=== PATIENT | female | born 1970 | race Caucasian/White ===

== ENCOUNTER → 2018-06-19 15:22 | Outpatient (REF) | payer MEDICAID, SELFPAY ==
[2018-06-22 15:17] LABS: Chlamydia Result Negative; GC Result Negative
== END ==
LOC: LBN 15:22
PROVIDERS: PCP Nurse Practitioner Family; Visit Provider Nurse Practitioner Family
DX: Z11.3 Encounter for screening for infections with a predominantly sexual mode of transmission (principal)
CPT/HCPCS: 87491; 87591

== ENCOUNTER 2018-07-17 15:38 | Outpatient (REF) | payer MEDICAID, SELFPAY ==
--- NOTE | 2018-07-17 15:20 | ENDOMET_PTH ---
PATIENT: Angeline Barnes LOC: [facility] U#:[id number] AGE/SX: 48/F ROOM: RE07/17/[address]: Irwin Singletary MD : 1970 BED: DIS: 07/17/2018 SPEC #: [id number] RECD: 07/17/18 16:26 STATUS: PHANI REJuan Daniel #: [id number] JAYLA: 07/17/18 15:[address]: Irwin Singletary DEPT: Surgical Specimen RECD BY: Farida Navarrete ENTERED: 07/17/18 16:27 SP TYPE: Endomet OTHR DR: India Escobar Tissues: 1 - ENDOMETRIUM BX/CURRETTE Procedures: GROSS AND MICRO LEVEL 4 Comments: [id number]
== END 2018-07-17 15:58 ==
LOC: LBN 15:38
PROVIDERS: PCP Nurse Practitioner Family; Visit Provider Obstetrics & Gynecology
DX: N85.8 Other specified noninflammatory disorders of uterus (principal); N92.0 Excessive and frequent menstruation with regular cycle
CPT/HCPCS: 88305

== ENCOUNTER 2018-08-05 07:36 | Day surgery (SDC) | payer MEDICAID, SELFPAY ==
[2018-08-05 07:56] VITALS: BP 133/86; PULSE 61; RESP 16; TEMP 36.9; O2SAT 98
[2018-08-05] MEDS: Lactated Ringers 1,000 ML 125 ML IV ×2 (08:30→12:00)
[2018-08-05] MEDS: Lidocaine 1% Pres-Free 5 ML VIAL 10 ML (10:37)
--- NOTE | 2018-08-05 10:40 | ENDOMET_PTH ---
PATIENT: Angeline Barnes LOC: [facility] U#:[id number] AGE/SX: 48/F ROOM: RE08/05/[address]: Irwin Singletary MD : 1970 BED: DIS: 08/05/2018 SPEC #: [id number] RECD: 08/05/18 13:00 STATUS: PHANI REJuan Daniel #: [id number] JAYLA: 08/05/18 10:[address]: Irwin Singletary DEPT: Surgical Specimen RECD BY: Farida Navarrete ENTERED: 08/05/18 13:01 SP TYPE: Endomet OTHR DR: India Escobar Tissues: 1 - ENDOMETRIUM BX/CURRETTE Procedures: GROSS AND MICRO LEVEL 4 Comments: [id number]
--- NOTE | 2018-08-05 11:52 | PDOC.DSDIS_ITS ---
Discharge Plan Disposition Patient Disposition: HOME Condition: Good Discharge Details Attending Provider: Irwin Singletary Primary Care Provider: India Escobar Home Meds and New Rx's Prescriptions: New hydrocodone-acetaminophen 5-325 mg Tablet 1 tab PO Q6H PRNQty: 15 RF: 0 Continue medroxyprogesterone [Provera] 10 MG tablet 10 mg PO DAILY Qty: 7 RF: 0 lisdexamfetamine [Vyvanse] 40 MG capsule 40 mg PO DAILY Qty: 30 RF: 0 acetaminophen 500 mg Tablet 500 - 1,000 mg PO PRN PRNRF: 0 Discontinued tranexamic acid 650 mg tablet 650 mg PO BID Qty: 10 RF: 0 Discharge Instructions Additional Instructions: Return to care for heavy vaginal bleeding, fever, abdominal pain or abnormal vaginal discharge. Referrals: Irwin Singletary MD [ NON-[facility] STAFF PHYSICIAN] - (2-3 weeks. ) DS: Diagnosis Discharge Diagnosis (1) Menometrorrhagia: Status: Acute
[2018-08-05 11:53] VITALS: BP 127/86; PULSE 68; RESP 17; TEMP 36.2; O2SAT 100
[2018-08-05 11:58] VITALS: BP 137/85; PULSE 67; RESP 20; TEMP 36.2; O2SAT 100
[2018-08-05 12:03] VITALS: BP 137/85; PULSE 67; RESP 20; TEMP 36.2; O2SAT 98
--- NOTE | 2018-08-05 12:09 | ROE_ITS ---
Operative Note DATE OF PROCEDURE: 08/05/18 PRE-OP DIAGNOSIS: Menometrorrhagia POST-OP DIAGNOSIS: same PROCEDURE: Hysteroscopy, D&C. Attempted Novasure endometrial ablation. Attempted HTA ablation SURGEON: Irwin Singletary EPIDEMIOLOGY INTERN: Indira Lopez ANESTHESIA: MAC ESTIMATED BLOOD LOSS: 50 PATHOLOGY: other (Endometrial curettings ) Findings: 1. Enlarge uterus with open cervix sounded to 12 cm 2. Cystocele and large enterocele present. 3. Hysteroscopic exam showed a thickened appearing endometrium. No distinct polyps, or submucosal fibroids noted. 4. Failed cavity test on attempted Novasure prohibiting procedure 5. Failed cavity test on attempted HTA prohibiting procedure. Procedure Description: The patient was taken to the operating room and initially placed under MAC but converted to LMA. The patient was placed in lithotomy position and prepped in the usual sterile manner. A weighted speculum was placed in the vagina with good visualization of the cervix. A single toothed tenaculum was placed on the anterior lip of the cervix which was noted to be dilated at least 1cm with protruding blood and clots. The 5mm 0 degree hysterscope was advanced without difficulty. The enometrial cavity was well visualized and noted to have a thickened appearing endometrium. A sharp curettage was performed and specimens were submitted to pathology. The uterus was sounded and a cavity lengthy of 7 cm was noted. The Novasure was advanced through the cervix without difficulty and cavity width was assessed at 4.6 cm. Upon test of the cavity, a seal could not be achieved and a system fault occurred and recurred upon reset of the system. A second single tooth tenaculum was placed on the posterior lip of the cervix in order to help develop a seal but the system fault recurred and the Novasure was abandoned. Dr. Indira Lopez was called to assist with the procedure and to attempt HTA. Again on multiple attempts an adequate seal could not be achieved due to cervical dilatation and this procedure was abandoned as well. The procedure was concluded at this point. All instrumentation was removed and the patient was transferred to PACU in stable condition.
[2018-08-05 12:18] VITALS: BP 132/89; PULSE 67; RESP 19; TEMP 36.2; O2SAT 98
[2018-08-05 13:05] VITALS: BP 135/86; PULSE 58; RESP 16; TEMP 36.9; O2SAT 98
== END 2018-08-05 15:04 | disposition home or self-care (01) ==
PROVIDERS: PCP Nurse Practitioner Family; Visit Provider Obstetrics & Gynecology
PROC: 0UDB8ZZ Extraction of Endometrium, Via Natural or Artificial Opening Endoscopic (ICD-10-PCS; CPT 58558; principal; 2018-08-05 09:00)
DX: N92.1 Excessive and frequent menstruation with irregular cycle (principal); N81.10 Cystocele, unspecified; N81.5 Vaginal enterocele; N85.2 Hypertrophy of uterus
CPT/HCPCS: 58558; 88305; J1100; J1885; J2250; J2405

== ENCOUNTER 2018-08-06 20:36 | Emergency (ER) | payer MEDICAID, SELFPAY ==
[2018-08-06] VITALS (18 sets, daily range): BP systolic 118–156; BP diastolic 65–102; PULSE 55–78; RESP 13–26; TEMP 36.8; O2SAT 99–100
[2018-08-06] MEDS: Normal Saline Flush 10 ML SYR IVP (20:56)
[2018-08-06] MEDS: Normal Saline 1,000 ML 1000 ML IV (20:56)
[2018-08-06 21:06] LABS: Abs Immature Grans 0.03 k/cumm (0.0-0.09); Absolute Basophil Count 0.04 k/cumm (0.0-0.2); Absolute Eosinophil Count 0.13 k/cumm (0.0-0.7); Absolute Lymphocyte Count 3.91 k/cumm (1.2-3.4); Absolute Monocyte Count 0.56 k/cumm (0.11-0.7); Absolute Neutrophil Count 6.44 k/cumm (1.2-6.7); Basophils % 0.4; Eosinophils % 1.2; HCT 32.8 % (36.0-46.0); HGB 10.7 g/dL (12.0-15.5); Immature Grans % 0.3; Lymphocytes % 35.2; Mean Corp. HGB Concentration 32.6 g/dL (32.0-36.0); Mean Corpuscular Hemoglobin 28.7 pg (27.0-33.0); Mean Corpuscular Volume 87.9 fL (80-95); Mean Platelet Volume 9.7 fL (8.0-11.0); Neutrophils % 57.9; Platelet Count 316 x1000/uL (130-400); RBC 3.73 m/cumm (4.00-5.20); RBC Distribution Width 13.6 % (11.7-14.6); White Blood Cell Count 11.12 k/cumm (4.4-10.8)
[2018-08-06 21:18] LABS: ALT 25 U/L (12-78); AST 16 U/L (15-37); Albumin 3.3 g/dL (3.4-5.0); Alkaline Phosphatase 63 U/L (46-116); Anion Gap 8.2 mmol/L (3-11); BUN 18 mg/dL (7-18); Bilirubin, Total 0.2 mg/dL (0.2-1.0); CO2 26.8 mmol/L (21.0-32.0); CREATININE 0.97 mg/dL (0.55-1.02); Calcium 8.2 mg/dL (8.5-10.1); Chloride 107 mmol/L (98-107); Glucose 96 mg/dL (70-100); Sodium 142 mmol/L (136-145)
[2018-08-06] MEDS: Ketorolac 30 MG/ML VIAL IVP (21:38)
[2018-08-06] MEDS: Ondansetron 4 MG/2 ML VIAL IVP (21:39)
[2018-08-06] MEDS: Tranexamic Acid 650 MG TAB 1300 MG PO (22:23)
--- NOTE | 2018-08-06 23:18 | W.ED.GENAD ---
Discharge Plan Disposition Patient Disposition: HOME Condition: Good Discharge Details Chief Complaint: HOMOEOPATH Clinical Impression: Menometrorrhagia Primary Care Provider: India Escobar ED Provider: Hi Hanson Home Meds and New Rx's Prescriptions: New ibuprofen [Motrin IB] 200 MG tablet 600 mg PO Q6H 5 Days Qty: 60 RF: 0 tranexamic acid 650 mg tablet 1,300 mg PO TID 5 Days Qty: 30 RF: 0 Discharge Instructions Instructions: Dysfunctional Uterine Bleeding (ED) Additional Instructions: Please take the ibuprofen and TXA as directed. Please follow-up with your obstetrics suture gauger tomorrow morning. Please drink 8-10 cups of water per day. If you notice any worsening of your symptoms, or any new symptoms such as vomiting, diarrhea, fever, chills, shortness of breath, chest pain, numbness, weakness, or fainting , please return immediately to the emergency department for reevaluation. Please follow up with your primary care provider as soon as possible for reassessment and reevaluation. As always, it was a pleasure participating in your medical care today. Referrals: Indira Lopez [ [facility] STAFF PHYSICIAN] - Medical Decision Making This is a 48-year-old female who presents today for vaginal bleeding. She has a history of dysmenorrhagia, and had an incomplete ablation yesterday, followed by D&C yesterday. Since then she has had continued vaginal bleeding. She has gone through roughly 8 pads per day. She did feel slightly lightheaded today, and came in for further evaluation. Here in the emergency department the patient showed no signs of significant pallor. Pulse was normal, no signs of tachycardia or hypotension. No signs of pale conjunctiva. She did have some vaginal bleeding but it was very mild. Laboratory workup demonstrates a slight drop in her hemoglobin from her normal levels. Current hemoglobin is 10.7 and normally she is around 12-13. She was given a liter of fluid, after this she felt much better. I did contact the obstetrics suture gauger reduction furnace operator Dr. Sharp, who was familiar with the patient's case. She recommends close follow-up tomorrow morning in the office, tranexamic acid, and NSAIDs. She recommended potential hysterectomy as this was already part of the plan as discussed with the other obstetrics suture gauger. I do feel that this is appropriate. On reevaluation the patient is feeling much better, she is able to stand without getting syncopal. We have given her Toradol and TXA here, and a prescription for high-dose ibuprofen and TXA for home use. We discussed red flags which to return and the importance of close follow-up and the patient understands. I have extensively reviewed the treatment plan and discharge instructions with the patient. I have addressed all patient concerns at this time. The patient was made aware of what symptoms to monitor for that would warrant a return to the emergency department. Discussed the plan with the patient, they demonstrate verbal understanding and agreement with our assessment and plan at this time. HPI General Date/Time Provider Initiated Documentation: 08/06/18 21:49. HPI Narrative: This is a very pleasant 48-year-old female who presents today for evaluation of dysmenorrhagia/vaginal bleeding. The patient has a history of dysfunctional uterine bleeding, yesterday she went to have a ablation, however they were unable to get a proper seal for her cervix since it was too dilated. And this failed. They tried a hot water ablation after this and this also failed secondary to improper seal. A D&C was attempted, the patient was eventually discharged. The procedure was performed by Dr. Singletary and Dr. Lopez the patient states that this since then she has had mild intermittent cramping, but relatively continuous vaginal bleeding. She is only gone through 8 pads so far today. She denies any huge clots. Any large gushes of blood. She states that today she did get slightly lightheaded, felt like she might pass out but had no syncopal episode. She came today for further evaluation of her vaginal bleeding. She denies any severe abdominal pain, she denies any vomiting or diarrhea. She denies any other recent pertinent surgical history. She denies any pertinent family history. She denies any IV or illicit drug use. She has no other complaints at this time. Of note in the past she has used tranexamic acid prior to this procedure for potential hemostasis but not help then. she has not used exogenous estrogen for treatment yet per her recollection Related Data Home Medications Medication Instructions Recorded Confirmed ibuprofen [Motrin Ib] 600 mg PO Q6H 5 Days #60 tab 08/06/18 tranexamic acid 1,300 mg PO TID 5 Days #30 tab 09/27/18 Previous Rx's Medication Instructions Recorded ibuprofen [Motrin Ib] 600 mg PO Q6H 5 Days #60 tab 08/06/18 tranexamic acid 1,300 mg PO TID 5 Days #30 tab 08/06/18 Allergies Allergy/AdvReac Type Severity Reaction Status Date / Time No Known Drug Allergies Allergy Unverified 08/06/18 20:43 General Stated Complaint: HOMOEOPATH ANISH: 2 Review of Systems Review of Systems 10 point review of systems was performed, pertinent positives and negatives are noted in the history of present illness. PFSH Family History Mother Chronic obstructive lung disease Father Diabetes Heart disease Medical History Menometrorrhagia (Acute) Dysplasia of cervix, low grade (SOCORRO 1) (Acute) HSV (herpes simplex virus) infection (Acute) Depression (Chronic) Obesity (Chronic) Biliary colic GALLSTONES Social History number of children: 4 Smoking/Tobacco Use Status: Current every day alcohol intake: current Surgical History H/O LEEP (Acute) Cholecystectomy GASTRIC BAND REMOVAL (~2006) GASTRIC BANDING Tubal Ligation, Laparoscopic Exam Narrative Exam Narrative: 1.Const: Well-nourished, Well-developed, appearing stated age 2.Eyes: PERRL, no conjunctival injection, and symmetrical lids. 3.ENT: Atraumatic external nose and ears. Moist MM. Neck: Symmetric, trachea midline, No thyromegaly. 4.CVS: +S1/S2, No murmurs or gallops. Peripheral pulses 2+ and equal in all extremities. Brisk capillary refill in all extremities. 5.RESP: Unlabored respiratory effort. Clear to auscultation bilaterally. No wheezes rales or rhonchi 6.GI: Soft, Nontender/Nondistended, No hepatosplenomegaly. No guarding or rebound. No pain on palpation of the pelvis. No pelvic tenderness. No gross vaginal. 7.MSK: Normocephalic/Atraumatic, Extremities w/o deformity or ttp No cyanosis or clubbing, Normal movement of all extremities 8.Skin: Warm, Dry. No rashes or lesions. No significant pallor 9.Neuro: facilities operations technician II-XII grossly intact. Sensation grossly intact, no focal neurologic deficits. 10.Psych: (AAO) x3. Appropriate mood and affect Course Vital Signs Temperature 36.8 C 08/06/18 20:41 Pulse 71 08/06/18 20:41 Respiratory Rate 14 09/27/18 20:41 Blood Pressure 156/102 H 08/06/18 20:41 Pulse Oximetry 100 08/06/18 20:41 Temperature 36.8 C 08/06/18 22:24 Pulse 56 L 08/06/18 22:24 Pulse 70 08/06/18 22:10 Respiratory Rate 15 08/06/18 22:24 Respiratory Effort 08/06/18 20:45 Blood Pressure 118/80 08/06/18 22:24 Blood Pressure Mean 89 08/06/18 22:16 Blood Pressure Position Supine 08/06/18 20:41 Pulse Oximetry 100 08/06/18 22:24 Oxygen Delivery Method Room Air 08/06/18 20:41 Oxygen Flow Rate 0 08/06/18 20:41 Pain Level 0 08/06/18 22:24 Lab/Test Results Lab/Test Results: Laboratory Tests Range/Units 08/06/18 08/06/18 08/06/18 20:45 20:45 20:45 WBC (4.4-10.8) k/cumm 11.12 H RBC (4.00-5.20) m/cumm 3.73 L Hgb (12.0-15.5) g/dL 10.7 L Hct (36.0-46.0) % 32.8 L MCV (80-95) fL 87.9 MCH (27.0-33.0) pg 28.7 MCHC (32.0-36.0) g/dL 32.6 RDW (11.7-14.6) % 13.6 Plt Count (130-400) x1000/uL 316 MPV (8.0-11.0) fL 9.7 Immature Gran % 0.3 Neutrophils % 57.9 Lymphocytes % 35.2 Monocytes % 5.0 Eosinophils % 1.2 Basophils % 0.4 Absolute Neutrophils (1.2-6.7) k/cumm 6.44 Absolute Lymphocytes (1.2-3.4) k/cumm 3.91 H Absolute Monocytes (0.11-0.7) k/cumm 0.56 Absolute Eosinophils (0.0-0.7) k/cumm 0.13 Absolute Basophils (0.0-0.2) k/cumm 0.04 Sodium (136-145) mmol/L 142 Potassium (3.5-5.1) mmol/L 4.0 Chloride (98-107) mmol/L 107 Carbon Dioxide (21.0-32.0) mmol/L 26.8 Anion Gap (3-11) mmol/L 8.2 BUN (7-18) mg/dL 18 Creatinine (0.55-1.02) mg/dL 0.97 Estimated GFR/1.73 m2 (mL/min/1.73m2) >= 60.00 Glucose (70-100) mg/dL 96 Calcium (8.5-10.1) mg/dL 8.2 L Total Bilirubin (0.2-1.0) mg/dL 0.2 AST (15-37) U/L 16 ALT (12-78) U/L 25 Alkaline Phosphatase (46-116) U/L 63 Total Protein (6.4-8.2) g/dL 7.0 Albumin (3.4-5.0) g/dL 3.3 L Patient ABO/Rh B Positive Antibody Screen Negative
--- NOTE | 2018-08-06 23:24 | ED.GENADUL_ITS ---
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 Please follow-up with your obstetrics gate operator tomorrow morning. Please drink 8-10 cups of water per day. If you notice any worsening of your symptoms, or any new symptoms such as vomiting, diarrhea, fever, chills, shortness of breath, chest pain, numbness, weakness, or fainting , please return immediately to the emergency department for reevaluation. Please follow up with your primary care provider as soon as possible for reassessment and reevaluation. As always, it was a pleasure participating in your medical care today. Referrals: Indira Lopez [ [facility] STAFF PHYSICIAN] - Medical Decision Making This is a 48-year-old female who presents today for vaginal bleeding. She has a history of dysmenorrhagia, and had an incomplete ablation yesterday , followed by D&C yesterday. Since then she has had continued vaginal bleeding. She has gone through roughly 8 pads per day. She did feel slightly lightheaded today, and came in for further evaluation. Here in the emergency department the patient showed no signs of significant pallor. Pulse was normal , no signs of tachycardia or hypotension. No signs of pale conjunctiva. She did have some vaginal bleeding but it was very mild. Laboratory workup demonstrates a slight drop in her hemoglobin from her normal levels. Current hemoglobin is 10.7 and normally she is around 12-13. She was given a liter of fluid, after this she felt much better. I did contact the obstetrics gate operator social organization professor Dr. Sharp, who was familiar with the patient's case. She recommends close follow-up tomorrow morning in the office, tranexamic acid, and NSAIDs. She recommended potential hysterectomy as this was already part of the plan as discussed with the other obstetrics gate operator. I do feel that this is appropriate. On reevaluation the patient is feeling much better, she is able to stand without getting syncopal. We have given her Toradol and TXA here, and a prescription for high-dose ibuprofen and TXA for home use. We discussed red flags which to return and the importance of close follow-up and the patient understands. I have extensively reviewed the treatment plan and discharge instructions with the patient. I have addressed all patient concerns at this time. The patient was made aware of what symptoms to monitor for that would warrant a return to the emergency department. Discussed the plan with the patient, they demonstrate verbal understanding and agreement with our assessment and plan at this time. HPI General Date/Time Provider Initiated Documentation: 08/06/18 21:49 . HPI Narrative: This is a very pleasant 48-year-old female who presents today for evaluation of dysmenorrhagia/vaginal bleeding. The patient has a history of dysfunctional uterine bleeding, yesterday she went to have a ablation, however they were unable to get a proper seal for her cervix since it was too dilated. And this failed. They tried a hot water ablation after this and this also failed secondary to improper seal. A D&C was attempted, the patient was eventually discharged. The procedure was performed by Dr. Singletary and Dr. Lopez the patient states that this since then she has had mild intermittent cramping, but relatively continuous vaginal bleeding. She is only gone through 8 pads so far today. She denies any huge clots. Any large gushes of blood. She states that today she did get slightly lightheaded, felt like she might pass out but had no syncopal episode. She came today for further evaluation of her vaginal bleeding. She denies any severe abdominal pain, she denies any vomiting or diarrhea. She denies any other recent pertinent surgical history. She denies any pertinent family history. She denies any IV or illicit drug use. She has no other complaints at this time. Of note in the past she has used tranexamic acid prior to this procedure for potential hemostasis but not help then. 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 PFSH Family History Mother Chronic obstructive lung disease Father Diabetes Heart disease Medical History Menometrorrhagia (Acute) Dysplasia of cervix, low grade (SOCORRO 1) (Acute) HSV (herpes simplex virus) infection (Acute) Depression (Chronic) Obesity (Chronic) Biliary colic GALLSTONES Social History number of children: 4 Smoking/Tobacco Use Status: Current every day alcohol intake: current Surgical History H/O LEEP (Acute) Cholecystectomy GASTRIC BAND REMOVAL (~2006) GASTRIC BANDING Tubal Ligation, Laparoscopic Exam Narrative Exam Narrative: 1.Const: Well-nourished, Well-developed, appearing stated age 2.Eyes: PERRL, no conjunctival injection, and symmetrical lids. 3.ENT: Atraumatic external nose and ears. Moist MM. Neck: Symmetric, trachea midline, No thyromegaly. 4.CVS: +S1/S2, No murmurs or gallops. Peripheral pulses 2+ and equal in all extremities. Brisk capillary refill in all extremities. 5.RESP: Unlabored respiratory effort. Clear to auscultation bilaterally. No wheezes rales or rhonchi 6.GI: Soft, Nontender/Nondistended, No hepatosplenomegaly. No guarding or rebound. No pain on palpation of the pelvis. No pelvic tenderness. No gross vaginal. 7.MSK: Normocephalic/Atraumatic, Extremities w/o deformity or ttp No cyanosis or clubbing, Normal movement of all extremities 8.Skin: Warm, Dry. No rashes or lesions. No significant pallor 9.Neuro: steam service inspector II-XII grossly intact. Sensation grossly intact, no focal neurologic deficits. 10.Psych: (AAO) x3. Appropriate mood and affect Course Vital Signs Temperature 36.8 C 08/06/18 20:41 Pulse 71 08/06/18 20:41 Respiratory Rate 14 09/27/18 20:41 Blood Pressure 156/102 H 08/06/18 20:41 Pulse Oximetry 100 08/06/18 20:41 Temperature 36.8 C 08/06/18 22:24 Pulse 56 L 08/06/18 22:24 Pulse 70 08/06/18 22:10 Respiratory Rate 15 08/06/18 22:24 Respiratory Effort 08/06/18 20:45 Blood Pressure 118/80 08/06/18 22:24 Blood Pressure Mean 89 08/06/18 22:16 Blood Pressure Position Supine 08/06/18 20:41 Pulse Oximetry 100 08/06/18 22:24 Oxygen Delivery Method Room Air 08/06/18 20:41 Oxygen Flow Rate 0 08/06/18 20:41 Pain Level 0 08/06/18 22:24 Lab/Test Results Lab/Test Results: Laboratory Tests Range/Units 08/06/18 08/06/18 08/06/18 20:45 20:45 20:45 WBC (4.4-10.8) k/cumm 11.12 H RBC (4.00-5.20) m/cumm 3.73 L Hgb (12.0-15.5) g/dL 10.7 L Hct (36.0-46.0) % 32.8 L MCV (80-95) fL 87.9 MCH (27.0-33.0) pg 28.7 MCHC (32.0-36.0) g/dL 32.6 RDW (11.7-14.6) % 13.6 Plt Count (130-400) x1000/uL 316 MPV (8.0-11.0) fL 9.7 Immature Gran % 0.3 Neutrophils % 57.9 Lymphocytes % 35.2 Monocytes % 5.0 Eosinophils % 1.2 Basophils % 0.4 Absolute Neutrophils (1.2-6.7) k/cumm 6.44 Absolute Lymphocytes (1.2-3.4) k/cumm 3.91 H Absolute Monocytes (0.11-0.7) k/cumm 0.56 Absolute Eosinophils (0.0-0.7) k/cumm 0.13 Absolute Basophils (0.0-0.2) k/cumm 0.04 Sodium (136-145) mmol/L 142 Potassium (3.5-5.1) mmol/L 4.0 Chloride (98-107) mmol/L 107 Carbon Dioxide (21.0-32.0) mmol/L 26.8 Anion Gap (3-11) mmol/L 8.2 BUN (7-18) mg/dL 18 Creatinine (0.55-1.02) mg/dL 0.97 Estimated GFR/1.73 m2 (mL/min/1.73m2) >= 60.00 Glucose (70-100) mg/dL 96 Calcium (8.5-10.1) mg/dL 8.2 L Total Bilirubin (0.2-1.0) mg/dL 0.2 AST (15-37) U/L 16 ALT (12-78) U/L 25 Alkaline Phosphatase (46-116) U/L 63 Total Protein (6.4-8.2) g/dL 7.0 Albumin (3.4-5.0) g/dL 3.3 L Patient ABO/Rh B Positive Antibody Screen Negative
--- NOTE | 2018-08-07 09:12 | PDOC.ERCMPRO ---
Care Management Progress Note 08/07/18-Pt seen on 08/06/18 for post op vaginal bleeding by Dr. Jareth Hanson. F/U request for today sent to [facility].
--- NOTE | 2018-08-07 12:27 | W.ED.FU ---
Angeline tried to get the Tranexamic Acid filled at [facility] today but they had none in stock and would not get any in until Friday. Our, [facility], pharmacy had six tabs in stock. Thank you Chase. [facility], [facility], [facility], and [facility] pharmacies and they had none in stock. I discussed with Dr. Sharp. Plan is to have Angeline take half dose or 650mg of the Tranexmic acid twice a day until Friday and Dr. Sharp will be cheese production supervisor for Angeline over the weekend. I called and spoke with Sudhir at [facility] and asked him to fill the script for Friday minus six tabs we are providing to her today from our pharmacy. I advised Angeline to page call Dr. Sharp tomorrow to let her know how she is doing.
--- NOTE | 2018-08-07 12:36 | ED.FU.B_ITS ---
Angeline tried to get the Tranexamic Acid filled at [facility] today but they had none in stock and would not get any in until Friday. Our, [facility], pharmacy had six tabs in stock. Thank you Chase. [facility], [facility], [facility] [place], and [facility] pharmacies and they had none in stock. I discussed with Dr. Sharp. Plan is to have Angeline take half dose or 650mg of the Tranexmic acid twice a day until Friday and Dr. Sharp will be airline operations agent for Angeline over the weekend. I called and spoke with Sudhir at [facility] and asked him to fill the script for Friday minus six tabs we are providing to her today from our pharmacy. I advised Angeline to page call Dr. Sharp tomorrow to let her know how she is doing.
== END 2018-08-06 22:30 | disposition home or self-care (01) ==
PROVIDERS: Emergency Provider Student in an Organized Health Care Education/Training Program; PCP Nurse Practitioner Family
DX: N92.1 Excessive and frequent menstruation with irregular cycle (principal); R42 Dizziness and giddiness; Y83.8 Other surgical procedures as the cause of abnormal reaction of the patient, or of later complication, without mention of misadventure at the time of the procedure
CPT/HCPCS: 36415; 80053; 86850; 86900; 86901; 96361; 96374; 96375; 99284; 85025; J1885; J2405

== ENCOUNTER → 2022-06-26 09:01 | Outpatient (CLI) | payer MEDICAID, SELFPAY ==
--- NOTE | 2022-06-26 | DI.US_ITS ---
Exam(s) US PELVIS TRANSVAGINAL EXAM: US PELVIS TRANSVAGINAL CLINICAL HISTORY: HX PELVIC MASS, ABD GROWTH, WORSENING PAIN TECHNIQUE: Ultrasound performed using standard protocol. COMPARISON: US PELVIS TRANSVAG from 03/04/2018 FINDINGS: Pelvic ultrasound was performed transabdominally and transvaginally. The ovaries were nonvisualized. Uterus is enlarged measuring 13.5 x 11.4 x 12.5 cm. There is a uterine mass which obscures the endom etrium measuring up to about 11.3 cm in diameter. This may represent uterine fibroid, prior examinat ion of February 2018 showed an approximately 3 cm in diameter uterine fibroid. The marked interval grow th of the fibroid would be somewhat worrisome for malignant degeneration, alternatively the mass coul d represent an endometrial mass as the endometrium is not clearly visualized. No free fluid in the cul-de-sac. Limited scanning of the kidneys is unremarkable. IMPRESSION: Very large uterine mass with marked interval growth. Fibroid versus malignant degeneration of fibroi d or other mass. Further evaluation with biopsy or pelvic MRI is recommended. DATA REPOSITORY:
--- OUTSIDE RECORDS SUMMARY | 2022-06-26 09:14 | XMS_ITS | Encounter Summary ---
:1970 Author Organization [facility] [place] [address] Care Team Providers Name Role Phone India Escobar ANTOINETTE Primary Care Provider Encounter Details Date Type Department Care Team Description 03/17/2018 Telephone General Surgery at [facility] [place] [address] Social History Tobacco Use Types Packs/Day Years Used Date Never Smoker Smokeless Tobacco: Never Used Alcohol Use Standard Drinks/Week Comments Yes 0 (1 standard drink = 0.6 oz pure alcoho l) Sex Assigned at Date Recorded Not on file documented as of this encounter Miscellaneous Notes Telephone Encounter - Sara Servin - 03/17/2018 9:06 AM EDT Spoke on the phone with Angeline to explain the outcome of her [id number] last night. [place] Medicaid has denied her bariatric surgery on 03/27/18 and will want the following before reconsideration: 1. Three consecutive months of dietary counseling with documentation of exercise 2. A follow up visit with Dr. Thompson in 3 months to assess binge eating and previous vivace use The patient understands that we will be canceling her surgery on 03/27/18 and she is going to look into her options. Angeline thinks that her insurance may change in the next three months, so she is going to see if she can get health insurance through her employer sooner rather than later. I encouraged Angeline to give us a call when she knows more documented in this encounter Plan of Treatment Not on filedocumented as of this encounter Visit Diagnoses Not on filedocumented in this encounter Care Teams Sheet Metal Erector Relationship Specialty Start Date End Date India Escobar, BAKER BENCH PCP - General Family Medicine 10/06/17 [address] [place] [address] documented as of this encounter
--- OUTSIDE RECORDS SUMMARY | 2022-06-26 09:14 | XMS_ITS | Encounter Summary ---
:1970 Author Organization [facility] [place] [address] Care Team Providers Name Role Phone India Escobar APRN Primary Care Provider Encounter Details Date Type Department Care Team Description 02/10/2018 Telephone General Surgery at [facility] [place] [address] Social History Tobacco Use Types Packs/Day Years Used Date Never Smoker Smokeless Tobacco: Never Used Alcohol Use Standard Drinks/Week Comments Yes 0 (1 standard drink = 0.6 oz pure alcoho l) Sex Assigned at Date Recorded Not on file documented as of this encounter Miscellaneous Notes Telephone Encounter - Sara Servin - 02/10/2018 9:24 AM EDT LMOM for Ms. Barnes to return her call. I asked her to give me a call back to check in. documented in this encounter Plan of Treatment Not on filedocumented as of this encounter Visit Diagnoses Not on filedocumented in this encounter Care Teams Machine Icer Relationship Specialty Start Date End Date India Escobar, ANTOINETTE PCP - General Family Medicine 10/06/17 [address] [place] [address] documented as of this encounter
--- OUTSIDE RECORDS SUMMARY | 2022-06-26 09:14 | XMS_ITS | Encounter Summary ---
:1970 Author Organization [facility] [place] [address] Care Team Providers Name Role Phone India Escobar APRN Primary Care Provider Reason for Visit Reason Comments Advice Only chin lift consult Encounter Details Date Type Department Care Team Description 12/22/2017 Office Visit [place] Surgery at [facility] [place] [facility] [place], unspecified [facility] [address] [place], [place] PLASTIC SURGERY [address] [place] [address] [phone] Social History Tobacco Use Types Packs/Day Years Used Date Never Smoker Smokeless Tobacco: Never Used Alcohol Use Standard Drinks/Week Comments Yes 0 (1 standard drink = 0.6 oz pure alcoho l) Sex Assigned at Date Recorded Not on file documented as of this encounter Last Filed Vital Signs Vital Sign Reading Time Taken Comments Blood Pressure - - Pulse - - Temperature - - Respiratory Rate - - Oxygen Saturation - - Inhaled Oxygen Concentration - - Weight 122 kg (269 lb) 12/22/2017 2:49 PM EST per pt Height 172.7 cm (5' 8) 12/22/2017 2:49 PM EST per pt Body Mass Index 40.9 12/22/2017 2:49 PM EST documented in this encounter Progress Notes Aubrey Noble MD - 12/22/2017 2:30 PM EST Plastic Surgery Office Note Office Visit Follow Up HPI: Angeline Barnes returns to clinic today to re-discuss having a chin lift/face lift. She reports that he has lost a lot of weight and would like to have the excess skin removed from her chin. She currently weighs 260 pounds. She reports that she does not have blood pressure, she is not a smoker or a diabetic. She will continue to loose additional weight in hopes of proceeding with a face lift. Exam: Good facial symmetry Normal sensation in face Impression: Angeline See Molly returns today to discuss proceeding with a face lift and liposuction. Encouraged patient to continue to loose more weight to lower her BMI. She would be a good candidatefor a face lift and liposuction. Revisit surgical intervention at a later date. Plan: Follow up with Dr. Noble in 3 months to discuss face lift and liposuction once BMI is lower Continue to loose weight I, Angeline Leblanc, am acting as scribe for Dr. Noble. All work documented was performed by Dr. Noble. ???I performed the above scribed service and agree with the accuracy of the note?? AUBREY NOBLE MD documented in this encounter Plan of Treatment Not on filedocumented as of this encounter Visit Diagnoses Diagnosis Carpal tunnel syndrome, unspecified late rality documented in this encounter Care Teams Vp Data Relationship Specialty Start Date End Date India Escobar APRN PCP - General Family Medicine 10/06/17 [address] [place] [address] documented as of this encounter
--- OUTSIDE RECORDS SUMMARY | 2022-06-26 09:14 | XMS_ITS | Encounter Summary ---
:1970 Author Organization [facility] [place] [address] Care Team Providers Name Role Phone India Escobar ANTOINETTE Primary Care Provider Reason for Visit Reason Onset Date Comments Other 01/05/2018 Encounter Details Date Type Department Care Team Description 01/05/2018 Telephone General Surgery at [facility] Nadine Marte APRN Other [facility] [place] [address] GENERAL SURGERY [phone] [place], [place] [address] (Wo rk) Social History Tobacco Use Types Packs/Day Years Used Date Never Smoker Smokeless Tobacco: Never Used Alcohol Use Standard Drinks/Week Comments Yes 0 (1 standard drink = 0.6 oz pure alcoho l) Sex Assigned at Date Recorded Not on file documented as of this encounter Miscellaneous Notes Telephone Encounter - Nadine Marte - 01/05/2018 3:21 PM EST Bariatric Surgery Program Angeline returned my call from 2 weeks ago regarding her sleep apnea questionnaire. She clarified that her current BMI was 40, not 48 as previously documented. 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 Plan: she was advised that she did not need a sleep evaluation. She asked about her next steps in the program, and was advised that one of our staff would contact her to discuss further. documented in this encounter Plan of Treatment Not on filedocumented as of this encounter Visit Diagnoses Not on filedocumented in this encounter Care Teams Comfort Filler Relationship Specialty Start Date End Date India Escobar, SHELLFISH SORTER PCP - General Family Medicine 10/06/17 [address] [place] [address] documented as of this encounter
--- OUTSIDE RECORDS SUMMARY | 2022-06-26 09:14 | XMS_ITS | Clinical Summary ---
:1970 Author Organization [facility] [place] [address] Care Team Providers Name Role Phone India Escobar ANTOINETTE Primary Care Provider Allergies Active Allergy Reactions Severity Noted Date Comments Cat/Feline Products House Dust Medications Medication Sig Dispensed Refills Start Date End Date Status ferrous gluconate 324 mg Take 324 mg by 0 Active (37.5 mg iron) mouth daily. TabletIndications: Indications: reported reported lisdexamfetamine Take by mouth. 0 Active (VYVANSE) 40 mg Capsule Active Problems Problem Noted Date Morbid obesity 02/25/2018 Vitamin D deficiency 02/20/2018 Healthcare maintenance 02/19/2018 Overview: Pap 12/27/17 negative for intraepithelial lesion or malignancy, negative GC, chlamydia Menorrhagia 02/19/2018 H/O laparoscopic adjustable gastric banding 01/25/2018 Morbid obesity with BMI of 40.0-44.9, adult 01/14/2018 Overview: Bariatric Surgery Program - Attended Introduction to the [facility] Bar iatric Surgery Program seminar, a comprehensive two hour meeting that provides a program overview, education on bariatric surgeries offered at [facility], risks and ronnie efits, as well as patient expectations a nd follow up: 04/11/17 [facility] Educational seminars viewed: 12/30/27 Grades on post-testin% and 70% x 2 (needs to retake) The [facility] Educational Handbook is provided at preoperative visit #1. - Pre-operative programmatic evaluations required: PCP evaluation and letter of support to proceed with surgery, labwork and psychological evaluation - Bariatric Surgery Program evaluations: Not scheduled - Weight history: 260# on 06/20/03, 221# on 08/02/05, 246# on 10/21/14, 254# on 05/22/15, 219# on 03/26/16, 280# on 04/09/17, 262# on 01/07/18 - Gallbladder status: - Insurer specific requirements: - [facility] Team meeting discussion: Patient insight into causes of obesity: Onset age 9, attributes weight gain to inactivity and over consumption. 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 Depression 02/22/2015 Varicose vein 02/22/2015 Overview: LLE stab phlebectomy 05/22/15 Pannus, abdominal 10/21/2014 Acne rosacea, erythematous telangiectatic type 014 Family History Medical History Relation Comments Alcohol Use Disorder Father Relation Status Comments Father Social History Tobacco Use Types Packs/Day Years Used Date Never Smoker Smokeless Tobacco: Never Used Tobacco Cessation: Ready to Quit: No Alcohol Use Standard Drinks/Week Comments Yes 0 (1 standard drink = 0.6 oz pure alcoho l) Sex Assigned at Date Recorded Not on file Last Filed Vital Signs Vital Sign Reading Time Taken Comments Blood Pressure 137/94 02/19/2018 12:38 PM EDT Pulse 84 02/19/2018 12:38 PM EDT Temperature 36.6 ??C (97.9 ??F) 02/19/2018 12:38 PM EDT Respiratory Rate 20 02/19/2018 12:38 PM EDT Oxygen Saturation 100% 02/19/2018 12:38 PM EDT Inhaled Oxygen Concentration - - Weight 122.4 kg (269 lb 12.8 oz) 05/12/2018 12:57 PM EDT Height 171.5 cm (5' 7.5) 05/12/2018 12:57 PM EDT Body Mass Index 41.63 05/12/2018 12:57 PM EDT Plan of Treatment Health Maintenance Due Date Last Done Comments Covid-19 Vaccine (#1) 02/20/1977 HIV screen 02/20/1990 Hepatitis C Screening 02/20/1990 Tdap adult 02/20/1991 Tetanus vaccine 02/20/1991 HPV test 02/20/2002 PAP Smear 02/20/2002 Breast Cancer Share Decision Needed 2012 Colonoscopy 02/20/2017 Breast Cancer screening 02/20/2022 Zoster vaccine (1 of 2) 02/20/2022 Influenza (Flu) vaccine (1 of 1 - Influenza standard 07/11/2022 series) Insurance Payer Benefit Plan / Subscriber ID Effective Dates Phone Addre ss Type [place] [id number] 2018-Lizette [phone] [address] [facility] [address] [place], [place] [phone] Advance Directives Latest Code Status on File Code Status Date Activated Date Inactivated Comments Full Code 05/22/2015 2:36 PM 05/22/2015 7:01 PM Does patient have decision making capacity? Yes, order is based on Patient wishes. Care Teams Retail Support Specialist Relationship Specialty Start Date End Date India Escobar, INFORMATICS APPLICATION ANALYST PCP - General Family Medicine 10/06/17 [address] [place], [place] [address]
--- OUTSIDE RECORDS SUMMARY | 2022-06-26 09:14 | XMS_ITS | Encounter Summary ---
:1970 Author Organization [facility] Address [address] [place] [address] Care Team Providers Name Role Phone Pipe Unger ND Primary Care Provider Reason for Visit Reason Comments Follow-up finalize neck and abominal s urgery Encounter Details Date Type Department Care Team Description 03/26/2016 Office Visit Plastic Surgery at Melvin Lam, [place], unspecified [facility] obesity severity, [facility] uns pecified obesity [address] [place], [place] P[place] SURGERY [address] [place] [address] [phone] Social History Tobacco Use Types Packs/Day Years [...] - Inhaled Oxygen Concentration - - Weight 99.3 kg (219 lb) 03/26/2016 1:14 PM EDT Height 172.7 cm (5' 8) 03/26/2016 1:14 PM EDT Body Mass Index 33.3 03/26/2016 1:14 PM EDT documented in this encounter Patient Instructions Patient InstructionsVoight-Radha Chairez RMA - 03/26/2016 1:29 PM EDT Written and verbal preoperative instructions were given at this visit. Please review the written information prior to your procedure and contact us with any questions. Feel free to call our office at if you have any questions or concerns. We monitor the phones from 8-5 Friday - Friday.You were given written and verbal preoperative instructions today. To prepare for your upcoming surgery, please review the Pre-Operative Instruction brochure that was given to you. Remember to do the pre op wash, with Hibiclens soap, as instructed. You will need a driver helper. Expect a call from the nurses from the Same Day Dept. the business day before the surgery to instruct you in the time to arrive as well as when to stop eating and drinking. Feel free to call our office @ [phone] if you have any questions or concerns. We monitor the phonesfrom 8-5 Friday through Friday. Stop smoking package given. documented in this encounter Progress Notes Aubrey Bryant MD - 04/01/2016 1:53 PM EDT I supervised the care of this patient and agree with the plan. Radha Cho RMA - 03/26/2016 1:28 PM EDT Pre-Op Teaching for Surgery Surgery: Yara Written and verbal pre-operative instructions were given and reviewed with patient: Patient was advised to discontinue use of NSAIDS and aspirin products (unless otherwise advised by patient's PCP/Retail Brand Ambassador for cardiac symptoms), fish oil, Vitamin E and herbal supplements for 14 days prior to surgery, to perform the pre-op scrub, and to coordinate a ride home following surgery. Smoking status and medications were further reviewed to rule out/address current use of Nicotine, Coumadin, Plavix, Estrogen or Tamoxifen. Patient was told to stop smoking and a nicotine test would be done day of surgery. Photos were taken Patient was instructed to call the clinic at with any questions or concerns prior to surgery. Melvin Lam MD - 03/26/2016 1:06 PM EDT Plastic Surgery Resident Follow Up Note: Subjective: She returns to re discuss a neck lift. She has been working on exercising and may also interested in a possible panniculectomy. She feels she has reached her goal, stable weight. She experiences chronic rashes underneath her abdomen, worse during the summer. She experiences open sores underneath her skin which are very painful. She has had infections treated by her PCP. She feels she cannot exercise as much as she would like related to this. She has been prescribed antibiotic cream from her PCP in the past. Examination: Body mass index is 33.3 kg/(m^2). General: On my examination today, normal appears to be in good health. Her emotional outlook is positive and she asked appropriate questions throughout the visit. Resp: Regular rate, no tachypnea, no stridor, no wheezing Extrem: wwp, no c/e/e, no rashes Skin: without lesions. Specifically, there is no dimpling or peau d'orange changes. Facial: Obtuse cervicomental angle with redundant skin anteriorly and fullness with significant subcutaneous tissues Transverse forehead rhytids Abdomen: : Grade 2: Panniculus extends to cover the genitalia Impression: Angeline Barnes is a 44 year old female seen today in follow up. I focused the discussion on the surgical procedures, she has a preference to address the jowling of her lower face and symptomatic abdominal pannus. We discussed surgical technique utilized for neck lift and panniculectomy.She would prefer to proceed with panniculectomy first, then address her lower face at a different date. She is aware that any neck lift would be a cosmetic procedure. She is a suitable candidate for panniculectomy which would likely correct her physical symptomatology. We talked about the scars and risks from panniculectomy. She is aware that infection, delayed wound healing, seroma and numbness are possibilities. She has been provided with the [facility] patient informat ion brochure, as well as their standard informed consent documents on both abdominoplasty, and panniculectomy. She has expressed a desire to proceed with surgical correction. I feel strongly that she will gain significant symptom relief and avoid further intertrigo following surgery. We have obtained photographs today. Insurance Guidelines [X ] Pannus grade 2 or higher [X ] Rashes; prescribed and documented treatment for any rashes that don???t respond to 3 - 6 monthsof treatment. [ ] If the weight has been lost due to gastric bypass, it must be 18 months s/p bariatric surgery [x ] Patient must be at goal weight and stable 6 months Based on this, we will request insurance pre-determination . I will communicate my recommendations to PIPE UNGER ND Surgical Grid: Surgeon: Manny Duration: 2 hours Timeframe: Elective Coordinated with: None Procedure: Panniculectomy CPT: 36090 Surgical site: Abdomen Side: N/a Anesthesia: General Follow up: 7 days PAT: No Plan: Schedule for panniculectomy I, Fior Dang, am acting as scribe for Dr. Lam. All work documented was performed by Dr. Lam. ???I performed the above scribed service and agree with the accuracy of the note?? MELVIN LAM MD. documented in this encounter Plan of Treatment Not on filedocumented as of this encounter Visit Diagnoses Diagnosis Obesity, unspecified obesity severity, u nspecified obesity type documented in this encounter Care Teams Agency Trainer Relationship Specialty Start Date End Date Pipe Unger ND PCP - General 07/19/14 10/05/17 [facility] [address] [place] [address] documented as of this encounter
--- OUTSIDE RECORDS SUMMARY | 2022-06-26 09:14 | XMS_ITS | Encounter Summary ---
:1970 Author Organization [facility] [place] [address] Care Team Providers Name Role Phone India Escobar APRN Primary Care Provider Encounter Details Date Type Department Care Team Description 02/19/2018 Notes Only General Surgery at [facility] [place] [address] Social History Tobacco Use Types Packs/Day Years Used Date Never Smoker Smokeless Tobacco: Never Used Alcohol Use Standard Drinks/Week Comments Yes 0 (1 standard drink = 0.6 oz pure alcoho l) Sex Assigned at Date Recorded Not on file documented as of this encounter Progress Notes Sara Servin - 02/19/2018 8:37 AM EDT This patient is scheduled for an SMA in the bariatric surgery program on 02/19/18. Here are the listsof what items were asked for/needed following the patient's NPW: ? Dr. Jeronimo's List: - Labs (ordered, pt to do on 02/19/18) ? Klarissa's List: - None ? Program/Insurance List: - Quizzes (Done, scanned with chart) - Pap smear (called medical records 02/19 and they will fax it, I will scan it as soon as it comes in) - H. Pylori (called medical records 02/19 and they will fax it, I will scan it as soon as it comes in) ? This patient has signed the consents for surgery and this is scanned into his??electronic medical record. Her chart was scanned on 02/19/18. Of Note: Angeline's BMI fell below 40 at her NPW and she does not have any weight related comorbidities. Patient is aware that this may cause problems with her insurance authorization. Sara Servin - 02/19/2018 8:37 AM EDT Pap smear and h. Pylori labs received and scanned into patient's chart. documented in this encounter Plan of Treatment Not on filedocumented as of this encounter Visit Diagnoses Not on filedocumented in this encounter Care Teams Prepared Foods Service Team Member Relationship Specialty Start Date End Date India Esocbar, TIE MAKER PCP - General Family Medicine 10/06/17 [address] [place] [address] documented as of this encounter
--- OUTSIDE RECORDS SUMMARY | 2022-06-26 09:14 | XMS_ITS | Encounter Summary ---
:1970 Author Organization [facility] [place] [address] Care Team Providers Name Role Phone India Escobar APRN Primary Care Provider Encounter Details Date Type Department Care Team Description 02/19/2018 Laboratory Appointment Lab 3L [facility] [place] Morbid obesity with [facility] BMI of 40.0-44.9, [facility] [place] [id number] Social History Tobacco Use Types Packs/Day Years Used Date Never Smoker Smokeless Tobacco: Never Used Alcohol Use Standard Drinks/Week Comments Yes 0 (1 standard drink = 0.6 oz pure alcoho l) Sex Assigned at Date Recorded Not on file documented as of this encounter Plan of Treatment Not on filedocumented as of this encounter Procedures Procedure Name Priority Date/Time Associated Comments Diagnosis CMP W/FASTING Routine 02/19/2018 3:51 PM Morbid obesity with R esults for this GLUCOSE EDT BMI of 40.0-44.9, procedure are in adult the results section. HEMOGRAM Routine 02/19/2018 3:51 PM Morbid obesity with Re sults for this EDT BMI of 40.0-44.9, procedure are in adult the results section. IRON AND TIBC Routine 02/19/2018 3:51 PM Morbid obesity with R esults for this EDT BMI of 40.0-44.9, procedure are in adult the results section. VITAMIN D, Routine 02/19/2018 3:51 PM Morbid obesity with Re sults for this 25-HYDROXY EDT BMI of 40.0-44.9, procedure are in adult the results section. TSH Routine 02/19/2018 3:51 PM Morbid obesity with Re sults for this EDT BMI of 40.0-44.9, procedure are in adult the results section. HEMOGLOBIN A1C Routine 02/19/2018 3:51 PM Morbid obesity with Results for this EDT BMI of 40.0-44.9, procedure are in adult the results section. FERRITIN Routine 02/19/2018 3:51 PM Morbid obesity with Re sults for this EDT BMI of 40.0-44.9, procedure are in adult the results section. VITAMIN B12 Routine 02/19/2018 3:51 PM Morbid obesity with Re sults for this EDT BMI of 40.0-44.9, procedure are in adult the results section. LIPID PANEL (REFLEX Routine 02/19/2018 3:51 PM Morbid obesity with Results for this DIRECT LDL) EDT BMI of 40.0-44.9, procedure are in adult the results section. documented in this encounter Results TSH (02/19/2018 3:51 PM EDT) athologist Signature TSH 1.04 0.27 - 4.20 [facility] mlU/ML [facility] Specimen Anatomical Collection Method Collection Time Receive d Time (Source) Location / / Volume Laterality Blood specimen 02/19/2018 3:51 PM 018 4:04 (specimen) EDT PM EDT Resulting Agency Comment Spec In Lab Ban Jeronimo MD CHEMISTRY ORDERABLES Performing Organization Address City/State/[place] [address] (ABNORMAL) Vitamin D, 25-Hydroxy (02/19/2018 3:51 PM EDT) athologist Signature 25-OH Vit D 23 (L) 30 - 100 [facility] Total ng/mL [facility] Comment: Deficient <10 ng/mL Insufficient 10 to 29 ng/mL Sufficient 30 to 100 ng/mL Potential Intoxication >100 ng/mL According to the [place] National Osteoporosi s Foundation, Vitamin D concentrations >30 ng/mL are sufficient to protect bone health. ??The National Kidney Foundation has similarly stated that pat ients with Vitamin D concentrations <30ng/mL should be considered to be insu fficient or deficient. http://[employer].Shnergle/nkf-guidelines http://[employer].com/nejm-VitD The [employer] Vitamin D Immunoassay detec ts both 25-OH Vitamin D2 and 25-OH Vitamin D3, but only a total Vitamin D c oncentration is reported. Specimen Anatomical Collection Method Collection Time Receive d Time (Source) Location / / Volume Laterality Blood specimen 02/19/2018 3:51 PM 018 6:29 (specimen) EDT AM EDT Resulting Agency Comment Spec In Lab Ban Jeronimo MD CHEMISTRY ORDERABLES Performing Organization Address City/[facility]/[place] [address] Vitamin B12 (02/19/2018 3:51 PM EDT) athologist Signature Vitamin B-12 433 232 - 1,245 [facility] pg/mL [facility] Comment: Please note: Effective 10/08/2017, the r eference interval and the lower limit of detection for Vitamin B12 have been u pdated due to a new reagent formulation. Specimen Anatomical Collection Method Collection Time Receive d Time (Source) Location / / Volume Laterality Blood specimen 02/19/2018 3:51 PM 018 4:04 (specimen) EDT PM EDT Resulting Agency Comment Spec In Lab Ban Jeronimo MD CHEMISTRY ORDERABLES Performing Organization Address [facility] [place] [address] Ferritin (02/19/2018 3:51 PM EDT) athologist Signature Ferritin 38 15 - 150 [place] ng/mL [facility] Comment: Pediatric reference ranges not verified at [facility], interpret with caution. Reference ranges for females greater jose n 50 years of age approach values for men, i.e., 30-400 ng/mL. Specimen Anatomical Collection Method Collection Time Receive d Time (Source) Location / / Volume Laterality Blood specimen 02/19/2018 3:51 PM 018 4:04 (specimen) EDT PM EDT Resulting Agency Comment Spec In Lab Ban Jeronimo MD CHEMISTRY ORDERABLES Performing Organization Address City/[facility]/ZIP [facility] [place] [address] (ABNORMAL) Iron and TIBC (02/19/2018 3:51 PM EDT) Analysis Performed At Patho logist Time Signature Iron 154 (H) 30 - 150 [facility] TIBC 328 250 - 450 [facility] Iron Saturation 47 20 - 50 % [facility] Specimen Anatomical Collection Method Collection Time Receive d Time (Source) Location / / Volume Laterality Blood specimen 02/19/2018 3:51 PM 018 4:04 (specimen) EDT PM EDT Resulting Agency Comment Spec In Lab Ban Jeronimo MD CHEMISTRY ORDERABLES Performing Organization Address City/State/[place] [address] Hemoglobin A1c (02/19/2018 3:51 PM EDT) P athologist Signature Hemoglobin A1C 5.3 4.3 - 5.6 [facility] Comment: Reference Range: 4.3 - 5.6% 5.7 - 6.4% - Increased Risk of Developin g Diabetes Mellitus >=6.5% - Consistent with diagnosis of Di abetes Mellitus In the absence of hyperglycemia (i.e. pl asma glucose > 200 mg/dL) or classic symptoms of hyperglycemia a repeat measu rement of HbA1c should be performed on a separate sample to confirm the diagnos is. Diagnosis and Classification of Diabetes Mellitus, Diabetes Care 2013; 36: Suppl. 1, S67-74 Est Avg Gluc 105 mg/dL [facility] Comment: eAG equivalents for HbA1c percentages: HbA1c(%) ?eAG(mg/dL) 6.0 ?126 6.5 ?140 7.0 ?154 7.5 ?169 8.0 ?183 8.5 ?197 9.0 ?212 9.5 ?226 10.0 ? 240 Limitations: The eAG calculation has not been validated on women, individuals below 18 years old and above 70 years old, and individuals with hemoglobinopathies. Additional resources are available on [facility] website. Leonardo BARONE, Anne J, Marina R, et al. ??Tr anslating the A1C assay into estimated average glucose values. ??Diabetes Care 2008:31(8):4431-5207. Specimen Anatomical Collection Method Collection Time Receive d Time (Source) Location / / Volume Laterality Blood specimen 02/19/2018 3:51 PM 018 4:04 (specimen) EDT PM EDT Resulting Agency Comment Spec In Lab Ban Jeronimo MD CHEMISTRY ORDERABLES Performing Organization Address City/State/[place] [address] Lipid Panel (02/19/2018 3:51 PM EDT) P athologist Signature Chol, Total 174 mg/dL [facility] Comment: Lower Risk: <200 mg/dL Average Risk: 200-239 mg/dL Higher Risk: >ss=563 mg/dL Triglycerides 122 mg/dL [facility] Comment: Average Risk/Lower Risk: <150 mg/dL Borderline High Risk: 150-199 mg/dL High Risk: 200-499 mg/dL Very High Risk: >vj=504 mg/dL HDL 44 mg/dL [facility] Comment: Males: ?? Higher Risk: <40 mg/dL Females: ?? HIgher Risk: <50 mg/dL LDL Cholesterol 106 mg/dL [facility] Comment: Lowest Risk: <100 mg/dL Lower Risk: 100-129 mg/dL Borderline High Risk: 130-159 mg/dL High Risk: 160-189 mg/dL Very High Risk: >wc=179 mg/dL Chol/HDL Ratio 4.0 ratio [facility] Lipid Interpretation See Note [facility] Comment: Lipid management should be guided by a p atient? s ASCVD risk, goals and preferences. ACC/AHA Guidelines recommend high intens ity statin if clinical ASCVD or LDL greater than or equal to 190 mg/dL. http://[employer].com/ZAG-YTB-Qlnoxhhrj Adults aged 40-75 with LDL 70-189 mg/dL should have their 10 year ASCVD risk estimated with the ACC/AHA ASCVD risk es timator http://tools.acc.org/JBUSY-Ihhk-Hifqvcos r/ Statin should be discussed if risk great er than or equal to 7.5% in non-diabetics. With diabetes, moderate i ntensity statin is recommended if risk less than 7.5%, high intensity if risk g reater than or equal to 7.5%. Annual lipid monitoring on statins is no t necessary. Evaluate secondary causes of Triglycerid es greater than 500 mg/dL or LDL greater than 190 mg/dL: See table 6 of A CC/AHA Guideline. Lifestyle modification is a critical com ponent of ASCVD risk reduction. Specimen Anatomical Collection Method Collection Time Receive d Time (Source) Location / / Volume Laterality Blood specimen 02/19/2018 3:51 PM 018 4:04 (specimen) EDT PM EDT Resulting Agency Comment Spec In Lab Ban Jeronimo MD CHEMISTRY ORDERABLES Performing Organization Address City/State/[place] [address] (ABNORMAL) CMP w/fasting Glucose (02/19/2018 3:51 PM EDT) athologist Signature Glucose 86 65 - 99 [facility] Fasting mg/dL [facility] Comment: ?Fasting* Glucose Interpretive C riteria Normal ?65-99 mg/dL Impaired Fasting glucose ?100-125 mg/dL Consistent with Diabetes Mellitus ? >or= 126 mg/dL *Fasting is defined as no caloric intake for at least 8 hours In the absence of unequivocal hypergly cemia a plasma glucose value of >or= 126 mg/dL should be repeated on a subseq uent day. Diagnosis and Classification of Diabetes Mellitus, Position Statement from the [employer]. ??Diabete s Care, Volume 33, Supplement 1, Nov 2009 BUN 14 8 - 18 mg/dL [facility] Creatinine 0.84 0.70 - 1.20 mg/dL [facility] Sodium 140 135 - 145 mmol/L [facility] Potassium 4.2 3.5 - 5.0 mmol/L [facility] Comment: Please note: ??Patients with WBC >100,00 0 may have falsely elevated Potassium levels. ??For accurate Potassium quantif ication in these patients send serum separator tube (gold top) for subsequent determinations. ??Contact the Clinical Chemistry Laboratory if there are any qu estions. Chloride 97 (L) 98 - 107 mmol/L [facility] CO2 26 22 - 31 mmol/L [facility] Anion Gap 17 (H) 5 - 15 mmol/L [facility] Calcium 10.2 8.5 - 10.5 mg/dL [facility] Total Protein 7.6 6.1 - 8.0 gm/dL [facility] Albumin 4.3 3.2 - 5.2 gm/dL [facility] AST 15 0 - 30 unit/L [facility] ALT 18 0 - 30 unit/L [facility] Alk Phos 71 40 - 104 unit/L [facility] Total Bilirubin 0.3 0.2 - 1.3 mg/dL [facility] Estimated GFR >60 >=60 [facility] Comment: The reported eGFR should be multiplied b y 1.2 for patients. The MDRD is not an appropriate measure o f renal function for patients with body mass extremes or in patients with acute kidney failure. http://[employer].Shnergle/DHnkdep http://[employer].com/[facility]nkf Specimen Anatomical Collection Method Collection Time Receive d Time (Source) Location / / Volume Laterality Blood specimen 02/19/2018 3:51 PM 018 4:04 (specimen) EDT PM EDT Resulting Agency Comment Spec In Lab Ban Jeronimo MD CHEMISTRY ORDERABLES Performing Organization Address City/[facility] [place] [address] (ABNORMAL) Hemogram (02/19/2018 3:51 PM EDT) Analysis Performed At Patho logist Time Signature WBC 9.6 (H) 4.0 - 9.5 [facility] x10(3)/[facility] RBC 4.98 4.00 - [place] 5.21 [facility] x10(6)/[facility]ORY Hemoglobin 13.9 11.7 - [place] 15.5 gm/dL [facility] Hematocrit 42.6 35.7 - [place] 45.8 % [facility] MCV 85.5 82.6 - [facility] 94.4 [facility]ORY MCH 27.9 27.1 - [employer]AY[employer] 32.0 pg [facility] MCHC 32.6 31.7 - [place] 35.0 gm/dL [facility] Platelets 322 145 - 357 [facility] x10(3)/[facility] LABORATORY RDWSD 44.5 37.0 - [facility] 46.0 [facility]ORY RDWCV 14.4 (H) 11.5 - [place] 14.1 % [facility] MPV 9.4 7.6 - 12.9 [facility]ORY nRBC % Auto 0.0 % [facility] nRBC Abs Auto 0.000 0.000 - [place] 0.000 [facility] x10(3)/[facility] LABORATORY Specimen Anatomical Collection Method Collection Time Receive d Time (Source) Location / / Volume Laterality Blood specimen 02/19/2018 3:51 PM 018 4:04 (specimen) EDT PM EDT Resulting Agency Comment Spec In Lab Ban Jeronimo MD HEMATOLOGY ORDERABLES Performing Organization Address City/State/[place] [address] documented in this encounter Visit Diagnoses Diagnosis Morbid obesity with BMI of 40.0-44.9, ad ult Morbid obesity documented in this encounter Care Teams Hydrotreater Operator Relationship Specialty Start Date End Date India Escobar, ANTOINETTE PCP - General Family Medicine 10/06/17 [address] [place] [address] documented as of this encounter
--- OUTSIDE RECORDS SUMMARY | 2022-06-26 09:14 | XMS_ITS | Encounter Summary ---
:1970 [place] [address] Care Team Providers Name Role Phone India Escobar ANTOINETTE Primary Care Provider Encounter Details Date Type Department Care Team Description 02/20/2018 Telephone General Surgery at [facility] Arcelia Alvarado APRN [facility] [place] [address] [facility] [phone] [place], [place] [address] (Wo rk) Social History Tobacco Use Types Packs/Day Years Used Date Never Smoker Smokeless Tobacco: Never Used Alcohol Use Standard Drinks/Week Comments Yes 0 (1 standard drink = 0.6 oz pure alcoho l) Sex Assigned at Date Recorded Not on file documented as of this encounter Miscellaneous Notes Telephone Encounter - Arcelai Alvarado APRN - 02/20/2018 1:07 PM EDT Telephone call to patient to review labs. Her vitamin D is low and her ferritin is slightly elevated. Instructed to start vitamin D 50,000 units once a week and to stop the ferrous gluconate, she can just take a regular mvi with iron for now and we will check her post op. I don't want to completely stop iron as she has a history of severe iron deficiency anemia likely due to menorrhagia, she is still having periods but they have improved as she has improved her diet and started exercise, she is having RNY. We will recheck post op per usual and adjust as needed. documented in this encounter Plan of Treatment Not on filedocumented as of this encounter Visit Diagnoses Diagnosis Vitamin D deficiency Unspecified vitamin D deficiency documented in this encounter Care Teams Hadoop Application Developer Relationship Specialty Start Date End Date India Escobar APRN PCP - General Family Medicine 10/06/17 [address] [place] [address] documented as of this encounter
--- OUTSIDE RECORDS SUMMARY | 2022-06-26 09:14 | XMS_ITS | Encounter Summary ---
:1970 Author Organization [facility] [place] [address] Care Team Providers Name Role Phone India Escobar APRN Primary Care Provider Encounter Details Date Type Department Care Team Description 12/22/2017 Office Visit Psychiatry and Neena Acosta Other spec ified eating [facility] [address] Social History Tobacco Use Types Packs/Day Years Used Date Never Smoker Smokeless Tobacco: Never Used Alcohol Use Standard Drinks/Week Comments Yes 0 (1 standard drink = 0.6 oz pure alcoho l) Sex Assigned at Date Recorded Not on file documented as of this encounter Progress Notes Neena Acosta - 12/22/2017 1:00 PM EST BEHAVIORAL MEDICINE BARIATRIC SURGERY FOLLOW UP [facility] [address] Dept: [phone] Loc: [phone] 12/22/2017 1:00 PM Angeline Barnes is a 47 y.o. female who was referred for evaluation and preparation for potential bariatric surgery.Angeline was previously evaluated on 09/12/2017 and 10/06/2017, and concerns were raised about bariatric surgery readiness. Angeline was seen for 52 minutes. RECOMMENDATION BASED ON PSYCHOLOGICAL EVALUATION [facility] [place] - Based on the information gathered during this assessment there are no contraindications with Angeline Barnes proceeding with surgery. The follow up plan is as follows: Patient has contact information for Ms. Acosta and Behavioral Medicine team and was encouraged to reach out for additional support, if needed. SUMMARY The decision noted above is based on the followin. Angeline has made significant weight loss attempts in the past, but without lasting success. 2. Angeline experienced some mental health problems in the past year. 3. Angeline experienced some mental health problems earlier in life. 4. Angeline is not engaging in problematic eating behaviors. 5. Angeline is knowledgeable about the surgery and related risks. 6. Angeline's motivation for surgery is: good 7. Angeline's social support is: good 8. Angeline is aware of expected surgery weight loss with surgery. 9. Angeline is aware of the habit changes that will need to occur and is actively engaged in changingthose now. 10. Angeline does not have a history of adherence/attendance issues. The above assessment and plan was based on the following information obtained during the appointment. Please note section in blue indicates updated information from the previous evaluation: WEIGHT Initial Weight: 312 lbs (08/10/17) Weight at previous evaluation: 297 lbs, per patient report Current Weight as of 12/22/2017: 269.8 lbs, with one layer of winter clothes, no shoes Weight changes since evaluation: has decreased 27 pounds over last 2 months PROBLEM EATING BEHAVIORS From previous evaluation: 09/12/2017 : History of binging (i.e., large amounts of food over a 2-hour period, feeling loss of control and overly full): yes If h/o binging, last binge: 4 weeks ago; patient endorsed compulsive eating, nearly everyday, which stopped after she began treatment with Vyvanse. History of grazing (i.e., continuously eating small snacks): yes If h/o grazing, last episode: 4 weeks ago; Vyvanse has been helpful with cessation of grazing and loss of control eating. History of mindless/stress eating (i.e., eating for emotional reasons rather than hunger): yes If h/o stress eating, last episode: 4-6 weeks ago; been practicing mindfulness and mindful eating with help of therapist 10/06/2017: History of binging (i.e., large amounts of food over a 2-hour period, feeling loss of control and overly full): yes If h/o binging, last binge: 7 weeks ago; patient reported she has been coping with urges to binge using mindful breathing, mindful eating, and waiting for urge to pass. History of grazing (i.e., continuously eating small snacks): yes If h/o grazing, last episode: 7 weeks ago; patient reported she has used planning ahead and portion control to cease grazing. History of mindless/stress eating (i.e., eating for emotional reasons rather than hunger): yes If h/o stress eating, last episode: 7 weeks ago; patient has been practicing mindful, consistent, and scheduled eating to manage mindless eating behaviors. 12/22/2017: History of binging (i.e., large amounts of food over a 2-hour period, feeling loss of control and overly full): yes If h/o binging, last binge: Aug 2017; patient reported she has been coping with urges using a variety of strategies, such as drinking tea/water, listening to music, making hair holland, reaching out for social support, journaling to process emotions, and engaging in mindful breathing and mindful eating. History of grazing (i.e., continuously eating small snacks): yes If h/o grazing, last episode: Aug 2017; variety of strategies (see list above) History of mindless/stress eating (i.e., eating for emotional reasons rather than hunger): yes If h/o stress eating, last episode: Aug 2017; variety of strategies (see list above) POST SURGERY EATING HABIT CHANGES AND READINESS From previous evaluation: 09/12/2017: ?? Sipping 6-8 8oz-glasses of water slowly: Aware of the need and practicing about 50% of the time and has been practicing at this rate for about 4 month(s). Other beverages: hot tea/hot coffee (4 cups coffee, 1 cup caffeine tea) ?? Eating regular schedule with 3 meals and 1-3 snacks per day: Aware of the need and practicing about 90% of the time and has been practicing at this rate for about 2 month(s). Schedule of current meals and snacks: inconsistent. 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 Sipping 6-8 8oz-glasses of water slowly: Aware of the need and practicing about 100% of the time and has been practicing at this rate for about 3 week(s). Other beverages: coffee, 1-2 cups/day. Patient has been sipping water throughout her 3rd shift, and during break btw lunch and dinner. ??? Eating regular schedule with 3 meals and 1-3 snacks per day: Aware of the need and practicing about 100% of the time and has been practicing at this rate for about 3 week(s). Schedule of current meals and snacks: consistent. If consistent, schedule is: B: 7am; L: 1:30pm; D: 6pm; Snack: 2am (i.e., during middle of 2nd shift work schedule). 12/22/2017: ??? Sipping 6-8 8oz-glasses of water slowly: Aware of the need and practicing about 90% of the time and has been practicing at this rate for about 2 month(s). Other beverages: decaf coffee and decaf tea (approximately 2x/day); decaf diet coke (approx. 2x/week). Caffeine: 0 cups/day (switched to all non-caffeinated drinks) ??? Eating regular schedule with 3 meals and 1-3 snacks per day: Aware of the need and practicing about 90% of the time and has been practicing at this rate for about 2 month(s). Schedule of current meals and snacks: consistent. If consistent, schedule is: B: 7-8am; L: 1:30-2:00pm; D: 6pm; Snack: 4:00pm and 9pm (i.e., works 2nd and 3rd shift work schedule). ??? Regular exercise: Aware of the need of regular exercise and exercises 4 times a week. Patient is currently exercising with yoga 2x/week and elliptical (at the gym) for 30 minutes 2x/week. Current implementation of habit changes: good MENTAL HEALTH UPDATE: From previous evaluation: 10/06/2017: Patient reported increased symptoms of depression, which she attributed to dissatisfaction with her weight, increased physical pain, and difficulties with physical mobility. She reported continued concerns regarding traumatic stress and anxiety. She described two anticipated stressful events: 1) legaldivision of assets with former spouse (10/17/2017); and 2) pending finalization of divorce (12/18/2017). However, she predicted these events will be less stressful than the custody hearings and initial separation from her former spouse. She is currently in treatment for symptoms of depression and PTSD with Dr. Matt Hutchins MD, [facility] at [facility] in [place], [place]. 12/22/2017: Patient reported consistent engagement in therapy with Dr. Hutchins and improved symptoms of depression and PTSD. She also reported improved motivation and ability to follow her meal plan and cease prior binge, grazing, stress/mindless eating behaviors, which she attributed to practicing a variety of coping strategies and engaging in mindful eating, mindful breathing, and focusing on her values and long-term goals. She reported the court hearings for the dissolution of her marriage/custody of her children went well, and said she anticipates only mild stress as those judgements are finalized. MENTAL HEALTH PROVIDER COMMUNICATION (IF NEEDED) From previous evaluation: 10/06/2017: Clinician spoke with Dr. Hutchins by phone and reviewed treatment records for information regarding patient's current treatment plan re: PTSD and depression. Patient began treatment with Dr. Hutchins in August 2017 and has attended 4/5 scheduled appointments (i.e., she missed her last appointment on 10/03/2017). Dr. Hutchins reported patient is not stable with respect to her symptoms of PTSD, and said he will determine an estimated time-frame for treatment during her next appointment with him, which has not yet been rescheduled. He noted preparing for bariatric surgery will likely serve to motivate patient tana more assertive with her PTSD treatment. He said he also plans to discuss medication options for symptom management. Records from Dr. Hutchins indicate patient was previously treated for symptoms of post- depression and coping with stress in 2005. 12/22/2017: Dr. Hutchins completed brief questionnaire regarding patient's readiness for bariatric surgery and notedno concerns or reservations about the patient proceeding with surgery. He reported she has consistently engaged in treatment, been psychologically stable, and has not engaged in bingeing or purging beha viors. He also reported he will continue to follow Angeline post-surgery. ADHERENCE AND ATTENDANCE From previous evaluation: 10/06/2017: Current stressors or anticipated stressful events that might interfere with Angeline focusing on necessary habit changes before or after surgery include: family, financial, legal and marital. Severity of stressor(s): moderate 12/22/2017: Current stressors or anticipated stressful events that might interfere with Angeline focusing on necessary habit changes before or after surgery include: family, financial, legal and custody of kids. Severity of stressor(s): mild The assessment and plan for Angeline Barnes are detailed at the beginning of this report. Deedee Thompson, PhD - 12/22/2017 1:00 PM EST I have reviewed this note and agree with the plan and treatment Deedee Thompson, documented in this encounter Plan of Treatment Not on filedocumented as of this encounter Visit Diagnoses Diagnosis Other specified eating disorder documented in this encounter Care Teams Deputy Controller Relationship Specialty Start Date End Date India Escobar, PRODUCT DEVELOPER PCP - General Family Medicine 10/06/17 [address] [place] [address] documented as of this encounter
--- OUTSIDE RECORDS SUMMARY | 2022-06-26 09:14 | XMS_ITS | Encounter Summary ---
:1970 Author Organization [facility] [place] [address] Care Team Providers Name Role Phone India Escobar ANTOINETTE Primary Care Provider Encounter Details Date Type Department Care Team Description 02/19/2018 Office Visit General Surgery at Arcelia Alvarado APRN [facility] DR [place]EV[place] [address] Encounter for pre-bariatric surgery coun seling and education; [facility] Zhane [address] [facility] [place] [address] [place] [phone] Social History Tobacco Use Types Packs/Day Years [...] EDT Inhaled Oxygen Concentration - - Weight 118.1 kg (260 lb 6.4 oz) 02/19/2018 12:38 PM EDT Height 168.9 cm (5' 6.5) 02/19/2018 12:38 PM EDT Body Mass Index 41.4 02/19/2018 12:38 PM EDT documented in this encounter Patient Instructions Patient InstructionsAsterArcelia moya, MIRROR SILVERER - 02/19/2018 12:30 PM EDT BARIATRIC SURGERY PROGRAM SECOND VISIT Contact information: [facility] Admin coordinator Joby: [phone] or [phone] Dietitians: [phone] Surgeons/ nurse practitioners: [phone] or [phone] Nurse line: [phone] Medications recommended based on labwork done previously: Labs pending 1. Pending information: labs to be done today, will follow up with recommendations based on results I do recommend you go ahead and get your mammogram done 2. There is a no weight gain policy between visits. The surgeon may opt to delay your surgery if yougain weight between visits. 3. Bring the Educational Handbook to the surgeon's visit. 4. After your surgical consultation, all pertinent information will be faxed to your insurer for approval, which can take a few weeks. Your surgery date and pre-operative class will be scheduled today. Your surgery date may change if insurance approval is delayed If you need to change your surgery date, please call Veronica Whitfield at to reschedule.Your surgery date may change if insurance is approval is delayed. Prepare for the Pre-op Class by doing the followin. Review the program handbook and come to class with a list of questions. 2. Watch the educational videos including Psychological Implications of bariatric surgery on the [facility] website under Bariatric Surgery ([email or web address]_[email or web address]) 3. Come prepared to the class to discuss meal planning. 4. Bring your supplements 5. Come with tips and suggestions that my be helpful to others. Questions for your doctor, specialist or pharmacist: 5. Ask your doctor about medication suggestions if you currently take medications that are larger than the size of a tylenol. Large pills need to be crushed (if permitted by the drug filter tip inspector) ortaken in liquid form for TWO WEEKS after surgery. Diabetic oral medication often does not need to betaken after surgery) ?? If you take antinflammatory medications or steroid medicationsfor arthritis or asthma, please check with your doctor. These medications will likely need to be held 1 week prior to and at least a fewweeks after surgery. For women who take control or hormone medications and men who take hormone medications: these medications must be stopped 1 month before and after surgery. Use alternative forms of control. Nutrition and Activity apps- Baritastic, My Fitness Pal, Lose It, My Plate [facility] facebook page: [email or web address] documented in this encounter Progress Notes Arcelia Alvarado APRN - 02/19/2018 12:30 PM EDT Reason for visit: Angeline is a 47 y.o. year-old female who presents for the purpose of group shared medical appointment for bariatric surgery education. History of present illness: see evaluations by bariatric surgery dietitian and surgeon, . Angeline has been cleared by Dr. Jeronimo to proceed with bariatric surgery. She has a history of lap band. PENDING: labs to be done today, ordered by Dr Jeronimo She has scheduled a mammogram, last was 5 years ago PROBLEM LIST BASED ON REVIEW OF AVAILABLE INFORMATION: Patient Active Problem List Diagnosis Code ??? Acne rosacea, erythematous telangiectatic type L71.8 ??? Pannus, abdominal E65 ??? Depression-currently managed with vyvanse, also to manage eating issues F32.9 ??? Varicose vein-has had one removed in the past I83.90 ??? 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 Morbid obesity with BMI of 40.0-44.9, adult E66.01, Z68.41 ??? H/O laparoscopic adjustable gastric banding Z98.84 Menorrhagia Medications 01/25/18 1731 Medication Sig Taking? VYVANSE 60 mg Capsule take 1 capsule by mouth once daily Allergies Allergen Reactions ??? Cat/Feline Products ??? House Dust Recent testing: - Labwork ordered by Dr. Trus, done today - Pap 12/27/17 negative - h pylori negative Plans for post-operative support after discharge: Best friend and her dad Vital signs: BP (!) 137/94 Pulse 84 Temp 36.6 ??C (97.9 ??F) Resp 20 Ht 168.9 cm (5' 6.5) Wt 118.1 kg(260 lb 6.4 oz) SpO2 100% BMI 41.4 kg/m2 Discussion of bariatric surgeries performed at [facility], risks and benefits, and the [facility] Bariatric Surgery Program requirements: The risks of immediate and terminal manager complications as well as the benefits of gastric bypass and sleeve gastrectomy surgeries, as outlined extensively in the Bariatric Surgery Program Handbook, which is a >100 page document, were reviewed. She is aware that all bariatric surgeries are elective procedures. The decision for bariatric procedure is made by the surgeon with input from the patient.. The mechanism by which gastric bypass and sleeve gastrectomy lead to weight loss was reviewed. The concept that bariatric surgery is a tool for weight loss and not a cure for obesity was again emphasized. The need for commitment to penitentiary lifestyle changes, with healthy diet and regular physical activity was stressed to achieve and sustain terminal manager weight loss. Benefits of bariatric surgery discussed: ?? estimated loss of 50% - 70% of excess body weight with gastric bypass and sleeve gastrectomy, generally less weight loss after sleeve gastrectomy. Patients rarely achieve ideal body weight, especially patients with BMIs >50. ?? improvement or resolution of weight related comorbidities such as obesity- related hypertension, sleep apnea, NAFLD/ DAMON, esophageal reflux, restrictive lung disease and hyperlipidemia when anticipated weight loss is achieved. ?? Type 2 diabetes improvement occurs in the majority of patients shortly after gastric bypass, often prior to discharge from the hospital, prior to any weight loss. Patients with >10 year history of diagnosis of type 2 diabetes often will need to remain on insulin terminal manager. There is less improvement to type 2 diabetes after sleeve gastrectomy as compared with gastric bypass. ?? patients also generally feel better, with improvement in self-esteem and activity levels. Potential but rare risks of gastric bypass and sleeve gastrectomy discussed: ?? inability to perform the operation ?? <0.01%. ?? bleeding and splenic injury with the need for blood transfusion ?? heart and lung complications, including prolonged mechanical ventilation and possible tracheostomy, very rare ?? wound infection and seroma, rare in laparoscopic patients ?? DVT with fatal pulmonary emboli. Prophylactic measures used including Enoxaparin, sequential compression devices and early ambulation. Some patients are discharged on extended Enoxaparin therapy whomeet scoring criteria ?? rhabdomyolysis ?? nutritional deficiencies, including protein-calorie malnutrition, vitamins B12, B1, D, folate, iron deficiency and anemia. ?? gallstones, significantly decreased by prophylactic treatment with Ursodiol for 6 months post-operatively. ?? peripheral neuropathy related to chronic poor nutrition or B vitamin deficiencies ?? transient telogen effluvium ?? patients weighing >350 pounds with increased risks related to radiology equipment weight limits, which may necessitate return to OR for evaluation Risks specific to gastric bypass discussed: ?? anastomotic leakage with the development of peritonitis and abscess, potentially leading to sepsis, renal failure and . ?? anastomotic stricture ?? Lifetime risk of anastomotic ulcer, increased with NSAID use, tobacco and regular alcohol use ?? lifetime risk of small bowel obstruction ?? lifetime risk of internal and trocar site hernias, rare ?? potential risk for renal calculi, increased with chronic poor hydration and prior history of renal calculi Risks specific to laparoscopic sleeve gastrectomy discussed: ?? leak at the staple line with the development of peritonitis and abscess, potentially leading to sepsis, renal failure and . The rate of leak after sleeve at [facility] is 0%. ?? stricture of gastric remnant with need for dilatation ?? prolonged nausea and vomiting early post surgery ?? Worsening or development of GERD ?? Potential revision to gastric bypass due to severe GERD ?? generally less weight loss than gastric bypass, particularly associated with higher calorie intake and sedentary lifestyle Potential secondary effects of bariatric surgeries discussed: ?? weight regain/ poor weight loss influenced by eating behaviors and lack of a regular exercise program. Drinking high calorie liquids, frequent snacking or ingestion of large amounts of soft foods will cause weight gain . ?? dumping syndrome associated with gastric bypass ?? Lactose intolerance associated with gastric bypass ?? sagging skin in any area, such as the face, torso and extremities following weight loss. Body contouring surgery may not be a covered benefit by the individual's insurer, and is associated with scarring, risk of infection etc. Patients are advised that if unable to accept the possibility of skin redundancy following weight loss, then they should not proceed with bariatric surgery. Bariatric surgery is done for health reasons, not to improve physical appearance. ?? transfer of addictions or symptom substitution behavior. When food is no longer available to secure a sense of comfort and/or relieve stress, some may turn to alcohol or illicit substances, while others may turn to excessive shopping, gambling or other indiscretions. ?? Worsening of psychiatric illness Angeline was advised that bariatric surgery would likely be ineffective for those who: ?? receive a great deal of satisfaction from eating ?? have active eating disorders including binge eating disorder and bulimia ?? are in the midst of serious personal or unstable psychiatric problems Other information discussed: For females of child-bearing age: avoidance of for at least 12-24 months post-operatively.The risks of and complications with maternal obesity and risks to fetus with maternal rapid weight loss and malnutrition and vitamin and mineral deficiencies discussed, Use of effective contraception as per CDC guidelines advised. Bariatric Surgery Follow up for LIFE: ?? 3 weeks, 4, 8, 12,18 and 24 months, yearly thereafter. More frequent follow up done as clinicallyindicated. Labwork: done at all routine visits except 1 month post op Post-operative support group meetings: held on the first Friday of every month. All patients are encouraged to attend. Vitamin and mineral supplementation for LIFE: ?? B12 500 mcg sublingual daily, calcium citrate 500-600 mg with vitamin D 400- 500 mg BID, multivitamins with minerals and iron twice a day. Iron in the form of ferrous fumarate or carbonyl iron is taken with vitamin C once a day for menstruating females or those with iron deficiency or anemia. She appeared to have a good understanding of the information presented at today's meeting, and seemsto have reasonable and realistic expectations of bariatric surgery. She previously signed an agreement stating that She is willing to comply with instructions, lifetime vitamin and mineral supplements a nd programmatic follow up. She was encouraged to call with any questions or concerns. Data reviewed: - Visit #2 questionnaire - SMA quiz completed by Angeline Information reviewed at today's [facility]: 1. [facility] Bariatric Surgery Program Educational Handbook, bariatric surgery patient agreement and risks and benefits of gastric bypass and sleeve gastrectomy reviewed in detail. Prescriptions/ recommendations provided: as per AVS Pending/ other: labs, will make recommendations per results, Angeline reports that she had very low iron and is being treated, She reports she did all of her labs with her pcp and they should have been sent, however her labs are not available, she does have labs ordered by Dr Jeronimo from January 25, since she's not had any follow up labs since being treated for iron deficiency I do recommend she do those labs today. She also reports that since changing her diet and adding more exercise her menorrhagia has improved significantly. OR date: pending, consent signed, plan is to schedule today Preop class recommendations (based on review of allergy andmedication lists and problem/ PSH list, if available and note by surgeon): -VTE, -Corwin, +PPI, s/p tubal ligation 10 minutes of today's 10 minute individual visit spent face to face counseling regarding bariatric surgery, medications, answering patient questions. Group counselin minutes Questions regarding [facility] Bariatric Surgery Program patients: please call [phone] - 02/19/2018 12:30 PM EDT BARIATRIC SURGERY PROGRAM NUTRITION EDUCATION 2nd Pre-Operative Visit Shared Medical Appointment Angeline Barnes attended a 2 hour shared medical appointment today for her second pre-operative visit with the Bariatric Surgery Program dietitian and nurse practitioner. Ms. Barnes is a morbidly obese female who has been referred for nutrition evaluation and diet instruction in anticipation of bariatric surgery. Previous conservative attempts at weight loss through dieting have been unsuccessful over the terminal manager. Advised patient that bariatric surgery is a weight loss tool not a solution; and ultimately weight loss will be achieved through proper eating and exercise habits. She was given suggestions for how to incorporate dietary and lifestyle changes into her daily schedule. Patient was given a copy of the program handbook at the initial appointment which includes specific information on all nutritional recommendations and guidelines. Pt instructed on importance of following the Pre-operative Surgical Diet. Failure to do so may result in poor pre-surgical weight loss and may result in surgery not being performed. She was also given contact information for further nutritional questions. Ms. Barnes showed good understanding of the concepts discussed. Nutrition Topics Covered at Today's Appointment: ?? Pre-operative Surgical Diet ?? Purpose of diet ?? Appropriate foods ?? Protein goals ?? Carbohydrate goals ?? Calorie goals ?? Keeping a food log ?? Hydration and Appropriate Beverages ?? Post-Operative Diets (Stages I-IV) ?? Importance of following diet stages ?? Appropriate foods ?? Sample Menus ?? Vitamin/Mineral Supplementation ?? Common Food Intolerances ?? Dumping Syndrome ?? Sugar Alcohols ?? Physical Activity The appointment consisted of 60 minutes of group education and counseling. documented in this encounter Plan of Treatment Not on filedocumented as of this encounter Visit Diagnoses Diagnosis Encounter for pre-bariatric surgery coun seling and education Healthcare maintenance Routine general medical examination at a health care facility documented in this encounter Care Teams Aircraft Line Assembler Relationship Specialty Start Date End Date India Escobar, MIRROR SILVERER PCP - General Family Medicine 10/06/17 [address] [place] [address] documented as of this encounter
--- OUTSIDE RECORDS SUMMARY | 2022-06-26 09:14 | XMS_ITS | Encounter Summary ---
:1970 Author Organization [facility] [place] [address] Care Team Providers Name Role Phone India Escobar ANTOINETTE Primary Care Provider Reason for Referral Consultation (Routine) - Closed Specialty Diagnoses / Procedures Referred By Contact Refer red To Contact Weight and Wellness Diagnoses Morbid obesity Binge eating Nadine Marte, Deedee Thompson, PhD WIPING RAG WASHER [facility] [place] [address] [place] [address] Referral ID Status Reason Start Date Expiration Date Visits V isits Requested Authorized [id number] Closed Consult, 05/01/2018 05/01/2019 1 1 Test & Treat Encounter Details Date Type Department Care Team Description 05/01/2018 Orders Only General Surgery at [facility] Nadine Marte, Morbid obesity; [facility] Esa [place] [phone] [facility] [phone] GENERAL SURGERY [place] [id number] (Wo rk) Social History Tobacco Use Types Packs/Day Years Used Date Never Smoker Smokeless Tobacco: Never Used Alcohol Use Standard Drinks/Week Comments Yes 0 (1 standard drink = 0.6 oz pure alcoho l) Sex Assigned at Date Recorded Not on file documented as of this encounter Plan of Treatment Scheduled Referrals Name Type Priority Associated Diagnoses Order S chedule Referral to Weight Outpatient Referral Routine Morbid ob esity Ordered: [facility] Binge eating 05/01/2018 documented as of this encounter Visit Diagnoses Diagnosis Morbid obesity Binge eating Anorexia nervosa documented in this encounter Care Teams Planer Setup Operator Relationship Specialty Start Date End Date India Escobar, WIPING RAG WASHER PCP - General Family Medicine 10/06/17 [address] [place] [address] documented as of this encounter
--- OUTSIDE RECORDS SUMMARY | 2022-06-26 09:14 | XMS_ITS | Encounter Summary ---
:1970 Author Organization [place] [address] Care Team Providers Name Role Phone India Escobar APRN Primary Care Provider Encounter Details Date Type Department Care Team Description 01/19/2018 Clinical Support General Surgery at [facility] Klarissa Tyler, [facility] [place] [address] Social History Tobacco Use Types Packs/Day Years Used Date Never Smoker Smokeless Tobacco: Never Used Alcohol Use Standard Drinks/Week Comments Yes 0 (1 standard drink = 0.6 oz pure alcoho l) Sex Assigned at Date Recorded Not on file documented as of this encounter Last Filed Vital Signs Vital Sign Reading Time Taken Comments Blood Pressure 150/87 01/19/2018 12:16 PM EDT Pulse 69 01/19/2018 12:16 PM EDT Temperature - - Respiratory Rate 16 01/19/2018 12:16 PM EDT Oxygen Saturation 100% 01/19/2018 12:16 PM EDT Inhaled Oxygen Concentration - - Weight 116.1 kg (256 lb) 01/19/2018 12:16 PM EDT Height 172.7 cm (5' 7.99) 01/19/2018 12:16 PM EDT Body Mass Index 38.93 01/19/2018 12:16 PM EDT documented in this encounter Patient Instructions Patient InstructionsKlarissa Tyler - 01/19/2018 12:30 PM EDT BARIATRIC SURGERY PROGRAM FIRST VISIT Contact information: [facility] Admin coordinator Rashida: [phone] Dietitian: [phone] Surgeons/ nurse practitioner: [phone] Nurse line: [phone] Bariatric Surgery Program educational information: ?? Read the Bariatric Surgery Program Educational Handbook thoroughly, highlight important areas to remember. Write down any questions that you may have to discuss at next visit. ?? Bring the Handbook to ALL pre-operative visits. Keep the handbook in a safe place for easy retrieval. Your next visits: All visits take place in the General Surgery Clinic, Cvt Tech Area 4 1. 2nd visits with dietitian and nurse practitioner ([facility]- Shared Medical Appointment) 2. Pre-op class: to be determined at a later date 3. Bring the questionnaire to your next visit. Complete within 1 day of the visit. Predicted weight loss with surgery is an estimated 30-70% of excess body weight, which would be a goal weight between 191-228# Nutrition: 1) Your starting weight is: 280# Any weight gained will need to be lost prior to being scheduled forsurgery. 2) Practice post-op GB diet recommendations prior to surgery to support post-op success and long-term weight loss: ??? Eat 3 meals daily, spaced about 4-6 hours apart. ??? Take your time when eating meals, at least 20-30 minutes per meal. ??? Avoid soda and limit caffeine consumption. Stop caffeine 2 weeks prior to surgery. ??? Sip 48-64 oz hydrating fluid daily between meals and avoid drinking with meals. ??? Use smaller plates/bowls/utensils for meals and eat smaller portions. ??? Plan meals 1 wk in advance and shop with a list. 3) Start to keep a food journal. (See Education section below for frequently used Smartphone apps.) 4) Exercise with the eventual goal of 30 minutes minimum 5 days per week or exercise as recommended by MD. 5) Practice this Meal Format: Protein first at all meals! Only eat until full. Breakfast 1st Protein (15-20 grams) 2nd Fruit (1 piece or ?? cup) 3rd Starch (1 serving) Lunch and Dinner 1st Protein (20 grams) 2nd Non-Starchy Vegetables (no limit, no fat) 3rd Starch (1 serving) 4th Fruit (1 piece or ?? cup) 1 serving of starch = 1 slice toast, ?? Macedonian muffin, ?? cup cooked potato, rice, or pasta, 1 small mohan or wrap Non starchy vegetables include all those except corn, peas, winter squash, beans, and potatoes Snacks: 1-2 per day if physically hungry - choose a protein or a fruit Surgery date: For patients who have insurers who have a long approval process, your surgery date and pre-operative class will be scheduled after you are approved by your insurer. We cannot predict your OR date in advance of approval. Only the OR supercharger repair supervisor can provide you with a date. Questions for your doctor, specialist or pharmacist: 4. Ask your doctor about medication suggestions if you currently take medications that are larger than the size of a tylenol. Large pills need to be crushed (if permitted by the drug wire wheeler) ortaken in liquid form for TWO WEEKS after surgery. Diabetic oral medication often does not need to betaken after surgery) ?? If you take antinflammatory medications or steroid medications for arthritis or asthma, please check with your doctor. These medications will likely need to be held 1 week prior to and at least a few weeks after surgery. For women who take control or hormone medications: these medications must be stopped 1 month before and after surgery. Use alternative forms of control. Education: 1. Continue to read information about bariatric surgery- websites listed in your handbook Also check the ASMBS website: http://asmbs.org/patients 2. Nutrition and Activity apps- Baritastic, My Fitness Pal, Lose It, My Plate 3.[facility] facebook page: [email or web address] documented in this encounter Progress Notes Klarissa Tyler - 01/19/2018 12:30 PM EDT Bariatric Surgery Program Initial Nutrition Assessment Angeline Barnes is being seen today for a preoperative evaluation in anticipation of weight losssurgery. SUBJECTIVE Preferred procedure: She doesn't know, she's thought about the sleeve. Interest in bariatric surgery: She can lose weight on her own but then stops losing weight once she gets down to 210#. She wants to get under 200# for her health and her knees. She had the band and is interested in surgery a second time around because she feels she can actually use it as a tool. She has found alternate ways to deal with emotions and stress since having the band. She lost 90# a few years ago and then regained 70# in 3 months. Her knee started acting up and she couldn't move or do simple things and that scared her. She wants to stop going up and down in weight. Motivating Factors for Seeking Weight Loss Surgery: ?? [x] Improved Health ?? [x] group home weight loss ?? [ ] Improved quality of life ?? [ ] Increased activity Research: ?? [x] Reading (Internet, books, etc.)- Has been researching for years and reading blogs that women have done about their bariatric surgery journey. She has also been looking into the keto diet, vegetarian, and vegan. ?? [x] Talking to people who have had weight loss surgery- Knows a few people who had surgery including an old roommate from college. They seem to be doing really well. ?? [x] Attending introductory seminar- 04/11/17 ?? [x] Watching videos- Reviewed on 12/30/17, 90% and 70% x 2 (Did not finish questions on the 2 quizzes, she will finish the quizzes and review them with Sara) Social history: She is , it was finalized on January 08. She has 4 kids, her 16 year old son lives with her real time analyst and her 11 year old lives with her half of the time. 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 She has one small corgi. She has her father, who lives right down the street, and her best friend, Melia, as supports [facility]anner [facility]. Her 20 year old daughter lives in [facility] [facility] but can help out as well. Her boss is supportive too. 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 She currently lives in subsidized housing and is hoping to move in February. 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 She also started meditation on Sundays and at home and yoga. 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 Related medical history: Class II obesity Overweight/obese since age: 9, in 1st grade Highest weight: 310# at age 47 Lowest weight: 170# at age 23 Dieting History: Type of Diet Wt Lost (lbs.) Wt. Regain(lbs.) Dates Duration Comments Shape down program ? Doesn't remember 1988 ~1 year While living in [place] Dexatrim minimal 1989 In high school Parveen Man 40 65 1990 ~2 years In high school Exercise gym, diet pills, and food restriction 95 All+ 1992 1+ years In college OA 30 50 Early 90's 6 months Off/on since age 15. She plans to start going back. Slim Fast 10-15 10-15 [id number] 1 year Atkins 10 10 1999 1 month Weight Watchers 40 52 1999 1 year Worked w/ RD at [employer] 0 0 2000 6 months After she had her kids The Zone 20 65 2000 1.5 years Nutrisystem 30 60 2001 1 year Weight Watchers 14 7 2001 6 months Weight Watchers 18 none April 2003-2005 2 years Gastric Band 45 July- June [address] Kandace Gonzales diet 90 80 [id number] 2 years Best diet but hard to sustain Ketogenic diet July- November 2017 7 months And started Vyvanse at the end of October. Vyvanse helps with sugar addiction and staying away from carbs. Nutrition visits with Toma Burgess RD 32 08/05/17 10/09/17 10/24/17 11/13/17 4 months Aaw her in December as well, she finds her helpful. History of diet pills to lose weight: Currently on Vyvanse and has done Dexatrim in the past. She has also taken pills/ bitters to help with sugar cravings. History of disordered eating behaviors such as: binge eating/self-induced vomiting/laxative abuse/night eating syndrome: In college (1992) she was over exercising and didn't eat. All of the girls were doing it and she knew it wasn't healthy. She mostly restricted but did purge 6 times (she tried it because it was the cool thing to do). Her boyfriend at the time helped her get through it. She kept theweight off by eating fruits, vegetables, and foods. Once she left campus she stopped exercising and gained the weight back. Binging/ compulsive eating in the past, especially when stressed. Binging stopped when she started Vyvanse. Before she started Vyvanse, she would come home from work, tune out the world, and eat whatever she wanted. She did not binge to the point of needing to vomit or feeling uncomfortable. Her problem was she would graze and eat pure sugary things. History of excessive exercise to lose weight: In college she was taking 2 aerobic classes, weight training for 45 minutes, and using the stair climber daily. Contributing Factors to Obesity: ?? [x] Hx Binge Eating / Eating disorder ?? [ ] Large portion sizes ?? [ ] Fast eater ?? [x] Nighttime eating- working 3rd shift and having night hunger and bad eating habits. Nachos andbad food available the whole shift. ?? [x] Emotional eating- stress ?? [x] Mindless eating ?? [x] Choosing high calorie foods- eating high fat and carbs ?? [x] Preference for concentrated sweets- if she eats sugar, she can't stop. She feels it really isan addiction. ?? [ ] Snacking ?? [x] Grazing- loss of control eating/ if it is there, she will snack on it ?? [ ] Meal skipping ?? [x] Physical Inactivity ?? [ ] Genes ?? [x] Halloween causes her to get off track, she would indulge at [place] and then be off track through the whole holiday season until . Eating Triggers: ?? [ ] Emotions: ?? [x] Boredom ?? [x] Stress ?? [ ] Fatigue ?? [ ] Physical Hunger ?? [ ] Eating on a Schedule ?? [ ] Other: Food Allergies/Intolerances/Preference: ?? [x] Gluten- causes rash and upsets stomach ?? [ ] Lactose ?? [x] Sugar- causes rash ?? [x] Dislikes oranges and blueberries- consistency thing/ texture Diarrhea/Constipation: For the most part regular bowel movements. She gets diarrhea when she eats after skipping meals. Control: S/P tubal ligation and not sexually active. Recent Changes in Dietary/Lifestyle Habits: ?? [x] Smaller portions- goes by 2's, such as 2 pieces tadeo or 2 cups salad ?? [x] 3 meals per day- Breakfast: 7-8am; Lunch: 1:30-2:00pm; Dinner: 6pm; Snack: 4pm and 9pm ?? [ ] Eating slower ?? [ ] More fruits, vegetables, and whole grains ?? [ ] Leaner proteins ?? [x] Decreasing carbohydrates- Sticking to a low carb, keto diet ?? [ ] Lower calorie cooking methods (baking, broiling, grilling, etc.) ?? [x] Nutrition Counseling with RD ?? [ ] No longer buying tempting foods from grocery store ?? [ ] Cutting out soda ?? [ ] Cutting out concentrated sweets/ decreasing added sugar ?? [ ] Increased physical activity ?? [x] Decreasing stress eating and using strategies to cope, such as drinking tea/ water, listeningto music, making hair holland, reaching out to her social support, journaling, and mindful breathingand mindful eating. ?? [x] Cut out coffee- was drinking 4-5 cups per day but now drinks 1 cup decaf 1-2x/ week. ?? [x] Increasing water and sipping slowly on it, especially diring 3rd shift and on days off. ?? [x] Has not eaten any Halloween candy in the last 2 years. ?? Date changes implemented: 2-3 months ago Tracking Intake: None, she finds it is not good for her because she gets too obsessive about it and gets into trouble. Tracking makes her worry more. She finds keeping a healthy list in her head is thebest. Typical Daily Intake: Breakfast 2 pieces tadeo Or 1-2 scrambled eggs with salt and pepper Snack Lunch 2 cups salad with small chicken breast or 2 chicken strips, lettuce, tomato, and a little bit sour cream or olive oil and balsamic Snack Handful of almonds or pistachios Or yogurt Or avocado with balsamic vinegar Supper [place], small steak, or ground pork with asparagus, broccoli, or spinach Or chili, she makes it quite a bit Snacks Nuts or yogurt She was having a few pork rinds but felt they were too much fat Beverages: 8-9 8 oz glasses water and 1 cup decaf tea 1-2x/ week. She was drinking Coke zero for a little while but then realized it was gross and found out it can trick the body into not losing weight. ETOH: She had a drink for the first time in over a year two Friday's ago. She doesn't like the taste at all. Tobacco: Quit 1 year ago. She only smoked for 1 year and then quit and gained weight. When she wanted a cigarette she would eat or sleep. How Often Meals Eaten Away From Home: Twice a week might go to the [address] with her boys and gets a wedgesalad with steak tips or chicken. Supplements/Vitamins: She was told by her PCP to start iron but she hasn't yet. She also has zinc but hasn't been taking it. She is not taking any herbal supplements currently. Physical Activity: She does yoga 6 days per week and walks for 1 hour, 1 day per week. Walking has decreased due to the weather and she hasn't gotten to the gym. Psychological Indications: Saw Neena Acosta on 09/12/17, , and 10/21/18 and received the Green light to proceed with surgery. She is in weekly therapy with Dr. Hutchins at [facility] for stress, anxiety, and trauma. He reports no contraindications for surgery and she will continue to see him post- op. She started seeing Dr. Hutchins 2 years ago to get through her divorce. Vision at 2 years post-op: To be at a healthy weight, clothes fitting better, and have a healthy BMIfor her height. Be able to do everything she wants to do, such as hike and climb. 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 Goal weight: 170#, mostly under 200#. OBJECTIVE: Weight History: Date Weight (lbs) HT BMI Comments 310# Highest Weight (patient reported) 04/09/17 280.6# 67 43.9 Initial program weight 01/19/18 256# 68 38.9 1st pre-op visit [facility] % Surgery 1 month post-op 4 months post-op [place] Body Weight (based on BMI of 25): 164.4# Excess Weight: 91.6# 30-70% Excess Weight Loss: 191-228#; 50% Excess Weight Loss: 210# SUMMARY: Angeline Barnes has been referred for nutrition evaluation and diet instruction in anticipation of bariatric surgery. Previous conservative attempts at weight loss through dieting have been unsuccessful over the alf. Predicted weight loss with surgery is an estimated 30-70% of excess body weight. Advised pt that bariatric surgery is a tool, not a solution; and ultimately, weight loss will be achieved through propereating and exercise habits. She showed good understanding of the concepts discussed. NUTRITION DIAGNOSIS: - Obesity related to history of physical inactivity and over consumption as evidenced by BMI of 38.9. PLAN: 1) Patient to practice post-op GB diet recommendations prior to surgery to support post-op success and long-term weight loss: ??? Eat 3 meals daily, spaced about 4-6 hours apart. ??? Take your time when eating meals, at least 20-30 minutes per meal. ??? Avoid soda and limit caffeine consumption. ??? Sip 48-64 oz hydrating fluid daily between meals and avoid drinking with meals. ??? Use smaller plates/bowls/utensils for meals and eat smaller portions. ??? Plan meals 1 wk in advance and shop with a list. 2) Start to keep a food journal. 3) Exercise with the eventual goal of 30 minutes minimum 5 days per week or exercise as recommended by MD. 4) We reviewed the No Weight Gain Policy. 5) Patient to attend two pre-op educational classes prior to surgery. Information given to patient: 1. [facility] Bariatric Surgery Education Handbook, a 102 page document (revision February 2012) which contains extensive information regarding pre and post- operative nutrition guidelines including: preop diet,Diet stages I-IV, hydration recommendations, protein guidelines, dumping syndrome, food intolerances, vitamin and mineral supplementation as well as a list of books and online bariatric resources. documented in this encounter Plan of Treatment Not on filedocumented as of this encounter Visit Diagnoses Not on filedocumented in this encounter Care Teams Vp Of Digital Marketing Relationship Specialty Start Date End Date India Escobar, WATER CONSERVATIONIST PCP - General Family Medicine 10/06/17 [address] [place] [address] documented as of this encounter
--- OUTSIDE RECORDS SUMMARY | 2022-06-26 09:14 | XMS_ITS | Encounter Summary ---
:1970 [place] [address] Care Team Providers Name Role Phone India Escobar APRN Primary Care Provider Encounter Details Date Type Department Care Team Description 10/06/2017 Office Visit Psychiatry and Neena Acosta Other spec ified [place] [address] Social History Tobacco Use Types Packs/Day Years Used Date Never Smoker Smokeless Tobacco: Never Used Alcohol Use Standard Drinks/Week Comments Yes 0 (1 standard drink = 0.6 oz pure alcoho l) Sex Assigned at Date Recorded Not on file documented as of this encounter Progress Notes Neena Acosta - 10/06/2017 10:00 AM EST BEHAVIORAL MEDICINE BARIATRIC SURGERY FOLLOW UP [facility] [id number] Dept: [phone] Loc: [phone] 10/06/2017 10:10 AM Angeline Barnes is a 47 y.o. female who was referred for evaluation and preparation for potential bariatric surgery.Angeline was previously evaluated on 09/12/2017, and concern were raised about bariatric surgery readiness. Angeline was seen for 45 minutes. Patient was alone. Limits to confidentiality were reviewed at the start of the session. RECOMMENDATION BASED ON PSYCHOLOGICAL EVALUATION YELLOW - Based on the information gathered during this assessment, Angeline Barnes would benefitfrom additional health behavior change before she is ready to proceed with surgery. Specifically, Angeline would benefit from the following to assist with preparing for bariatric surgery: Based on the information gathered during this assessment, Angeline would benefit from the following to assist with preparation for bariatric surgery: ?? Continue progress on weight loss. ?? Stop caffeine. ?? Continue psychological counseling for symptoms of depression, anxiety, and traumatic stress. The follow up plan is as follows: follow-up by phone with Ms. Neena Acosta in 8 weeks. Continue to work with treating psychologist (Dr. Matt Hutchins) regarding symptoms of PTSD, depression, and anxiety. Schedule additional follow-up appointment(s) with Ms. Acosta (or another member of the behavioral medicine team), as needed for support with lifestyle behavior changes. Appointment line: [phone]. SUMMARY The decision noted above is based [...] lbs (08/10/17) Weight at previous evaluation: 297 lbs (09/12/2017) Current Weight as of 10/06/2017: 297 lbs Weight changes since evaluation: has been stable PROBLEM EATING BEHAVIORS From previous evaluation: History of binging (i.e., large amounts of [...] scheduled eating to manage mindless eating behaviors. POST SURGERY EATING HABIT CHANGES AND READINESS From previous evaluation: Awareness of the following eating habit changes and current extent of practice (50%=half meals/week;100%= every meal/week) is: ?? Sipping 6-8 8oz-glasses of water slowly: [...] and snacks: inconsistent. If consistent, schedule is: Mon-ur B: 8:30am; L: 12pm; D: 5:30pm Fri/Sat: [...] during middle of 2nd shift work schedule). Current implementation of habit changes: good MENTAL HEALTH UPDATE: Patient reported increased symptoms of depression, which [...] and PTSD with Dr. Matt Hutchins MD, [facility] at [facility] in [place], [place]. MENTAL HEALTH PROVIDER COMMUNICATION (IF NEEDED) Clinician spoke with Dr. Hutchins by phone [...] depression and coping with stress in 2005. ADHERENCE AND ATTENDANCE Current stressors or anticipated stressful events that might interfere with Angeline focusing on necessary habit changes before or after surgery include: family, financial, legal and marital. Severity of stressor(s): moderate DIAGNOSIS (based on information gathered in this evaluation): eating disorder, unspecified The assessment and plan for Angeline Barnes are detailed at the beginning of this report. Deedee Thompson, PhD - 10/06/2017 10:00 AM EST I have reviewed this note and agree with the plan and treatment Deedee Thompson, PhD Dno Fitch, PhD - 10/06/2017 10:00 AM EST I was present for the full administration of this service and available for immediate consultation. This service was provided under my direct supervision. Primary clinical supervision will be provided in consultation with Dr. Deedee Thompson. ?? Don Fitch, Ph.D. documented in this encounter Plan of Treatment Not on filedocumented as of this encounter Visit Diagnoses Diagnosis Other specified eating disorder documented in this encounter Care Teams Electronics Instructor Relationship Specialty Start Date End Date India Escobar APRN PCP - General Family Medicine 10/06/17 [address] [place] [address] documented as of this encounter
--- OUTSIDE RECORDS SUMMARY | 2022-06-26 09:14 | XMS_ITS | Encounter Summary ---
:1970 Author Organization [facility] [place] [address] Care Team Providers Name Role Phone India Escobar APRN Primary Care Provider Reason for Visit Reason Onset Date Comments Other 12/23/2017 Encounter Details Date Type Department Care Team Description 12/23/2017 Telephone General Surgery at [facility] Nadine Marte APRN Other [facility] [place] [address] GENERAL SURGERY [phone] [place] [id number] (Wo rk) Social History Tobacco Use Types Packs/Day Years Used Date Never Smoker Smokeless Tobacco: Never Used Alcohol Use Standard Drinks/Week Comments Yes 0 (1 standard drink = 0.6 oz pure alcoho l) Sex Assigned at Date Recorded Not on file documented as of this encounter Miscellaneous Notes Telephone Encounter - Nadine Marte - 12/23/2017 4:38 PM EST Bariatric Surgery Program Angeline's sleep questionnaire was reviewed, which was positive for possible JOANN given BMI 48, headaches upon awakening, falling asleep during the day and unexplained fatigue. She will be referred for a sleep evaluation, with the need for testing for JOANN to be determined by the sleep center provider. Message left documented in this encounter Plan of Treatment Not on filedocumented as of this encounter Visit Diagnoses Not on filedocumented in this encounter Care Teams Mortar Worker Relationship Specialty Start Date End Date Inida Escobar APRN PCP - General Family Medicine 10/06/17 [address] [place] [address] documented as of this encounter
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
--- OUTSIDE RECORDS SUMMARY | 2022-06-26 09:14 | XMS_ITS | Encounter Summary ---
:1970 [place] [address] Care Team Providers Name Role Phone India Escobar APRN Primary Care Provider Reason for Visit Reason Comments Advice Only discuss facelift Encounter Details Date Type Department Care Team Description 05/12/2018 Office Visit Plastic Surgery at Aubrey Joyce MD Carpal tunnel syndrome, unspecified late rality; [facility] Elastosis of skin [facility] [address] Fan PLASTIC SURGERY [place] [id number] [phone] Social History Tobacco Use Types Packs/Day Years [...] - Inhaled Oxygen Concentration - - Weight 122.4 kg (269 lb 12.8 oz) 05/12/2018 12:57 PM EDT Height 171.5 cm (5' 7.5) 05/12/2018 12:57 PM EDT Body Mass Index 41.63 05/12/2018 12:57 PM EDT documented in this encounter Progress Notes Aubrey Joyce MD - 05/12/2018 11:30 AM EDT Plastic Surgery Consultation Note Aubrey Joyce MD CC: Facial elastosis HPI: Angeline Barnes is a 48 y.o. female who presents with complaints of excess tissue of her lower jaw. She has seen Dr. Whittington in the past. She reports that she has been considering bariatric surgery, but is hesitant to proceed. She reports she has gained about 20 lbs in the last few months. She expressed concern in regard to her lower jaw and submental region. She wishes for the skin of this area to be tighter and reduced. PMHx: No past medical history on file. PSHx: Past Surgical History: Procedure Laterality Date ??? ADJUSTABLE GASTRIC BAND part of a study ??? CHOLECYSTECTOMY ??? PRO PHLEB VEINS - EXTREM - TO 20 Left 05/22/2015 STAB PHLEBECTOMY CELESTINO VEINS 1 EXTREMITY 10-20 INCISIONS performed by Bernardo Simon MD at [facility] ??? TUBAL LIGATION Social History Social History ??? Marital status: Spouse name: N/A ??? Number of children: 4 ??? 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 Smoking status: Never Smoker ??? Smokeless tobacco: Never Used ??? Alcohol use Yes 1 Glasses of wine per week ??? Drug use: No ??? Sexual activity: Not on file Other Topics Concern ??? Exercise: Patient Reported No ??? Abuse Or Threat: Physical, Sexual, Verbal No ??? Abuse Or Threat: Help Requested By Patient No Social History Narrative Examination: Ht 171.5 cm (5' 7.5) Wt 122.4 kg (269 lb 12.8 oz) BMI 41.63 kg/m2 Alert, oriented x 3, well-nourished, cooperative Nasolabial folds minimal Perioral rhytids: minimal Marionette lines;Minimal Jowls: minimal Cervicomental redundancy/platysmal banding +++ Impression: We discussed options for treatment for her concerns of facial laxity and excess tissue in her submental region. We discussed options including Kybella injection and liposuction. I explainedthat she has excess skin in the are to which liposuction and said injection may leave behind skin laxity and not provide the result she desires. We discussed that she would aesthetically benefit from afacial surgery, however, we discussed that her current BMI of greater than 40 does put her at risk for healing complication or blood clot including DVT/pulmonary embolus. To protect her overall health,surgery is not advised at this time. We dicussed this procedure is more ideal to proceed with once at her goal weight, to prevent need for further surgery. If she is able to achieve weight loss and a BMI beneath 35, we can consider going forward with a procedure to address her area of concern. The patient is understanding of this and is motivated to continue with weight loss. She will follow up in the future to discuss planning. Plan: 1. Work towards lowering BMI beneath 35 2. Follow up to discuss surgical options IDai, have performed the documentation for this encounter in the presence of and acting as a scribe for AUBREY JOYCE MD. I performed the services which were documented by the scribe, and I agree with the accuracy of the documentation in this encounter. AUBREY JOYCE MD documented in this encounter Plan of Treatment Not on filedocumented as of this encounter Visit Diagnoses Diagnosis Carpal tunnel syndrome, unspecified late rality Elastosis of skin Other specified hypertrophic and atrophi c condition of skin documented in this encounter Care Teams Bottom Brusher Relationship Specialty Start Date End Date India Escobar, ASSET ADMINISTRATOR PCP - General Family Medicine 10/06/17 [address] [place] [address] documented as of this encounter
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
--- OUTSIDE RECORDS SUMMARY | 2022-06-26 09:14 | XMS_ITS | Encounter Summary ---
:1970 Author Organization [place] [address] Care Team Providers Name Role Phone Maurice Quintana ND Primary Care Provider Encounter Details Date Type Department Care Team Description 07/18/2017 Telephone General Surgery at [facility] [place] [address] Social History Tobacco Use Types Packs/Day Years Used Date Never Smoker Smokeless Tobacco: Never Used Alcohol Use Standard Drinks/Week Comments Yes 0 (1 standard drink = 0.6 oz pure alcoho l) Sex Assigned at Date Recorded Not on file documented as of this encounter Miscellaneous Notes Telephone Encounter - Sara Servin - 07/18/2017 11:03 AM EDT LMOM for PT encouraging her to complete her online registration. I asked her to give me a call if she has any questions or concerns. documented in this encounter Plan of Treatment Not on filedocumented as of this encounter Visit Diagnoses Not on filedocumented in this encounter Care Teams Emd Special Education Teacher Relationship Specialty Start Date End Date Maurice Quintana ND PCP - General 07/19/14 10/05/17 [facility] [address] [place] [address] documented as of this encounter
--- OUTSIDE RECORDS SUMMARY | 2022-06-26 09:14 | XMS_ITS | Encounter Summary ---
:1970 Author Organization [facility] [place] [address] Care Team Providers Name Role Phone Pipe Unger ND Primary Care Provider Encounter Details Date Type Department Care Team Description 05/22/2015 Surgery Main Operating Room Bernardo Simon [facility] [facility] [address] (WRVU 7.71) [facility] [place] [address] [place] [address] [phone] Social History Tobacco Use Types Packs/Day Years Used Date Never Smoker Smokeless Tobacco: Never Used Alcohol Use Standard Drinks/Week Comments Yes 0 (1 standard drink = 0.6 oz pure alcoho l) Sex Assigned at Date Recorded Not on file documented as of this encounter Last Filed Vital Signs Vital Sign Reading Time Taken Comments Blood Pressure 158/90 05/22/2015 4:33 PM EDT Pulse 58 05/22/2015 4:33 PM EDT Temperature 36.5 ??C (97.7 ??F) 05/22/2015 4:33 PM EDT Respiratory Rate 16 05/22/2015 4:33 PM EDT Oxygen Saturation 99% 05/22/2015 4:33 PM EDT Inhaled Oxygen Concentration - - Weight 115.2 kg (254 lb) 05/22/2015 1:50 PM EDT Height 172.7 cm (5' 7.99) 05/22/2015 1:50 PM EDT Body Mass Index 38.63 05/22/2015 1:50 PM EDT documented in this encounter Discharge Instructions Discharge Johnathan Waddell RN - 05/22/2015 5:08 PM EDT POST ANESTHESIA INSTRUCTIONS Go home, rest, use caution on stairs. Change positions slowly. Do not smoke if you are alone. Diet light to regular as tolerated today. If nausea occurs start with clear liquids and progress slowly. No driving, operating machinery, alcoholic beverages and no important decisions for 24 hours. Monitor IV site for signs and symptoms of infection: increasing redness, swelling, foul drainage, ifoccurs contact M.D. Patients who have had endotrachial tubes (this tube, used by anesthesia department, is passed down your throat after you are asleep, to ensure safe air passage during your operation). A sore throat is normal due to the tube. Cold liquids or soothing lozenges will help ease the discomfort. The generalized muscle aches are due to the medication given to you just before the tube is inserted. As the medication wears off, you may develop muscle soreness, which usually goes away in 12-24 hours. Patient InstructionsKrzysztof Zavaleta MD - 05/22/2015 4:31 PM EDT Instructions Following Varicose Vein Surgery Wound Care: Bedrest for 4-6 hours following surgery once you get home with legs at level of heart orelevated. Keep on LUCY wraps for the next 3 days. No bathing for 3 days. Keep legs elevated or at level of heart as much as possible over the next 3-5 days. Limit amount of time sitting up with legs down or walking as much as possible for the next week (to avoid increasing pressure in the veins). After 3 days you may take off LUCY wraps and gauze, may shower, and pat dry immediately following. Put LUCY wraps back on after showering and use over next 1-2 weeks as needed for swelling or discomfort.Bruising of the skin is normal and will clear up over the next several weeks. You may use ice to thearea as needed for tenderness/swelling. Keep steri-strips (pieces of tape on the skin) on until they fall off on their own. You may trim them back with scissors as they begin to peel up. Activity: Try to limit walking, standing up, or sitting with legs dangling below you as much as possible for the first week. When sitting try to prop leg(s) up on pillows and/or lie down as much as possible. No vigorous activity (such as jogging) for at least 2-4 weeks or until cleared to do so at youfollow-up appointment. Call Doctor for: Please call if you notice worsening redness or drainage from incision(s) lasting longer than 5 days after your surgery, any foul-smelling drainage from the incision, pain not controlled by pain medications, or for any fevers greater than 101.3 F. Pain Medication: No driving for 8 hours after any dose of opioid pain medication if one was presecibed for you. You may use ibuprofen (motrin, advil) in addition to this medication if your pain is not totally controlled. Follow-up: You will have a follow-up appointment scheduled with Dr. Simon in 2-4 weeks. Appointment will be mailed to you and/or you may be called with a date and time from the clinic. If you do not hear from the clinic within 3 weeks of your proposed appointment please call to confirm date and time of your appointment, and ask for the vascular surgery clinic. documented in this encounter Medications at Time of Discharge Medication Sig Dispensed Refills Start Date End Date docusate sodium (COLACE) Take 1 capsule by 10 capsule 0 05/1006/01/2015 100 mg Capsule mouth 2 times daily for 10 days. acetaminophen (TYLENOL) Take 2 tablets by 30 tablet 1 05/2206/08/2015 500 mg Tablet mouth every 6 hours. documented as of this encounter H&P Notes Krzysztof Zavaleta MD - 05/22/2015 1:15 PM EDT Date of History and Physical: 05/22/2015 Admitting Service: Vascular Surgery Place of Service: SD19 Responsible Attending: Dr. Simon Patient Name: Angeline Barnes Patient Age: 45 y.o. Birthdate: 1970 Admit date: 05/22/2015 Attending Physician: Bernardo Simon MD PCP: PIPE UNGER, Doctor of Chief Complaint: LLE symptomatic varicose veins History of Present Illness: Angeline Barnes 45 y.o. female presenting with more than 3 months ofvaricose vein-associated LLE pain that have been refractory to conservative management with compression. She demonstrates CFV and politeal vein reflux greater than 2 seconds on Duplex. PMH: Obesity class 2 PSH: Past Surgical History Procedure Laterality Date ??? Adjustable gastric band part of a study ??? Cholecystectomy Updated Allergies/ADRs: Allergies Allergen Reactions ??? Cat/Feline Products ??? House Dust Pertinent Medications/Vaccines: Saw palmetto 500 mg PO q24 Biotin PO Family History: Family History Problem Relation Age of Onset ??? Alcohol Abuse Father Social Hx: History Social History ??? Marital Status: Spouse Name: N/A Number of Children: 4 ??? 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 Smoking status: Never Smoker ??? Smokeless tobacco: Never Used ??? Alcohol Use: Yes 1 Glasses of wine per week ??? Drug Use: No ??? Sexual Activity: Not on file Other Topics Concern ??? Exercise: Patient Reported No ??? Abuse Or Threat: Physical, Sexual, Verbal No ??? Abuse Or Threat: Help Requested By Patient No Social History Narrative Review of Systems: All 12 systems, including general exam, HEENT, psychological, neurological, CV, Resp, GI, , PV, MSK, Heme and integumentary are non-contributory unless noted in the HPI. Physical Exam: Last value Range last 12 hrs Temperature Heart Rate Blood Pressure Respiratory Rate Resp: -- SpO2 SpO2: -- Neuro: NAD, AOx3, sensation in tact to light touch b/l UE/LE/trunk HEENT: PERRL CV: RRR Pulm: adequate effort GI: soft, NT, ND MSK: 5/5 b/l UE/LE strength PV: b/l UE/LE warm and well-perfused LLE varicosities Integ: no lesions or rashes on b/l UE/LE/trunk Lab Data: None new Microbiology none Radiology Studies: 04/20/2015 Duplex Left Reflux? Common Femoral Vein Reflux Femoral Vein Competent Popliteal Reflux Posterior Tibial Vein Competent GSV, Near SFJ Competent GSV, Proximal Thigh Competent GSV, Mid Thigh Competent GSV, Distal Thigh Competent GSV, Knee Competent GSV Prox Calf Competent GSV, Mid Calf Competent GSV, Ankle Competent SSV Competent A/P: Angeline Barnes is a 45 y.o. female w symptomatic varicose veins in her left lower extremity that have been refractory to compression. OR for LLE stab phlebectomy. Signed: Krzysztof Zavaleta MD 05/22/2015 1:15 PM CC: [facility] [address] [facility] [id number] REF: Pipe Unger, Doctor of [facility] [address] [place] [address] documented in this encounter Miscellaneous Notes Op Note - Krzysztof Zavaleta MD - 05/22/2015 4:40 PM EDT Pre-op Dx: LLE symptomatic varicose veins Procedure: LLE stab phlebectomy Post-op Dx: same Surgeon: Bernardo Simon MD [place] Man: Krzysztof Zavaleta MD, [facility] Anesthesia: GETA IVF: 500 mL EBL: 17 mL UOP: NR Specimens: none Implants: * No implants in log * Drains: none Complications: none Closure: Primary Indications: Angeline Barnes is a 45 y.o. female presenting with symptomatic LLE varicose veins refractory to compression therapy Findings: varicosity Disp: SD PACU then home The patient was brought into the operating room and placed supine on the table. General endotrachealanesthesia was induced and the patient was prepped and draped in usual sterile fashion. A time-out was performed identifying personnel, procedure, patient and safety concerns. We began with the marked varices on the patient's lower extremities. Several incisions were marked perpendicular to the path of the varicosities with a marking pen, and a #15 blade was used to incise the skin. The vein was then dissected out along its marked course with a hemostat clamp. The veins were very friable and pressure was held where needed for hemostasis. Large branches were tied using 3-0 vicryl ties. Additional hemostasis was obtained with electrocautery as needed, and the stab incisionswere closed with 4-0 monocryl, Dermabond and steri-strips. The leg was wrapped with kerlix and an LUCY bandage from foot to hip. All counts were correct, the patient was hemostatic on conclusion and awoke from GETA without incident.Bernardo Simon MD was present and scrubbed for the entirety of the procedure. The patient was transported to PACU in stable condition. Krzysztof Zavaleta MD 05/22/2015 4:43 PM Associated attestation - Bernardo Simon MD - 05/23/2015 12:47 PM EDT Attestation: Case Date: 05/22/2015 I was present and I participated during the entire procedure (does not need to include opening and closing). Bernardo Simon MD 05/23/2015 Brief Op Note - Krzysztof Zavaleta MD - 05/22/2015 4:25 PM EDT Pre-op Dx: LLE symptomatic varicose veins Procedure: LLE stab phlebectomy Post-op Dx: same Surgeon: Bernardo Simon MD [place] Man: Krzysztof Zavaleta MD, [facility] Anesthesia: GETA IVF: 500 mL EBL: 17 mL UOP: NR Specimens: none Implants: * No implants in log * Drains: none Complications: none Closure: Primary Indications: Angeline Barnes is a 45 y.o. female presenting with symptomatic LLE varicose veins refractory to compression therapy Findings: varicosity Disp: SD PACU then home Krzysztof Zavaleta MD 05/22/2015 4:25 PM documented in this encounter Plan of Treatment Not on filedocumented as of this encounter Procedures Procedure Name Priority Date/Time Associated Comments Diagnosis STAB PHLEBECTOMY CELESTINO Routine 05/22/2015 4:09 PM Varicose veins of VEINS 1 EXTREMITY EDT leg with pain, left 10-20 INCISIONS STAB PHLEBECTOMY CELESTINO 05/22/2015 2:59 PM Varicose veins of VEINS 1 EXTREMITY EDT leg with pain, left 10-20 INCISIONS (WRVU 7.71) TYPE AND SCREEN, SDP Routine 05/22/2015 12:48 Varicose veins o f (F[place]GERY, [facility] [place] EDT leg with pain, left SAME DAY PROGRAM ONLY) ABO/RH TYPING Routine 05/22/2015 12:48 Varicose veins of Resul ts for this PM EDT leg with pain, left procedur e are in the results section. ANTIBODY SCREEN Routine 05/22/2015 12:48 Varicose veins of Res ults for this PM EDT leg with pain, left procedur e are in the results section. documented in this encounter Results Antibody screen (05/22/2015 12:48 PM EDT) [facility] gist Method Time Signature Ab Screen Negative [facility] at 05/25/2015 [facility] [id number] on: [facility] Specimen Anatomical Collection Method Collection Time Receive d Time (Source) Location / / Volume Laterality Blood specimen 05/22/2015 12:48 5 (specimen) PM EDT 12:51 PM EDT Resulting Agency Comment Spec In Lab Bernardo Simon MD BLOOD BANK ORDERABLES Performing Organization Address City/State/ZIP Code Phon e Number [facility] [address] [facility] ABO/Rh Typing (05/22/2015 12:48 PM EDT) P athologist Signature ABORh Type B Pos [facility] Specimen Anatomical Collection Method Collection Time Receive d Time (Source) Location / / Volume Laterality Blood specimen 05/22/2015 12:48 5 (specimen) PM EDT 12:51 PM EDT Resulting Agency Comment Spec In Lab Bernardo Simon MD BLOOD BANK ORDERABLES Performing Organization Address City/State/ZIP Code Phon e Number [facility] [place] [address] [facility] documented in this encounter Visit Diagnoses Diagnosis Varicose veins of leg with pain, left Varicose veins of leg with pain, left documented in this encounter Administered Medications Inactive Administered Medications - up to 3 most recent administrations Medication Order MAR Action Action Date Dose Rate Site acetaminophen (TYLENOL) tablet Given 05/22/2015 4:54 PM EDT 1,00 0 mg 1,000 mg 1,000 mg, Oral, EVERY 6 HOURS, First dose on Fri05/22/15 at 1700, Until Discontinued, Maximum dose of acetaminophen is 4000 mg from all sources in 24 hours., Routine aspirin chewable tablet 81 mg Given 05/22/2015 2:39 PM EDT 81 mg 81 mg, Oral, ONCE PRN, 1 dose, Starting on Fri05/22/15 at 1436, Until Fri05/22/15 at 1439, If not already taken on day of surgery., Day of Surgery (Day of Procedure), Routine HYDROmorphone (DILAUDID) tablet 2-6 mg Given 05/22/2015 4:54 PM EDT 2 mg 2-6 mg, Oral, EVERY 4 HOURS PRN, Starting on Fri05/22/15 at 1630, Until Fri05/22/15 at 2039, Pain, Routine documented in this encounter Active and Recently Administered Medications Times are shown in EDT. Scheduled Medication Order 05/20/2015 05/21/2015 05/22/2015 acetaminophen (TYLENOL) tablet 1,000 mg 1654 (Given - Provider: Johnathan Kruse RN)1700 (Due) 1,000 mg, Oral, EVERY 6 HOURS, First dos e on Fri05/22/15 at 1700, Until Discontinued, Maximum dose of acetaminophen is 4000 mg from all sources in 24 hours., Routine ceFAZolin (ANCEF) 2g in dextrose 5% 50 mL (COMPLETED) 1510 (Given - Provider: Arben Bean) 2 g, Intravenous, ONCE, 1 dose, 05/22 at 1500, for 30 Minutes, Redose after 4 hours., Day of Surgery (Day of Procedure), Indication for (Active or Suspected): Prophylaxis docusate sodium (COLACE) capsule 100 mg 100 mg, Oral, 2 TIMES DAILY, First dose on Fri05/22/15 at 2100, Until Discontinued, Routine PRN Medication Order 05/20/2015 05/21/2015 05/22/2015 aspirin chewable tablet 81 mg (COMPLETED) 1439 (Given - Provider: Sharda Mckinley, RN) 81 mg, Oral, ONCE PRN, 1 dose, Starting Fri05/22/15 at 1436, Until Fri05/22/15 at 1439, If not already taken on day of surgery., Day of Surgery (Day of Procedure), Routine HYDROmorphone (DILAUDID) tablet 2-6 mg 1654 (Given - Provider: Johnathan Kruse RN) 2-6 mg, Oral, EVERY 4 HOURS PRN, Startin g Fri05/22/15 at 1630, Until Fri05/22/15 at 2039, Pain, Routine documented in this encounter Care Teams Wrapper Stemmer Hand Relationship Specialty Start Date End Date Pipe Unger ND PCP - General 07/19/14 10/05/17 [facility] [address] [place] [address] documented as of this encounter
--- OUTSIDE RECORDS SUMMARY | 2022-06-26 09:14 | XMS_ITS | Encounter Summary ---
:1970 [place] [address] Care Team Providers Name Role Phone India Escobar APRN Primary Care Provider Encounter Details Date Type Department Care Team Description 07/30/2018 Telephone General Surgery at [facility] Arcelia Alvarado APRN [facility] [place] [address] [facility] [phone] [place], [place] [address] (Wo rk) Social History Tobacco Use Types Packs/Day Years Used Date Never Smoker Smokeless Tobacco: Never Used Alcohol Use Standard Drinks/Week Comments Yes 0 (1 standard drink = 0.6 oz pure alcoho l) Sex Assigned at Date Recorded Not on file documented as of this encounter Miscellaneous Notes Telephone Encounter - Arcelia Alvarado APRN - 07/30/2018 1:06 PM EDT Pt called to review insurance requirements to move forward, at this point she needs RD notes to reflect that she has added exercise, per the last 3 notes she has not yet added regular exercise. Also she was to have a psychological evaluation with Dr Thompson in June which has not yet been completed. I did not leave these details but left her a message to call back to review status of BSP progress. documented in this encounter Plan of Treatment Not on filedocumented as of this encounter Visit Diagnoses Not on filedocumented in this encounter Care Teams Merchandise Shopper Relationship Specialty Start Date End Date Heck, India K, WIRE FRAME MAKER PCP - General Family Medicine 10/06/17 [address] [place] [address] documented as of this encounter
--- OUTSIDE RECORDS SUMMARY | 2022-06-26 09:14 | XMS_ITS | Encounter Summary ---
:1970 Author Organization [facility] [place] [address] Care Team Providers Name Role Phone India Escobar APRN Primary Care Provider Encounter Details Date Type Department Care Team Description 08/31/2018 Telephone General Surgery at [facility] [place] [address] Social History Tobacco Use Types Packs/Day Years Used Date Never Smoker Smokeless Tobacco: Never Used Alcohol Use Standard Drinks/Week Comments Yes 0 (1 standard drink = 0.6 oz pure alcoho l) Sex Assigned at Date Recorded Not on file documented as of this encounter Miscellaneous Notes Telephone Encounter - Lena Edwards - 08/31/2018 3:22 PM EDT Tried to phone patient to update on status with bariatric surgery program, phone number is not excepting calls from this number. Patient needs to have documented exercise and meet with Deed[facility] at [facility] in order to proceed. documented in this encounter Plan of Treatment Not on filedocumented as of this encounter Visit Diagnoses Not on filedocumented in this encounter Care Teams Cut Off Operator Scorer Relationship Specialty Start Date End Date India Escobar, ANTOINETTE PCP - General Family Medicine 10/06/17 [address] [place] [address] documented as of this encounter
--- OUTSIDE RECORDS SUMMARY | 2022-06-26 09:14 | XMS_ITS | Encounter Summary ---
:1970 Author Organization [facility] [place] [address] Care Team Providers Name Role Phone India Escobar APRN Primary Care Provider Encounter Details Date Type Department Care Team Description 01/19/2018 Office Visit General Surgery at Ban Jeronimo Morbi d obesity with [facility] BMI of 40.0-44.9, [facility] [address], [place] GENERAL SURGERY [address] [place] [address] [phone] Social History Tobacco Use Types Packs/Day Years Used Date Never Smoker Smokeless Tobacco: Never Used Alcohol Use Standard Drinks/Week Comments Yes 0 (1 standard drink = 0.6 oz pure alcoho l) Sex Assigned at Date Recorded Not on file documented as of this encounter Progress Notes Ban Jeronimo MD - 01/19/2018 3:00 PM EDT Reason for consultation: Angeline is a 47 y.o. year-old female referred by India Escobar APRN for consultation for consideration of surgical treatment of obesity. Prior bariatric surgery evaluations: lap band and removal Her preferred procedure: gastric bypass Angeline was advised that weight loss from both procedures depends on ability to eat a healthy diet meterman after surgery and was encouraged to review the risksand benefits of both procedures in the BSP handbook, as well as online via the ASMBS website. BARIATRIC SURGERY PROGRAM PATHWAY Review of progress with the requirements of the Bariatric Surgery Program: 1. Education: She has attended a Introduction to the [facility] Bariatric Surgery Program seminar, a comprehensive two hour meeting that provides a program overview, education on bariatric surgeries offeredat [facility], risks and benefits, as well as patient expectations and follow up [facility] Bariatric Surgery Program Educational seminars viewed 2. Pre-operative programmatic evaluations: PCP evaluation and letter of support to proceed with surgery, BSP labwork, and psychological evaluation 3. Bariatric Surgery Program evaluations with RD today. 4. WT at visit #1:310 lbs 5. Gallbladder status: removed 6. Next steps in pathway: ?? Additional testing/ consultations as determined as needed to be determined at today's visit. History of present illness: Angeline reports a history of obesity since the age -- Factors that she identifies as contributing to her obesity include: genetics, overconsumption and inactivity. She denies binge eating, night eating disorder, self-induced vomiting, laxative or diuretic use or excessive exercise to lose weight. Conservative efforts at weight loss have been unsuccessful in the residential. Refer to nutrition noteby [facility] dietitian for weight and dieting history, 24 hour dietary intake and recent dietary changes. Motivating factors for seeking surgery for bariatric surgery: see RD note Patient research in addition to attendance at [facility] Bariatric Surgery Informational meeting and online Educational seminars: see RD note Her goals of surgery:-get healthier Her perceived readiness for surgery:excellent Functional status: (This is helpful to determine need for PT/ OT / cardiology evaluations) Exercise: As per RD note Is ambulation limited most or all of the time? no Tolerance: she can walk a mile and climb a flight of stairs Karnofsky performance status scale: 90- able to carry on normal activity, minor signs or symptoms of disease Patient Active Problem List Diagnosis Code ??? Acne rosacea, erythematous telangiectatic type L71.8 ??? Pannus, abdominal E65 ??? Depression F32.9 ??? Varicose vein I83.90 ??? Elastosis of skin L98.8 ??? Morbid obesity with BMI of 40.0-44.9, adult E66.01, Z68.41 ??? H/O laparoscopic adjustable gastric banding Z98.84 Past Surgical History: Procedure Laterality Date ??? ADJUSTABLE GASTRIC BAND part of a study ??? CHOLECYSTECTOMY ??? PRO PHLEB VEINS - EXTREM - TO 20 Left 05/22/2015 STAB PHLEBECTOMY CELESTINO VEINS 1 EXTREMITY 10-20 INCISIONS performed by Bernardo Simon MD at [facility] meds: ??? VYVANSE 60 mg Capsule Allergies Allergen Reactions ??? Cat/Feline Products ??? House Dust Diagnostic screenin. pending 2. Psychological evaluation done by Deedee Thompson no contraindication to bariatric surgery from a psychological perspective. Screening/other: up to date Family History Problem Relation Age of Onset ??? Alcohol Abuse Father Social History Substance Use Topics ??? Smoking status: Never Smoker ??? Smokeless tobacco: Never Used ??? Alcohol use Yes 1 Glasses of wine per week Bariatric Surgery VTE Risk Assessment Score Patients will be considered to be at high risk if they have one or more of the following: Previous VTE or BMI >/= 60 kg/m2 Or two or more of the following: Age > 50 BMI >/= 50 kg/m2 Male sex Recent tobacco use Obstructive sleep apnea Venous insufficiency/ varicose veins OCP or HRT within 30 days of surgery Total: extended VTE prophylaxis is not/ indicated post bariatric surgery discharge Patients are advised to stop HRT and OCP/ DMPA 1 month prior to surgery and hold for 1 month post op, and use control during this time if appropriate Discussion of treatment of obesity and of the [facility] Bariatric Surgery Program: Ms.. Barnes is aware that other treatments for obesity are available, ie, dietary, behavior modification, weight loss medications, exercise as well as surgical weight loss methods. The risks and benefits of bariatric surgery, including gastric bypass and sleeve gastrectomy are discussed at every Int roduction to the [facility] Bariatric Surgery Program meeting and all Educational Seminars, and will be reviewed in detail at the second pre-operative visit. The importance of incorporating lifestyle activity and regular exercise, such as walking, or swimming, after discussion and approval by her primary primary care provider, prior to surgery, as well as post-operatively, was stressed. She is aware of our program???s mandatory requirements: 1. attendance at a two hour Introduction to the [facility] Bariatric Surgery Program seminar 2. view 3 Bariatric Surgery Educational seminars and complete post testing 3. a no weight gain policy. Ongoing weight loss is encouraged. Insurers may have additional weightloss requirements. 4. a minimum of two pre-operative visits with the dietitian and nurse practitioner 5. Two hour pre-operative class and completion of post-testing 6. any additional requirements mandated by the patient's insurance carrier. Prospective patients are encouraged to thoroughly research bariatric surgery, via the internet, the [facility] Bariatric Surgery Program website at [email or web address], books, and journals. In addition, information on bariatric surgery is available at the Storwize at [facility]. Assessment/ Plan: 47 y.o. year old female with morbid obesity: She has had failure to sustain weight loss by medical management and meets the criteria proposed by the NIH Consensus Guidelines for surgical treatment of severe obesity and the AACE, TOS, ASMBS Clinical Practice Guidelines for the Perioperative Nutritional, Metabolic and Non-surgical Support of the Bariatric Surgery Patient 2013 Update. She is aware that there are non-surgical methods to achieve weight loss. She has had an opportunity to have all her questions answered and is in agreement with the plan of care. She was encouraged to call with any questions or concerns. Information provided to patient: 1. [facility] Bariatric Surgery Education Handbook, a 102 page document (revision August 2013) which contains extensive information regarding pre and post- operative care including: a copy of the Patient Agreement, illustrations of GI anatomy and gastric bypass, gastric banding and sleeve gastrectomy surgeries, [facility] Rehab Medicine recommendations and exercises prior to surgery, gastric bypass, gastric banding and sleeve gastrectomy risks and benefits, dietary information including the pre-operative and post-operative diets, DVT prevention guidelines,information on medications that can increase the risk of bleeding, pre-op preparation information, post-operative instructions and contact numbers. Studies and consults suggested to primary primary care provider: India Escobar, WORKING FOREMAN 1. Pending: - - CBC and CMP within 3 months of surgery, per MBSAQIP accredited bariatric center guidelines - Ongoing weight loss encouraged Questions regarding [facility] Bariatric Surgery Program patients: [phone] Total visit duration was 30 minutes with over 20 minutes spent in face to face discussion with the patient. documented in this encounter Plan of Treatment Not on filedocumented as of this encounter Results TSH (02/19/2018 3:51 PM EDT) P athologist Signature TSH 1.04 0.27 - 4.20 [facility] mlU/ML [facility] Specimen Anatomical Collection Method Collection Time Receive d Time (Source) Location / / Volume Laterality Blood specimen 02/19/2018 3:51 PM 018 4:04 (specimen) EDT PM EDT Resulting Agency Comment Spec In Lab Ban Jeronimo MD CHEMISTRY ORDERABLES Performing Organization Address City/[facility]/[place] [address] (ABNORMAL) Vitamin D, 25-Hydroxy (02/19/2018 3:51 PM EDT) athologist Signature 25-OH Vit D 23 (L) 30 - 100 [facility] Total ng/mL [facility] Comment: Deficient <10 ng/mL Insufficient 10 to 29 ng/mL Sufficient 30 to 100 ng/mL Potential Intoxication >100 ng/mL According to the [place] National Osteoporosi s Foundation, Vitamin D concentrations >30 ng/mL are sufficient to protect bone health. ??The National Kidney Foundation has similarly stated that pat ients with Vitamin D concentrations <30ng/mL should be considered to be insu fficient or deficient. http://Celletra/nkf-guidelines http://Celletra/nejm-VitD The IDS iSYS Vitamin D Immunoassay detec [...] Jeronimo MD CHEMISTRY ORDERABLES Performing Organization Address City/[facility]/[place] [address] Vitamin B12 (02/19/2018 3:51 PM EDT) athologist Signature Vitamin B-12 433 232 - 1,245 [facility] pg/mL [facility] Comment: Please note: Effective 10/08/2017, the [...] Jeronimo MD CHEMISTRY ORDERABLES Performing Organization Address City/[facility]/ZIP Code Phon e Number [address] Ferritin (02/19/2018 3:51 PM EDT) athologist Signature Ferritin 38 15 - 150 [facility] ng/mL [facility] Comment: Pediatric reference ranges not verified [...] Jeronimo MD CHEMISTRY ORDERABLES Performing Organization Address City/[facility]/ZIP Code Phon e Number [address] (ABNORMAL) Iron and TIBC (02/19/2018 3:51 PM EDT) Analysis Performed At [facility] logist Time Signature Iron 154 (H) 30 - [address] [facility] m[facility]/dL [facility] TIBC 328 250 - [facility]dL [facility] Iron Saturation 47 20 - 50 % [facility] Specimen Anatomical Collection Method Collection Time Receive d Time (Source) Location / / Volume Laterality Blood specimen 02/19/2018 3:51 PM 018 4:04 (specimen) EDT PM EDT Resulting Agency Comment Spec In Lab Ban Jeronimo MD CHEMISTRY ORDERABLES Performing Organization Address City/[facility]/ZIP Code Phon e Number [address] Hemoglobin A1c (02/19/2018 3:51 PM EDT) athologist Signature Hemoglobin A1C 5.3 4.3 - 5.6 [facility] Comment: Reference Range: 4.3 - 5.6% [...] 1, S67-74 Est Avg Gluc 105 mg/dL [facility] Comment: eAG equivalents for HbA1c percentages: HbA1c(%) ?eAG(mg/dL) 6.0 ?126 6.5 ?140 7.0 ?154 7.5 ?169 8.0 ?183 8.5 ?197 9.0 ?212 9.5 ?226 10.0 ? 240 Limitations: The eAG calculation has not been validated on women, individuals below 18 years old and above 70 years old, and individuals with hemoglobinopathies. Additional resources are available on [facility] ADA website. Leonardo BARONE, Anne J, Marina R, et al. ??Tr anslating the A1C assay into estimated average glucose values. ??Diabetes Care 2008:31(8):9725-5120. Specimen Anatomical Collection Method Collection Time Receive d Time (Source) Location / / Volume Laterality Blood specimen 02/19/2018 3:51 PM 018 4:04 (specimen) EDT PM EDT Resulting Agency Comment Spec In Lab Ban Jeronimo MD CHEMISTRY ORDERABLES Performing Organization Address City/State/ZIP Code Phon [place] [facility] [place] [address] Lipid Panel (02/19/2018 3:51 PM EDT) athologist Signature Chol, Total 174 mg/dL [facility] Comment: Lower Risk: <200 mg/dL Average Risk: 200-239 mg/dL Higher Risk: >th=422 mg/dL Triglycerides 122 mg/dL [facility] Comment: Average Risk/Lower Risk: <150 mg/dL Borderline High Risk: 150-199 mg/dL High Risk: 200-499 mg/dL Very High Risk: >mm=684 mg/dL HDL 44 mg/dL [facility] Comment: Males: ?? Higher Risk: <40 mg/dL Females: ?? HIgher Risk: <50 mg/dL LDL Cholesterol 106 mg/dL [facility] Comment: Lowest Risk: <100 mg/dL Lower Risk: 100-129 mg/dL Borderline High Risk: 130-159 mg/dL High Risk: 160-189 mg/dL Very High Risk: >jh=631 mg/dL Chol/HDL Ratio 4.0 ratio [facility] Lipid Interpretation See Note [facility] Comment: Lipid management should be guided by a p atient? s ASCVD risk, goals and preferences. ACC/AHA Guidelines recommend high intens ity statin if clinical ASCVD or LDL greater than or equal to 190 mg/dL. http://Ministry [employer] Supply.com/CTZ-GBV-Pobubtgdi Adults aged 40-75 with LDL 70-189 mg/dL should have their 10 year ASCVD risk estimated with the ACC/AHA ASCVD risk es timator http://tools.acc.org/YWBAB-Bzgy-Gjvktzbe r/ Statin should be discussed if risk [...] Organization Address City/State/ZIP [place] [address] (ABNORMAL) CMP w/fasting Glucose (02/19/2018 3:51 PM EDT) athologist Signature Glucose 86 65 - 99 [facility] Fasting mg/dL [facility] Comment: ?Fasting* Glucose Interpretive C riteria [...] of Diabetes Mellitus, Position Statement from the [place] Diabetes Association. ??Diabete s Care, Volume 33, Supplement 1, Nov 2009 BUN 14 8 - 18 mg/dL [facility] Creatinine 0.84 0.70 - 1.20 mg/dL [facility] Sodium 140 135 - 145 mmol/L [facility] Potassium 4.2 3.5 - 5.0 mmol/L [facility] Comment: Please note: ??Patients with WBC >100,00 0 may have falsely elevated Potassium levels. ??For accurate Potassium quantif ication in these patients send serum separator tube (gold top) for subsequent determinations. ??Contact the Clinical Chemistry Laboratory if there are any qu estions. Chloride 97 (L) 98 - 107 mmol/L [facility] CO2 26 22 - 31 mmol/L [facility] Anion Gap 17 (H) 5 - 15 mmol/L [facility] Calcium 10.2 8.5 - 10.5 mg/dL [facility] Total Protein 7.6 6.1 - 8.0 gm/dL [facility] Albumin 4.3 3.2 - 5.2 gm/dL [facility] AST 15 0 - 30 unit/L [facility] ALT 18 0 - 30 unit/L [facility] Alk Phos 71 40 - 104 unit/L [facility] Total Bilirubin 0.3 0.2 - 1.3 mg/dL [facility] Estimated GFR >60 >=60 [facility] Comment: The reported eGFR should be multiplied b y 1.2 for patients. The MDRD is not an appropriate measure o f renal function for patients with body mass extremes or in patients with acute kidney failure. http://Celletra/DHnkdep http://Celletra/DHMCnkf Specimen Anatomical Collection Method Collection Time Receive d Time (Source) Location / / Volume Laterality Blood specimen 02/19/2018 3:51 PM 018 4:04 (specimen) EDT PM EDT Resulting Agency Comment Spec In Lab Ban Jeronimo MD CHEMISTRY ORDERABLES Performing Organization Address City/State/ZIP [place] [address] (ABNORMAL) Hemogram (02/19/2018 3:51 PM EDT) Analysis Performed At Patho logist Time Signature WBC 9.6 (H) 4.0 - 9.5 [facility] x10(3)/[facility] LABORATORY RBC 4.98 4.00 - [facility] 5.21 [facility] x10(6)/[facility] LABORATORY Hemoglobin 13.9 11.7 - [facility] 15.5 gm/dL [facility] Hematocrit 42.6 35.7 - [facility] 45.8 % [facility] MCV 85.5 82.6 - [facility] 94.4 [facility] LABORATORY MCH 27.9 27.1 - [facility] 32.0 pg [facility] MCHC 32.6 31.7 - [facility] 35.0 gm/dL [facility] Platelets 322 145 - 357 [facility] x10(3)/[facility] LABORATORY RDWSD 44.5 37.0 - [facility] 46.0 [facility] LABORATORY RDWCV 14.4 (H) 11.5 - [facility] 14.1 % [facility] MPV 9.4 7.6 - 12.9 [facility] LABORATORY nRBC % Auto 0.0 % [facility] nRBC Abs Auto 0.000 0.000 - [facility] 0.000 [facility] x10(3)/[facility] LABORATORY Specimen Anatomical Collection Method Collection Time Receive d Time (Source) Location / / Volume Laterality Blood specimen 02/19/2018 3:51 PM 018 4:04 (specimen) EDT PM EDT Resulting Agency Comment Spec In Lab Ban Jeronimo MD HEMATOLOGY ORDERABLES Performing Organization Address City/State/ZIP [place] [address] documented in this encounter Visit Diagnoses Diagnosis Morbid obesity with BMI of 40.0-44.9, ad ult Morbid obesity documented in this encounter Care Teams Machinist/Machine Builder Relationship Specialty Start Date End Date India Escobar APRN PCP - General Family Medicine 10/06/17 [address] [place] [address] documented as of this encounter
--- OUTSIDE RECORDS SUMMARY | 2022-06-26 09:15 | XMS_ITS | Encounter Summary ---
:1970 Author Organization [facility] [place] [address] Care Team Providers Name Role Phone Maurice Quintana ND Primary Care Provider Reason for Visit Reason Comments Follow-up VV L leg Encounter Details Date Type Department Care Team Description 04/20/2015 Follow-Up Vascular Surgery at Bernardo Simon MD Varicose veins of leg [facility] with pain, left [facility] [place] [address] [place] [address] [phone] (Wo rk) Social History Tobacco Use Types Packs/Day Years Used Date Never Smoker Smokeless Tobacco: Never Used Alcohol Use Standard Drinks/Week Comments Yes 0 (1 standard drink = 0.6 oz pure alcoho l) Sex Assigned at Date Recorded Not on file documented as of this encounter Last Filed Vital Signs Vital Sign Reading Time Taken Comments Blood Pressure 142/94 04/20/2015 11:05 AM EDT Pulse 62 04/20/2015 11:05 AM EDT Temperature - - Respiratory Rate - - Oxygen Saturation - - Inhaled Oxygen Concentration - - Weight 113.4 kg (250 lb) 04/20/2015 11:05 AM EDT Height 172.7 cm (5' 8) 04/20/2015 11:05 AM EDT Body Mass Index 38.01 04/20/2015 11:05 AM EDT documented in this encounter Patient Instructions Patient InstructionsBernardo Simon MD - 04/20/2015 11:15 AM EDT We will contact you to pick a date for vein excision surgery as discussed. documented in this encounter Progress Notes Bernardo Simon MD - 04/20/2015 11:12 AM EDT OUTPATIENT VASCULAR SURGERY CONSULTATION Reason for Visit: Followup Left Leg Varicose Veins History of Present Illness: 45 yo female seen in followup consultation for her symptomatic left leg varicose veins. She has had them for several years but reports increased pain and throbbing more recently. She denies any DVT, phlebitis or ulceration. She has used compression but still has persistent pain. Atherosclerotic Risk Factors: (n) DM (n) HTN (n) Hyperlipidemia (n) Tobacco Other Past Medical History/Risk Factors: (n) Previous MT (n) Angina (n) CHF (n) Arrythmia () COPD Review of Systems: Constitutional (weight change, fever) - Denies Neuro (dizziness, seizures, numbness, tingling) - Denies Eyes (vision) - Denies Ears, nose, throat (hearing) - Denies Cardiovascular (CP) - Denies Respiratory (SOB) - Denies GI (abd pain, nausea, emesis, blood in stool) - Denies (hematuria, dysuria, frequency) - Denies Muscoloskeletal (extremity pain, weakness) - Denies Skin (ulcers, rashes) - Denies Functional Status/Social Hx: Lives at Home, Drives Car and Does Her Own Shopping, Active Tobacco Use, Occasional EtOH Occasional EtOH Family Hx: Negative for Thrombosis, Bleeding Disorders or aneursyms Physical Exam: Filed Vitals: 04/20/15 1105 BP: 142/94 Pulse: 62 General - NAD, appears stated age Neuro - Alert and Oriented, Motor Sensory grossly intact Skin - No prominent markings or lesions Ear, Nose, Throat - No masses, No lesions Cardiac - RRR, no murmurs Lungs - CTA bilaterally Abd - Soft, NT, ND, No palpable pulsatile masses Extremities - Warm, pink, no edema, brisk capillary refill, moderate varicose veins along anterior left thigh, no lipodermatosclerosis, no telangiectasias Vascular Exam: R L Carotid 2/2 bruit (-) 2/2 bruit (-) Radial 2/2 2/2 Femoral 2/2 2/2 Popliteal 2/2 2/2 DP 2/2 2/2 PT 2/2 2/2 Labs: None Studies: Indication: Varicose vein L anterior thigh. ICD9 Diagnosis Code: 454.9 Findings: Left Reflux? Common Femoral Vein Reflux Femoral Vein Competent Popliteal Reflux Posterior Tibial Vein Competent GSV, Near SFJ Competent GSV, Proximal Thigh Competent GSV, Mid Thigh Competent GSV, Distal Thigh Competent GSV, Knee Competent GSV Prox Calf Competent GSV, Mid Calf Competent GSV, Ankle Competent SSV Competent Interpretation: Left- There is reflux in the common femoral vein and popliteal vein. The anterior branch of the GVS has reflux from the groin though anterior thigh and to the lateral side of the knee(> 2.0 sec) No reflux noted in the femoral vein through the thigh or calf veins. Patent greater saphenous vein with no evidence of reflux. The superficial epigastric and the anterior GSV confluence the CFV together and the GSV confluences the CFV just below those two. Assessment and Plan: 45 yo female with symptomatic left leg varicose veins in the anterior thigh distribution. Her duplex reveals only some deep reflux. Given her persistent pain despite compression, Ihelias offerred left leg stab phlebectomy. Risks and benefits were discussed. She would like to proceed. We will make arrangements accordingly. documented in this encounter Miscellaneous Notes Addendum Note - Sharon Monae RN - 04/21/2015 1:50 PM EDT Addended by: SHARON MONAE on: 04/21/2015 01:50 PM Modules accepted: Orders documented in this encounter Plan of Treatment Not on filedocumented as of this encounter Visit Diagnoses Diagnosis Varicose veins of leg with pain, left documented in this encounter Care Teams Psychologist Private Practice Relationship Specialty Start Date End Date Maurice Quintana ND PCP - General 07/19/14 10/05/17 [facility] [address] [place] [address] documented as of this encounter
--- OUTSIDE RECORDS SUMMARY | 2022-06-26 09:15 | XMS_ITS | Encounter Summary ---
:1970 Author Organization [facility] [place] [address] Care Team Providers Name Role Phone Maurice Quintana ND Primary Care Provider Reason for Visit Reason Comments Procedure Encounter Details Date Type Department Care Team Description 12/15/2014 Office Visit Dermatology at [facility] [place] MD Daryn [address] [facility] [place] [address] [facility][1]-DERMATOLOGY [phone] [place], [place] [address] (Wo rk) Social History Tobacco Use Types Packs/Day Years Used Date Never Smoker Smokeless Tobacco: Never Used Alcohol Use Standard Drinks/Week Comments Yes 0 (1 standard drink = 0.6 oz pure alcoho l) Sex Assigned at Date Recorded Not on file documented as of this encounter Patient Instructions Patient InstructionsMajo Ware LPN - 12/15/2014 10:52 AM EST Vascular Beam (vbeam) ?? Medical consultation visit and discussion of telangiectasias treatment options, including the possibility of laser treatment. ?? Potential adverse events including pain or stinging, possible bruising (common), hyperpigmentation and hypopigmentation, swelling, erosion or blister formation (uncommon). ?? Multiple treatments will be required for optimum benefit. Total number of treatments depend on the patient's response, expectations and desires. Most patients require 3 to 5 laser treatments. ?? Laser cosmetic procedures will not be covered by insurance. We will not submit it to the insurance company. The payment is expected at the time of the procedure/visit. ?? Cost Quoted: $350 Pretreatment: 1. Avoid being faulkner or using self bhargavi 2. On day of procedure do not use hairspray near area of treatment and do not apply makeup on treatment area. 3. Do not apply Retin A products on skin to be treated ~7 days prior to treatment Post Treatment: 1. Important to stay out of direct sunlight and apply sunscreen following laser treatment 2. Ok to apply cool compress for comfort, DO NOT apply ice directly to the skin 3. Ok to continue daily skin hygiene and regime (ok to apply moisturizers and makeup to treated area, ect.) 4. Do not apply Retin A products for 2-3 days following treatment, as they will be irritating following laser procedure 5. Tylenol may be taken for discomfort For further questions and concerns contact: [phone] Nurse message line [phone] Jasmin (Dr. Jones's Appointment Insurance Collector) In any case of emergency for weekends and off hours please contact [facility] main number and ask for coal hauler executive personal assistant at [phone] documented in this encounter Progress Notes Isidro Jones MD - 12/15/2014 10:44 AM EST Provider: Dru Jones M.D. ([id number]) Chief Problem: 1. Rosacea & Telangiectasias 2. Here for Discussion of Treatment options HISTORY & DISCUSSION: 44 y.o. year old female, here for a medical consultation visit and discussion of rosacea and telangiectasias treatment options, including the possibility of laser treatment. Topical medical therapy, camoflage, surgical options, including laser, discussed. Over half of this visit devoted to these options and expectations. Patient most interested in laser therapy today. V-beam/pulsed dye laser is most appropriate for the patient. Discussed potential adverse events including pain or stinging, possible bruising (common), hyperpigmentation and hypopigmentation, edema, erosion or blister formation (uncommon). Patient clearly understood these potential risks. Consent Multiple treatments will be required for optimum benefit.Total number of treatments depend on the baseline degree of telangiectasia, patient's response, expectations and desires. Most patients require 3 to 5 laser treatments. Patient clearly understood this. The patient knows that the V-Beam Laser, for this purpose is strictly a cosmetic procedure, insurances will not cover these procedures, and we will not submit it to the company. The patient will have to pay for the procedure, at the time of the procedure/visit. EXAMINATION: Focal examination of the face. Rosacea changes and increased telangiectasias scattered over the central face. Nose, malar cheeks and chin involved. Appropriate for laser therapy. - Moderate amount of vascular changes DIAGNOSIS/ASSESSMENT: 1. Rosacea & Telangiectasias 2. V-Beam/Pulsed Dye Laser therapy PLAN: LASER PROCEDURE 1. Patient decided to have the laser procedure performed today, after the medical consultation and brief discussion above. Verbal consent, expectations, and potential adverse events discussed. Written consent signed and recorded in the medical record. 2. Use of eye protection/eye schwartz performed, and post-laser care, sun avoidance, mild [place] laser discussed. Patient knows to call if there are any questions. V-Beam Laser Settings: - V-Beam (595 nm): 9.0 J/m2 @ 10.0 msec Spot Size: 10 mm Pulses: 126 V-Beam Laser Procedure: Applied V-beam guided head at skin surface, cryospray pre-laser, overlapping areas slightly, pulseduntil area adequately covered. No immediate post-laser complications. Follow-up as discussed. Call clinic with questions post-laser Follow up: return to the clinic in no sooner than 6-8 weeks, scheduled on the way out of the clinic today Cosmetic cost today: $350, paid on the way out of the clinic today I am documenting this encounter acting as the scribe for and in the presence of Majo Jarvis LPN I performed the above scribed service and agree with the accuracy of the documentation in this encounter, MD Dru Macias M.D. Section of Dermatology documented in this encounter Plan of Treatment Not on filedocumented as of this encounter Visit Diagnoses Diagnosis Telangiectasia Other and unspecified capillary diseases documented in this encounter Care Teams Demographic Analyst Relationship Specialty Start Date End Date Maurice Quintana ND PCP - General 07/19/14 10/05/17 [facility] [address] [place] [address] documented as of this encounter
--- OUTSIDE RECORDS SUMMARY | 2022-06-26 09:15 | XMS_ITS | Encounter Summary ---
:1970 Author Organization [facility] [place] [address] Care Team Providers Name Role Phone Maurice Quintana ND Primary Care Provider Reason for Visit Reason Onset Date Comments Other 07/25/2014 Telephone Call Encounter Details Date Type Department Care Team Description 07/25/2014 Telephone Dermatology at [facility] (Telephone Call) Lindsay Stearns MD [address] [place] [address] [facility] [place], [place] [address] (Wo rk) Social History Tobacco Use Types Packs/Day Years Used Date Never Smoker Sex Assigned at Date Recorded Not on file documented as of this encounter Miscellaneous Notes Telephone Encounter - Jasmin Steve - 07/25/2014 9:35 AM EDT This account underwriter left a voicemail for Angeline Barnes requesting a call back to schedule an appointment. I received the following message from Dr. Wilber Lindsey: Assessment and Plan: 1. Facial telangiectasias/telangiectatic rosacea. a. Discussed with the patient the lack of good response to medical therapy for this problem. b. Discussed a consultation with Dr. Daryn Jones regarding possible vascular laser treatments to lighten her telangiectasias. She would be interested in pursuing this. She understands it would be an out of pocket expense. c. Would ask Dr. Jones to advise her as far as the appropriate referral to Plastic Surgery for treatment of her redundant skin of her neck. Return to clinic here p.r.n. documented in this encounter Plan of Treatment Not on filedocumented as of this encounter Visit Diagnoses Not on filedocumented in this encounter Care Teams Recording Artist Relationship Specialty Start Date End Date Maurice Quintana ND PCP - General 07/19/14 10/05/17 [address] [address] [place] [address] documented as of this encounter
--- OUTSIDE RECORDS SUMMARY | 2022-06-26 09:15 | XMS_ITS | Encounter Summary ---
:1970 Author Organization [facility] [place] [address] Care Team Providers Name Role Phone Maurice Quintana ND Primary Care Provider Encounter Details Date Type Department Care Team Description 12/21/2014 Telephone Dermatology at [facility], Isidro Stearns, [address] [place] [address] [facility] [phone] KEVIN CHOUDHARY-[facility] [place], [place] [address] (Wo rk) Social History Tobacco Use Types Packs/Day Years Used Date Never Smoker Smokeless Tobacco: Never Used Alcohol Use Standard Drinks/Week Comments Yes 0 (1 standard drink = 0.6 oz pure alcoho l) Sex Assigned at Date Recorded Not on file documented as of this encounter Miscellaneous Notes Telephone Encounter - Majo Ware LPN - 12/21/2014 5:51 PM EST Voicemail received from patient at 2:13 pm. Patient states that the vessels treated on her face withthe V-Beam laser on 12/15/14 are not gone. Re-discussed that she should wait several weeks before evaluating her response and that it is common for vessels to open back up before collapsing. Also discussed swelling, patient reports that she had some swelling below the eyelids, she states that at this point it is almost resolved and not bothersome. Majo Ware LPN documented in this encounter Plan of Treatment Not on filedocumented as of this encounter Visit Diagnoses Not on filedocumented in this encounter Care Teams Broadband Engineer Relationship Specialty Start Date End Date Maurice Quintana ND PCP - General 07/19/14 10/05/17 [facility] [address] [place] [address] documented as of this encounter
--- OUTSIDE RECORDS SUMMARY | 2022-06-26 09:15 | XMS_ITS | Encounter Summary ---
:1970 Author Organization [facility] [address] Care Team Providers Name Role Phone Pipe Quintana ND Primary Care Provider Reason for Visit Reason Comments Advice Only chin lift, panni, breast lif t, thigh, brachioplasty Encounter Details Date Type Department Care Team Description 10/21/2014 Office Visit Plastic Surgery at [facility] Macy Whittington MD Pannus, abdominal [facility] [place] [address] PLASTIC SURGERY [phone] [place] [id number] (Wo rk) Social History Tobacco Use Types [...] Sign Reading Time Taken Comments Blood Pressure 158/85 10/21/2014 10:11 AM EST Pulse 66 10/21/2014 10:11 AM EST Temperature - - Respiratory Rate - - Oxygen Saturation - - Inhaled Oxygen Concentration - - Weight 111.8 kg (246 lb 6.4 oz) 10/21/2014 10:11 AM EST Height 174 cm (5' 8.5) 10/21/2014 10:11 AM EST Body Mass Index 36.92 10/21/2014 10:11 AM EST documented in this encounter Patient Instructions Patient InstructionsCarly Quan - 10/21/2014 11:36 AM EST Plan: 1. Follow up once BMI is 35 or less 2. Pricing information to be mailed. documented in this encounter Progress Notes Sara Conroy MD - 11/15/2014 3:01 PM EST I have reviewed the above note and discussed the case with Dr. Whittington. Macy Whittington MD - 11/15/2014 11:50 AM EST Plastic Surgery Consultation Note Dr. Whittington PCP: PIPE QUINTANA, Doctor of CC: Neck laxity, arm skin excess, abdominal contour irregularity HPI: Angeline Barnes is a 44 y.o. female is seen for a discussion of options for improvement of her abdominal contour, breast ptosis, thigh and arm lipodystrophy and the appearance of her chin. Shestates she would like to discuss an entire body lift. She reports that she has lost about 70 lbs and would to lose an additional 60 lbs. She has had four children and breastfeed each of them until around 4 years of age. In regards to her abdomen, she reports chronic rash from within her abdominal folds. She would like to proceed with surgical options for her face and arms first and then proceed with the other treatments in the future. No past medical history on file. Past Surgical History Procedure Laterality Date ??? Adjustable gastric band part of a study ??? Cholecystectomy ROS: GI, /SHIFT FOREMAN, Psych, Card, Pulm, Endo, Heme, Immun, Neuro: negative Examination: BP 158/85 Pulse 66 Ht 174 cm (5' 8.5) Wt 111.766 kg (246 lb 6.4 oz) BMI 36.92 kg/m2 General: On my examination today, normal appears [...] anteriorly and fullness with significant subcutaneous tissues Abdomen: Her abdomen is soft and obese with significant striae A rectus diastasis is noted. No hernia is identified. Scattered laparoscopic scars Significant abdominal rolls and folds Impression: Angeline Barnes is a 44 year old female seen today in consultation. Based on the patient's report, I focused the discussion on the surgical procedures of neck lift and abdominoplasty. Shestated that these would be the first procedures of interest when she does finally lose the appropriate amount of weight. I discussed potential risks and complications which include but are not limited to: pain, bleeding, infection, scarring, asymmetry, hematoma, seroma, risk of skin loss, risk of blood clots or pulmonary complications, poor cosmetic outcome, permanent or temporary numbness, damage to adjacent structures, failure of procedure and the possible need for revision. I answered her questions and addressed her concerns throughout the entire visit. I strongly discussed the importance of achieving a BMI of 35 or less in order to proceed with any elective surgical procedure. I advised her that she is at a much higher risk for the potential risks and complications associated with surgical intervention. She will be provided with pricing information for the procedures discussed. I would be happy to see her back in follow up once she achieves a BMI of 35 or less. The patient expressed that she is not at her goal weight and still desires to lose 60 pounds which she is actively trying to achieve. I informed her that her weight should be stable prior to surgery for a few months. Plan: 1. Follow up once BMI is 35 or less and weight is ideal and stable for 3 months. We can rediscuss specific procedure and what she might be interested in 2. Pricing information to be mailed. I, Carly Quan, am acting as scribe for Dr. Whittington. All work documented was performed by Dr Whittington. ???I performed the above scribed service and agree with the accuracy of the note?? Macy Whittington MD Sara Conroy MD - 10/24/2014 4:16 PM EST I am the supervising physician but I have not provided any services to this patient. Sara Conroy Carly Quan S - 10/21/2014 10:13 AM EST Plastic Surgery Consultation Note Dr. Whittington PCP: PIPE QUINTANA, Doctor of CC: Neck laxity, arm skin excess, abdominal contour irregularity HPI: Angeline Barnes is a 44 y.o. female is seen for a discussion of options for improvement of her abdominal contour, breast ptosis, thigh and arm lipodystrophy and the appearance of her chin. Shestates she would like to discuss an entire body lift. She reports that she has lost about 70 lbs and would to lose an additional 60 lbs. She has had four children and breastfeed each of them until around 4 years of age. In regards to her abdomen, she reports chronic rash from within her abdominal folds. She would like to proceed with surgical options for her face and arms first and then proceed with the other treatments in the future. No past medical history on file. Past Surgical History Procedure Laterality Date ??? Adjustable gastric band part of a study ??? Cholecystectomy ROS: GI, /SHIFT FOREMAN, Psych, Card, Pulm, Endo, Heme, Immun, Neuro: negative Examination: BP 158/85 Pulse 66 Ht 174 cm (5' 8.5) Wt 111.766 kg (246 lb 6.4 oz) BMI 36.92 kg/m2 General: On my examination today, normal appears [...] anteriorly and fullness with significant subcutaneous tissues Abdomen: Her abdomen is soft and obese with significant striae A rectus diastasis is noted. No hernia is identified. Scattered laparoscopic scars Significant abdominal rolls and folds Impression: Angeline Barnes is a 44 year old female seen today in consultation. Based on the patient's report, I focused the discussion on the surgical procedures of neck lift and abdominoplasty. Shestated that these would be the first procedures of interest when she does finally lose the appropriate amount of weight. I discussed potential risks and complications which include but are not limited to: pain, bleeding, infection, scarring, asymmetry, hematoma, seroma, risk of skin loss, risk of blood clots or pulmonary complications, poor cosmetic outcome, permanent or temporary numbness, damage to adjacent structures, failure of procedure and the possible need for revision. I answered her questions and addressed her concerns throughout the entire visit. I strongly discussed the importance of achieving a BMI of 35 or less in order to proceed with any elective surgical procedure. I advised her that she is at a much higher risk for the potential risks and complications associated with surgical intervention. She will be provided with pricing information for the procedures discussed. I would be happy to see her back in follow up once she achieves a BMI of 35 or less. The patient expressed that she is not at her goal weight and still desires to lose 60 pounds which she is actively trying to achieve. I informed her that her weight should be stable prior to surgery for a few months. Plan: 1. Follow up once BMI is 35 or less and weight is ideal and stable for 3 months. We can rediscuss specific procedure and what she might be interested in 2. Pricing information to be mailed. I, Carly Quan, am acting as scribe for Dr. Whittington. All work documented was performed by Dr Whittington. ???I performed the above scribed service and agree with the accuracy of the note?? Macy Whittington MD documented in this encounter Plan of Treatment Not on filedocumented as of this encounter Visit Diagnoses Diagnosis Pannus, abdominal Localized adiposity documented in this encounter Care Teams Meter Record Clerk Relationship Specialty Start Date End Date Pipe Quintana ND PCP - General 07/19/14 10/05/[address] [facility] [address] [place] [address] documented as of this encounter
--- OUTSIDE RECORDS SUMMARY | 2022-06-26 09:15 | XMS_ITS | Encounter Summary ---
:1970 Author Organization [facility] [place] [address] Care Team Providers Name Role Phone Maurice Quintana ND Primary Care Provider Reason for Visit Reason Comments Advice Only Encounter Details Date Type Department Care Team Description 09/26/2014 [facility] MD Savage Hartley [address] [place] [address] [facility] [place], [place] [address] (Wo rk) Social History Tobacco Use Types Packs/Day Years Used Date Never Smoker Sex Assigned at Date Recorded Not on file documented as of this encounter Patient Instructions Patient InstructionsMajo Ware LPN - 09/26/2014 11:49 AM EST Vascular Beam (vbeam), IPL (Intense Pulse Light), Non Ablative Fraxel Laser Consultation ?? Medical consultation visit and discussion of telangiectasia treatment options, including the possibility of laser [...] time of the procedure/visit. ?? Cost Quoted: $350.00 Pretreatment: 1. Avoid being faulkner or using [...] discomfort For further questions and concerns contact: [phone] Nurse message line [phone] Jasmin (Dr. Jones's Appointment [place]) In any case of emergency for weekends and off hours please contact [facility] main number and ask for medical research tech sap ppm consultant at [phone] documented in this encounter Progress Notes Agata Goyal RN - 09/26/2014 1:42 PM EST Patient called after her appointment to request a prescription for tetracycline as discussed duringher appointment . Tetracycline 500mg 1 tablet twice daily 120 tablets 3 Refills Discussed side effects: upset stomach, sun sensitivity, take between meals, avoid dairy products. Sun sensitivity Sent to [facility]. Isidro Jones MD - 09/26/2014 11:34 AM EST Provider: Dru Jones M.D. ([id number]) Chief Problem: 1. Rosacea & Telangiectasias 2. Here for Discussion of Treatment options HISTORY & DISCUSSION: 44 y.o. year old female, here for a medical consultation visit and discussion of rosacea and telangiectasias treatment options, including the possibility of laser treatment. Seen in consultation at the request of Dr. Wilber Lindsey MD specifically for this discussion. Topical medical therapy, camoflage, surgical options, including [...] Laser therapy PLAN: LASER PROCEDURE 1. Patient quoted at $350.00 for the first treatment, patient declines treatment today, she will call the clinic when she is ready to schedule. 2. Patient declines topical or oral medications to treat rosacea. Follow up: Patient will call to schedule I am documenting this encounter acting as the scribe for and in the presence of MAJO Jarvis LPN I performed the above scribed service and agree with the accuracy of the documentation in this encounter, MD Dru Macias M.D. Section of Dermatology documented in this encounter Miscellaneous Notes Addendum Note - Agata Goyal RN - 09/26/2014 1:47 PM EST Addended by: AGATA GOYAL on: 09/26/2014 01:47 PM Modules accepted: Orders documented in this encounter Plan of Treatment Not on filedocumented as of this encounter Visit Diagnoses Diagnosis Telangiectasia Other and unspecified capillary diseases Rosacea documented in this encounter Care Teams Clinical Assessment Manager Relationship Specialty Start Date End Date Maurice Quintana ND PCP - General 07/19/14 10/05/[address] [facility] [address] [place] [address] documented as of this encounter
--- OUTSIDE RECORDS SUMMARY | 2022-06-26 09:15 | XMS_ITS | Encounter Summary ---
:1970 Author Organization [facility] [place] [address] Care Team Providers Name Role Phone Maurice Quintana ND Primary Care Provider Reason for Visit Reason Comments Skin Check Encounter Details Date Type Department Care Team Description 07/21/2014 Office Visit Dermatology at [facility], Onofre Young MD erythematous [address] [facility] [facility] [address] [facility] roxi ngiectatic type [address] (Primary Dx) [place], [place] DERMATOLOGY [address] [place], [place] [phone] [address] Social History Tobacco Use Types Packs/Day Years Used Date Never Smoker Sex Assigned at Date Recorded Not on file documented as of this encounter Progress Notes Wilber Lindsey MD - 07/21/2014 11:38 AM EDT Problem: Followup rosacea. Angeline follows up and is now 44. She continues to have issues with telangiectatic rosacea, numerous small telangiectasias over the malar cheeks, a few over the bridge of the nose. She also is concerned about redundant skin around her neck. She is losing weight and wonders what can be done about that. I had seen her last in 2007, and we had tried some topicals, sodium sulfacetamide, but it was not beneficial. Physical examination reveals a blue eyed, fair skinned, fair haired woman with diffuse facial telangiectasias over the cheeks, nose without papulopustules. Assessment and Plan: 1. Facial telangiectasias/telangiectatic rosacea. [...] of her neck. Return to clinic here pjaleel delaney. Stressed the importance of sun avoidance precautions and the use of sunscreen. Recommend Neutrogena sunscreen with Helioplex, spray lotion or gel, at least an SPF of 30. She does currently use a [employer] product but finds that it tends to break her skin out, even the spray. COPY: Michael Ceballos M.D. documented in this encounter Plan of Treatment Not on filedocumented as of this encounter Visit Diagnoses Diagnosis Acne rosacea, erythematous telangiectati c type - Primary Rosacea documented in this encounter Care Teams Bullet Assembly Press Setter Operator Relationship Specialty Start Date End Date Maurice Quintana ND PCP - General 07/19/14 10/05/17 [facility] [address] [place] [address] documented as of this encounter
--- OUTSIDE RECORDS SUMMARY | 2022-06-26 09:15 | XMS_ITS | Encounter Summary ---
:1970 Author Organization [facility] [place] [address] Care Team Providers Name Role Phone Maurice Quintana ND Primary Care Provider Encounter Details Date Type Department Care Team Description 02/22/2015 Abstract Vascular Surgery at [facility] [place], [place] [address] Social History Tobacco Use Types Packs/Day [...] on filedocumented in this encounter Care Teams Line Runner Relationship Specialty Start Date End Date Maurice Quintana ND PCP - General 07/19/14 10/05/17 [facility] [address] [place] [address] documented as of this encounter
--- OUTSIDE RECORDS SUMMARY | 2022-06-26 09:15 | XMS_ITS | Encounter Summary ---
:1970 [place] [address] Care Team Providers Name Role Phone Pipe Unger WES Primary Care Provider Encounter Details Date Type Department Care Team Description 05/22/2015 Hospital Encounter Same Day Program at Bernardo Simon, Varicose veins of Pat Connors MD leg with pain, left [facility] [address] Fan [place] [address] [phone] Social History Tobacco Use Types Packs/Day Years Used Date Never Smoker Smokeless Tobacco: Never Used Alcohol Use Standard Drinks/Week Comments Yes 0 (1 standard drink = 0.6 oz pure alcoho l) Sex Assigned at Date Recorded Not on file documented as of this encounter Last Filed Vital Signs Vital Sign Reading Time Taken Comments Blood Pressure 151/77 05/22/2015 5:00 PM EDT Pulse 53 05/22/2015 5:00 PM EDT Temperature 36.5 ??C (97.7 ??F) 05/22/2015 4:33 PM EDT Respiratory Rate 15 05/22/2015 5:00 PM EDT Oxygen Saturation 97% 05/22/2015 5:00 PM EDT Inhaled Oxygen Concentration - - Weight 115.2 kg (254 lb) 05/22/2015 1:50 PM EDT Height 172.7 cm (5' 7.99) 05/22/2015 1:50 PM EDT Body Mass Index 38.63 05/22/2015 1:50 PM EDT documented in this encounter Discharge Instructions Discharge InstructionsJohnathan Kruse RN - 05/22/2015 5:08 PM EDT POST [...] Attending Physician: Bernardo Simon MD PCP: PIPE UNGER Doctor of Chief Complaint: LLE symptomatic varicose [...] Competent GSV, Ankle Competent SSV Competent A/P: Agneline Barnes is a 45 y.o. female w symptomatic varicose veins in her left lower extremity that have been refractory to compression. OR for LLE stab phlebectomy. Signed: Krzysztof Zavaleta MD 05/22/2015 1:15 PM CC: [facility] [address] [facility] [address] REF: Pipe Unger, [facility] [address] [place] [address] documented in this encounter Miscellaneous Notes Op Note - Krzysztof Zavaleta MD - 05/22/2015 4:40 PM EDT Pre-op Dx: LLE symptomatic varicose veins Procedure: LLE stab phlebectomy Post-op Dx: same Surgeon: Bernardo Simon MD Quality Control Associate: Krzysztof Zavaleta MD, [facility] MS4 Anesthesia: GETA IVF: 500 mL EBL: [...] Post-op Dx: same Surgeon: Bernardo Simon MD Quality Control Associate: Krzysztof Zavaleta MD, [facility] MS4 Anesthesia: GETA IVF: 500 mL EBL: [...] 12:48 Varicose veins o f (FUTURE SURGERY, [facility] PM EDT leg with pain, left SAME [...] Results Antibody screen (05/22/2015 12:48 PM EDT) [facility] gist Method Time Signature Ab Screen Negative [facility] MILLENNIUM Expires at 05/25/2015 EMELY [id number] on: [facility] Specimen Anatomical Collection Method Collection Time Receive d Time (Source) Location / / Volume Laterality Blood specimen 05/22/2015 12:48 5 (specimen) PM EDT 12:51 PM EDT Resulting Agency Comment Spec In Lab Bernardo Simon MD BLOOD BANK ORDERABLES Performing Organization Address City/State/ZIP [place] [address] [facility] A[facility]/Rh Typing (05/22/2015 12:48 PM EDT) P athologist Signature ABORh Type B Pos [facility] Specimen Anatomical Collection Method Collection Time Receive d Time (Source) Location / / Volume Laterality Blood specimen 05/22/2015 12:48 5 (specimen) PM EDT 12:51 PM EDT Resulting Agency Comment Spec In Lab Bernardo Simon MD BLOOD BANK ORDERABLES Performing Organization Address City/State/ZIP [place] [address] [facility] documented in this encounter Visit Diagnoses Diagnosis [...] Routine documented in this encounter Care Teams Hogshead Filler Relationship Specialty Start Date End Date Pipe Unger ND PCP - General 07/19/14 10/05/17 [facility] [address] [place] [address] documented as of this encounter
--- OUTSIDE RECORDS SUMMARY | 2022-06-26 09:15 | XMS_ITS | Encounter Summary ---
:1970 [place] [address] Care Team Providers Name Role Phone Maurice Quintana ND Primary Care Provider Encounter Details Date Type Department Care Team Description 05/22/2015 Anesthesia Event Main Operating Room Ayden Lopez MD [facility] [place] [address] [facility] Arben Bean MD [facility] [place] [address] [place] [address] Anesthesia Record Procedure Summary Procedure Name Responsible Anesthesia Start Anesthesia Stop Anesthesiologist Time Time STAB PHLEBECTOMY Ayden Wetzel MD 05/22/15 1500 1636 VEINS 1 EXTREMITY 10-20 INCISIONS (WRVU 7.71) (Left Leg) Events Date Time Event Comment 05/22/2015 1343 1500 AN Verify 1500 Start 1500 An Start Data 1502 An Induction 1505 An Intubation 1510 Anesthesia Ready 1625 Extubation/LMA Out To Delete (sk ip) the Extubation event, click the X below. 1625 an stop data 1636 Stop Name Total IV Lidocaine 50 mg Propofol 250 mg Ondansetron 8 mg Dexamethasone 8 mg ceFAZolin (ANCEF) 2g in dextrose 5% 50 mL 2 g HYDROmorphone 0.8 mg Propofol INF 541.44 mg Lactated Ringers 500 mL Agents Name O2 Air Sevoflurane (et) Blood No blood administrations on file. Lines, Drains, and Airways Type Details Placement Removal Incision 05/22/15; leg; other (see 05/22/15 0000 by comments) (Stab incisions Lena Fritz, RN x ) PIV 05/22/15; 1433; basilic 05/22/15 1433 by Elías, 05/22/15 1901 by Del vein right (medial side of SOHEILA Sheriff ce, Ravinder Boyd, RN arm); [id number] catheter system; 20 gauge; Jaqui Honeycutt RN; distraction, intradermal injection, tolerated well, appears comfortable, age-appropriate response, other (see comments); 3; 05/22/15; 1901 Supraglottic Mask Ventilation: Not 05/22/15 1505 by 05/22/15 1625 by Attempted (0); LMA Type: Arben Bean MD Hartmann, Patrick R, iGel; LMA Size: 3 MD documented in this encounter Social History Tobacco Use Types Packs/Day Years Used Date Never Smoker Smokeless Tobacco: Never Used Alcohol Use Standard Drinks/Week Comments Yes 0 (1 standard drink = 0.6 oz pure alcoho l) Sex Assigned at Date Recorded Not on file documented as of this encounter OR Notes Anesthesia Postprocedure Evaluation - Arben Bean - 05/22/2015 4:36 PM EDT Patient: Angeline Barnes Procedure(s) Performed: Procedure(s): STAB PHLEBECTOMY CELESTINO VEINS 1 EXTREMITY 10-20 INCISIONS Actual Anesthetic: general Patient location: PACU Post-op pain: Adequate analgesia Post-op nausea: no nausea or vomiting Last Vitals: Filed Vitals: 05/22/15 1350 BP: 118/73 Pulse: 46 Temp: 36.5 ??C (97.7 ??F) Resp: 16 Post-op cardiovascular and respiratory status: is stable Level of consciousness: awake, alert and oriented Complications: no apparent complications and tolerated the procedure well Fluid Status: normal Anesthesia Preprocedure Evaluation - Ayden Daniels MD - 05/21/2015 8:53 PM EDT Pre-Anesthesia Evaluation for: Angeline Barnes a 45 y.o. female. Procedure(s): STAB PHLEBECTOMY CELESTINO VEINS 1 EXTREMITY MORE 20 INCISIONS Patient Active Problem List Diagnosis ??? Elastosis of skin ??? Depression ??? Varicose vein ??? Pannus, abdominal ??? Acne rosacea, erythematous telangiectatic type No past medical history on file. Past Surgical History Procedure Laterality Date ??? Adjustable gastric band part of a study ??? Cholecystectomy History Substance Use Topics ??? Smoking status: Never Smoker ??? Smokeless tobacco: Never Used ??? Alcohol Use: Yes 1 Glasses of wine per week History Drug Use No Allergies Allergen Reactions ??? Cat/Feline Products ??? House Dust Medications: MAR and/or home medications have been reviewed. Physical Exam: There were no vitals filed for this visit. There is no weight on file to calculate BMI. Anesthesia Physical Exam Anesthesia Plan: ASA 2 general, with a(n) intravenous induction Pleasant obese 45yo female with varicose veins presenting for stab phlebectomy. Generally healthy without activity limitation, non smoker. Cholecystectomy at OSH last year without reported problem Denies JOANN but does have occasional GERD, No FHAC Denies CV/RS symptoms Appropriately fasted, no recent URI or [place] Region - Other Informed Consent: Anesthetic plan and risks discussed with patient. Plan discussed with resident. Antonia. Assessment: documented in this encounter Plan of Treatment Not on filedocumented as of this encounter Visit Diagnoses Not on filedocumented in this encounter Administered Medications Inactive Administered Medications - up to 3 most recent administrations Medication Order MAR Action Action Date Dose Rate Site ceFAZolin (ANCEF) 2g in dextrose 5% Given 05/22/2015 3:10 PM EDT 2 g 50 mL 2 g, Intravenous, ONCE, 1 dose, On Fri05/22/15 at 1500, Administer over 30 Minutes, Redose after 4 hours., Day of Surgery (Day of Procedure), Indication for (Active or Suspected): Prophylaxis dexamethasone (DECADRON) injection Given 05/22/2015 3:10 PM EDT 8 mg PRN, Starting on Fri05/22/15 at 1510, Until Fri05/22/15 at 1636, Anesthesia Intra-op, Routine HYDROmorphone (DILAUDID) injection Given 05/22/2015 3:27 PM EDT 0.4 mg PRN, Starting on Fri05/22/15 at 1514, Until Fri05/22/15 at 1636, Pain, Anesthesia Intra-op, Routine Given 05/22/2015 3:14 PM EDT 0.4 mg lactated ringers infusion New Bag 05/22/2015 3:00 PM EDT CONTINUOUS PRN, Starting on Fri05/22/15 at 1500, Until Fri05/22/15 at 1636, Anesthesia Intra-op lidocaine (PF) (XYLOCAINE) 100 mg/5 mL (2 %) Given 5 3:10 PM EDT 50 mg injection PRN, Starting on Fri05/22/15 at 1510, Until Fri05/22/15 at 1636, Anesthesia Intra-op, Routine ondansetron (ZOFRAN) injection Given 05/22/2015 4:08 PM EDT 8 mg PRN, Starting on Fri05/22/15 at 1608, Until Fri05/22/15 at 1636, Nausea, Anesthesia Intra-op, Routine propofol (DIPRIVAN) 10 mg/mL bolus injection Given 3:02 PM EDT 250 mg (Anesthesia) PRN, Starting on Fri05/22/15 at 1502, Until Fri05/22/15 at 1636, Anesthesia Intra-op propofol (DIPRIVAN) infusion New Bag 05/22/2015 3:02 PM 50 mcg/kg/min 34.6 mL/hr CONTINUOUS PRN, Starting on EDT Fri05/22/15 at 1502, Until Fri05/22/15 at 1636, Anesthesia Intra-op, Routine documented in this encounter Care Teams Tapper Bit Relationship Specialty Start Date End Date Maurice Quintana ND PCP - General 07/19/14 10/05/17 [facility] [address] [place] [address] documented as of this encounter
--- OUTSIDE RECORDS SUMMARY | 2022-06-26 09:15 | XMS_ITS | Encounter Summary ---
:1970 Author Organization [facility] [place] [address] Care Team Providers Name Role Phone Maurice Quintana ND Primary Care Provider Encounter Details Date Type Department Care Team Description 04/20/2015 [facility] [place] [place] leg [place] pain, [place] [id number] Social History Tobacco Use Types Packs/Day Years Used Date Never Smoker Smokeless Tobacco: Never Used Alcohol Use Standard Drinks/Week Comments Yes 0 (1 standard drink = 0.6 oz pure alcoho l) Sex Assigned at Date Recorded Not on file documented as of this encounter Plan of Treatment Not on filedocumented as of this encounter Procedures Procedure Name Priority Date/Time Associated Diagnosis Comme nts UNLATERAL VALVULAR Routine 04/20/2015 9:58 AM Varicose veins o f Results for this INCOMP EDT leg with pain, left procedur e are in the results section. documented in this encounter Results LE Unilateral Valvular Incomp Study (04/20/2015 9:58 AM EDT) Component Value Ref Test Analysis Performed At [facility] gist Range Method Time Signature VB Text VASCUBASE Report Department: Vascular Surgery Lab Patient: [id number] (MARI MCGOVERN) CPT Code: 71649 ICD-9: 454.9 Referring Physician: LISA SIMON M.D. Indication: ??Varicose vein L anterior thigh. ICD9 Diagnosis Code: 454.9 Findings: Left ? Reflux? Common Femoral Vein ?Reflux ? Femoral Vein ? Competent ?? Popliteal ?Reflux ? Posterior Tibial Vein ??Competent ?? GSV, Near SFJ ?Competent ?? GSV, Proximal Thigh ?Competent ?? GSV, Mid Thigh ? Competent ?? GSV, Distal Thigh ?Competent ?? GSV, ??Knee ? Competent ?? GSV Prox Calf ?Competent ?? GSV, Mid Calf ?Competent ?? GSV, Ankle ? Competent ?? SSV ?Competent ?? Interpretation: Left- There is reflux in the common femoral vein and poplite al vein. The anterior branch of the GVS has reflux fr om the groin though anterior thigh and to the lateral side of the knee(> 2.0 se c) No reflux noted in the femoral vein through the thigh or calf ve ins. Patent greater saphenous vein with no evidence of reflux. The superficial epigastric and the an terior GSV confluence the CFV together and the GSV confluences the CFV just below those tw o. Electronically Signed by: LISA SIMON M.D. on 2015-04-20 11 :53:03 AM VB Text End of Report [facility]AS[facility] Report Specimen (Source) Anatomical Collection Method Collection Time Re ceived Time Location / / Volume Laterality 04/20/2015 9:58 AM EDT Lisa Simon MD VASCULAR ORDERABLES Performing Organization Address City/State/ZIP Code Phon e Number [facility] documented in this encounter Visit Diagnoses Diagnosis Varicose veins of leg with pain, left documented in this encounter Care Teams Director Of Financial Planning Relationship Specialty Start Date End Date Maurice Quintana ND PCP - General 07/19/14 10/05/17 [facility] [address] [place] [address] documented as of this encounter
--- OUTSIDE RECORDS SUMMARY | 2022-06-26 09:16 | XMS_ITS | Encounter Summary ---
:1970 Author Organization [facility] Address [address] [place] [address] Care Team Providers Name Role Phone Don Anders MD Primary Care Provider Encounter Details Date Type Department Care Team Description 08/05/2018 Results Only [facility] Michelle Samaniego MD [phone] [address] [place] [address] (Wo rk) Social History Tobacco Use Types Packs/Day Years Used Date Never Assessed Sex Assigned at Date Recorded Not on file documented as of this encounter Plan of Treatment Not on filedocumented as of this encounter Procedures Procedure Name Priority Date/Time Associated Diagnosis Comme [facility] SURGICAL PATHOLOGY Routine 08/05/2018 16:48 Resul ts for this EDT procedure are i n the results section. documented in this encounter Results SURGICAL PATHOLOGY (08/05/2018 16:48 EDT) Pathology SURGICAL PATHOLOGY REPORT [facility] Report: Reports generated via electronic interface conta in original data; CENTER LAB[facility]ORY however they are lacking the format of the original re port. SERVICES Caution should be taken when reading/interpreting unfo rmatted reports. Name: ? JAMEY MCGOVERN ? Accession #: ? [id number] ? : ? 1970 (Age: [age]) ??F ? Collect Date: ? 08/05/2018 ? Location: ? [facility] ? Receive Date: ? 08/05/20 18 ? Provider: MICHELLE SAMANIEGO MD Copy to: ZOË MACKENZIE ACCOUNTS PAYABLE ADMINISTRATOR ? Final Pathologic Diagnosis: ENDOMETRIUM, CURETTAGE: - Endometrial tissue with atrophic gland s and stromal pseudo-decidual changes, suggestive of exogenous progesterone effects. - Small portion of endo-myometrial junctional tissue w ith no specific histopathologic features. Comment: This case was presented and reviewed at the intradepar tmental consultation conference. Document reviewed and electronically signed by: Frank Arreaga MD Report ??Date: 08/08/2018 16:38 By the signature above, the attending physician certif ies that he/she has personally conducted a gross and/or microscopic examin ation of the described specimens and rendered or confirmed the above diagnosi s. Specimen(s) Received: Endometrial curettings Clinical History: Menorrhagia Gross Description: ? Received in formalin labelled with proper patient identification (initials D, J) and endometrial curettings is an aggrega te of faulkner tissue admixed with clotted blood (4.7 x 3.6 x 0.9 cm). Submitted in toto in 1 through 12. Mariano Ybarra 08/06/2018 8:51 AM End of Report Specimen Performing Organization Address City/State/ZIP Code Phon e Number [facility] [address] [place] [address] SERVICES documented in this encounter Visit Diagnoses Not on filedocumented in this encounter Care Teams Gsa Coordinator Relationship Specialty Start Date End Date Don Anders MD PCP - General 04/15/13 [address] [place] [address] documented as of this encounter
--- OUTSIDE RECORDS SUMMARY | 2022-06-26 09:16 | XMS_ITS | Encounter Summary ---
:1970 Author Organization [facility] Address [address] [place] [address] Care Team Providers Name Role Phone Don Anders MD Primary Care Provider Encounter Details Date Type Department Care Team Description 01/25/2014 Hospital Encounter [facility] Unknown, Provider, [facility] [address] [facility] [phone] [place] [address] (Work) [phone] Social History Tobacco Use Types Packs/Day Years Used Date Never Assessed Sex Assigned at Date Recorded Not on file documented as of this encounter Discharge Disposition Disposition Code Departure Means Destination Home or Self [facility]pc documented in this encounter Plan of Treatment Not on filedocumented as of this encounter Visit Diagnoses Not on filedocumented in this encounter Care Teams Sales Team Recruiter Relationship Specialty Start Date End Date Don Anders MD PCP - General 04/15/13 [address] [place] [address] documented as of this encounter
--- OUTSIDE RECORDS SUMMARY | 2022-06-26 09:16 | XMS_ITS | Encounter Summary ---
:1970 Author Organization [facility] Address [address] [place] [address] Care Team Providers Name Role Phone Don Anders MD Primary Care Provider Encounter Details Date Type Department Care Team Description 07/17/2018 Results Only [facility] Michelle Samaniego MD [phone] [address] [place] [address] (Wo rk) Social History Tobacco Use Types Packs/Day Years Used Date Never Assessed Sex Assigned at Date Recorded Not on file documented as of this encounter Plan of Treatment Not on filedocumented as of this encounter Procedures Procedure Name Priority Date/Time Associated Diagnosis Comme [facility] SURGICAL PATHOLOGY Routine 07/17/2018 22:58 Resul ts for this EDT procedure are i n the results section. documented in this encounter Results SURGICAL PATHOLOGY (07/17/2018 22:58 EDT) Pathology Report: SURGICAL PATHOLOGY REPORT [facility] Reports generated via electronic interface contain ricardo ginal data; LABORATORY however they are lacking the format of the original re port. SERVICES Caution should be taken when reading/interpreting unfo rmatted reports. Name: ? JAMEY MCGOVERN ? Accession #: ? [id number] ? : ? 1970 (Age: 6 6) ??F ? Collect Date: ? 07/17/2018 ? Location: ? [facility] ? Receive Date: ? 8 ? Provider: MICHELLE SAMANIEGO MD Copy to: ALVIN MACKENZIE LICENSED STAFF MFT ? Final Pathologic Diagnosis: ENDOMETRIUM, CURETTAGE: - Disordered proliferative endometrium. Document reviewed and electronically signed by: RENETTA BROWN MD Report ??Date: 07/22/2018 18:21 By the signature above, the attending physician certif ies that he/she has personally conducted a gross and/or microscopic examin ation of the described specimens and rendered or confirmed the above diagnosi s. Specimen(s) Received: Endometrial curettings, EMB Clinical History: Menorrhagia; LMP: May 28; control tubal Gross Description: ? Received in formalin labelled with proper patient identification (initials D, J) and endometrial bx is an aggregate of li ght faulkner and dark brown tissue (2.5 x 2.0 x 0.5 cm). Submitted in toto in 1 and 2. Mariano Ybarra 07/20/2018 8:56 AM End of Report Specimen Performing Organization Address City/State/ZIP Code Phon e Number [facility] [address] [place] [address] SERVICES documented in this encounter Visit Diagnoses Not on filedocumented in this encounter Care Teams Foreign Student Adviser Relationship Specialty Start Date End Date Don Anders MD PCP - General 04/15/13 [address] [place] [address] documented as of this encounter
--- OUTSIDE RECORDS SUMMARY | 2022-06-26 09:16 | XMS_ITS | Encounter Summary ---
:1970 Author Organization [facility] Address [address] [place] [address] Care Team Providers Name Role Phone Unavailable Primary Care Provider Unavailable Encounter Details Date Type Department Care Team Description 11/06/2012 Results Only [facility] Mason Trejo, [facility] Laboratory Services - [address] Kym Rosales [place], [place] [address] [facility] [address] [place] [address] [phone] Social History Tobacco Use Types Packs/Day Years Used Date Never Assessed Sex Assigned at Date Recorded Not on file documented as of this encounter Plan of Treatment Not on filedocumented as of this encounter Procedures Procedure Name Priority Date/Time Associated Diagnosis Comme nts PAP TEST- RESULT Routine 11/06/2012 0:00 EST Resu lts for this ONLY procedure are i n the results section. documented in this encounter Results PAP TEST- RESULT ONLY (11/06/2012 0:00 EST) Pathology Report: CYTOPATHOLOGY REPORT [facility] Reports generated via electronic interface contain ricardo ginal data; however they are lacking the format of the original re port. Caution should be taken when reading/interpreting unfo rmatted reports. Name: ? MARI MCGOVERN ? Accession #: ? [id number] : ? 1970 (Age: 42) ??F ?Collect Date: ? 10/11 Location: ? [facility] ? Receive Date : ? 11/09/2012 Provider: ?MARCELINO TREJO STAFFING SPECIALIST Copy to: ?JORGE ALBERTO HAHN MD ? Specimen/Source: ? Pap Test, Cervix/Endocervix, ThinPrep Imaging System with manual evaluation Last Menstrual Period: ? 10/24/12 Previous Gynecologic Pathology: ? SOCORRO II: 2002 Other: ? Additional clinical information: 03/02/12 unsatisfacto ry ? SPECIMEN ADEQUACY ? Unsatisfactory for Evaluation, - insufficient numbers of squamous epith elial cells (less than 10% of expected cellularity) - sample preparation compromised by excessive blood GENERAL CATEGORIZATION ? Specimen processed and examined, but unsatisfac tory for evaluation of epithelial abnormality. Recommend repeat Pap test or further follow up, as cli nically indicated. ? Document reviewed and electronically signed by: ? MICHAEL Mercado(ASCP) ? Report Date: ??11/12/2012 15:00 End of Report Specimen Performing Organization Address City/State/ZIP Code Phon e Number [facility] [address] [place] [address] SERVICES [facility] [address] [place] [address] documented in this encounter Visit Diagnoses Not on filedocumented in this encounter
--- OUTSIDE RECORDS SUMMARY | 2022-06-26 09:16 | XMS_ITS | Encounter Summary ---
:[address] [facility] Address [address] [place] [address] Care Team Providers Name Role Phone Don Anders MD Primary Care Provider Encounter Details Date Type Department Care Team Description 02/13/2018 Results Only [facility]- PRISM Vannessa Trejo, [facility] [phone] [facility] [place] [address] (Wo rk) Social History Tobacco Use Types Packs/Day Years Used Date Never Assessed Sex Assigned at Date Recorded Not on file documented as of this encounter Plan of Treatment Not on filedocumented as of this encounter Procedures Procedure Name Priority Date/Time Associated Diagnosis Comme nts PAP TEST- RESULT Routine 02/13/2018 0:00 EDT Resu lts for this ONLY procedure are i n the results section. documented in this encounter Results PAP TEST- RESULT ONLY (02/13/2018 0:00 EDT) Pathology Report: CYTOPATHOLOGY REPORT [facility] Reports generated via electronic interface contain ricardo ginal data; SERVICES however they are lacking the format of the original re port. Caution should be taken when reading/interpreting unfo rmatted reports. Name: ? JAMEY MCGOVERN ? Accession #: ? [id number] ? : ? 1970 (Age: [age]) ??F ?Collect Date: ? 2017 ? Location: ? [facility] ? Receive Date: ? 8 ? Provider: VANNESSA TREJO SUSTAINABILITY DIRECTOR Copy to: ZOË Valentine GURDEEP CARPET LAYER HELPER ? Final Report SPECIMEN ADEQUACY ? Satisfactory for Evaluation - transformation zone component present - scant squamous epithelial component secondary to exc essive blood GENERAL CATEGORIZATION ? Negative for Intraepithelial Lesion or Malignan cy EDUCATIONAL NOTES/RECOMMENDATIONS ? An additional slide was prepared and evaluated. Last Menstrual Period: + Previous Gynecologic Pathology: SOCORRO II: 2002 Other: Additional clinical information: UNSAT 8 Additional clinical information: friable cervix Specimen/Source: ??Pap Test, Cervix, ThinPrep Imaging System with manual evaluation Document reviewed and electronically signed by: ? Zhane Martinez [facility](ASCP) ? Report ??Date: 02/23/2018 08:51 HPV with Pap Test ? Date Ordered: ? 02/20/2018 ? Status: ?? Signed Out ?Date Complete: ? 02/25/2018 ? By: ??Sy stem Interface ? Date Reported: ? 02/25/2018 ? Interpretation RESULT: Negative for HPV. No E6 or E7 mRNA is detected from HPV types 16,18,31,3 3,35, 39,45,51,52,56,58,59,66, and 68 by touring production manager media rosario amplification. Comments Document reviewed and electronically signed by: ? System Interface ? Report date: 02/25/2018 By the signature above, the attending physician certif ies that he/she has personally conducted a gross and/or microscopic examin ation of the described specimens and rendered or confirmed the above diagnosi s. End of Report Specimen Performing Organization Address City/State/ZIP Code Phon e Number [facility] [address] [place] [address] SERVICES documented in this encounter Visit Diagnoses Not on filedocumented in this encounter Care Teams Biodiesel Production Associate Relationship Specialty Start Date End Date Don Anders MD PCP - General 04/15/13 [address] [place] [address] documented as of this encounter
--- OUTSIDE RECORDS SUMMARY | 2022-06-26 09:16 | XMS_ITS | Encounter Summary ---
:1970 Author Organization [facility] Address [address] [place] [address] Care Team Providers Name Role Phone Unavailable Primary Care Provider Unavailable Encounter Details Date Type Department Care Team Description 11/23/2012 Results Only [facility] Conor Lan MD Laboratory Services - [address] [facility] [address] [place] [phone] (Wo rk) Social History Tobacco Use Types Packs/Day Years Used Date Never Assessed Sex Assigned at Date Recorded Not on file documented as of this encounter Plan of Treatment Not on filedocumented as of this encounter Procedures Procedure Name Priority Date/Time Associated Diagnosis Comme nts PAP TEST- RESULT Routine 11/23/2012 0:00 EST Resu lts for this ONLY procedure are i n the results section. documented in this encounter Results PAP TEST- RESULT ONLY (11/23/2012 0:00 EST) Pathology Report: CYTOPATHOLOGY REPORT [facility] Reports generated via electronic interface contain ricardo ginal data; however they are lacking the format of the original re port. Caution should be taken when reading/interpreting unfo rmatted reports. Name: ? JAMEY MCGOVERN ? Accession #: ? [id number] ? : ? 1970 (Age: 42) ??F ?Collect Da te: ? 11/23/2012 ? Location: ? [facility] ? Receive Date: ? 013 ? Provider: LAURA LAN MD Copy to: JORGE ALBERTO HAHN MD ? Final Report SPECIMEN ADEQUACY ? Satisfactory for Evaluation - transformation zone component present - lack of pertinent clinical information (e.g. LMP not provided) GENERAL CATEGORIZATION ? Epithelial Cell Abnormality INTERPRETATION ? Squamous Cell Abnormality - Atypical squamous c ells, undetermined significance (ASC-US). Endometrial cells present in a woman equal to or great er than age 40. EDUCATIONAL NOTES/RECOMMENDATIONS ? [facility] recommends sejal wing the 2006 Consensus Guidelines for the Management of Women with Abnormal Cervical Cancer Screening Tests (JLGTD, 2007;11(4):201-222). ??Consensus guidelines are availa ble online at www.ASCCP.org. Benign appearing endometrial cells on Pap tests are usually a normal finding in women with regular menstrual cycles, especially if the Pap test was collected during the first half of the menstrual cycle. There is data showing that e ndometrial cells on Pap tests may be associated with endometrial/uterine abnormal ities in post menopausal women or in perimenopausal women with abnormal bleeding. There is limited data on the significance of ronnie ign endometrial cells in post menopausal women on HRT. ??Clinical correlation is rec ommended. Note: ??The Pap test is not an accurate test for the screening of endometrial lesions and should not be used as a follow up in patie nts with clinical suspicion of endometrial pathology. Previous Gynecologic Pathology: SOCORRO II: 11/2001 Treatment History: Colposcopy: 11/2001 Miscellaneous treatment: biospy 11/2001 LEEP: 12/2001 no residual dysplasia Specimen/Source: ??Pap Test, Source Not Provided, ThinPrep Imaging System with manual evaluation Document reviewed and electronically signed by: ? HANS LORD MD ? Report ??Date: 11/30/2012 15:32 HPV with Pap Test ? Date Ordered: ? 11/27/2012 ? Status: ?? Signed Out ?Date Complete: ? 12/02/2012 ? By: ??S ystem Interface ? Date Reported: ? 12/02/2012 ? Interpretation RESULT: Negative for HPV. No E6 or E7 mRNA is detected from HPV types 16,18,31,3 3,35, 39,45,51,52,56,58,59,66, and 68 by operations intelligence superintendent media rosario amplification. Comments Document reviewed and electronically signed by: ? System Interface ? Report date: 12/02/2012 By the signature above, the attending physician certif ies that he/she has personally conducted a gross and/or microscopic examin ation of the described specimens and rendered or confirmed the above diagnosi s. End of Report Specimen Performing Organization Address City/State/ZIP Code Phon e Number [facility] [address] [place] [address] SERVICES [facility] [address] [place] [address] documented in this encounter Visit Diagnoses Not on filedocumented in this encounter
--- OUTSIDE RECORDS SUMMARY | 2022-06-26 09:16 | XMS_ITS ---
:1970 Author Allergies None recorded. Medications None recorded. Problems None recorded. Procedures None recorded. Results Lab Results Date Name Specimen Result Interpretation Description Value Range Status Address ? 05/27/2021 Rapid SARS CoV Nose (nasal Normal Sars negative ? Final [place] + SARS CoV 2 passage) Te sting Ag, [place]L [place], Center : [address] [place] [address] Past Encounters 05/27/2021 Viral Screening Venecia Garduno MD: [address] [place] [phone], Ph. Social History None recorded. Vaccine List None recorded. Plan of Care Reminders Provider Appointments None recorded. ? ? Lab None recorded. ? ? Referral None recorded. ? ? Procedures None recorded. ? ? Surgeries None recorded. ? ? Imaging None recorded. ? ? Vitals None recorded.
--- OUTSIDE RECORDS SUMMARY | 2022-06-26 09:16 | XMS_ITS | Encounter Summary ---
:[address] [facility] Address [address] [place] [address] Care Team Providers Name Role Phone Unavailable Primary Care Provider Unavailable Encounter Details Date Type Department Care Team Description 11/11/2001 Results Only [facility] - Ewelina Connelly CNM [facility] [address] [place] [id number] Social History Tobacco Use Types Packs/Day Years Used Date Never Assessed Sex Assigned at Date Recorded Not on file documented as of this encounter Plan of Treatment Not on filedocumented as of this encounter Procedures Procedure Name Priority Date/Time Associated Diagnosis Comme nts CYTOPATHOLOGY Routine 11/11/2001 0:00 EST Results for this procedure are i n the results section . documented in this encounter Results CYTOPATHOLOGY (11/11/2001 0:00 EST) Pathology Report: CYTOPATHOLOGY REPORT [facility] Reports generated via electronic interface contain ricardo ginal data; however they are lacking the format of the original re port. Caution should be taken when reading/interpreting unfo rmatted reports. Name: ? MARI MCGOVERN ? Accession #: ? [id number] : ? 1970 (Age: 31) ??F ?Collect Date: ? 12/2001 Location: ? [facility] ? Receive Date : ? 11/13/2001 Provider: ?EWELINA SERRA CN Copy to: ?BOBBY ESPARZA MD ? Specimen/Source: ?ThinPrep Pap Test, Cervix/ Endocervix Last Menstrual Period: ? 11/24/00 Menstrual/ Status: ? Post Previous Gynecologic Pathology: ? HPV: ASC-US: JANNETH 01/08 JANNETH: cannot exclude HSIL 07/11 Treatment History: ? Colposcopy: acute & chronic cervicitis ? SPECIMEN ADEQUACY ? Unsatisfactory for Evaluation, - insufficient numbers of squamous epith elial cells (less than 10% of expected cellularity) - sample preparation compromised by excessive blood GENERAL CATEGORIZATION ? Specimen processed and examined, but unsatisfac tory for evaluation of epithelial abnormality. Recommend repeat Pap test or further follow up, as cli ncially indicated. ? Document reviewed and electronically signed by: ? DASHAWN ALDANA MD ? Report Date: ??11/20/2001 13:34 End of Report Specimen Performing Organization Address City/State/ZIP Code Phon e Number [facility] [address] [place] [address] SERVICES [facility] [address] [place] [address] documented in this encounter Visit Diagnoses Not on filedocumented in this encounter
--- OUTSIDE RECORDS SUMMARY | 2022-06-26 09:16 | XMS_ITS | Encounter Summary ---
:1970 Author Organization [facility] Address [address] [place] [address] Care Team Providers Name Role Phone Don Anders MD Primary Care Provider Encounter Details Date Type Department Care Team Description 01/09/2017 Results Only [facility]- Vannessa Renner, [facility] [phone] [facility] [place] [address] (Wo rk) Social History Tobacco Use Types Packs/Day Years Used Date Never Assessed Sex Assigned at Date Recorded Not on file documented as of this encounter Plan of Treatment Not on filedocumented as of this encounter Procedures Procedure Name Priority Date/Time Associated Diagnosis Comme [facility] SURGICAL PATHOLOGY Routine 01/09/2017 11:15 Resul ts for this EST procedure are i n the results section. documented in this encounter Results SURGICAL PATHOLOGY (01/09/2017 11:15 EST) Pathology SURGICAL PATHOLOGY REPORT [facility] Report: Reports generated via electronic interface conta in original data; CENTER however they are lacking the format of the original re port. LABORATORY Caution should be taken when reading/interpretin g unformatted reports. SERVICES Name: ? JAMEY MCGOVERN ? Accession #: ? [id number] ? : ? 1970 (Age: 6 4) ??F ? Collect Date: ? 01/09/2017 ? Location: ? [facility] ? Receive Date: ? 7 ? Provider: MASHA ESTEBAN MD Copy to: ZOË MACKENZIE HAZMAT TRUCK DRIVER ? Final Pathologic Diagnosis: SKIN OF BUTTOCK, RIGHT, SHAVE BIOPSY: - Seborrheic keratosis, inflamed. Microscopic Description: Orthohyperkeratosis and foca l parakeratosis thicken the stratum corneum. ??There is formation of horn pseudoc ysts. ??The epidermis is hyperplastic with acanthosis and papillomatosis. ??The ke ratinocytes have a basaloid appearance with squamous eddies in many areas. ??Within the dermis, there is a moderately dense lymphohistiocytic infiltrate. ??The infi ltrate extends into the epidermis with concomitant vacuolar change and keratinocyte necrosis. ??(Dr. Iqbal)/[facility] Document reviewed and electronically signed by: TAMMIE IQBAL MD Report ??Date: 01/13/2017 15:41 By the signature above, the attending physician certif ies that he/she has personally conducted a gross and/or microscopic examin ation of the described specimens and rendered or confirmed the above diagnosi s. Specimen(s) Received: Lesion R buttock Clinical History: Lesion R buttock Gross Description: ? Received in formalin labelled with proper patient identification (initials D, J) and R buttock lesion are two irr egular skin shaves (0.2 x 0.2 x 0.1 cm and 0.3 x 0.2 x 0.2 cm). The surfaces are dull and gra y-brown. Entirely submitted in 1. FRANSISCO Finn (ASCP) 01/10/2017 2:35 PM End of Report Specimen Performing Organization Address City/State/ZIP Code Phon e Number [facility] [address] [place] [address] SERVICES documented in this encounter Visit Diagnoses Not on filedocumented in this encounter Care Teams Loss Prevention Operations Manager Relationship Specialty Start Date End Date Don Anders MD PCP - General 04/15/13 [address] [place] [address] documented as of this encounter
--- OUTSIDE RECORDS SUMMARY | 2022-06-26 09:16 | XMS_ITS | Encounter Summary ---
:1970 Author Organization [facility] Address [address] [place] [address] Care Team Providers Name Role Phone Jorge Alberto Anders MD Primary Care Provider Encounter Details Date Type Department Care Team Description 08/10/2015 Results Only [facility]- PRISM Vannessa Trejo, [facility] [phone] [facility]5 [facility] [place] [address] (Wo rk) Social History Tobacco Use Types Packs/Day Years Used Date Never Assessed Sex Assigned at Date Recorded Not on file documented as of this encounter Plan of Treatment Not on filedocumented as of this encounter Procedures Procedure Name Priority Date/Time Associated Diagnosis Comme nts PAP TEST- RESULT Routine 08/10/2015 0:00 EDT Resu lts for this ONLY procedure are i n the results section. documented in this encounter Results PAP TEST- RESULT ONLY (08/10/2015 0:00 EDT) Pathology Report: CYTOPATHOLOGY REPORT [facility] Reports generated via electronic interface contain ricardo ginal data; SERVICES however they are lacking the format of the original re port. Caution should be taken when reading/interpreting unfo rmatted reports. Name: ? MARI MCGOVERN ? Accession #: ? [id number] : ? 1970 (Age: [age]) ??F ?Collect Date: ? 08/10 Location: ? [facility] ? Receive Date : ? 08/11/2015 Provider: ?VANNESSA TREJO FARM LABORER Copy to: ?JORGE ALBERTO ANDERS MD ? Specimen/Source: ? Pap Test, Cervix/Endocervix, ThinPrep Imaging System with manual evaluation Last Menstrual Period: ? 08/03/2015 Previous Gynecologic Pathology: ? SOCORRO II: 2001 Treatment History: ? LEEP: 2002 ? SPECIMEN ADEQUACY ? Satisfactory for Evaluation - transformation zone component present GENERAL CATEGORIZATION ? Negative for Intraepithelial Lesion or Malignan cy ? Document reviewed and electronically signed by: ? MICHAEL Rivas(ASCP)(IAC) ? Report Date: ??08/15/2015 16:11 End of Report Specimen Performing Organization Address City/State/ZIP Code Phon e Number [facility] [address] [place] [phone] SERVICES documented in this encounter Visit Diagnoses Not on filedocumented in this encounter Care Teams Labor Expediter Relationship Specialty Start Date End Date Jorge Alberto Anders MD PCP - General 04/15/13 [address] [place], [place] [address] documented as of this encounter
--- OUTSIDE RECORDS SUMMARY | 2022-06-26 09:16 | XMS_ITS | Encounter Summary ---
:1970 Author Organization [facility] Address [address] [place] [address] Care Team Providers Name Role Phone Unavailable Primary Care Provider Unavailable Encounter Details Date Type Department Care Team Description 02/26/2011 Results Only [facility] Mason Trejo, PRINTED [employer] BOARDS ROUTER Laboratory Services - [address] [place], [place] [address] [facility] [address] [place] [address] [phone] Social History Tobacco Use Types Packs/Day Years Used Date Never Assessed Sex Assigned at Date Recorded Not on file documented as of this encounter Plan of Treatment Not on filedocumented as of this encounter Procedures Procedure Name Priority Date/Time Associated Diagnosis Comme [facility] CYTOPATHOLOGY Routine 02/26/2011 0:00 EDT Results for this procedure are i n the results section . documented in this encounter Results CYTOPATHOLOGY (02/26/2011 0:00 EDT) Pathology Report: CYTOPATHOLOGY REPORT ? [facility] ? LAB Reports generated via electr onic interface contain original data; ? however they are lacking the format of the original report. ? Caution should be taken when reading/interpreting unformatted reports. ? Name: ? JAMEY MCGOVERN [place] ? Accession #: ? [id number] ? : ? 1970 (Age: 41) ??F ?Collect Date: ? 02/26/2011 ? Location: ? [facility] ? Receive Date: ? 02/27/2011 ? Provider: ?MARCELINO GALICIA OOD PRINTED CIRCUIT BOARDS ROUTER ? Copy to: ? Specimen/Source: ? Pap Test, Cervix/Endocervix, ThinPrep Imaging System ? with manual evaluation ? Last Menstrual Period: ? 4/4/11 ? Previous Gynecologic Patholo gy: ? SOCORRO II: 2002 ? SPECIMEN ADEQUACY ? Satisfactory for Eval uation ? - transformation zone compon ent present ? GENERAL CATEGORIZATION ? Negative for Intraepi thelial Lesion or Malignancy ? Document reviewed and electr onically signed by: ? Padmaja Mejias, CT(ASCP) ? Report Date: ??04/26/ 2011 11:04 ? End of Report ? Specimen Performing Organization Address City/State/ZIP Code Phon e Number [facility] [address] [place] [address] SERVICES [facility] [address] [place] [address] documented in this encounter Visit Diagnoses Not on filedocumented in this encounter
--- OUTSIDE RECORDS SUMMARY | 2022-06-26 09:16 | XMS_ITS | Encounter Summary ---
:1970 Author Organization [facility] Address [address] [place] [address] Care Team Providers Name Role Phone Unavailable Primary Care Provider Unavailable Encounter Details Date Type Department Care Team Description 12/22/2001 Results Only [facility] - Lili Whitt MD [employer] [address] [place] [address] [place] [address] Social History Tobacco Use Types Packs/Day Years Used Date Never Assessed Sex Assigned at Date Recorded Not on file documented as of this encounter Plan of Treatment Not on filedocumented as of this encounter Procedures Procedure Name Priority Date/Time Associated Diagnosis Comme [facility] SURGICAL PATHOLOGY Routine 12/22/2001 0:00 EST Re sults for this procedure are i n the results section. documented in this encounter Results SURGICAL PATHOLOGY (12/22/2001 0:00 EST) Pathology Report: SURGICAL PATHOLOGY REPORT [facility] Reports generated via electronic interface contain ricardo ginal data; LAB however they are lacking the format of the original re port. Caution should be taken when reading/interpreting unfo rmatted reports. Name: ? JAMEY MCGOVERN ? Accession #: ? [id number] ? : ? 1970 (Age: 31) ??F ? Collect Date: ? 12/22/2001 ? Location: ? [facility] ? Receive Date: ? 002 ? Provider: MASHA WHITT MD Copy to: BOBBY HOWE MD ? Final Pathologic Diagnosis: A. ?Cervix, #1, LEEP excision: 1. ?Transformation zone cervix with: ? - Squamous metaplasia. - Acute and chronic inflammation. 2. ?No evidence of dysplasia. B. ?Cervix, #2, LEEP excision: 1. ?Transformation zone cervix with: ? - Squamous metaplasia. - Moderate chronic inflammation. 2. ?Endocervical tissue with mild to mode rate acute and chronic inflammation. 3. ?No evidence of dysplasia. Document reviewed and electronically signed by: Frank Arreaag MD Report ??Date: 12/24/2001 15:54 By the signature above, the attending physician certif ies that he/she has personally conducted a gross and/or microscopic examin ation of the described specimens and rendered or confirmed the above diagnosi s. Specimen(s) Received: ? Cervix LEEP bx A. ?(#1) B. ?(#2) Clinical History: ? Colpo bx, SOCORRO II, [id number] Gross Description: ? Received in formalin labelled Molly and #1 LEEP is a faulkner-villanueva, rubbery, unoriented, 2.0 x 0.5 cm produc t of a LEEP excision of cervix excised to a depth of 0.2 cm. ??One aspect is surfaced by a faulkner-white, wrinkled mucosa. The specimen is inked black, serially sectioned and is entirely submitted as (A1) to (A4). Received in formalin labelled Molly and LEEP i s a faulkner-villanueva, annular, unoriented, 1.6 x 0.7 cm pro duct of a LEEP excision of cervix excised to a depth of 0.2 cm. ??One aspect is s urfaced by a faulkner-villanueva, wrinkled mucosa. ??There is a moderate amount of attached hemorrhagic material. ??The endocervical margin is inked black and ectocervical inked blue. ??Also received is a faulkner-villanueva, rubbery, 1.1 x 0.6 x 0.2 cm soft tiss ue with a moderate amount of cautery artifact. ??The convex aspect is inked blue. ??The larger tissue is se rially sectioned and entirely submitted as (B1) t o (B4). ??The smaller tissue is serially sectioned ad entirely submitted as (B5) and (B6). ??The attached he morrhagic material is submitted as (B7). ??(Dru Cohen)/dtl End of Report Specimen Performing Organization Address City/State/ZIP Code Phon e Number [facility] [address] [place] [address] SERVICES [facility] [address] [place] [address] documented in this encounter Visit Diagnoses Not on filedocumented in this encounter
--- OUTSIDE RECORDS SUMMARY | 2022-06-26 09:16 | XMS_ITS | Encounter Summary ---
:1970 Author Organization [facility] Address [address] [place] [address] Care Team Providers Name Role Phone Unavailable Primary Care Provider Unavailable Encounter Details Date Type Department Care Team Description 05/30/2003 Results Only [facility] - Matt Rothman MD conversion [address] [place] [address] Social History Tobacco Use Types Packs/Day Years Used Date Never Assessed Sex Assigned at Date Recorded Not on file documented as of this encounter Plan of Treatment Not on filedocumented as of this encounter Procedures Procedure Name Priority Date/Time Associated Diagnosis Comme nts SURGICAL PATHOLOGY Routine 05/30/2003 0:00 EDT Re sults for this procedure are i n the results section. documented in this encounter Results SURGICAL PATHOLOGY (05/30/2003 0:00 EDT) Pathology Report: SURGICAL PATHOLOGY REPORT [facility] Reports generated via electronic interface contain ricardo ginal data; LAB however they are lacking the format of the original re port. Caution should be taken when reading/interpreting unfo rmatted reports. Name: ? JAMEY MCGOVERN CA ? Accession #: ? [id number] ? : ? 1970 (Age: 33) ??F ? Collect Date: ? 05/30/2003 ? Location: ? [facility] ? Receive Date: ? 003 ? Provider: MATT TALAVERA MD Copy to: ANDRZEJ ESPARZA MD ? Final Pathologic Diagnosis: ? Endometrium, curettings: 1. ?Occasional fragments of decidualized stroma. ??See comment. 2. ?Predominant ly proliferative type endometrium, no specific pathologic features. Comment: ? Decidualized stromal fragments is associated with gestation. Because only a few fragments are present, and the overwhelming majori ty of tissue is proliferative-type endometri um, these fragments may represent an abortus remnant or focal exogenous hormone [such as from oral contraceptives] effect. Clinical correlation is recommended. (Dr. Branch) Document reviewed and electronically signed by: OLLIE BRANCH MD Report ??Date: 06/02/2003 15:23 By the signature above, the attending physician certif ies that he/she has personally conducted a gross and/or microscopic examin ation of the described specimens and rendered or confirmed the above diagnosi s. Specimen(s) Received: ? Endometrial curettings (suction curettage) Clinical History: ? Possible cervical stenosis and he matometrium secondary to previous LEEP procedure and subsequent scarring Gross Description: ? Received in formalin labelled Molly and endometrial curettings are 4.0 x 3.0 x 1.0 cm of multip le red-brown hemorrhagic slightly mucoid soft tissue fragments. ??The specimen is entirely submitted as (A1 ) to (A3). ??(Dru Cohen)/ace End of Report Specimen Performing Organization Address City/State/ZIP Code Phon e Number [facility] [address] [place] [address] SERVICES [facility] [address] [place] [address] documented in this encounter Visit Diagnoses Not on filedocumented in this encounter
--- OUTSIDE RECORDS SUMMARY | 2022-06-26 09:16 | XMS_ITS | Encounter Summary ---
:1970 Author Organization [facility] Address [address] [place] [address] Care Team Providers Name Role Phone Unavailable Primary Care Provider Unavailable Encounter Details Date Type Department Care Team Description 02/19/2005 Results Only [facility] - Rene Jackson MD conversion [address] [place] [address] Social History Tobacco Use Types Packs/Day Years Used Date Never Assessed Sex Assigned at Date Recorded Not on file documented as of this encounter Plan of Treatment Not on filedocumented as of this encounter Procedures Procedure Name Priority Date/Time Associated Diagnosis Comme nts CYTOPATHOLOGY Routine 02/19/2005 0:00 EDT Results for this procedure are i n the results section . documented in this encounter Results CYTOPATHOLOGY (02/19/2005 0:00 EDT) Pathology Report: CYTOPATHOLOGY REPORT [facility] Reports generated via electronic interface contain ricardo ginal data; however they are lacking the format of the original re port. Caution should be taken when reading/interpreting unfo rmatted reports. Name: ? MARI MCGOVERN ? Accession #: ? [id number] : ? 1970 (Age: 35) ??F ?Collect Date: ? 02/08 Location: ? [facility] ? Receive Date : ? 2005 Provider: ?RENE DE LUNA MD Copy to: ? Specimen/Source: ?ThinPrep Pap Test, Cervix/ Endocervix Last Menstrual Period: ? 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 SPECIMEN ADEQUACY ? Satisfactory for Evaluation - transformation zone component present GENERAL CATEGORIZATION ? Negative for Intraepithelial Lesion or Malignan cy ? Document reviewed and electronically signed by: ? Ewelina Eddy, SCT(ASCP) ? Report Date: ??02/27/2005 15:59 End of Report Specimen Performing Organization Address City/State/ZIP Code Phon e Number [facility] [address] [place] [address] SERVICES [facility] [address] [place] [address] documented in this encounter Visit Diagnoses Not on filedocumented in this encounter
--- OUTSIDE RECORDS SUMMARY | 2022-06-26 09:16 | XMS_ITS | Encounter Summary ---
:1970 Author Organization [facility] Address [address] [place] [address] Care Team Providers Name Role Phone Unavailable Primary Care Provider Unavailable Encounter Details Date Type Department Care Team Description 08/23/2003 Results Only [facility] - Matt Rothman MD conversion [address] [place] [address] Social History Tobacco Use Types Packs/Day Years Used Date Never Assessed Sex Assigned at Date Recorded Not on file documented as of this encounter Plan of Treatment Not on filedocumented as of this encounter Procedures Procedure Name Priority Date/Time Associated Diagnosis Comme nts CYTOPATHOLOGY Routine 08/23/2003 0:00 EDT Results for this procedure are i n the results section . documented in this encounter Results CYTOPATHOLOGY (08/23/2003 0:00 EDT) Pathology Report: CYTOPATHOLOGY REPORT [facility] Reports generated via electronic interface contain ricardo ginal data; however they are lacking the format of the original re port. Caution should be taken when reading/interpreting unfo rmatted reports. Name: ? MARI MCGOVERN ? Accession #: ? [id number] : ? 1970 (Age: 33) ??F ?Collect Date: ? 08/10 Location: ? [facility] ? Receive Date : ? 08/25/2003 Provider: ?MATT TALAVERA MD Copy to: ? Specimen/Source: ?ThinPrep Pap Test, Cervix/ Endocervix Last Menstrual Period: ? 07/30/03 Previous Gynecologic Pathology: ? ASC-US: 01/08, 11/11 JANNETH: 07/11 SOCORRO II: 11/11 Treatment History: ? Cervical biopsy: 11/11 LEEP: 12/12 Other: ? Additional clinical information: 07/12 wnl ? SPECIMEN ADEQUACY ? Satisfactory for Evaluation - transformation zone component present GENERAL CATEGORIZATION ? Negative for Intraepithelial Lesion or Malignan cy ? Document reviewed and electronically signed by: ? MICHAEL Mercado(ASCP) ? Report Date: ??08/30/2003 14:49 End of Report Specimen Performing Organization Address City/State/ZIP Code Phon e Number [facility] [address] [place] [address] SERVICES [facility] [address] [place] [address] documented in this encounter Visit Diagnoses Not on filedocumented in this encounter
--- OUTSIDE RECORDS SUMMARY | 2022-06-26 09:16 | XMS_ITS | Encounter Summary ---
:1970 Author Organization [facility] Address [address] [place] [address] Care Team Providers Name Role Phone Unavailable Primary Care Provider Unavailable Encounter Details Date Type Department Care Team Description 01/18/2000 Results Only [facility] - Ewelina Connelly CNM [facility] [address] [place] [address] Social History Tobacco Use Types Packs/Day Years Used Date Never Assessed Sex Assigned at Date Recorded Not on file documented as of this encounter Plan of Treatment Not on filedocumented as of this encounter Procedures Procedure Name Priority Date/Time Associated Diagnosis Comme [facility] CYTOPATHOLOGY Routine 01/18/2000 9:19 EST Results for this procedure are i n the results section . documented in this encounter Results CYTOPATHOLOGY (01/18/2000 9:19 EST) Pathology Report: CYTOPATHOLOGY REPORT [facility] Reports generated via electronic interface contain ricardo ginal data; however they are lacking the format of the original re port. Caution should be taken when reading/interpreting unfo rmatted reports. Name: ? MARI MCGOVERN ? Accession #: ? [id number] : ? 1970 (Age: 29) ??F ?Collect Date: ? 01/08 Location: ?Receive Date: ? 01/18/2000 Provider: ?EWELINA SERRA CNMontez Copy to: ?EWELINA SERRA CNM ? Specimen/Source: ?Export Freight Clerk ThinPrep Last Menstrual Period: ? GYNECOLOGIC ??CYTOPATHOLOG Y ??REPORT Name: FROILAN,MARI ?F [facility] : 1970 ?? 29Y F ?Client ID: [id number] SS#: [id number] ? Ac cession #: [id number] Clinician: MARYSE GASPAR, EWELINA ?? Location: [facility] ??Copy to: ?? Specimen: ?Export Freight Clerk ThinPrep ? Source: Cervix/Endocervix ?Collected: 01/16/00 ? Received: 01/18/2000 ?LMP: ?02/06/99 ?Hormone Therapy: No ? : No ? Radiation Therapy: No ?? Post : Yes ? Chemotherapy: No ?IUD: No ? Prev Abnormal Pap: Yes ?? Clinical Hx: LG JANNETH & HPV. acute and chron ic ? cervicitis, reactive epithelial jeff nges. 2 prior ? Colpos. WNL. ?(Blank pool indicate information not provided on requisition) SPECIMEN ADEQUACY: ? Satisfactory For Evaluation ?? GENERAL CATEGORIZATION: ? WITHIN NORMAL LIMITS ? Reviewed And Electronically Signed By: ? Diane quinones, CT(ASCP) ? Deepika Khan, CT(ASCP) ? Report Date : ?? 01/22/2000 [employer] Archived Tests - Final Diagnosis Text Field: Clinical History : ; LG JANNETH & HPV. acute an d chronic cervicitis, reactive epithelial changes. 2 prior Colpos. WNL . ? Document reviewed and electronically signed by: ? Conversion ? Report Date: ??01/22/2000 00:00 End of Report Specimen Performing Organization Address City/State/ZIP Code Phon e Number [facility] [address] [place] [address] SERVICES [facility] [address] [place] [address] documented in this encounter Visit Diagnoses Not on filedocumented in this encounter
--- OUTSIDE RECORDS SUMMARY | 2022-06-26 09:16 | XMS_ITS | Encounter Summary ---
:1970 Author Organization [facility] Address [address] [place] [address] Care Team Providers Name Role Phone Unavailable Primary Care Provider Unavailable Encounter Details Date Type Department Care Team Description 03/02/2012 Results Only [facility] Mason Trejo, [facility] Laboratory Services - [address] [facility] [address] Kym Rosales [place], [place] [address] [facility] [address] [place] [address] [phone] Social History Tobacco Use Types Packs/Day Years Used Date Never Assessed Sex Assigned at Date Recorded Not on file documented as of this encounter Plan of Treatment Not on filedocumented as of this encounter Procedures Procedure Name Priority Date/Time Associated Diagnosis Comme nts PAP TEST- RESULT Routine 03/02/2012 0:00 EDT Resu lts for this ONLY procedure are i n the results section. documented in this encounter Results PAP TEST- RESULT ONLY (03/02/2012 0:00 EDT) Pathology Report: CYTOPATHOLOGY REPORT [facility] Reports generated via electronic interface contain ricardo ginal data; however they are lacking the format of the original re port. Caution should be taken when reading/interpreting unfo rmatted reports. Name: ? MARI MCGOVERN ? Accession #: ? [id number] : ? 1970 (Age: 42) ??F ?Collect Date: ? 02/09 Location: ? [facility] ? Receive Date : ? 03/03/2012 Provider: ?MARCELINO TREJO [facility] Copy to: ?JORGE ALBERTO HAHN MD ? Specimen/Source: ? Pap Test, Cervix/Endocervix, ThinPrep Imaging System with manual evaluation Last Menstrual Period: ? 02/27/12 Previous Gynecologic Pathology: ? SOCORRO II: 2001 ? SPECIMEN ADEQUACY ? Unsatisfactory for Evaluation, - insufficient numbers of squamous epith elial cells (less than 10% of expected cellularity) - sample preparation compromised by excessive blood GENERAL CATEGORIZATION ? Specimen processed and examined, but unsatisfac tory for evaluation of epithelial abnormality. Recommend repeat Pap test or further follow up, as cli nically indicated. INTERPRETATION ? Despite being an [employer] specimen, endometrial cells are present in a woman equal to or greater than age 40. EDUCATIONAL NOTES/RECOMMENDATIONS ? Benign appearing endometrial cells on Pap tests are usually a normal finding in women with regular menstrual cycles, especially if the Pap test was collected during the first half of the menstrual cycle . There is data showing that e ndometrial [...] nts with clinical suspicion of endometrial pathology. ? Document reviewed and electronically signed by: ? MICHAEL Mercado(ASCP) ? Report Date: ??03/10/2012 09:17 End of Report Specimen Performing Organization Address City/State/ZIP Code Phon e Number [facility] [address] [place] [address] SERVICES [facility] [address] [place] [address] documented in this encounter Visit Diagnoses Not on filedocumented in this encounter
--- OUTSIDE RECORDS SUMMARY | 2022-06-26 09:16 | XMS_ITS | Encounter Summary ---
:1970 Author Organization [facility] Address [address] [place] [address] Care Team Providers Name Role Phone Don Anders MD Primary Care Provider Encounter Details Date Type Department Care Team Description 07/17/2018 Hospital Encounter [facility]- Kym Unknown, Provider, [facility] [address] [facility] [phone] [place] [address] (Work) [phone] Social History Tobacco Use Types Packs/Day Years Used Date Never Assessed Sex Assigned at Date Recorded Not on file documented as of this encounter Discharge Disposition Disposition Code Departure Means Destination Home or Self Prison documented in this encounter Plan of Treatment Not on filedocumented as of this encounter Visit Diagnoses Not on filedocumented in this encounter Care Teams Conical Mixer Relationship Specialty Start Date End Date Don Anders MD PCP - General 04/15/13 [address] [place] [address] documented as of this encounter
--- OUTSIDE RECORDS SUMMARY | 2022-06-26 09:16 | XMS_ITS | Encounter Summary ---
:1970 Author Organization [facility] Address [address] [place] [address] Care Team Providers Name Role Phone Unavailable Primary Care Provider Unavailable Encounter Details Date Type Department Care Team Description 01/18/[address] Results [address] [facility] - Vannessa Mahan od, ELECTRIFIER OPERATOR conversion [address] [place] [phone] (Wo rk) Social History Tobacco Use Types Packs/Day Years Used Date Never Assessed Sex Assigned at Date Recorded Not on file documented as of this encounter Plan of Treatment Not on filedocumented as of this encounter Procedures Procedure Name Priority Date/Time Associated Diagnosis Comme nts CYTOPATHOLOGY Routine 01/18/2008 0:00 EDT Results for this procedure are i n the results section . documented in this encounter Results CYTOPATHOLOGY (01/18/2008 0:00 EDT) Pathology Report: CYTOPATHOLOGY REPORT [facility] Reports generated via electronic interface contain ricardo ginal data; however they are lacking the format of the original re port. Caution should be taken when reading/interpreting unfo rmatted reports. Name: ? MARI MCGOVERN ? Accession #: ? [id number] : ? 1970 (Age: 37) ??F ?Collect Date: ? 01/08 Location: ? [facility] ? Receive Date : ? 01/19/2008 Provider: ?VANNESSA CARLIN ELECTRIFIER OPERATOR Copy to: ? Specimen/Source: ? ThinPrep Pap Test, Cervix/Endocervix, processed on [employer] ThinPrep Imaging System, with manual evaluation Last Menstrual Period: ? 12-27-07 Previous Gynecologic Pathology: ? HSIL: 96 LSIL: 98 ASC-US: 09-, 11-26-01 HPV: 11-26-01 SOCORRO II: 11-11 Treatment History: ? Colposcopy: 97 no evidence of dysplasia Cervical biopsy: ?? acute and chronic cervicitis Cervical biopsy: 11-11 ??SOCORRO II LEEP: 12-12 ??no evidence of displasia Other: ? HPVA - HPV testing requested if ASC-US on the current ThinPrep Pap test. Additional clinical information: 0102 ??unsat., -, 03, 04, 06 paps neg ? SPECIMEN ADEQUACY ? Satisfactory for Evaluation - transformation zone component present GENERAL CATEGORIZATION ? Negative for Intraepithelial Lesion or Malignan cy ? Document reviewed and electronically signed by: ? MICHAEL Martínez(ASCP) ? Report Date: ??01/22/2008 13:48 End of Report Specimen Performing Organization Address City/State/ZIP Code Phon e Number [facility] [address] [place] [address] SERVICES [facility] [address] [place] [address] documented in this encounter Visit Diagnoses Not on filedocumented in this encounter
--- OUTSIDE RECORDS SUMMARY | 2022-06-26 09:16 | XMS_ITS | Encounter Summary ---
:1970 Author Organization [facility] Address [address] [place] [address] Care Team Providers Name Role Phone Unavailable Primary Care Provider Unavailable Encounter Details Date Type Department Care Team Description 08/04/2001 Results Only [facility] - Ewelina Connelly CNM [facility] [address] [place] [address] Social History Tobacco Use Types Packs/Day Years Used Date Never Assessed Sex Assigned at Date Recorded Not on file documented as of this encounter Plan of Treatment Not on filedocumented as of this encounter Procedures Procedure Name Priority Date/Time Associated Diagnosis Comme nts CYTOPATHOLOGY Routine 08/04/2001 0:00 EDT Results for this procedure are i n the results section . documented in this encounter Results CYTOPATHOLOGY (08/04/2001 0:00 EDT) Pathology Report: CYTOPATHOLOGY REPORT [facility] Reports generated via electronic interface contain ricardo ginal data; however they are lacking the format of the original re port. Caution should be taken when reading/interpreting unfo rmatted reports. Name: ? MARI MCGOVERN ? Accession #: ? [id number] : ? 1970 (Age: 31) ??F ?Collect Date: ? 07/12 Location: ? [facility] ? Receive Date : ? 08/05/2001 Provider: ?EWELINA SERRA CNM Copy to: ? Specimen/Source: ?ThinPrep Pap Test, Cervix/ Endocervix Last Menstrual Period: ? 11/24/00 Menstrual/ Status: ? Previous Gynecologic Pathology: ? ASC-US: 01/08 LSIL HPV: Treatment History: ? Colposcopy: Acute and chronic cervicitis ? SPECIMEN ADEQUACY ? Satisfactory for evaluation. GENERAL CATEGORIZATION ? Epithelial Cell Abnormality DESCRIPTIVE DIAGNOSIS ? Squamous intraepithelial lesion (JANNETH), see comm ent. ? COMMENT ? At least a low grade squamous int raepithelial lesion (LSIL) is present. 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 The refore, a high grade squamous intraepithelial lesion (HSIL) cannot be excluded. ? Document reviewed and electronically signed by: ? Nadine Bernard MD ? Report Date: ??08/12/2001 09:41 End of Report Specimen Performing Organization Address City/State/ZIP Code Phon e Number [facility] [address] [place] [address] SERVICES [facility] [address] [place] [address] documented in this encounter Visit Diagnoses Not on filedocumented in this encounter
--- OUTSIDE RECORDS SUMMARY | 2022-06-26 09:16 | XMS_ITS | Encounter Summary ---
:1970 Author Organization [facility] Address [address] [place] [address] Care Team Providers Name Role Phone Jorge Alberto Anders MD Primary Care Provider Encounter Details Date Type Department Care Team Description 01/25/2014 Results Only [facility] Mason Trejo, MARKETING SERVICES SPECIALIST Laboratory Services - [address] [facility] [address] [address] Mej[address] [place], [place] [address] [facility] [address] [place] [address] [phone] Social History Tobacco Use Types Packs/Day Years Used Date Never Assessed Sex Assigned at Date Recorded Not on file documented as of this encounter Plan of Treatment Not on filedocumented as of this encounter Procedures Procedure Name Priority Date/Time Associated Diagnosis Comme nts PAP TEST- RESULT Routine 01/25/2014 0:00 EDT Resu lts for this ONLY procedure are i n the results section. documented in this encounter Results PAP TEST- RESULT ONLY (01/25/2014 0:00 EDT) Pathology Report: CYTOPATHOLOGY REPORT [facility] Reports generated via electronic interface contain ricardo ginal data; however they are lacking the format of the original re port. Caution should be taken when reading/interpreting unfo rmatted reports. Name: ? JAMEY MCGOVERN ? Accession #: ? [id number] ? : ? 1970 (Age: 43) ??F ?Collect Da te: ? 01/25/2014 ? Location: ? [facility] ? Receive Date: ? 014 ? Provider: MARCELINO TREJO MARKETING SERVICES SPECIALIST Copy to: JORGE ALBERTO ANDERS MD ? Final Report SPECIMEN ADEQUACY ? Satisfactory for Evaluation - transformation zone component present GENERAL CATEGORIZATION ? Epithelial Cell Abnormality INTERPRETATION ? Squamous Cell Abnormality - Atypical squamous c ells, undetermined significance (ASC-US). EDUCATIONAL NOTES/RECOMMENDATIONS ? [facility] recommends sejal swift ASCCP's 2012 Updated Consensus Guidelines for the Management of Abnormal Cervical Cancer Screening T ests and Cancer Precursors (JLGTD, 2013; 17(5):S1-S27). ??Conse nsus guidelines are available online at www.asccp.org. Last Menstrual Period: 01/17/2014 Previous Gynecologic Pathology: SOCORRO II: 2002 ASC-US: 2013 Treatment History: LEEP: Rx 2001 Other: Additional clinical information: HPV neg 2012 Specimen/Source: ??Pap Test, Cervix/Endocervix, ThinPr ep Imaging System with manual evaluation Document reviewed and electronically signed by: ? JAYY CASTELAN MD ? Report ??Date: 02/02/2014 17:34 HPV with Pap Test ? Date Ordered: ? 02/02/2014 ? Status: ?? Signed Out ?Date Complete: ? 02/04/2014 ? By: ??S ystem Interface ? Date Reported: ? 02/04/2014 ? Interpretation RESULT: Negative for HPV. No E6 or E7 mRNA is detected from HPV types 16,18,31,3 3,35, 39,45,51,52,56,58,59,66, and 68 by marine engineering teacher media rosario renae. Comments Document reviewed and electronically signed by: ? System Interface ? Report date: 02/04/2014 By the signature above, the attending physician certif ies that he/she has personally conducted a gross and/or microscopic examin ation of the described specimens and rendered or confirmed the above diagnosi s. End of Report Specimen Performing Organization Address City/State/ZIP Code Phon e Number [facility] [address] [place] [address] SERVICES [facility] [address] [place] [address] documented in this encounter Visit Diagnoses Not on filedocumented in this encounter Care Teams Cuff Setter Relationship Specialty Start Date End Date Jorge Alberto Anders MD PCP - General 04/15/13 [address] [place] [address] documented as of this encounter
--- OUTSIDE RECORDS SUMMARY | 2022-06-26 09:16 | XMS_ITS | Clinical Summary ---
:1970 Author Organization [facility] Address [address] [place] [address] Care Team Providers Name Role Phone Don Anders MD Primary Care Provider Social History Tobacco Use Types Packs/Day Years Used Date Never Assessed Sex Assigned at Date Recorded Not on file Plan of Treatment Not on file Care Teams Software Licensing Specialist Relationship Specialty Start Date End Date Don Anders MD PCP - General 04/15/13 [address] [place] [address]
--- OUTSIDE RECORDS SUMMARY | 2022-06-26 09:16 | XMS_ITS | Encounter Summary ---
:1970 Author Organization [facility] Address [address] [place] [address] Care Team Providers Name Role Phone Don Anders MD Primary Care Provider Encounter Details Date Type Department Care Team Description 01/09/2017 Hospital Encounter [facility]- Kym Unknown, Provider, [facility] [address] [facility] [phone] [place] [address] (Work) [phone] Social History Tobacco Use Types Packs/Day Years Used Date Never Assessed Sex Assigned at Date Recorded Not on file documented as of this encounter Discharge Disposition Disposition Code Departure Means Destination Home or Self Custodial documented in this encounter Plan of Treatment Not on filedocumented as of this encounter Visit Diagnoses Not on filedocumented in this encounter Care Teams Marine Engine Mechanic Relationship Specialty Start Date End Date Don Anders MD PCP - General 04/15/13 [address] [place] [address] documented as of this encounter
--- OUTSIDE RECORDS SUMMARY | 2022-06-26 09:16 | XMS_ITS | Encounter Summary ---
:1970 Author Organization [facility] Address [address] [place] [address] Care Team Providers Name Role Phone Unavailable Primary Care Provider Unavailable Encounter Details Date Type Department Care Team Description 01/27/2001 Results Only [facility] - Quinn Valderrama CNM conversion [address] [place] [address] [place] [address] [phone] Social History Tobacco Use Types Packs/Day Years Used Date Never Assessed Sex Assigned at Date Recorded Not on file documented as of this encounter Plan of Treatment Not on filedocumented as of this encounter Procedures Procedure Name Priority Date/Time Associated Diagnosis Comme nts CYTOPATHOLOGY Routine 01/27/2001 0:00 EST Results for this procedure are i n the results section . documented in this encounter Results CYTOPATHOLOGY (01/27/2001 0:00 EST) Pathology Report: CYTOPATHOLOGY REPORT [facility] Reports generated via electronic interface contain ricardo ginal data; however they are lacking the format of the original re port. Caution should be taken when reading/interpreting unfo rmatted reports. Name: ? MARI MCGOVERN ? Accession #: ? [id number] : ? 1970 (Age: 30) ??F ?Collect Date: ? 01/09 Location: ? [facility] ? Receive Date : ? 01/29/2001 Provider: ?QUINN COOPER CNM Copy to: ? Specimen/Source: ?ThinPrep Pap Test, Cervix/ Endocervix Last Menstrual Period: ? 11/24/00 Menstrual/ Status: ? Previous Gynecologic Pathology: ? LSIL: HPV: Yes: Acute and chronic cervicitis, reactive epit helial changes. Treatment History: ? Colposcopy: x2. ? SPECIMEN ADEQUACY ? Satisfactory for evaluation but limited by scan t squamous epithelial component. GENERAL CATEGORIZATION ? Epithelial Cell Abnormality DESCRIPTIVE DIAGNOSIS ? Atypical squamous cells of undetermined signifi cance (ASCUS), favor reactive process. RECOMMENDATION ? Recommend repeat Pap test in 3-6 months or further follow up, as clinically indicated. ? Document reviewed and electronically signed by: ? ANDRZEJ HOWE MD ? Report Date: ??02/03/2001 12:47 End of Report Specimen Performing Organization Address City/State/ZIP Code Phon e Number [facility] [address] [place] [address] SERVICES [facility] [address] [place] [address] documented in this encounter Visit Diagnoses Not on filedocumented in this encounter
== END ==
PROVIDERS: Visit Provider Advanced Practice Midwife
DX: R93.5 Abnormal findings on diagnostic imaging of other abdominal regions, including retroperitoneum (principal)
CPT/HCPCS: 76830; 76856

== ENCOUNTER 2022-07-03 14:18 | Outpatient (REF) | payer MEDICAID, SELFPAY ==
--- NOTE | 2022-07-03 13:50 | ENDOMET_PTH ---
PATIENT: Angeline Barnes LOC: [facility]#:[id number] AGE/SX: 52/F ROOM: RE07/03/[address]: Edith Sharp : 1970 BED: DIS: 07/03/2022 SPEC #: [id number] RECD: 07/03/22 18:15 STATUS: PHANI REQ #: [id number] JAYLA: 07/03/22 13:[address]: Edith Sharp DEPT: Surgical Specimen RECD BY: Farida Navarrete ENTERED: 07/03/22 18:15 SP TYPE: Endomet OTHR DR: Unknown,Unknown Tissues: 1 - ENDOMETRIUM BX/CURRETTE Procedures: GROSS AND MICRO LEVEL 4 Comments: [id number]
== END 2022-07-03 14:19 | disposition home or self-care (01) ==
LOC: LBN 14:18
PROVIDERS: Visit Provider Obstetrics & Gynecology Gynecology
DX: N93.8 Other specified abnormal uterine and vaginal bleeding (principal); N85.8 Other specified noninflammatory disorders of uterus
CPT/HCPCS: 88305

== ENCOUNTER → 2022-07-09 00:59 | Outpatient (CLI) | payer MEDICAID, SELFPAY ==
--- NOTE | 2022-07-09 08:00 | DI.MRI_ITS ---
Exam(s) MR PELVIS WO/W EXAM: MR PELVIS WO/W CLINICAL HISTORY: uterine mass, N85.8. TECHNIQUE: Multiplanar multisequence MRI was performed. COMPARISON: US US PELVIS TRANSVAGINAL from 06/26/2022 FINDINGS: MR examination of the pelvis was performed utilizing multi planer scanning with pre and post contrast imaging performed. Recent ultrasound examination showed a 11 cm in diameter uterine mass. This is again seen on today's MR examination. The mass is of fairly low signal intensity on T1 weighted imag ing and of heterogeneous mixed signal including high and low signal on T2 weighted imaging. The mass shows intermediate signal on T1 fat sat imaging. Post contrast examination shows heterogeneous mode rately intense enhancement of the mass. No additional uterine mass identified. Mass appears to arise in the myometrium displacing the endome trium. Incidental multiple small nabothian cysts are seen. No pelvic adenopathy. No ascites. No bowel pathology. Unremarkable appearance of the ovaries by MR criteria. IMPRESSION: Large solitary uterine mass appears to arise in the myometrium and is most likely to represent a dege nerating uterine fibroid. Leiomyosarcoma or other malignant etiologies could have this appearance an d are not entirely excluded on the basis of these imaging findings. DATA REPOSITORY:
[2022-07-09] MEDS: Gadoterate meglumine 20 ML SYRINGE IVP (14:01)
[2022-07-09] MEDS: Normal Saline Flush 10 ML SYR IVP (14:01)
== END ==
PROVIDERS: Visit Provider Obstetrics & Gynecology Gynecology
DX: N85.8 Other specified noninflammatory disorders of uterus (principal); D25.9 Leiomyoma of uterus, unspecified
CPT/HCPCS: 72197

== ENCOUNTER 2022-07-25 15:50 | Outpatient (REF) | payer MEDICAID, SELFPAY ==
[2022-07-25 19:43] LABS: Abs Immature Grans 0.03 10^3/uL (0.0-0.06); Absolute Basophil Count 0.05 10^3/uL (0.0-0.2); Absolute Eosinophil Count 0.29 10^3/uL (0.0-0.7); Absolute Lymphocyte Count 1.86 10^3/uL (1.2-3.4); Absolute Monocyte Count 0.29 10^3/uL (0.1-0.8); Basophils % 0.7; Eosinophils % 3.9; HCT 40.4 % (36.0-46.0); HGB 13.4 g/dL (11.2-15.7); Immature Grans % 0.4; Lymphocytes % 24.7; MCH 27.6 pg (27.0-33.0); MCHC 33.2 % (32.0-36.0); MCV 83 fL (80-95); MPV 10.4 fL (8.0-11.0); Monocytes % 3.9; Neutrophils % 66.4; Platelet Count 242 10^3/uL (130-400); RBC 4.85 10^6/uL (3.93-5.22); RDW 15.8 % (11.7-14.6); RDW-SD 47.9 fL; WBC 7.52 10^3/uL (4.4-10.8)
[2022-07-25 20:25] LABS: Hemoglobin A1C 6.5 % (<5.7)
[2022-07-25 21:04] LABS: ALT 77 U/L (14-59); AST 59 U/L (15-37); Albumin 3.5 g/dL (3.4-5.0); Alkaline Phosphatase 68 U/L (46-116); Anion Gap 12.7 mmol/L (3-11); BUN 12 mg/dL (7-18); Bilirubin, Total 0.4 mg/dL (0.2-1.0); CO2 25.3 mmol/L (21.0-32.0); CREATININE 0.8 mg/dL (0.55-1.02); Calcium 9.2 mg/dL (8.5-10.1); Calculated LDL 125 mg/dL (<100); Chloride 104 mmol/L (98-107); Cholesterol 193 mg/dL (<200); Estimated GFR 89.71 (mL/min/1.73m2); Glucose 103 mg/dL (74-106); HDL Cholesterol 37 mg/dL (40-60); Potassium 3.5 mmol/L (3.5-5.1); Sodium 142 mmol/L (136-145); TSH 1.21 uIU/mL (0.36-3.74); Total Protein 7.5 g/dL (6.4-8.2); Triglyceride 157 mg/dL (<150)
[2022-07-25 21:57] LABS: FREE T4 1.12 ng/dL (0.76-1.46)
[2022-07-26 20:03] LABS: T3, Total 163 ng/dL (97-169)
== END 2022-07-25 15:51 | disposition home or self-care (01) ==
LOC: NCHCN 15:50
PROVIDERS: Visit Provider Nurse Practitioner Family
DX: R63.5 Abnormal weight gain (principal); R03.0 Elevated blood-pressure reading, without diagnosis of hypertension; R59.1 Generalized enlarged lymph nodes; Z68.42 Body mass index [BMI] 45.0-49.9, adult
CPT/HCPCS: 80053; 80061; 83036; 84439; 84443; 84480; 85025

== ENCOUNTER → 2022-09-03 01:22 | Outpatient (CLI) | payer MEDICAID, SELFPAY ==
--- NOTE | 2022-09-03 10:15 | DI.US_ITS ---
Exam(s) US THYROID EXAM: US THYROID CLINICAL HISTORY: THYROMEGALY, E01.0; ? ENLARGED THYROID VS ABNL SOFT TISSUE OF NECK. TECHNIQUE: Ultrasound thyroid performed using standard protocol. COMPARISON: US US PELVIS TRANSVAGINAL from 06/26/2022 FINDINGS: Both thyroid lobes as well as the isthmus are significantly enlarged and abnormal with multiple nodul es evident. RIGHT THYROID LOBE: Measures 3.5 cm AP x 4.8 cm wide x 7.8 cm craniocaudal There is a dominant solid nodule in right lobe as described below. Nodule Size: Measures 6 cm craniocaudal by 3.4 x 4.0 cm Composition: Solid-2 points Echogenicity: Isoechoic-1 point Shape: Wider than taller-0 points Margin: Smooth- 0 points Echogenic Foci: None-0 points Total Points for this nodule: 3 ACR Ti-Rads Category: TR3-mildly suspicious. However, this nodule re quire biopsy as it is larger than 2.5 cm. Nodule Size: Measures cm Composition: Mixed cystic-solid- 1 point Echogenicity: Hypoechoic- 2 points Shape: Wider than taller- 0 points Margin: Lobulated or irregular- 2 points Echogenic Foci: Macrocalcifications- 1 point Total points for this nodule: ACR Ti-Rads Category: TR Nodule Size: Measures cm Composition: Solid or almost completely solid- 2 points Echogenicity: Very hypoechoic- 3 points Shape: Wider than taller- 0 points Margin: Extra-thyroidal extension- 3 points Echogenic Foci: Peripheral (rim) calcifications- 2 points Total points for this nodule: ACR Ti-Rads Category: ISTHMUS: Abnormally thickened, measuring 2.2 cm (normal less than 4 millimeters) the isthmus contains 2 nodules... More concerning of these 2 nodules exhibits demographics as below Nodule Size: Measures 2.5 x 1.7 x 2.3 cm Composition: Solid-2 points Echogenicity: Isoechoic compared to surrounding parenchyma-1 point Shape: Wider than taller in the transverse plane-0 points Margin: Smooth-0 points Echogenic Foci: Contains a macro calc-1 point. Total points for this nodule: 4 ACR Ti-Rads Category: 4 This nodule requires biopsy as it measures greater than 1.5 cm LEFT THYROID LOBE: Measures 3.8 cm AP x 3.4 wide x 7.9 cm craniocaudal The left lobe contains 3 nodules. The most superior measures 1.4 cm and does not require biopsy. To wards the midpole is a solid nodule with demographics as follows dot dot dot Nodule Size: Measures 3.4 x 2.6 x 3.2 cm Composition: Solid-2 points Echogenicity: Isoechoic-1 points Shape: Wider than taller in the transverse plane-0 points Margin: Smooth-0 points Echogenic Foci: Peripheral calcification present-2 points Total points for this nodule: 5 ACR Ti-Rads Category: 4 This nodule requires biopsy as it measures greater than 1.5 cm. Nodule in the left lobe is located just below the above nodule. Size: Measures 3.9 x 3 x 3.2 cm Composition: Solid-2 points Echogenicity: Isoechoic to surrounding parenchyma-1 point Shape: Wider than taller in the transverse plane-0 points Margin: Smooth-0 points Echogenic Foci: None-0 points Total Points for this nodule: 3 ACR Ti-Rads Category: 3 This nodule requires biopsy as it measures greater than 2.5 cm. LYMPH NODES: There is no significant adenopathy. IMPRESSION: 1. Significantly enlarged thyroid gland with enlargement of both lobes as well as the isthmus and danni id nodules in both lobes as well as the isthmus, each as described individually above. All of the no dules described qualify as requiring ultrasound-guided FNA by TiRads criteria. Appropriate referral recommended. 2. There is no significant lymphadenopathy. DATA REPOSITORY:
== END ==
PROVIDERS: Visit Provider Nurse Practitioner Family
DX: E04.2 Nontoxic multinodular goiter (principal)
CPT/HCPCS: 76536

== ENCOUNTER 2022-09-20 01:59 | Outpatient (CLI) | payer MEDICAID, SELFPAY ==
[2022-09-23 09:38] LABS: Thyroglobulin Antibody <15 U/mL (<=60); Thyroperoxidase Antibody <28 U/mL (<=60)
[2022-09-26 16:10] LABS: Thyroid Stimulating Immunoglob <1.0 TSI index (<=1.3)
== END 2022-09-20 02:00 | disposition home or self-care (01) ==
LOC: LBO 01:59
PROVIDERS: PCP Nurse Practitioner Family; Visit Provider Registered Nurse Maternal Newborn
DX: E04.9 Nontoxic goiter, unspecified (principal)
CPT/HCPCS: 36415; 86376; 84445

== ENCOUNTER 2024-05-18 15:03 | Outpatient (REF) | payer SELFPAY ==
[2024-05-18 16:19] LABS: Abs Immature Grans 0.02 10^3/uL (0.0-0.06); Absolute Basophil Count 0.07 10^3/uL (0.0-0.2); Absolute Eosinophil Count 0.21 10^3/uL (0.0-0.7); Absolute Lymphocyte Count 1.88 10^3/uL (1.2-3.4); Absolute Monocyte Count 0.31 10^3/uL (0.1-0.8); Absolute Neutrophil Count 4.61 10^3/uL (1.2-6.7); HGB 14.3 g/dL (11.2-15.7); Immature Grans % 0.3 %; Lymphocytes % 26.5 %; MCH 28.3 pg (27.0-33.0); MCHC 32.5 % (32.0-36.0); MCV 87 fL (80-95); MPV 9.9 fL (8.0-11.0); Monocytes % 4.4 %; Neutrophils % 64.8 %; Platelet Count 265 10^3/uL (130-400); RBC 5.05 10^6/uL (3.93-5.22); RDW 13.9 % (11.7-14.6); RDW-SD 44.6 fL
[2024-05-18 16:59] LABS: ALT 59 U/L (14-59); AST 38 U/L (15-37); Albumin 3.9 g/dL (3.4-5.0); Alkaline Phosphatase 65 U/L (46-116); Anion Gap 9.5 mmol/L (3-11); BUN 13 mg/dL (7-18); Bilirubin, Total 0.84 mg/dL (0.2-1.0); CO2 26.5 mmol/L (21.0-32.0); CREATININE 0.9 mg/dL (0.55-1.02); Calcium 9.2 mg/dL (8.5-10.1); Chloride 105 mmol/L (98-107); Estimated GFR 76.92 (mL/min/1.73m2); FREE T4 1.21 ng/dL (0.76-1.46); Glucose 87 mg/dL (74-106); Sodium 141 mmol/L (136-145); TSH 0.72 uIU/Ml (0.36-3.74); Total Protein 7.6 g/dL (6.4-8.2)
[2024-05-18 17:01] LABS: Hemoglobin A1C 6.2 % (<5.7)
[2024-05-18 17:17] LABS: Calculated LDL 124 mg/dL (<100); Cholesterol 190 mg/dL (<200); HDL Cholesterol 45 mg/dL (40-60); Triglyceride 105 mg/dL (<150)
[2024-05-18 23:14] LABS: T3, Total 158 ng/dL (97-169)
== END 2024-05-18 15:04 | disposition home or self-care (01) ==
LOC: NCHCN 15:03
PROVIDERS: PCP Nurse Practitioner Family; Visit Provider Nurse Practitioner Family
DX: E01.0 Iodine-deficiency related diffuse (endemic) goiter (principal); R63.5 Abnormal weight gain
CPT/HCPCS: 80053; 80061; 83036; 84439; 84443; 84480; 85025

== ENCOUNTER 2024-10-06 15:32 | Outpatient (CLI) | payer OTHER, SELFPAY ==
--- OUTSIDE RECORDS SUMMARY | 2024-10-06 15:35 | XMS_ITS | Encounter Summary ---
[place] [address] Care Team Providers Care Instrument Setter Name Role Phone Romy Singh APRN Primary Care Provider [phone] Reason for Referral * Consultation (Routine) - Authorized Specialty Diagnoses / Procedures Referred By Jessica almanzar Referred To Contact Endocrinology Diagnoses Iodine-deficiency related multinodular (endemic) goiter PROVIDER NOTE: SCHEDULE WITHIN 8 WEEKS Romy Singh APRN [address] [place] [address] [facility] Endocrinology [address] [place] [phone] Referral ID Status Reason Start Date Expiration Date Visits Requested Visits Authorized [id number] Authorized Consult, Test & Treat PCP Updated and/or Approved 05/18/2024 05/18/2025 6 6 Encounter Details Date Type Department Care Team (Latest Contact Info) Description 06/04/2024 Transcribe Orders eDH Incoming Referrals [phone] Romy Singh APRN [address] [place] [address] Iodine-deficiency related multinodular (endemic) goiter Social History Tobacco Use Types Packs/Day Years Used Date Smoking Tobacco: Never Smokeless Tobacco: Former Quit: 2020 Alcohol Use Standard Drinks/Week Comments Not Currently 1 (1 standard drink = 0.6 oz pur e alcohol) Sex and Gender Information Value Date Recorded Sex Assigned at Not on file Gender Identity Not on file Sexual Orientation Not on file documented as of this encounter Plan of Treatment Upcoming Encounters Date Type Department Care Team (Late st Contact Info) Description 11/15/2024 1:00 PM EST Office [place] [phone] Zak Gtz MD [facility] [place] [address] 11/16/2024 2:00 PM EST TH Visit (TeleHealth) [place] [phone] Keyanna Wayne APRN [facility] [place] [address] Scheduled Referrals Name Type Priority Associated Diagnoses Orde r Schedule Referral to Endocrinology Outpatient Referral Routine Iodine-deficiency related multinodular (endemic) goiter Ordered: 06/04/2024 documented as of this encounter Visit Diagnoses Diagnosis Iodine-deficiency related multinodular (endemic) goiter documented in this encounter Care Teams Instrument Setter Relationship Specialty Start Date End Date Romy Singh APRN [facility] [address] [place] [address] PCP - General Family Medicine 08/07/22 documented as of this encounter
--- OUTSIDE RECORDS SUMMARY | 2024-10-06 15:35 | XMS_ITS | Encounter Summary ---
Author Organization [facility] Address [facility] [place] [address] Care Team Providers Care Metal Miner Blasting Name Role Phone Romy Singh APRN Primary Care Provider [phone] Reason for Visit * Consultation (Routine) - Closed Specialty Diagnoses / Procedures Referred By Jessica almanzar Referred To Contact Bariatrics Diagnoses Body mass index 45.0-49.9, adult Romy Singh, DIELECTRIC MACHINE OPERATOR [address] [place] [address] [facility] Gen Surgery [address] [place] [phone] Referral ID Status Reason Start Date Expiration Date V isits Requested Visits Authorized [id number] Closed Consult, Test & Treat PCP Updated and/or Approved 09/07/2024 03/08/2025 6 6 Encounter Details Date Type Department Care Team (Late st Contact Info) Description 09/27/2024 4:00 PM EST Notes [place] [address] Social History Tobacco Use Types Packs/Day Years [...] documented as of this encounter Progress Notes * Lena Werner - 09/27/2024 4:00 PM EST Angeline Barnes attended Introduction to Bariatric Surgery at [place], [place] via Webex on September 27, 2024. documented in this encounter Plan of Treatment Upcoming Encounters Date Type Department Care Team (Late st Contact Info) Description 11/15/2024 1:00 PM EST Office [place] [address] Zak Gtz MD [facility] [place] [address] 11/16/2024 2:00 PM EST TH Visit (TeleHealth) [place] [address] Keyanna Wayne APRN [facility] [place] [address] Scheduled Referrals Name Type Priority Associated Diagnoses Orde r Schedule Referral to Bariatric Surgery Program Outpatient Referral Routine Body mass index 45.0-49.9, adult Ordered: 09/27/2024 documented as of this encounter Visit Diagnoses Not on filedocumented in this encounter Care Teams Metal Miner Blasting Relationship Specialty Start Date End Date Romy Singh [place] [place] [address] PCP - General Family Medicine 08/07/22 documented as of this encounter
--- OUTSIDE RECORDS SUMMARY | 2024-10-06 15:35 | XMS_ITS | Encounter Summary ---
Author Organization [facility] Address [address] [place] [address] Care Team Providers Care Donor Services Technician Name Role Phone Unknown, Provider Primary Care Provider Unava ilable Encounter Details Date Type Department Care Team (Late st Contact Info) Description 04/12/2013 Results Only [facility] ([facility]) [address] [place] [address] Sagar Rome MD [address] [place], [place] [id number] Social History Tobacco Use Types Packs/Day Years Used Date Smoking Tobacco: Never Assessed Comments Unknown Sex and Gender Information Value Date Recorded Sex Assigned at Not on file Legal Sex Female 18:04 EST Gender Identity Not on file Sexual Orientation Not on file documented as of this encounter Plan of Treatment Not on file documented as of this encounter Procedures Procedure Name Priority Date/Time Associated Diagnosis Comments SURGICAL PATHOLOGY Routine 04/12/2013 14 :41 EDT documented in this encounter Results * SURGICAL PATHOLOGY (04/12/2013 14:41 EDT) Pathology Report: SURGICAL PATHOLOGY REPORT Reports generated via electronic interface contain original data; however they are lacking the format of the original report. Caution should be taken when reading/interpreting unformatted reports. Name: ? MARI MCGOVERN ? Accession #: ? [id number] ? : ? 1970 (Age: 43) ??F ? Collect Date: ? 04/12/2013 ? Location: ? [facility] ? Receive Date: ? 04/13/2013 ? Provider: SAGAR ROME MD Copy to: JORGE ALBERTO HAHN MD ? Final Pathologic Diagnosis: ? Gallbladder, cholecystectomy: 1. ?Chronic cholecystitis. 2. ? Cholelithiasis. 3. ? 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 4. ? Cystic duct with focal pancreatic metaplasia. ??See comment. ?? Comment: ? This case has been reviewed at the intradepartmental consultation conference. (Dr. Flowers)/[facility] Document reviewed and electronically signed by: RENETTA FLOWERS MD Report ??Date: 04/16/2013 14:15 By the signature above, the attending physician certifies that he/she has personally conducted a gross and/or microscopic examination of the described specimens and rendered or confirmed the above diagnosis. Specimen(s) Received: ? Gallbladder Clinical History: ? Chronic calculus, cholecystitis Gross Description: ? Received in formalin labelled Mari Mcgovern and gallbladder is a 10.0 cm in length by 3.5 cm in diameter gallbladder received closed which includes a segment of cystic duct which measures roughly 1.5 cm in length by 0.5 cm in diameter (proximal cystic duct margin is blue inked). ??There is a 1.3 x 0.7 x 0.7 cm faulkner to faulkner-light brown, firm, cystic duct lymph node. ??The gallbladder contains a 1.5 cm in greatest dimension mixed-type cholelith. ??The gallbladder mucosa is velvety, faulkner-dark green, bile-stained with focal light yellow flecks which form a reticular pattern. ??The gallbladder wall measures 0.2 cm in thickness. ??The serosa is generally smooth, faulkner-villanueva, focally light yellow, and focally hyperemic. ??[employer] sections of the specimen are submitted as follows: BLOCK BALDWNI 1 ?Cystic duct margin (blue inked and en face) along with sections of upper and lower ? gallbladder 2 ?Trisected cystic duct lymph node ? (Mary Richards)/kmm ? End of Report [facility] 04/12/2013 14:4 1 EDT 04/13/2013 14:41 EDT us Sagar Rome MD PATHOLOGY ORDERABLES Final Resul t [facility] [address] [place] [address] documented in this encounter Visit Diagnoses Not on filedocumented in this encounter Care Teams Donor Services Technician Relationship Specialty Start Date End Date Unknown, Provider, PCP - General 12/07/12 04/14/13 documented as of this encounter
--- OUTSIDE RECORDS SUMMARY | 2024-10-06 15:35 | XMS_ITS | Encounter Summary ---
Author Organization [facility] Address [facility] [address] [place] [address] Care Team Providers Care Extract Puller Name Role Phone Romy Singh APRN Primary Care Provider [phone] Encounter Details Date Type Department Care Team (Latest Contact Info) Description 09/26/2024 Travel Social History Tobacco Use Types Packs/Day Years [...] 1:00 PM EST Office [place] [address] Zak Gtz MD [facility] [place] [address] 11/16/2024 2:00 PM EST TH Visit (TeleHealth) [place] [phone] Keyanna Wayne APRN [facility] [place] [address] documented as of this encounter Visit Diagnoses Not on filedocumented in this encounter Care Teams Extract Puller Relationship Specialty Start Date End Date Romy Singh, ANTOINETTE [place] [address] PCP - General Family Medicine 08/07/22 documented as of this encounter
--- OUTSIDE RECORDS SUMMARY | 2024-10-06 15:35 | XMS_ITS | Encounter Summary ---
Author Organization [facility] Address [place] [address] Care Team Providers Care Telephoto Engineer Name Role Phone Romy Singh APRN Primary Care Provider [phone] Reason for Visit * Reason Comments Post Hospital Discharge Encounter Details Date Type Department Care Team ([facility] st Contact Info) Description 09/05/2022 11:20 AM EDT Office Visit [place] [address] Tai Calderon MD [facility] DR [place] [address] Uterine mass; Morbid obesity; Essential hypertension; Postoperative state Social History Tobacco Use Types Packs/Day Years [...] Sign Reading Time Taken Comments Blood Pressure 160/108 09/05/2022 11:41 AM EDT Pulse 68 09/05/2022 11:22 AM EDT Temperature 36.3 ??C (97.3 ??F) 09/05/2022 1 1:22 AM EDT Respiratory Rate 16 09/05/2022 11:2 2 AM EDT Oxygen Saturation 97% 09/05/2022 11: 22 AM EDT Inhaled Oxygen Concentration - - Weight 138.4 kg (305 lb 1.9 oz) 022 11:22 AM EDT Height 172.7 cm (5' 7.99) 09/05/2022 1 1:22 AM EDT Body Mass Index 46.4 09/05/2022 11:22 AM EDT documented in this encounter Progress Notes * Tai Calderon MD - 09/05/2022 11:20 AM EDT Division of Gynecologic Oncology [place] [id number] Postoperative Visit: Patient Active Problem List Diagnosis Code ??? Acne rosacea, erythematous telangiectatic type L71.8 ??? Pannus, abdominal E65 ??? Depression F32.A ??? Varicose vein I83.90 ??? Elastosis of skin L98.8 ??? Morbid obesity with BMI of 40.0-44.9, adult E66.01, Z68.41 ??? H/O laparoscopic adjustable gastric banding Z98.84 ??? Healthcare maintenance Z00.00 ??? Menorrhagia N92.0 ??? Vitamin D deficiency E55.9 ??? Morbid obesity E66.01 ??? Intramural and subserous leiomyoma of uterus D25.1, D25.2 Subjective: Angeline Barnes returns to the office today for her postoperative visit. On 08/13/22 she underwent a robotic hysterectomy/BSO. Her postoperative course was uncomplicated. She has been doing well since surgery. She has stopped taking narcotic pain medications. Her energy level is improving and she is eating well. She denies fevers, chills, dysuria, incisional concerns, abdominal pain, nausea, vomiting or diarrhea. Objective: Vitals: 09/05/22 1122 09/05/22 1141 BP: (!) 169/112 (!) 160/108 Patient Position: Sitting Pulse: 68 Resp: 16 Temp: 36.3 ??C (97.3 ??F) TempSrc: Temporal SpO2: 97% Weight: (!) 138.4 kg (305 lb 1.9 oz) Height: 172.7 cm (5' 7.99) Body mass index is 46.4 kg/m??. Body surface area is 2.58 meters squared. Physical Exam Constitutional: Appearance: She is obese. She is not ill-appearing. Cardiovascular: Rate and Rhythm: Normal rate and regular rhythm. Heart sounds: Normal heart sounds. Pulmonary: Effort: Pulmonary effort is normal. Breath sounds: Normal breath sounds. Abdominal: Palpations: Abdomen is soft. Tenderness: There is no abdominal tenderness. Hernia: No hernia is present. Comments: Incisions are healing well without evidence of infection or hernia. She does have a pre-existing rectus muscle diastases and this is unchanged. Musculoskeletal: General: No swelling or tenderness. Skin: General: Skin is warm and dry. Coloration: Skin is not jaundiced or pale. Neurological: General: No focal deficit present. Mental Status: She is alert. Psychiatric: Mood and Affect: Mood normal. Behavior: Behavior normal. Surgical Pathology: ?Addendum ADDENDUM DISCUSSION Immunohistochemistry Studies: Formalin-fixed, paraffin-embedded tissue sections are studied using the polymer ??technique with appropriate positive and negative controls. ?These IHC studies ??provide the pathologist with adjunctive diagnostic information. Antibody specificity ??has been verified by testing antibodies on a series of in-house tissues with known ??immunohistochemical performance characteristics. The clinical interpretation of ??any antibody positive staining or its absence is evaluated within the context of ??clinical presentation, morphology, histopathological criteria and other diagnostic ??tests. Block ? Antibody ?Result (Positive/Negative) A12 ? FH ?Retained staining Electronically signed by: ?Nelly Rivera MD Verified: ??08/22/2022 11:35 ??Pathologist Performed at: ??-[facility] Dept. of Pathology, [place], [place] ? Surgical Pathology DIAGNOSIS Uterus, cervix, bilateral fallopian tubes and ovaries, total hysterectomy and ??bilateral salpingo-oophorectomy: - Benign cervix with Nabothian cyst - Benign proliferative endometrium - Fragments of leiomyomas including pedunculated leiomyoma, with edema - Benign fallopian tubes - Ovaries with follicle cysts Electronically signed by: ?Miguel MOSER, Nelly Hernandez Verified: ??08/17/2022 14:48 ??Pathologist Performed at: ??-[facility] Dept. of Pathology, [place], [place] SPECIMEN(S) SUBMITTED A - uterus ovaries tubes cervix, excision (1) ?for frozen section CLINICAL INFORMATION AUB, fibroid SPECIMEN PROCESSING A - Labeled/Fixative: Uterus ovaries tubes cervix, fresh. Quantity: Fragments in aggregate 22.0 x 17.0 x 9.5 cm Size: Cornu to cornu: 10.1 cm Anterior to posterior: 7.9 cm Dome to Cervix: 20.0 cm Weight (overall): 753 g Tissue Description: Fragmented, total hysterectomy. UTERUS Endometrium: 0.2 cm. Myometrium: Fragmented white em nodular, homogenous, whorled tissue aggregation, no ??necrosis. Up to 3.5 cm in more intact regions. Serosa: Disrupted serosa due to fragmentation. At the fundus of the uterus there is a ??single red circumscribed pedunculated structure by 4.2 x 3.0 x 2.1 cm, with a pick ??red smooth serosal surface. SPECIMEN PROCESSING CERVIX Diameter: 2.6 cm Os: 1.1 cm, OVARY #1 ?Size: 4.0 x 2.5 x 1.3 cm. ?Outer Surface: Em-yellow, intact, smooth. ?Cut Surface: unremarkable. OVARY #2 ?Size: 3.5 x 2.0 x 1.6 cm. ?Outer Surface: Em-yellow, intact, smooth. ?Cut Surface: unremarkable. Fallopian Tube 1: 4.5 x 0.7 cm, fimbriated. Fallopian Tube 2: 5.6 x 0.8 cm, fimbriated, fimbria and fallopian tube was disrupted ??and disconnected. Sections/Processing: The following tissue is submitted for frozen section: A1. Rn Occupational sections in 35 cassettes as follows: ? A1: ??Frozen section remnant (fibroid tissue) ? A2-A3: ??Cervix at 12 and 6 o ??'clock includes the squamocolumnar junction ? A4-A5: ??Endomyometrium ? A6-A12: ??Serially cross-sections of the fragmented myometrial tissue ? A13: ??Serially cross-sections of endomyometrium ? A14-A16: ??Serially cross-sections of fragmented myometrial tissue ? A17: ??Serially cross-sections of endomyometrium ? A18-A19: ??Serially cross-sections of fragmented myometrial tissue ? A20-A23: ??Fundal pedunculated lesion ? A24-A27: ??Serially cross-sections of the ovary #1 ? A28: ??Perpendicular cross-sections of the fimbria #1 ? A29: ??Serially cross-sections of the fallopian tube #1, entirely submitted ? A30-A32: ??Cervix cross-sections of ovary #2 ? A33: ??Perpendicular cross-sections of the fimbria #2 ? A34-A35:?Serially cross-sections of the fallopian tube #2, entirely submitted Assessment and Plan: Angeline Barnes is a 52 y.o. with an increasing uterine mass in the setting of abnormal uterinebleeding for which she has undergone hysterectomy and which thankfully has returned as a benign fibroid. She is doing well postoperatively and is advised that she may resume full activities at 6 weeks postoperatively. I reviewed her pathology with her and have given her copies of her pathology repor t for her records. Given the benign nature of her disease, she thankfully does not require any further gynecologic oncology care and is kindly referred back to her usual providers for ongoing care. Hypertension: The patient's blood pressure is elevated in the 160/100 range today and had been in the same range at her preoperative appointment with me. She [facility] who stated that no intervention was necessary as long as she was losing weight. I will defer further management of this to her primary medical team but have recommended that she may wish to consider an antihypertensive until she has achieved enough weight loss to allow for normotension. She verbalized understanding. TAI CALDERON MD documented in this encounter Plan of Treatment Upcoming Encounters Date Type Department Care Team (Late st Contact Info) Description 11/15/2024 1:00 PM EST Office [place] [phone] Zak Gtz MD [facility] [place] [address] 11/16/2024 2:00 PM EST TH Visit (TeleHealth) [place] [phone] Keyanna Wayne APRN [facility] [place] [address] documented as of this encounter Visit Diagnoses Diagnosis Uterine mass Other specified symptom associated with female genital organs Morbid obesity Essential hypertension Unspecified essential hypertension Postoperative state Other postprocedural status documented in this encounter Care Teams Telephoto Engineer Relationship Specialty Start Date End Date Romy Singh APRN [address] [place] [address] PCP - General Family Medicine 08/07/22 documented as of this encounter
--- OUTSIDE RECORDS SUMMARY | 2024-10-06 15:35 | XMS_ITS | Encounter Summary ---
Author Organization [facility] Address [address] [place] [id number] Care Team Providers Care Experimental Mechanic Electrical Name Role Phone Don Anders MD Primary Care Provider [phone] Encounter Details Date Type Department Care Team (Late st Contact Info) Description 12/27/2016 Results Only [facility] [phone] Marcelino Trejo, [facility] [address] [place] [phone] Social History Tobacco Use Types Packs/Day Years [...] Procedure Name Priority Date/Time Associated Diagnosis Comments PAP TEST- RESULT ONLY Routine 12/27/2016 0:00 EST documented in this encounter Results * PAP TEST- RESULT ONLY (12/27/2016 0:00 EST) Pathology Report: CYTOPATHOLOGY REPORT Reports generated via electronic interface contain original data; however they are lacking the format of the original report. Caution should be taken when reading/interpreti ng unformatted reports. Name: ? MARI MCGOVERN ? Accession #: ? [id number] : ? 1970 (Age: 46) ??F ?Collect Date: ? 12/27/2016 Location: ? [facility] ? Receive Date: ? 12/30/2016 Provider: ?MARCELINO TREJO INFANTRY UNIT LEADER Copy to: ? Specimen/Source: ?Pap Test, Cervix, ThinPrep Imaging System with manual evaluation Last Menstrual Period: ? 12/14/16 Previous Gynecologic Pathology: ? SOCORRO II: 2012 ? SPECIMEN ADEQUACY ? Satisfactory for Evaluation - transformation zone component present GENERAL CATEGORIZATION ? Negative for Intraepithelial Lesion or Malignancy ? Document reviewed and electronically signed by: ? MICHAEL Schmidt(ASCP) ? Report Date: ??01/07/2017 08:48 End of Report [facility] 12/27/2016 12/30/2016 us Marcelino Trejo INFANTRY UNIT LEADER PATHOLOGY ORDERABLES Final R esult [facility] [address] [place] [address] documented in this encounter Visit Diagnoses Not on filedocumented in this encounter Care Teams Experimental Mechanic Electrical Relationship Specialty Start Date End Date Don Anders MD [address] [place] [address] PCP - General 04/15/13 06/09/22 documented as of this encounter
--- OUTSIDE RECORDS SUMMARY | 2024-10-06 15:35 | XMS_ITS | Encounter Summary ---
Author Organization [facility] Address [address] [place] [address] Care Team Providers Care Configuration Management Architect Name Role Phone Unavailable Primary Care Provider Unavailabl e Encounter Details Date Type Department Care Team ([facility] st Contact Info) Description 12/22/2001 Results Only [facility] - Maple conversion [address] [place] [address] Magali Whitt MD [address] [place] [address] [place] [address] Social History Tobacco Use Types Packs/Day Years [...] Date/Time Associated Diagnosis Comments SURGICAL PATHOLOGY Routine 12/22/2001 0:00 EST documented in this encounter Results * SURGICAL PATHOLOGY (12/22/2001 0:00 EST) Pathology Report: SURGICAL PATHOLOGY REPORT Reports generated via electronic interface contain original data; however they are lacking the format of the original report. Caution should be taken when reading/interpreti ng unformatted reports. Name: ? MARI MCGOVERN ? Accession #: ? [id number] ? : ? 1970 (Age: 31) ??F ? Collect Date: ? 12/22/2001 ? Location: ? [facility] ? Receive Date: ? 12/23/2001 ? Provider: MAGALI WHITT MD Copy to: BOBBY HOWE MD ? Final Pathologic Diagnosis: A. ?Cervix, #1, LEEP excision: 1. ?Transformation zone cervix with: ? - Squamous metaplasia. - Acute and chronic inflammation. 2. ?No evidence of dysplasia. B. ?Cervix, #2, LEEP excision: 1. ?Transformation zone cervix with: ? - Squamous metaplasia. - Moderate chronic inflammation. 2. ?Endocervical tissue with mild to moderate acute and chronic inflammation. 3. ?No evidence of dysplasia. Document reviewed and electronically signed by: Frank Arreaga MD Report ??Date: 12/24/2001 15:54 By the signature above, the attending physician certifies that he/she has personally conducted a gross and/or microscopic examination of the described specimens and rendered or confirmed the above diagnosis. Specimen(s) Received: ? Cervix LEEP bx A. ?(#1) B. ?(#2) Clinical History: ? Colpo bx, SOCORRO II, [id number] Gross Description: ? Received in formalin labelled Molly and #1 LEEP is a faulkner-villanueva, rubbery, unoriented, 2.0 x 0.5 cm product of a LEEP excision of cervix excised to a depth of 0.2 cm. ??One aspect is surfaced by a faulkner-white, wrinkled mucosa. The specimen is inked black, serially sectioned and is entirely submitted as (A1) to (A4). Received in formalin labelled Molly and LEEP is a faulkner-villanueva, annular, unoriented, 1.6 x 0.7 cm product of a LEEP excision of cervix excised to a depth of 0.2 cm. ??One aspect is surfaced by a faulkner-villanueva, wrinkled mucosa. ??There is a moderate amount of attached hemorrhagic material. ??The endocervical margin is inked black and ectocervical inked blue. ??Also received is a faulkner-villanueva, rubbery, 1.1 x 0.6 x 0.2 cm soft tissue with a moderate amount of cautery artifact. ??The convex aspect is inked blue. ??The larger tissue is serially sectioned and entirely submitted as (B1) to (B4). ??The smaller tissue is serially sectioned ad entirely submitted as (B5) and (B6). ??The attached hemorrhagic material is submitted as (B7). ??(Dru Cohen)/dtl End of Report [facility] 12/22/2001 12/23/2001 15: 19 EST us Magali Whitt MD PATHOLOGY ORDERABLES Final Resu lt [facility] [address] [place] [address] documented in this encounter Visit Diagnoses Not on filedocumented in this encounter
--- OUTSIDE RECORDS SUMMARY | 2024-10-06 15:35 | XMS_ITS | Encounter Summary ---
Author Organization [facility] Address [address] [place] [address] Care Team Providers Care Wildlife Science Professor Name Role Phone Unknown, Provider Primary Care Provider Unava ilable Encounter Details Date Type Department Care Team (Late st Contact Info) Description 05/18/2024 Lab Requisition [facility] Pathology & Laboratory Medicine - [address] [address] Outr Resulting Lab, Provider Social History Tobacco Use Types Packs/Day Years Used Date Smoking Tobacco: Never Assessed Interpersonal Safety Answer Date Record ed Physically Hurt Never 06/11/2020 Verbally Threaten Not on file 06/11/2020 Comments Unknown Sex and Gender Information Value Date Recorded Sex Assigned at Not on file Legal Sex Female 18:04 EST Gender Identity Not on file Sexual Orientation Not on file documented as of this encounter Plan of Treatment Not on file documented as of this encounter Procedures Procedure Name Priority Date/Time Associated Diagnosis Comments T3, TOTAL Routine 05/18/2024 13:30 EDT documented in this encounter Results * T3, TOTAL (05/18/2024 13:30 EDT) T3, Total 158 97 - 169 ng/dL 05/18/2024 23:09 EDT [facility] Blood VENOUS BLOOD / Unknown 05/18/2024 13:30 EDT 05/18/2024 22:16 EDT us Provider Outr Resulting Lab CHEMISTRY & BLOOD GA S ORDERABLES Final Result [facility] [address] [place] [address] documented in this encounter Visit Diagnoses Not on filedocumented in this encounter Care Teams Wildlife Science Professor Relationship Specialty Start Date End Date Unknown, Provider, PCP - General 06/10/22 documented as of this encounter
--- OUTSIDE RECORDS SUMMARY | 2024-10-06 15:35 | XMS_ITS | Clinical Summary ---
Author Organization [facility] Address [facility] [place] [address] Care Team Providers Care Tennis Director Name Role Phone Romy Singh APRN Primary Care Provider [phone] Allergies Active Allergy Reactions Criticality Noted Date Comments Cat/Feline Products House Dust Medications Medication Sig Dispensed Refills Start Date End Date Status acetaminophen (Tylenol) 325 mg Tablet Take 2 tablets by mouth every 6 hours as needed for Pain. 08/13/2022 Active ibuprofen (Advil) 600 mg Tablet Take 1 tablet by mouth every 6 hours as needed for Pain. 60 tablet 1 08/13/2022 Active Active Problems Problem Noted Date Diagnosed Date Intramural and subserous leiomyoma of uterus 02/2022 Morbid obesity 02/25/2018 Vitamin D deficiency 02/20/2018 Healthcare maintenance 02/19/2018 Overview (02/19/2018): Pap 12/27/17 negative for intraepithelial lesion or malignancy, negative GC, chlamydia Menorrhagia 02/19/2018 H/O laparoscopic adjustable gastric banding 01/08 Morbid obesity with BMI of 40.0-44.9, adult 05/2018 Overview (01/14/2018): Bariatric Surgery Program - Attended Introduction to the [facility] Bariatric Surgery Program seminar, a comprehensive two hour meeting that provides a program overview, education on bariatric surgeries offered at [facility], risks and benefits, as well as patient expectations and follow up: 04/11/17 [facility] BSP Educational seminars viewed: 12/30/27 Grades on [...] skin 05/17/2015 Depression 02/22/2015 Varicose vein 02/22/2015 Overview (06/08/2015): LLE stab phlebectomy 05/22/15 Pannus, abdominal 10/21/2014 Acne rosacea, erythematous telangiectatic type 0 07/21/2014 Encounters Date Type Department Care Team Description 09/27/2024 4:00 PM EST Notes [place] [address] 09/27/2024 Transcribe Orders eD Incoming Referrals [phone] Romy Singh, GETTER FILLER Body mass index 45.0-49.9, adult 09/26/2024 Travel from Last 3 Months Family History Medical History Relation Comments Alcohol Use Disorder Father Relation Status Comments Father Social History Tobacco Use Types Packs/Day Years Used Date Smoking Tobacco: Never Smokeless Tobacco: Former Quit: 2020 Tobacco Cessation:Ready to Q uit: No Alcohol Use Standard Drinks/Week Comments Not Currently 1 (1 standard drink = 0.6 oz pur e alcohol) Sex and Gender Information Value Date Recorded Sex Assigned at Not on file Gender Identity Not on file Sexual Orientation Not on file Last Filed Vital Signs [...] Mass Index 46.4 09/05/2022 11:22 AM EDT Plan of Treatment Upcoming Encounters Date Type Department Care Team (Late st Contact Info) Description 11/15/2024 1:00 PM EST Office [place] [phone] Zak Gtz MD [facility] [place] [address] 11/16/2024 2:00 PM EST TH Visit (TeleHealth) [place] [phone] Keyanna Wayne APRN [facility] [place] [address] Health Maintenance Due Date Last Done Comments CT Colonography 1972 Colonoscopy 1972 Colorectal Cancer Screening 1970 FIT DNA 1972 FIT 1972 Sigmoidoscopy (10 year) with FIT yearly 1972 Sigmoidoscopy 1972 HIV screen 02/20/1990 Hepatitis C Screening 02/20/1990 Hepatitis B vaccine (0-59 yrs) (1) 02/20/1991 Tetanus/Diphtheria/Pertussis Vaccines (1 - Tdap) 02/20/1991 Breast Cancer Share Decision Needed 2012 Breast Cancer screening 2012 Zoster vaccine (1 of 2) 02/20/2022 Lipid Screening 02/19/2023 02/19/2018 Covid-19 Vaccine (1 - season) 2024 Influenza (Flu) vaccine (1 o f 1 - Influenza standard series) 07/11/2024 Diabetes Screening (HgbA1C o r Glucose) 07/22/2025 07/22/2022, 02/19/2018, 02/19/2018 HPV test 07/22/2027 07/22/2022 PAP Smear 07/22/2027 07/22/2022 Procedures Procedure Name Priority Date/Time Associated Diagnosis Comments COMPREHENSIVE METABOLIC PANEL Routine 07/22/2022 4:28 PM EDT Abnormal uterine bleeding (AUB) HPV Routine 07/22/2022 2:00 PM EDT GROUP CIO CYTOLOGY FINAL REPORT Routine 07/22/2022 2:00 PM EDT LIPID PANEL (REFLEX DIRECT LDL) Routine 02/19/2018 3:51 PM EDT Morbid obesity with BMI of 40.0-44.9, adult from Last 3 Months or Most Recently Relevant to Health Maintenance Results * (ABNORMAL) Comprehensive metabolic panel (non-fasting) (07/22/2022 4:28 PM EDT) Glucose 84 65 - 199 mg/dL [facility] Comment:Diabetes: >=200 mg/d L plus symptoms Blood Urea Nitrogen 11 8 - 18 mg/dL [facility] Creatinine 0.66(L) 0.70 - 1.20 mg/dL [facility] Sodium 141 135 - 145 mmol/L [facility] Potassium 3.8 3.5 - 5.0 mmol/L [facility] Comment: Please note: ??Patients with WBC >100,000 may have falsely elevated Potassium levels. ??For accurate Potassium quantification in these patients send serum separator tube (gold top) for subsequent determinations. ??Contact the Clinical Chemistry Laboratory if there are any questions. Chloride 106 98 - 107 mmol/L [facility] Carbon Dioxide 23 22 - 31 mmol/L [facility] Anion Gap 12 5 - 15 mmol/L [facility] Calcium 9.3 8.5 - 10.5 mg/dL [facility] Protein, Total 7.5 6.1 - 8.0 g/dL [facility] Albumin 4.3 3.2 - 5.2 g/dL [facility] Aspartate Aminotransferase 48(H) 0 - 30 unit/L [facility] Alanine Aminotransferase 52(H) 0 - 30 unit/L [facility] Alkaline Phosphatase 68 35 - 105 unit/L [facility] Bilirubin, Total 0.4 0.2 - 1.3 mg/dL [facility] Est Glomerular Filtration Rate 107 >=60 mL/min/1. 73 m?? [facility] Comment: This patient's estimated GFR was calculated using the 2020 CKD-EPI equation. The estimated GFR can vary from the measured GFR by up to 30% in the absence of rapidly changing kidney function. Assessment of the estimated GFR is not appropriate when creatinine concentrations are rapidly changing. For clinical situations in which a more precise estimate of GFR is necessary, consider alternative methods of GFR estimation such as a 24-hour urine creatinine clearance. Assignment of CKD stage 1-5 for patients with an eGFR near the transition point between stages may be based on clinical assessment of muscle mass and symptoms in addition to eGFR. Blood 07/22/2022 4:28 PM EDT 07/22/2022 4:38 PM EDT Narrative Resulting Agency Comment Spec In Lab Kim Goetz MD CHEMISTRY ORDERABLES Performing Organization Address City/State/[facility] Co de Phone Number [facility] [place] [address] * HPV (07/22/2022 2:00 PM EDT) HPV16 NEGATIVE NEGATIVE [facility] HPV 18 NEGATIVE NEGATIVE [facility] HPV Other HR NEGATIVE NEGATIVE [facility] HPV Interpretation See Comment [facility] Comment: NEGATIVE for high-risk HPV *. ?? *Testing negative for high risk HPV means that high risk HPV DNA is not detected in the specimen for the following 14 types tested: types 16, 18, 31, 33, 35, 39, 45, 51, 52, 56, 58, 59, 66, and 68. The test is not intended to detect low risk HPV types. ?? Method: Perez mayo HPV test (FDA-approved for clinical use) Specimen: HPV Testing ? Cytology Liquid Based Prep This test is validated for cervical specimens only for use in cervical cancer screening. ??Other uses or specimen types are not validated/recommended. Cervical 07/22/2022 2:00 PM EDT 07/22/2022 7:28 PM EDT Narrative Resulting Agency Comment Spec In Lab Kim Goetz MD PATHOLOGY/CYTOLOGY O GUSERAANGELO [facility] [place] [address] * Caramel Cutter Machine Cytology Final Report (07/22/2022 2:00 PM EDT) Caramel Cutter Machine Cytology Final Report [id number] ? Location: 3K The signing pathologist has (i) examined the relevant preparation(s) for the specimen(s) and (ii) rendered or confirmed the diagnosis(es). . ? Caramel Cutter Machine Final DIAGNOSIS Normal Negative for intraepithelial lesion or malignancy (NILM). For consensus guidelines for the management of cervical cancer screening test results, please see: ?? http://www.asccp.o rg . Electronically signed by: ?Estrella RODRIGUEZ(ASCP)Valentine Verified: ??07/25/2022 12:19 ??Taffy Candy Maker Performed at: ??-[facility] Dept. of Pathology, [place], [place] HPV RESULTS HPV16 (Result) ?Negative HPV18 (Result) ?Negative HPVOHR (Result) ? Negative HPV (Interpretation) ?See Below HPV (Interpretation) Text: NEGATIVE for high-risk HPV *. *Testing negative for high risk HPV means that high risk HPV DNA is not detected in the specimen for the following 14 types tested: types 16, 18, 31, 33, 35, 39, 45, 51, 52, 56, 58, 59, 66, and 68. The test is not intended to detect low risk HPV types. Method: Perez mayo HPV test (FDA-approved for clinical use) Specimen: HPV Testing ?? - Cytology Liquid Based Prep This test is validated for cervical specimens only for use in cervical cancer screening. ??Other uses or specimen types are not validated/rec ommended. The Perez mayo ? HPV test was validated, performed and results reported through the [facility] ([facility]) at [facility]. ? - Adrián Tamez, PhD, [facility], Director-[facility] STATEMENT OF ADEQUACY Specimen submitted is satisfactory for evaluation. No endocervical component present. Note: ??Initial cross-sectional studies suggested that JANNETH cells were more commonly identified when an endocervical component was present, however subsequent longitudinal studies fail to show that women lacking an endocervical component in a Pap smear are at increased risk for JANNETH. CLINICAL INFORMATION HPV Option: ?Concurrent HPV and Pap CT/NG Option: ?No Preparation: ? Liquid based Pap Specimen Source: ? Cervical/Endocervi cipriano LMP: ? February 2022 Hysterectomy: ?No : ?No : ?No I.U.D.: ?No Pelvic Radiation: ?No Hist Abnl Pap/Biopsy: ?Yes, history of previous abnormal Pap Prior GROUP CIO Therapy: ? Cautery . CLINICAL INFORMATION Hist of HPV Vaccine: ? No ICD Diagnosis: ? Z12.4 Encounter for screening for malignant neoplasm of cervix Clinical Data, Significant Therapy and Clinical Impression ?? : ?_ This Pap Test has been evaluated with the assistance of the [employer] Pap Test Imaging System. Note: The Pap test is a screening test for cervical cancer with an inherent false-negative rate dependent upon several variables. For further information please contact the [facility] Laboratory. Reference: Elizabeth GAMBOA. Alumni Relations Officer of Pap Smear Results. In: Rashid BS, Glen FRASER, ed. The Pap Smear. [place]: Jaspal, 2002: 71-77. [facility] 07/22/2022 2:00 PM EDT Kim Goetz MD PATHOLOGY/CYTOLOGY O RDERABLES [facility] [place] [address] * Lipid Panel (02/19/2018 3:51 PM EDT) Cholesterol, Total 174 mg/dL [facility] Comment: Lower Risk: <200 mg/dL Average Risk: 200-239 mg/dL Higher Risk: >yl=083 mg/dL Triglyceride 122 mg/dL [facility] Comment: Average Risk/Lower Risk: <150 mg/dL Borderline High Risk: 150-199 mg/dL High Risk: 200-499 mg/dL Very High Risk: >fm=757 mg/dL HDL Cholesterol 44 mg/dL [facility] Comment: Males: ?? Higher Risk: <40 mg/dL Females: ?? HIgher Risk: <50 mg/dL LDL Cholesterol 106 mg/dL [facility] Comment: Lowest Risk: <100 mg/dL Lower Risk: 100-129 mg/dL Borderline High Risk: 130-159 mg/dL High Risk: 160-189 mg/dL Very High Risk: >kr=738 mg/dL Cholesterol/HDL Ratio 4.0 ratio [facility] Lipid Interpretation See Note [facility] Comment: Lipid management should be guided by a patient? s ASCVD risk, goals and preferences. ACC/AHA Guidelines recommend high intensity statin if clinical ASCVD or LDL greater than or equal to 190 mg/dL. http://PayStand.com/EGW-MLT-Mpuvkqotd Adults aged 40-75 with LDL 70-189 mg/dL should have their 10 year ASCVD risk estimated with the ACC/AHA ASCVD risk auto body repair estimator http://tools.acc.org/ODOAV-Ggss-Irwadukfk/ Statin should be discussed if risk greater than or equal to 7.5% in non-diabetics. With diabetes, moderate intensity statin is recommended if risk less than 7.5%, high intensity if risk greater than or equal to 7.5%. Annual lipid monitoring on statins is not necessary. Evaluate secondary causes of Triglycerides greater than 500 mg/dL or LDL greater than 190 mg/dL: See table 6 of ACC/AHA Guideline. Lifestyle modification is a critical component of ASCVD risk reduction. Blood specimen (specimen) 02/19/2018 3:51 PM EDT 02/19/2018 4:04 PM EDT Narrative Resulting Agency Comment Spec In Lab Ban Jeronimo MD CHEMISTRY ORDERABLES [facility] [place] [address] from Last 3 Months or Most Recently Relevant to Health Maintenance Advance Directives * Full Code (Latest Code Status on File) Date Activated Date Inactivated Comments 05/22/2015 2:36 PM 05/22/2015 7:01 PM Question Answer Comments Does patient have decision m aking capacity? Yes, order is based on Patient wishes. Care Teams Tennis Director Relationship Specialty Start Date End Date Romy Singh APRN [address] [place] [address] PCP - General Family Medicine 08/07/22
--- OUTSIDE RECORDS SUMMARY | 2024-10-06 15:35 | XMS_ITS | Encounter Summary ---
Author Organization [facility] Address [address] [place] [address] Care Team Providers Care Roll Plugger Machine Operator Name Role Phone Unavailable Primary Care Provider Unavailabl e Encounter Details Date Type Department Care Team (Late st Contact Info) Description 08/23/2003 Results Only [facility] - Maple conversion [address] [place] [address] Matt Talavera MD [address] [place], [place] [id number] Social History Tobacco Use Types Packs/Day Years [...] Procedure Name Priority Date/Time Associated Diagnosis Comments CYTOPATHOLOGY Routine 08/23/2003 0:00 EDT documented in this encounter Results * CYTOPATHOLOGY (08/23/2003 0:00 EDT) Pathology Report: CYTOPATHOLOGY REPORT Reports generated via electronic interface contain original data; however they are lacking the format of the original report. Caution should be taken when reading/interpreti ng unformatted reports. Name: ? MARI MCGOVERN ? Accession #: ? [id number] : ? 1970 (Age: 33) ??F ?Collect Date: ? 08/23/2003 Location: ? [facility] ? Receive Date: ? 08/25/2003 Provider: ?MATT TALAVERA MD Copy to: ? Specimen/Source: ?ThinPrep Pap Test, Cervix/Endocervix Last Menstrual Period: ? 07/30/03 Previous Gynecologic [...] Report Date: ??08/30/2003 14:49 End of Report MARYJANE MILNER 08/23/2003 08/25/2003 us Matt Talavera MD PATHOLOGY ORDERABLES Final Resul t [facility] [address] [place] [address] documented in this encounter Visit Diagnoses Not on filedocumented in this encounter
--- OUTSIDE RECORDS SUMMARY | 2024-10-06 15:35 | XMS_ITS | Encounter Summary ---
Author Organization [facility] Address [address] [place] [address] Care Team Providers Care Operator Specialist Communications Name Role Phone Unavailable Primary Care Provider Unavailabl e Encounter Details Date Type Department Care Team (Late st Contact Info) Description 05/30/2003 Results Only [facility] - Maple conversion [address] [place] [address] Matt Talavera MD [address] [place], [place] [id number] Social History Tobacco Use Types Packs/Day Years [...] Date/Time Associated Diagnosis Comments SURGICAL PATHOLOGY Routine 05/30/2003 0:00 EDT documented in this encounter Results * SURGICAL PATHOLOGY (05/30/2003 0:00 EDT) Pathology Report: SURGICAL PATHOLOGY REPORT Reports generated via electronic interface contain original data; however they are lacking the format of the original report. Caution should be taken when reading/interpreti ng unformatted reports. Name: ? MARI MCGOVERN ? Accession #: ? [id number] ? : ? 1970 (Age: 33) ??F ? Collect Date: ? 05/30/2003 ? Location: ? [facility] ? Receive Date: ? 05/31/2003 ? Provider: MATT TALAVERA MD Copy to: ANDRZEJ ESPARZA MD ? Final Pathologic Diagnosis: ? Endometrium, curettings: 1. ?Occasional fragments of decidualized stroma. ??See comment. 2. ?Predominantly proliferative type endometrium, no specific pathologic features. Comment: ? Decidualized stromal fragments is associated with gestation. Because only a few fragments are present, and the overwhelming majority of tissue is proliferative-type endometrium, these fragments may represent an abortus remnant [...] confirmed the above diagnosis. Specimen(s) Received: ? Endometrial curettings (suction curettage) Clinical History: ? Possible cervical stenosis and hematometrium secondary to previous LEEP procedure and subsequent scarring Gross Description: ? Received in formalin labelled Molly and endometrial curettings are 4.0 x 3.0 x 1.0 cm of multiple red-brown hemorrhagic slightly mucoid soft tissue fragments. ??The specimen is entirely submitted as (A1) to (A3). ??(Dru Cohen)/[facility] End of Report MARYJANE MILNER 05/30/2003 05/31/2003 15: 36 EDT us Matt Talavera MD PATHOLOGY ORDERABLES Final Resul t [facility] [address] [place] [address] documented in this encounter Visit Diagnoses Not on filedocumented in this encounter
--- OUTSIDE RECORDS SUMMARY | 2024-10-06 15:35 | XMS_ITS | Encounter Summary ---
Author Organization [facility] Address [address] [place] [address] Care Team Providers Care Domestic Violence Advocate Name Role Phone Don Anders MD Primary Care Provider [phone] Encounter Details Date Type Department Care Team (Latest Contact Info) Description 01/25/2014 12:17 EDT - 01/25/2014 23:59 EDT Hospital Encounter [address] [address] Unknown, Provider, MD Discharge Disposition: Home or Self Care Social History Tobacco Use Types Packs/Day Years Used Date Smoking Tobacco: Never Assessed Comments Unknown Sex and Gender Information Value Date Recorded Sex Assigned at Not on file Legal Sex Female 18:04 EST Gender Identity Not on file Sexual Orientation Not on file documented as of this encounter Discharge Disposition Disposition Code Departure Means Destination Home or Self Nursing Home documented in this encounter Plan of Treatment Not on file documented as of this encounter Visit Diagnoses Not on filedocumented in this encounter Care Teams Domestic Violence Advocate Relationship Specialty Start Date End Date Don Anders MD [address] [place] [address] PCP - General 04/15/13 06/09/22 documented as of this encounter
--- OUTSIDE RECORDS SUMMARY | 2024-10-06 15:35 | XMS_ITS | Encounter Summary ---
Author Organization Health system Address [address] [place] [address] Care Team Providers Care Software Engineer Intern Name Role Phone Don Anders MD Primary Care Provider [phone] Encounter Details Date Type Department Care Team (Latest Contact Info) Description 01/09/2017 14:43 EST - 01/09/2017 23:59 EST Hospital Encounter [address] [address] Unknown, Provider, Discharge Disposition: Home or Self Care Social [...] Code Departure Means Destination Home or Self [facility] documented in this encounter Plan of Treatment Not on file documented as of this encounter Visit Diagnoses Not on filedocumented in this encounter Care Teams Software Engineer Intern Relationship Specialty Start Date End Date Don Anders MD [address] [place] [address] PCP - General 04/15/13 06/09/22 documented as of this encounter
--- OUTSIDE RECORDS SUMMARY | 2024-10-06 15:35 | XMS_ITS | Encounter Summary ---
Author Organization [facility] Address [address] [place] [address] Care Team Providers Care Nursing Technician Name Role Phone Unavailable Primary Care Provider Unavailabl e Encounter Details Date Type Department Care Team (Late st Contact Info) Description 01/18/2008 Results Only [facility] - Maple conversion [address] [place] [address] Vannessa Trejo, [facility] [address] [place] [phone] Social History Tobacco Use Types Packs/Day Years [...] Priority Date/Time Associated Diagnosis Comments CYTOPATHOLOGY Routine 01/18/2008 0:00 EDT documented in this encounter Results * CYTOPATHOLOGY (01/18/2008 0:00 EDT) Pathology Report: CYTOPATHOLOGY REPORT Reports generated via electronic interface contain original data; however they are lacking the format of the original report. Caution should be taken when reading/interpreti ng unformatted reports. Name: ? MARI MCGOVERN ? Accession #: ? [id number] : ? 1970 (Age: 37) ??F ?Collect Date: ? 01/18/2008 Location: ? [facility] ? Receive Date: ? 01/19/2008 Provider: ?VANNESSA TREJO AIR EXPORT OPERATIONS AGENT Copy to: ? Specimen/Source: ?ThinPrep Pap Test, Cervix/Endocervix, processed on [employer] ThinPrep Imaging System, with manual evaluation Last Menstrual Period: ? 12-27-07 Previous Gynecologic Pathology: ? HSIL: 96 LSIL: 98 ASC-US: , 11-26-01 HPV: 11-26-01 SOCORRO II: 11-11 Treatment [...] Report Date: ??01/22/2008 13:48 End of Report MARYJANE MILNER 01/18/2008 01/19/2008 us Vannessa Trejo AIR EXPORT OPERATIONS AGENT PATHOLOGY ORDERABLES Final R esult [facility] [address] [place] [address] documented in this encounter Visit Diagnoses Not on filedocumented in this encounter
--- OUTSIDE RECORDS SUMMARY | 2024-10-06 15:35 | XMS_ITS | Referral Summary ---
Author Organization [facility] Address [address] [place] [address] Care Team Providers Care Collator Name Role Phone Unknown, Provider MD Primary Care Provider Unava ilable Social History Tobacco Use Types Packs/Day Years Used Date Smoking Tobacco: Never Assessed Interpersonal Safety Answer Date Record ed Physically Hurt Never 06/11/2020 Verbally Threaten Not on file 06/11/2020 Comments Unknown Sex and Gender Information Value Date Recorded Sex Assigned at Not on file Legal Sex Female 18:04 EST Gender Identity Not on file Sexual Orientation Not on file Plan of Treatment Not on file Insurance MEDICAID [place] Care Teams Collator Relationship Specialty Start Date End Date Unknown, Provider, PCP - General 06/10/22
--- OUTSIDE RECORDS SUMMARY | 2024-10-06 15:35 | XMS_ITS | Encounter Summary ---
Author Organization [facility] Address [address] [place] [address] Care Team Providers Care Expansion Envelope Maker Hand Name Role Phone Jorge Alberto Anders MD Primary Care Provider [phone] Encounter Details Date Type Department Care Team (Late st Contact Info) Description 01/25/2014 Results Only [facility] Laboratory Services - [facility] ([facility]) [address] [place], [place] [id number] Marcelino Trejo, [facility] [address] [place] [phone] Social History Tobacco Use Types Packs/Day Years [...] Diagnosis Comments PAP TEST- RESULT ONLY Routine 01/25/2014 0:00 EDT documented in this encounter Results * PAP TEST- RESULT ONLY (01/25/2014 0:00 EDT) Pathology Report: CYTOPATHOLOGY REPORT Reports generated via electronic interface contain original data; however they are lacking the format of the original report. Caution should be taken when reading/interpreti ng unformatted reports. Name: ? MARI MCGOVERN ? Accession #: ? [id number] ? : ? 1970 (Age: 43) ??F ?Collect Date: ? 01/25/2014 ? Location: ? [facility] ? Receive Date: ? 01/26/2014 ? Provider: MARCELINO TREJO ENDLESS BED DRUM SANDER Copy to: JORGE ALBERTO ANDERS MD ? Final Report SPECIMEN ADEQUACY ? Satisfactory for Evaluation - transformation zone component present GENERAL CATEGORIZATION ? Epithelial Cell Abnormality INTERPRETATION ? Squamous Cell Abnormality - Atypical squamous cells, undetermined significance (ASC-US). EDUCATIONAL NOTES/RECOMMENDATI ONS ? [facility] recommends following ASCCP's 2012 Updated Consensus Guidelines for the Management of Abnormal Cervical Cancer Screening Tests and Cancer Precursors (JLGTD, 2013; 17(5):S1-S27). ??Consensus guidelines are available online at www.asccp.org. Last Menstrual Period: 01/17/2014 Previous Gynecologic Pathology: SOCORRO II: 2002 ASC-US: 2013 Treatment History: LEEP: Rx 2001 Other: Additional clinical information: HPV neg 2012 Specimen/Source: ??Pap Test, Cervix/Endocervix, ThinPrep Imaging System with manual evaluation Document reviewed and electronically signed by: ? JAYY CASTELAN MD ? Report ??Date: 02/02/2014 17:34 HPV with Pap Test ? Date Ordered: ? 02/02/2014 ? Status: ?? Signed Out ?Date Complete: ? 02/04/2014 ? By: ??System Interface ? Date Reported: ? 02/04/2014 ? Interpretation RESULT: Negative for HPV. No E6 or E7 mRNA is detected from HPV types 16,18,31,33,35, 39,45,51,52,56,58, 59,66, and 68 by front desk auxiliary mediated amplification. Comments Document reviewed and electronically signed by: ? System Interface ? Report date: 02/04/2014 By the signature above, the attending physician certifies that he/she has personally conducted a gross and/or microscopic examination of the described specimens and rendered or confirmed the above diagnosis. End of Report [facility] 01/25/2014 01/26/2014 Marcelino Trejo ENDLESS BED DRUM SANDER PATHOLOGY ORDERABLES Final R esult [facility] [address] [place] [address] documented in this encounter Visit Diagnoses Not on filedocumented in this encounter Care Teams Expansion Envelope Maker Hand Relationship Specialty Start Date End Date Jorge Alberto Anders MD [address] [place] [address] PCP - General 04/15/13 06/09/22 documented as of this encounter
--- OUTSIDE RECORDS SUMMARY | 2024-10-06 15:35 | XMS_ITS | Encounter Summary ---
Author Organization [facility] Address [address] [place] [address] Care Team Providers Care As400 Administrator Name Role Phone Unavailable Primary Care Provider Unavailabl e Encounter Details Date Type Department Care Team (Late st Contact Info) Description 11/23/2012 Results Only [facility] Laboratory Services - [facility] [place] [address] [place], [place] [address] Laura Lan MD [address] [facility] [place] [address] Social History Tobacco Use Types Packs/Day Years [...] Diagnosis Comments PAP TEST- RESULT ONLY Routine 11/23/2012 0:00 EST documented in this encounter Results * PAP TEST- RESULT ONLY (11/23/2012 0:00 EST) Pathology Report: CYTOPATHOLOGY REPORT Reports generated via electronic interface contain original data; however they are lacking the format of the original report. Caution should be taken when reading/interpreti ng unformatted reports. Name: ? MARI MCGOVERN ? Accession #: ? [id number] ? : ? 1970 (Age: 42) ??F ?Collect Date: ? 11/23/2012 ? Location: ? [facility] ? Receive Date: ? 11/24/2012 ? Provider: LAURA LAN MD Copy to: JORGE ALBERTO HAHN MD ? Final Report SPECIMEN ADEQUACY ? Satisfactory for Evaluation - transformation zone component present - lack of pertinent clinical information (e.g. LMP not provided) GENERAL CATEGORIZATION ? Epithelial Cell Abnormality INTERPRETATION ? Squamous Cell Abnormality - Atypical squamous cells, undetermined significance (ASC-US). Endometrial cells present in a woman equal to or greater than age 40. EDUCATIONAL NOTES/RECOMMENDATI ONS ? [facility] recommends following the 2006 Consensus Guidelines for the Management of Women with Abnormal Cervical Cancer Screening Tests (JLGTD, 2007;11(4):201-222 ). ??Consensus guidelines are available online at www.ASCCP.org. Benign appearing endometrial cells on Pap tests are usually a normal finding in women with regular menstrual cycles, especially if the Pap test was collected during the first half of the menstrual cycle. There is data showing that endometrial cells on Pap tests may be associated with endometrial/uterin e abnormalities in post menopausal women or in perimenopausal women with abnormal bleeding. There is limited data on the significance of benign endometrial cells in post menopausal women on HRT. ??Clinical correlation is recommended. Note: ??The Pap test is not an accurate test for the screening of endometrial lesions and should not be used as a follow up in patients with clinical suspicion of endometrial pathology. Previous Gynecologic Pathology: SOCORRO II: 11/2001 Treatment History: Colposcopy: 11/2001 Miscellaneous treatment: biospy 11/2001 LEEP: 12/2001 no residual dysplasia Specimen/Source: ??Pap Test, Source Not Provided, AppFogPrep Imaging System with manual evaluation Document reviewed and electronically signed by: ? HANS LORD MD ? Report ??Date: 11/30/2012 15:32 HPV with Pap Test ? Date Ordered: ? 11/27/2012 ? Status: ?? Signed Out ?Date Complete: ? 12/02/2012 ? By: ??System Interface ? Date Reported: ? 12/02/2012 ? Interpretation RESULT: Negative for HPV. No E6 or E7 mRNA is detected from HPV types 16,18,31,33,35, 39,45,51,52,56,58, 59,66, and 68 by infantry indirect fire crewmember mediated amplification. Comments Document reviewed and electronically signed by: ? System Interface ? Report date: 12/02/2012 By the signature above, the attending physician certifies that he/she has personally conducted a gross and/or microscopic examination of the described specimens and rendered or confirmed the above diagnosis. End of Report [facility] 11/23/2012 11/24/2012 us Laura Lan MD PATHOLOGY ORDERABLES Final Re sult [facility] [address] [place] [address] documented in this encounter Visit Diagnoses Not on filedocumented in this encounter
--- OUTSIDE RECORDS SUMMARY | 2024-10-06 15:35 | XMS_ITS | Encounter Summary ---
Author Organization [facility] Address [address] [place] [address] Care Team Providers Care Director Financial Services Name Role Phone Unavailable Primary Care Provider Unavailabl e Encounter Details Date Type Department Care Team ([facility] st Contact Info) Description 11/11/2001 Results Only [facility] - [facility] conversion [address] [place] [address] Ewelina Serra [place], [place] [phone] Social History Tobacco Use Types Packs/Day Years [...] Priority Date/Time Associated Diagnosis Comments CYTOPATHOLOGY Routine 11/11/2001 0:00 EST documented in this encounter Results * CYTOPATHOLOGY (11/11/2001 0:00 EST) Pathology Report: CYTOPATHOLOGY REPORT Reports generated via electronic interface contain original data; however they are lacking the format of the original report. Caution should be taken when reading/interpreti ng unformatted reports. Name: ? MARI MCGOVERN ? Accession #: ? [id number] : ? 1970 (Age: 31) ??F ?Collect Date: ? 11/11/2001 Location: ? [facility] ? Receive Date: ? 11/13/2001 Provider: ?EWELINA SERRA CNM Copy to: ?BOBBY ESPARZA MD ? Specimen/Source: ?ThinPrep Pap Test, Cervix/Endocervix Last Menstrual Period: ? 11/24/00 Menstrual/Pregnanc y Status: ? Post Previous Gynecologic Pathology: ? HPV: ASC-US: JANNETH 01/08 JANNETH: cannot exclude HSIL 07/11 Treatment History: ? Colposcopy: acute & chronic cervicitis ? SPECIMEN ADEQUACY ? Unsatisfactory for Evaluation, - insufficient numbers of squamous epithelial cells (less than 10% of expected cellularity) - sample preparation compromised by excessive blood GENERAL CATEGORIZATION ? Specimen processed and examined, but unsatisfactory for evaluation of epithelial abnormality. Recommend repeat Pap test or further follow up, as clincially indicated. ? Document reviewed and electronically signed by: ? DASHAWN ALDANA MD ? Report Date: ??11/20/2001 13:34 End of Report [facility] 11/11/2001 11/13/2001 us Ewelina Serra CNM PATHOLOGY ORDERABLES Final Res ult [facility] [address] [place] [address] documented in this encounter Visit Diagnoses Not on filedocumented in this encounter
--- OUTSIDE RECORDS SUMMARY | 2024-10-06 15:35 | XMS_ITS | Encounter Summary ---
[place] [address] Care Team Providers Care Web Methods Developer Name Role Phone Romy Singh APRN Primary Care Provider [phone] Reason for Referral * Consultation (Routine) - Closed Specialty Diagnoses / Procedures Referred By Jessica almanzar Referred To Contact Bariatrics Diagnoses Body mass index 45.0-49.9, adult Romy Singh APRN [address] [place] [address] [facility] Gen Surgery [address] [place] [phone] Referral ID Status Reason Start Date Expiration Date V isits Requested Visits Authorized [id number] Closed Consult, Test & Treat PCP Updated and/or Approved 09/07/2024 03/08/2025 6 6 Encounter Details Date Type Department Care Team (Latest Contact Info) Description 09/27/2024 Transcribe Orders eDH Incoming Referrals [phone] Romy Singh APRN [address] [place] [address] Body mass index 45.0-49.9, adult Social History Tobacco Use Types Packs/Day Years [...] 1:00 PM EST Office [place] [phone] Zak Gtz MD [facility] [place] [address] 11/16/2024 2:00 PM EST TH Visit (TeleHealth) [place] [phone] Keyanna Wayne APRN [facility] [place] [address] Scheduled Referrals Name Type Priority Associated Diagnoses Orde r Schedule Referral to Bariatric Surgery Program Outpatient Referral Routine Body mass index 45.0-49.9, adult Ordered: 09/27/2024 documented as of this encounter Visit Diagnoses Diagnosis Body mass index 45.0-49.9, adult Body Mass Index 45.0-49.9, adult documented in this encounter Care Teams Web Methods Developer Relationship Specialty Start Date End Date Romy Singh [place] [place] [address] PCP - General Family Medicine 08/07/22 documented as of this encounter
--- OUTSIDE RECORDS SUMMARY | 2024-10-06 15:35 | XMS_ITS | Encounter Summary ---
Author Organization [facility] Address [address] [place] [address] Care Team Providers Care Mammalogist Name Role Phone Unavailable Primary Care Provider Unavailabl e Encounter Details Date Type Department Care Team ([facility] st Contact Info) Description 08/04/2001 Results Only [facility] - Maple conversion [address] [place] [address] Ewelina Serra [place], [place] [phone] Social History Tobacco Use Types Packs/Day Years [...] Priority Date/Time Associated Diagnosis Comments CYTOPATHOLOGY Routine 08/04/2001 0:00 EDT documented in this encounter Results * CYTOPATHOLOGY (08/04/2001 0:00 EDT) Pathology Report: CYTOPATHOLOGY REPORT Reports generated via electronic interface contain original data; however they are lacking the format of the original report. Caution should be taken when reading/interpreti ng unformatted reports. Name: ? MARI MCGOVERN ? Accession #: ? [id number] : ? 1970 (Age: 31) ??F ?Collect Date: ? 08/04/2001 Location: ? [facility] ? Receive Date: ? 08/05/2001 Provider: ?EWELINA SERRA CNM Copy to: ? Specimen/Source: ?ThinPrep Pap Test, Cervix/Endocervix Last Menstrual Period: ? 11/24/00 Menstrual/Pregnanc y Status: ? Previous Gynecologic Pathology: ? ASC-US: 01/08 LSIL HPV: Treatment History: ? Colposcopy: Acute and chronic cervicitis ? SPECIMEN ADEQUACY ? Satisfactory for evaluation. GENERAL CATEGORIZATION ? Epithelial Cell Abnormality DESCRIPTIVE DIAGNOSIS ? Squamous intraepithelial lesion (JANNETH), see comment. ? COMMENT ? At least a low grade squamous intraepithelial lesion (LSIL) is present. Also seen are atypical squamous metaplastic cells with nuclear irregularities and increased nuclear to cytoplasmic ratios. Therefore, a high grade squamous intraepithelial lesion (HSIL) cannot be excluded. ? Document reviewed and electronically signed by: ? Nadine Bernard MD ? Report Date: ??08/12/2001 09:41 End of Report [facility] 08/04/2001 08/05/2001 Ewelina Serra CNM PATHOLOGY ORDERABLES Final Res ult [facility] [address] [place] [address] documented in this encounter Visit Diagnoses Not on filedocumented in this encounter
--- OUTSIDE RECORDS SUMMARY | 2024-10-06 15:35 | XMS_ITS | Encounter Summary ---
Author Organization [facility] Address [address] [place] [address] Care Team Providers Care Mortgage Accounting Clerk Name Role Phone Unknown, Provider MD Primary Care Provider Unava ilable Encounter Details Date Type Department Care Team (Late st Contact Info) Description 09/20/2022 Lab Requisition [facility] Pathology & Laboratory Medicine - [address] [address] Outr Resulting Lab, Provider Social History Tobacco [...] Procedure Name Priority Date/Time Associated Diagnosis Comments THYROID ANTIBODIES Routine 09/20/2022 14 :50 EST documented in this encounter Results * THYROID ANTIBODIES (09/20/2022 14:50 EST) Anti-Thyroglobulin <15 <=60 U/mL 2021 9:33 EST [facility] Thyroperoxidase Ab <28 <=60 U/mL 2021 9:33 EST [facility] Blood VENOUS BLOOD / Unknown 09/20/2022 14:50 EST 09/20/2022 21:32 EST us Provider Outr Resulting Lab CHEMISTRY & BLOOD GA S ORDERABLES Final Result [facility] [address] [place] [address] documented in this encounter Visit Diagnoses Not on filedocumented in this encounter Care Teams Mortgage Accounting Clerk Relationship Specialty Start Date End Date Unknown, Provider, PCP - General 06/10/22 documented as of this encounter
--- OUTSIDE RECORDS SUMMARY | 2024-10-06 15:35 | XMS_ITS | Encounter Summary ---
Author Organization [facility] Address [address] [place] [address] Care Team Providers Care Journal Clerk Name Role Phone Don Anders MD Primary Care Provider [phone] Encounter Details Date Type Department Care Team (Late st Contact Info) Description 12/30/2017 Results Only [facility] [phone] Marcelino Trejo, [facility] [address] [place] [phone] Social History Tobacco Use Types Packs/Day [...] Diagnosis Comments PAP TEST- RESULT ONLY Routine 12/30/2017 0:00 EST documented in this encounter Results * PAP TEST- RESULT ONLY (12/30/2017 0:00 EST) Pathology Report: CYTOPATHOLOGY REPORT Reports generated via electronic interface contain original data; however they are lacking the format of the original report. Caution should be taken when reading/interpret ing unformatted reports. Name: ? MARI MCGOVERN ? Accession #: ? [id number] : ? 1970 (Age: 47) ??F ?Collect Date: ? 12/30/2017 Location: ? [facility] ? Receive Date: ? 12/31/2017 Provider: ?MARCELINO TREJO CIVIL ESTIMATOR Copy to: ?ZOË MACKENZIE EMPLOYEE BENEFITS DIRECTOR ? Specimen/Source: ?Pap Test, Cervix/Endocervix , ThinPrep Imaging System with manual evaluation Last Menstrual Period: ? 12/23/2017 Hormonal/Contrace ptive Status: ? Bilateral Tubal Ligation Previous Gynecologic Pathology: ? SOCORRO II: Hx 2002 ? SPECIMEN ADEQUACY ? Unsatisfactory for Evaluation, - insufficient numbers of squamous epithelial cells (less than 10% of expected cellularity) - sample preparation compromised by excessive blood GENERAL CATEGORIZATION ? Specimen processed and examined, but unsatisfactory for evaluation of epithelial abnormality. Recommend Pap test in 2-4 months as stated in ASCCP's 2012 Updated Guidelines. HPV testing will not be performed due to the potential for false negative results. EDUCATIONAL NOTES/RECOMMENDAT IONS ? An additional slide was prepared and evaluated. ? Document reviewed and electronically signed by: ? JAYY CASTELAN MD ? Report Date: ??01/14/2018 14:30 End of Report [facility] 12/30/2017 12/31/2017 us Marcelino Trejo CIVIL ESTIMATOR PATHOLOGY ORDERABLES Final R esult [facility] [address] [place] [address] documented in this encounter Visit Diagnoses Not on filedocumented in this encounter Care Teams Journal Clerk Relationship Specialty Start Date End Date Don Anders MD [address] [place] [address] PCP - General 04/15/13 06/09/22 documented as of this encounter
--- OUTSIDE RECORDS SUMMARY | 2024-10-06 15:35 | XMS_ITS | Encounter Summary ---
Author Organization [facility] Address [address] [place] [address] Care Team Providers Care Interventional Technologist Name Role Phone Unavailable Primary Care Provider Unavailabl e Encounter Details Date Type Department Care Team ([facility] st Contact Info) Description 01/18/2000 Results Only [facility] - Maple conversion [address] [place] [address] [place], [place] [phone] Social History Tobacco Use Types Packs/Day Years [...] Priority Date/Time Associated Diagnosis Comments CYTOPATHOLOGY Routine 01/18/2000 9:19 EST documented in this encounter Results * CYTOPATHOLOGY (01/18/2000 9:19 EST) Pathology Report: CYTOPATHOLOGY REPORT Reports generated via electronic interface contain original data; however they are lacking the format of the original report. Caution should be taken when reading/interpreti ng unformatted reports. Name: ? MARI MCGOVERN ? Accession #: ? [id number] : ? 1970 (Age: 29) ??F ?Collect Date: ? 01/18/2000 Location: ?Receive Date: ? 01/18/2000 Provider: ?EWELINA SERRA CNM Copy to: ?EWELINA SERRA CNM ? Specimen/Source: ?Link Trainer Operator ThinPrep Last Menstrual Period: ? GYNECOLOGIC ??CYTOPATHOLOGY ??REPORT Name: MARI MCGOVERN ?[facility] : 1970 ?? 29Y F ?Client ID: [id number] SS#: [id number] ? Clinician: MARYSE GASPAR, EWELINA ?? Location: [facility] ??Copy to: ?? Specimen: ?Link Trainer Operator ThinPrep ? Source: Cervix/Endocervix ?Collected: 01/16/00 ? Received: 01/18/2000 ?LMP: ?02/06/99 ?Hormone Therapy: No ? : No ? Radiation Therapy: No ?? Post : Yes ? Chemotherapy: No ?IUD: No ? Prev Abnormal Pap: Yes ?? Clinical Hx: LG JANNETH & HPV. acute and chronic ? cervicitis, reactive epithelial changes. 2 prior ? Colpos. WNL. ?(Blank pool indicate information not provided on requisition) SPECIMEN ADEQUACY: ? Satisfactory For Evaluation ?? GENERAL CATEGORIZATION: ? WITHIN NORMAL LIMITS ? Reviewed And Electronically Signed By: ? Diane Jimenez, CT(ASCP) ? Deepika Khan, CT(ASCP) ? Report Date: ?? 01/22/2000 [employer] Archived Tests - Final Diagnosis Text Field: Clinical History : ; LG JANNETH & HPV. acute and chronic cervicitis, reactive epithelial changes. 2 prior Colpos. WNL. ? Document reviewed and electronically signed by: ? Conversion ? Report Date: ??01/22/2000 00:00 End of Report [facility] 01/18/2000 9:19 EST 01/18/2000 9:20 EST us Ewelina Serra CNM PATHOLOGY ORDERABLES Final Res ult [facility] [address] [place] [address] documented in this encounter Visit Diagnoses Not on filedocumented in this encounter
--- OUTSIDE RECORDS SUMMARY | 2024-10-06 15:35 | XMS_ITS | Encounter Summary ---
[place] [address] Care Team Providers Care Toolmaker Name Role Phone Romy Singh APRN Primary Care Provider [phone] Encounter Details Date Type Department Care Team ([facility] st Contact Info) Description 08/21/2022 Telephone Gyne[place] [phone] Eva Guadarrama RN Social History Tobacco Use Types Packs/Day Years [...] documented as of this encounter Miscellaneous Notes * Telephone Encounter - Eva Guadarrama RN - 08/22/2022 9:34 AM EDT Called and spoke with patient. Informed her that Dr. Goetz will examine her at the post-op visit.Patient is in agreement with this. Advised patient to reach out with any concerning symptoms in themeantime. Patient states the area seems to have decreased in size overnight. She denies any furtherquestions at this time. * Telephone Encounter - Eva Guadarrama RN - 08/21/2022 3:08 PM EDT Received voicemail from patient requesting a call back. Called and spoke with the patient. She states she has a hard/flat area to the left of her belly button below her laparoscopic incision. The patient states this is unchanged from before surgery, butshe originally thought this was due to her fibroid. Now that her fibroid has been removed, she asksif this could be a hernia/if Dr. Goetz noted a hernia during surgery. Patient has had normal BMs but states it's been a couple days since her last one. She is going to take her stool softener again. Otherwise she's healing well. No problems eating or drinking. Pain is improving and she's only taking ibuprofen as needed. Patient denies any further concerns at this time. documented in this encounter Plan of Treatment Upcoming Encounters Date Type Department Care Team (Late st Contact Info) Description 11/15/2024 1:00 PM EST Office [place] [address] Zak Gtz MD [facility] [place] [address] 11/16/2024 2:00 PM EST TH Visit (TeleHealth) [place] [address] Keyanna Wayne APRN [facility] [place] [address] documented as of this encounter Visit Diagnoses Not on filedocumented in this encounter Care Teams Toolmaker Relationship Specialty Start Date End Date [place] [address] PCP - General Family Medicine 08/07/22 documented as of this encounter
--- OUTSIDE RECORDS SUMMARY | 2024-10-06 15:35 | XMS_ITS | Encounter Summary ---
[place] [address] Care Team Providers Care Commission Clerk Name Role Phone Romy Snigh APRN Primary Care Provider [phone] Encounter Details Date Type Department Care Team ([facility] st Contact Info) Description 08/15/2022 Telephone Gynecology [place] [phone] Jennifer Barron, RN Social History Tobacco Use Types Packs/Day [...] encounter Miscellaneous Notes * Telephone Encounter - Jennifer Savage - 08/15/2022 11:12 AM EDT Called patient back regarding RLQ pain post laparoscopic hysterectomy on Monday 08/13. A bit lower than her incision. RLQ Pain started this morning, a bit lower than her incision site/ 06/19 pain every 10-15minutes, sharp pain. Worse with standing and deep breathing. Reports some nausea, denies vomiting. Took 600mg ibuprofen 4-5 hours ago to minimal effect. Took an oxycodone last night around 8pm, helped her sleep. BM yesterday, normal consistency. Denies pain or burning with urination. Denies fever, chills. Denies vaginal bleeding, odor or discharge. Note sent to Dr. Goetz for advice. *Update: Patient took a warm shower and feels like her pain has improved. 3/10 pain now. Advised patient to take Tylenol 500mg every 6 hours as needed. Patient also able to take oxycodone for break through pain uncontrolled by ibuprofen or Tylenol. Advised patient to monitor for worsening/severe pain, fever, nausea or vomiting and to call back orgo to the ED if symptoms present. Patient agrees to plan and verbalized understanding. documented in this encounter Plan of Treatment Upcoming Encounters Date Type Department Care Team (Late st Contact Info) Description 11/15/2024 1:00 PM EST Office Visit [place] [address] Zak Gtz MD [facility] [place] [address] 11/16/2024 2:00 PM EST TH Visit (TeleHealth) [place] [address] Keyanna Wayne APRN [facility] [place] [address] documented as of this encounter Visit Diagnoses Not on filedocumented in this encounter Care Teams Commission Clerk Relationship Specialty Start Date End Date R[place] [address] PCP - General Family Medicine 08/07/22 documented as of this encounter
--- OUTSIDE RECORDS SUMMARY | 2024-10-06 15:35 | XMS_ITS | Encounter Summary ---
Author Organization [facility] Address [address] [place] [address] Care Team Providers Care Pressroom Foreman Name Role Phone Unavailable Primary Care Provider Unavailabl e Encounter Details Date Type Department Care Team ([facility] st Contact Info) Description 02/19/2005 Results Only [facility] - Maple conversion [address] [place] [address] Rene De Luna MD [address] [facility] [address] [address] Social History Tobacco Use Types Packs/Day Years [...] Priority Date/Time Associated Diagnosis Comments CYTOPATHOLOGY Routine 02/19/2005 0:00 EDT documented in this encounter Results * CYTOPATHOLOGY (02/19/2005 0:00 EDT) Pathology Report: CYTOPATHOLOGY REPORT Reports generated via electronic interface contain original data; however they are lacking the format of the original report. Caution should be taken when reading/interpreti ng unformatted reports. Name: ? MARI MCGOVERN ? Accession #: ? [id number] : ? 1970 (Age: 35) ??F ?Collect Date: ? 02/19/2005 Location: ? [facility] ? Receive Date: ? 2005 Provider: ?RENE DE LUNA MD Copy to: ? Specimen/Source: ?ThinPrep Pap Test, Cervix/Endocervix Last Menstrual Period: ? 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 SPECIMEN ADEQUACY ? Satisfactory for Evaluation - transformation zone component present GENERAL CATEGORIZATION ? Negative for Intraepithelial Lesion or Malignancy ? Document reviewed and electronically signed by: ? Ewelina Eddy, SCT(ASCP) ? Report Date: ??02/27/2005 15:59 End of Report [facility] 02/19/2005 2005 us Rene De Luna MD PATHOLOGY ORDERABLES Final Resu lt [facility] [address] [place] [address] documented in this encounter Visit Diagnoses Not on filedocumented in this encounter
--- OUTSIDE RECORDS SUMMARY | 2024-10-06 15:35 | XMS_ITS | Encounter Summary ---
Author Organization [facility] Address [address] [place] [address] Care Team Providers Care Lard Mixer Name Role Phone Don Anders MD Primary Care Provider [phone] Encounter Details Date Type Department Care Team (Latest Contact Info) Description 08/05/2018 14:32 EDT - 08/05/2018 23:59 EDT Hospital Encounter [address] [address] Unknown, Provider, MD Discharge Disposition: Home or [...] Code Departure Means Destination Home or Self [facility] documented in this encounter Plan of Treatment Not on file documented as of this encounter Visit Diagnoses Not on filedocumented in this encounter Care Teams Lard Mixer Relationship Specialty Start Date End Date Don Anders MD [address] [place] [address] PCP - General 04/15/13 06/09/22 documented as of this encounter
--- OUTSIDE RECORDS SUMMARY | 2024-10-06 15:35 | XMS_ITS | Encounter Summary ---
Author Organization [facility] Address [address] [place] [address] Care Team Providers Care Change Lead Name Role Phone Unavailable Primary Care Provider Unavailabl e Encounter Details Date Type Department Care Team ([facility] st Contact Info) Description 07/16/2002 Results Only [facility] - Maple conversion [address] [place] [address] Magali Whitt MD [address] [place] [address] [place] [address] Social History Tobacco Use Types Packs/Day Years [...] Priority Date/Time Associated Diagnosis Comments CYTOPATHOLOGY Routine 07/16/2002 0:00 EDT documented in this encounter Results * CYTOPATHOLOGY (07/16/2002 0:00 EDT) Pathology Report: CYTOPATHOLOGY REPORT Reports generated via electronic interface contain original data; however they are lacking the format of the original report. Caution should be taken when reading/interpreti ng unformatted reports. Name: ? MARI MCGOVERN ? Accession #: ? [id number] : ? 1970 (Age: 32) ??F ?Collect Date: ? 07/16/2002 Location: ? [facility] ? Receive Date: ? 07/20/2002 Provider: ?MAGALI WHITT MD Copy to: ? Specimen/Source: ?ThinPrep Pap Test, Cervix/Endocervix Last Menstrual Period: ? 11/10/00 Previous Gynecologic Pathology: ? ASC-US: 01/08, 11/11 JANNETH: 07/11 SOCORRO II: 11/11 Treatment History: ? Cervical biopsy: 11/11 LEEP: 12/12 Other: ? HPVA - HPV testing requested if ASC-US on the current ThinPrep Pap test. ? SPECIMEN ADEQUACY ? Satisfactory for Evaluation - transformation zone component absent GENERAL CATEGORIZATION ? Negative for Intraepithelial Lesion or Malignancy ? Document reviewed and electronically signed by: ? Neena Mcmahan, ??SCT(ASCP) ? Report Date: ??07/21/2002 12:33 End of Report M[facility]NER 07/16/2002 07/20/2002 us Magali Whitt MD PATHOLOGY ORDERABLES Final Resu lt [facility] MILNER [address] [place] [address] documented in this encounter Visit Diagnoses Not on filedocumented in this encounter
--- OUTSIDE RECORDS SUMMARY | 2024-10-06 15:35 | XMS_ITS | Encounter Summary ---
Author Organization [facility] Address [address] [place] [address] Care Team Providers Care Decision Support Analyst Name Role Phone Unknown, Provider MD Primary Care Provider Unava ilable Encounter Details Date Type Department Care Team (Late st Contact Info) Description 07/03/2022 Lab Requisition [facility] Pathology & Laboratory Medicine - [facility] [address] [place] [address] Edith Teran MD [facility] [place], [place] [address] Encounter for other general examination Social History Tobacco Use Types Packs/Day Years [...] Priority Date/Time Associated Diagnosis Comments SURGICAL PATHOLOGY Today 07/03/2022 13 :50 EDT Encounter for other general examination documented in this encounter Results * SURGICAL PATHOLOGY (07/03/2022 13:50 EDT) Note to Patient The following pathology results have been interpreted by your pathologist and may be available to you before your health provider has had the opportunity to review them. Please allow time for your provider to receive these results and explore management options, if applicable. 07/08/2022 9:07 [facility] Final Diagnosis A. ENDOMETRIUM, BIOPSY: - Disordered proliferative endometrium with foci of gland crowding; negative for atypia. 07/08/2022 9:07 [facility] Attestation There was significant resident/fellow involvement in the diagnostic evaluation of this case. By the signature below, the attending physician certifies that they have personally conducted a gross and/or microscopic examination of the described specimens and rendered or confirmed the above diagnosis. 07/08/2022 9:07 [facility] at 0907 Clinical History Abnormal uterine bleeding, rapidly growing uterine fibroid 07/08/2022 9:07 [facility] Gross Description A. Received in formalin labelled with proper patient identification (initials D, J) and endometrial bx is an aggregate hemorrhagic material with faulkner fragments of tissue that measures 1.6 x 0.8 x 0.5 cm. Specimen is submitted entirely in A1-A2. CORBY MAIER 07/04/2022 6:41 07/08/2022 9:07 [facility] Resident/Irving w: Marshall Santizo MD 07/08/2022 9:07 [facility] Performing Lab [facility] 07/08/2022 9:07 [facility] Scanned Images 07/08/2022 9:07 [facility] Tissue ENTIRE ENDOMETRIUM / Unknown 07/03/2022 13:50 EDT 07/03/2022 23:12 EDT us Edith Teran MD PATHOLOGY ORDERABLES Final Res ult [facility] [address] [place] [address] documented in this encounter Visit Diagnoses Diagnosis Encounter for other general examination documented in this encounter Care Teams Decision Support Analyst Relationship Specialty Start Date End Date Unknown, Provider, PCP - General 06/10/22 documented as of this encounter
--- OUTSIDE RECORDS SUMMARY | 2024-10-06 15:35 | XMS_ITS | Encounter Summary ---
Author Organization [facility] Address [address] [place] [address] Care Team Providers Care Chopping Machine Operator Name Role Phone Unavailable Primary Care Provider Unavailabl e Encounter Details Date Type Department Care Team ([facility] st Contact Info) Description 04/24/2006 Results Only [facility] - Maple conversion [address] [place] [address] Ewelina Serra [place], [place] [id number] Social History Tobacco Use Types Packs/Day Years [...] Priority Date/Time Associated Diagnosis Comments CYTOPATHOLOGY Routine 04/24/2006 0:00 EDT documented in this encounter Results * CYTOPATHOLOGY (04/24/2006 0:00 EDT) Pathology Report: CYTOPATHOLOGY REPORT Reports generated via electronic interface contain original data; however they are lacking the format of the original report. Caution should be taken when reading/interpreti ng unformatted reports. Name: ? MARI MCGOVERN ? Accession #: ? [id number] : ? 1970 (Age: 36) ??F ?Collect Date: ? 04/24/2006 Location: ? [facility] ? Receive Date: ? 04/25/2006 Provider: ?EWELINA SERRA CNM Copy to: ? Specimen/Source: ?ThinPrep Pap Test, Cervix/Endocervix, processed on TE2 ThinPrep Imaging System, with manual evaluation Last Menstrual Period: ? 06/10/05 Menstrual/Pregnanc y Status: ? Post Previous Gynecologic Pathology: ? ASC-US: 01/08 JANNETH: 07/11 SOCORRO I: 11/11 HPV Treatment History: ? Cervical biopsy LEEP: 12/12 Other: ? HPVA - HPV testing requested if ASC-US on the current ThinPrep Pap test. ? SPECIMEN ADEQUACY ? Satisfactory for Evaluation - transformation zone component present GENERAL CATEGORIZATION ? Negative for Intraepithelial Lesion or Malignancy ? Document reviewed and electronically signed by: ? MICHAEL Mercado(ASCP) ? Report Date: ??04/30/2006 09:58 End of Report [facility] 04/24/2006 04/25/2006 us Ewelina Serra CNM PATHOLOGY ORDERABLES Final Res ult [facility] [address] [place] [address] documented in this encounter Visit Diagnoses Not on filedocumented in this encounter
--- OUTSIDE RECORDS SUMMARY | 2024-10-06 15:35 | XMS_ITS | Encounter Summary ---
Author Organization [facility] Address [address] [place] [address] Care Team Providers Care Lubrication Supervisor Name Role Phone Don Anders MD Primary Care Provider [phone] Encounter Details Date Type Department Care Team (Latest Contact Info) Description 07/17/2018 12:35 EDT - 07/17/2018 23:59 EDT Hospital Encounter [address] [address] Unknown, Provider, MD Discharge Disposition: Home or [...] Code Departure Means Destination Home or Self Shelter documented in this encounter Plan of Treatment Not on file documented as of this encounter Visit Diagnoses Not on filedocumented in this encounter Care Teams Lubrication Supervisor Relationship Specialty Start Date End Date Don Anders MD [address] [place] [address] PCP - General 04/15/13 06/09/22 documented as of this encounter
--- OUTSIDE RECORDS SUMMARY | 2024-10-06 15:35 | XMS_ITS | Encounter Summary ---
Author Organization [facility] Address [facility] [place] [address] Care Team Providers Care Oil Driller Name Role Phone Romy Singh APRN Primary Care Provider [phone] Encounter Details Date Type Department Care Team (Latest Contact Info) Description 09/05/2022 Travel Social History Tobacco Use Types Packs/Day [...] 1:00 PM EST Office Visit [place] [address] Zak Gtz MD [facility] [place] [address] 11/16/2024 2:00 PM EST TH Visit (TeleHealth) [place] [phone] Keyanna Wayne APRN [facility] [place] [address] documented as of this encounter Visit Diagnoses Not on filedocumented in this encounter Care Teams Oil Driller Relationship Specialty Start Date End Date Romy Singh, ANTOINETTE [place] [address] PCP - General Family Medicine 08/07/22 documented as of this encounter
--- OUTSIDE RECORDS SUMMARY | 2024-10-06 15:35 | XMS_ITS | Encounter Summary ---
Author Organization [facility] Address [address] [place] [address] Care Team Providers Care Women'S Apparel Salesperson Name Role Phone Don Anders MD Primary Care Provider [phone] Encounter Details Date Type Department Care Team (Late st Contact Info) Description 02/13/2018 Results Only [facility] [phone] Marcelino Trejo, [facility] [address] [place] [phone] Social History Tobacco Use Types Packs/Day [...] Diagnosis Comments PAP TEST- RESULT ONLY Routine 02/13/2018 0:00 EDT documented in this encounter Results * PAP TEST- RESULT ONLY (02/13/2018 0:00 EDT) Pathology Report: CYTOPATHOLOGY REPORT Reports generated via electronic interface contain original data; however they are lacking the format of the original report. Caution should be taken when reading/interpreti ng unformatted reports. Name: ? MARI MCGOVERN ? Accession #: ? [id number] ? : ? 1970 (Age: 47) ??F ?Collect Date: ? 02/13/2018 ? Location: ? [facility] ? Receive Date: ? 02/16/2018 ? Provider: MARCELINO TREJO SUBPOENA SERVER Copy to: ZOË MACEKNZIE OB/GYN PHYSICIAN ? Final Report SPECIMEN ADEQUACY ? Satisfactory for Evaluation - transformation zone component present - scant squamous epithelial component secondary to excessive blood GENERAL CATEGORIZATION ? Negative for Intraepithelial Lesion or Malignancy EDUCATIONAL NOTES/RECOMMENDATI ONS ? An additional slide was prepared and evaluated. Last Menstrual Period: + Previous Gynecologic Pathology: SOCORRO II: 2002 Other: Additional clinical information: UNSAT 12/30/2017 Additional clinical information: friable cervix Specimen/Source: ??Pap Test, Cervix, ThinPrep Imaging System with manual evaluation Document reviewed and electronically signed by: ? Zhane Martinez [facility](ASCP) ? Report ??Date: 02/23/2018 08:51 HPV with Pap Test ? Date Ordered: ? 02/20/2018 ? Status: ?? Signed Out ?Date Complete: ? 02/25/2018 ? By: ??System Interface ? Date Reported: ? 02/25/2018 ? Interpretation RESULT: Negative for HPV. No E6 or E7 mRNA is detected from HPV types 16,18,31,33,35, 39,45,51,52,56,58, 59,66, and 68 by school bus driver/mechanic mediated amplification. Comments Document reviewed and electronically signed by: ? System Interface ? Report date: 02/25/2018 By the signature above, the attending physician certifies that he/she has personally conducted a gross and/or microscopic examination of the described specimens and rendered or confirmed the above diagnosis. End of Report [facility] 02/13/2018 02/16/2018 us Marcelino Trejo SUBPOENA SERVER PATHOLOGY ORDERABLES Final R esult [facility] [address] [place] [address] documented in this encounter Visit Diagnoses Not on filedocumented in this encounter Care Teams Women'S Apparel Salesperson Relationship Specialty Start Date End Date Don Anders MD [address] [place] [address] PCP - General 04/15/13 06/09/22 documented as of this encounter
--- OUTSIDE RECORDS SUMMARY | 2024-10-06 15:35 | XMS_ITS | Encounter Summary ---
Author Organization [facility] Address [address] [place] [address] Care Team Providers Care Voice Studies Director Name Role Phone Don Anders MD Primary Care Provider [phone] Encounter Details Date Type Department Care Team (Late st Contact Info) Description 01/09/2017 Results Only [facility] [phone] Vannessa Trejo, [facility] [address] [place] [phone] Social History Tobacco Use Types Packs/Day [...] Date/Time Associated Diagnosis Comments SURGICAL PATHOLOGY Routine 01/09/2017 11 :15 EST documented in this encounter Results * SURGICAL PATHOLOGY (01/09/2017 11:15 EST) Pathology Report: SURGICAL PATHOLOGY REPORT Reports generated via electronic interface contain original data; however they are lacking the format of the original report. Caution should be taken when reading/interpret ing unformatted reports. Name: ? MARI MCGOVERN ? Accession #: ? [id number] ? : ? 1970 (Age: 46) ??F ? Collect Date: ? 01/09/2017 ? Location: ? [facility] ? Receive Date: ? 01/09/2017 ? Provider: MAGALI WHITT MD Copy to: ZOË MACKENZIE RECREATION FACILITY MANAGER ? Final Pathologic Diagnosis: SKIN OF BUTTOCK, RIGHT, SHAVE BIOPSY: - Seborrheic keratosis, inflamed. Microscopic Description: Orthohyperkeratos is and focal parakeratosis thicken the stratum corneum. ??There is formation of horn pseudocysts. ??The epidermis is hyperplastic with acanthosis and papillomatosis. ??The keratinocytes have a basaloid appearance with squamous eddies in many areas. ??Within the dermis, there is a moderately dense lymphohistiocytic infiltrate. ??The infiltrate extends into the epidermis with concomitant vacuolar change and keratinocyte necrosis. ??(Dr. Iqbal)/[facility] Document reviewed and electronically signed by: TAMMIE IQBAL MD Report ??Date: 01/13/2017 15:41 By the signature above, the attending physician certifies that he/she has personally conducted a gross and/or microscopic examination of the described specimens and rendered or confirmed the above diagnosis. Specimen(s) Received: Lesion R buttock Clinical History: Lesion R buttock Gross Description: ? Received in formalin labelled with proper patient identification (initials D, J) and R buttock lesion are two irregular skin shaves (0.2 x 0.2 x 0.1 cm and 0.3 x 0.2 x 0.2 cm). The surfaces are dull and villanueva-brown. Entirely submitted in 1. FRANSISCO Finn (ASCP) 01/10/2017 2:35 PM End of Report [facility] 01/09/2017 11:1 5 EST 01/09/2017 11:15 EST us Magali Whitt MD PATHOLOGY ORDERABLES Final Resu lt [facility] [address] [place] [address] documented in this encounter Visit Diagnoses Not on filedocumented in this encounter Care Teams Voice Studies Director Relationship Specialty Start Date End Date Don Anders MD [address] [place] [address] PCP - General 04/15/13 06/09/22 documented as of this encounter
--- OUTSIDE RECORDS SUMMARY | 2024-10-06 15:35 | XMS_ITS | Clinical Summary ---
Author Organization [facility] Address [address] [place] [address] Care Team Providers Care Fountain Manager Name Role Phone Unknown, Provider MD Primary [...] Orientation Not on file Plan of Treatment Health Maintenance Due Date Last Done Comments Hepatitis C Screen 1970 Hepatitis B Vaccine (1 of 3 - 19+ 3-dose series) 02/20 COVID-19 Vaccine (2023- season) 2024 Insurance MEDICAID [place] Care Teams Fountain Manager Relationship Specialty Start Date End Date Unknown, Provider, PCP - General 06/10/22
--- OUTSIDE RECORDS SUMMARY | 2024-10-06 15:35 | XMS_ITS | Encounter Summary ---
Author Organization [facility] Address [address] [place] [address] Care Team Providers Care Amusement Or Recreation Card Checker Name Role Phone Unknown, Provider Primary Care Provider Unava ilable Encounter Details Date Type Department Care Team (Late st Contact Info) Description 07/26/2022 Lab Requisition [facility] Pathology & Laboratory Medicine - [address] [address] Outr Resulting Lab, Provider Social History Tobacco [...] Date/Time Associated Diagnosis Comments T3, TOTAL Routine 07/25/2022 14:50 EDT documented in this encounter Results * T3, TOTAL (07/25/2022 14:50 EDT) T3, Total 163 97 - 169 ng/dL 07/26/2022 19:58 EDT [facility] Blood VENOUS BLOOD / Unknown 07/25/2022 14:50 EDT 07/26/2022 19:01 EDT us Provider Outr Resulting Lab CHEMISTRY & BLOOD GA S ORDERABLES Final Result [facility] [address] [place] [address] documented in this encounter Visit Diagnoses Not on filedocumented in this encounter Care Teams Amusement Or Recreation Card Checker Relationship Specialty Start Date End Date Unknown, Provider, PCP - General 06/10/22 documented as of this encounter
--- OUTSIDE RECORDS SUMMARY | 2024-10-06 15:35 | XMS_ITS | Encounter Summary ---
[facility] Address [facility] [place] [address] Care Team Providers Care Graphite Pan Drier Tender Name Role Phone Romy Singh APRN Primary Care Provider [phone] Reason for Referral * Consultation (Routine) - Closed Specialty Diagnoses / Procedures Referred By Jessica almanzar Referred To Contact General Surgery Diagnoses Enlarged thyroid Yennifer Almeida CRYSTAL CUTTER [address] [place] [address] [place] [address] Nat Ng MD [facility] [place] [address] Referral ID Status Reason Start Date Expiration Date V isits Requested Visits Authorized [id number] Closed Consult, Test & Treat 09/30/2022 09/30/2023 1 1 Encounter Details Date Type Department Care Team (Late st Contact Info) Description 09/30/2022 Transcribe Orders eD Incoming Referrals [phone] Yennifer Almeida [address] [place], [place] [phone] Enlarged thyroid Social History Tobacco Use Types Packs/Day Years [...] 1:00 PM EST Office [place] [phone] Zak Gtz MD [facility] [place] [address] 11/16/2024 2:00 PM EST TH Visit (TeleHealth) [place] [phone] Keyanna Wayne APRN [facility] [place] [address] Scheduled Referrals Name Type Priority Associated Diagnoses Orde r Schedule Referral to General Surgery Outpatient Referral Routine Enlarged thyroid Ordered: 09/30/2022 documented as of this encounter Visit Diagnoses Diagnosis Enlarged thyroid Goiter, unspecified documented in this encounter Care Teams Graphite Pan Drier Tender Relationship Specialty Start Date End Date [place] [address] PCP - General Family Medicine 08/07/22 documented as of this encounter
--- OUTSIDE RECORDS SUMMARY | 2024-10-06 15:35 | XMS_ITS | Encounter Summary ---
Author Organization [facility] Address [address] [place] [address] Care Team Providers Care Upholstery Tech Name Role Phone Don Anders MD Primary Care Provider [phone] Encounter Details Date Type Department Care Team (Late st Contact Info) Description 08/05/2018 Results Only [facility] [phone] Michelle Samaniego MD [address] [place] [address] Social History Tobacco Use Types Packs/Day Years [...] Date/Time Associated Diagnosis Comments SURGICAL PATHOLOGY Routine 08/05/2018 16 :48 EDT documented in this encounter Results * SURGICAL PATHOLOGY (08/05/2018 16:48 EDT) Pathology Report: SURGICAL PATHOLOGY REPORT Reports generated via electronic interface contain original data; however they are lacking the format of the original report. Caution should be taken when reading/interpreting unformatted reports. Name: ? FROILAN MARI ? Accession #: ? [id number] ? : ? 1970 (Age: 48) ??F ? Collect Date: ? 08/05/2018 ? Location: ? [facility] ? Receive Date: ? 08/05/2018 ? Provider: MICHELLE SAMANIEGO MD Copy to: ZOË MACKENZIE METAL FURNITURE PANEL COVERER ? Final Pathologic Diagnosis: ENDOMETRIUM, CURETTAGE: - Endometrial tissue with atrophic glands and stromal pseudo-decidual changes, suggestive of exogenous progesterone effects. - Small portion of endo-myometrial junctional tissue with no specific histopathologic features. Comment: This case was presented and reviewed at the intradepartmental consultation conference. Document reviewed and electronically signed by: Frank Arreaga MD Report ??Date: 08/08/2018 16:38 By the signature above, the attending physician certifies that he/she has personally conducted a gross and/or microscopic examination of the described specimens and rendered or confirmed the above diagnosis. Specimen(s) Received: Endometrial curettings Clinical History: Menorrhagia Gross Description: ? Received in formalin labelled with proper patient identification (initials D, J) and endometrial curettings is an aggregate of faulkner tissue admixed with clotted blood (4.7 x 3.6 x 0.9 cm). Submitted in toto in . Mariano Ybarra 08/06/2018 8:[address] [facility] 08/05/2018 16:4 8 EDT 08/05/2018 16:48 EDT us Michelle Samaniego MD PATHOLOGY ORDERABLES Final Resu lt [facility] [address] [place] [address] documented in this encounter Visit Diagnoses Not on filedocumented in this encounter Care Teams Upholstery Tech Relationship Specialty Start Date End Date Don Anders MD [address] [place] [address] PCP - General 04/15/13 06/09/22 documented as of this encounter
--- OUTSIDE RECORDS SUMMARY | 2024-10-06 15:35 | XMS_ITS | Encounter Summary ---
Author Organization [facility] Address [address] [place] [address] Care Team Providers Care Home Health Aide Caregiver Name Role Phone Jorge Alberto Anders MD Primary Care Provider [phone] Encounter Details Date Type Department Care Team (Late st Contact Info) Description 08/10/2015 Results Only [facility] [phone] Marcelino Trejo, [facility] [address] [place] [address] Social History Tobacco Use Types Packs/Day [...] Diagnosis Comments PAP TEST- RESULT ONLY Routine 08/10/2015 0:00 EDT documented in this encounter Results * PAP TEST- RESULT ONLY (08/10/2015 0:00 EDT) Pathology Report: CYTOPATHOLOGY REPORT Reports generated via electronic interface contain original data; however they are lacking the format of the original report. Caution should be taken when reading/interpreti ng unformatted reports. Name: ? MARI MCGOVERN ? Accession #: ? [id number] : ? 1970 (Age: 45) ??F ?Collect Date: ? 08/10/2015 Location: ? [facility] ? Receive Date: ? 08/11/2015 Provider: ?MARCELINO TREJO COCOA BEAN ROASTER Copy to: ?JORGE ALBERTO ANDERS MD ? Specimen/Source: ?Pap Test, Cervix/Endocervix, ThinPrep Imaging System with manual evaluation Last Menstrual Period: ? 08/03/2015 Previous Gynecologic Pathology: ? SOCORRO II: 2001 Treatment History: ? LEEP: 2002 ? SPECIMEN ADEQUACY ? Satisfactory for Evaluation - transformation zone component present GENERAL CATEGORIZATION ? Negative for Intraepithelial Lesion or Malignancy ? Document reviewed and electronically signed by: ? Diane Jimenez, MICHAEL(ASCP)(IAC) ? Report Date: ??08/15/2015 16:11 End of Report [facility] 08/10/2015 08/11/2015 us Marcelino Trejo COCOA BEAN ROASTER PATHOLOGY ORDERABLES Final R esult [facility] [address] [place] [address] documented in this encounter Visit Diagnoses Not on filedocumented in this encounter Care Teams Home Health Aide Caregiver Relationship Specialty Start Date End Date Jorge Alberto Anders MD [address] [place] [address] PCP - General 04/15/13 06/09/22 documented as of this encounter
--- OUTSIDE RECORDS SUMMARY | 2024-10-06 15:35 | XMS_ITS | Encounter Summary ---
Author Organization [facility] Address [address] [place] [address] Care Team Providers Care Community Health Planning Director Name Role Phone Unavailable Primary Care Provider Unavailabl e Encounter Details Date Type Department Care Team ([facility] st Contact Info) Description 02/26/2011 Results Only [facility] Laboratory Services - [facility] ([facility] [address] [place], [place] [phone] Vannessa Trejo, [facility] [address] [place] [phone] Social History Tobacco Use Types Packs/Day Years [...] Priority Date/Time Associated Diagnosis Comments CYTOPATHOLOGY Routine 02/26/2011 0:00 EDT documented in this encounter Results * CYTOPATHOLOGY (02/26/2011 0:00 EDT) Pathology Report: CYTOPATHOLOGY REPORT ? Reports generated via electronic interface contain original data; ? however they are lacking the format of the original report. ? Caution should be taken when reading/interpreti ng unformatted reports. ? Name: ? MARI MCGOVERN ? Accession #: ? [id number] ? : ? 1970 (Age: 41) ??F ?Collect Date: ? 02/26/2011 ? Location: ? [facility] ? Receive Date: ? 02/27/2011 ? Provider: ?VANNESSA CARLIN CUSTOMER DEVELOPMENT MANAGER ? Copy to: ? Specimen/Source: ?Pap Test, Cervix/Endocervix, ThinPrep Imaging System ? with manual evaluation ? Last Menstrual Period: ? 4/4/11 ? Previous Gynecologic Pathology: ? SOCORRO II: 2002 ? SPECIMEN ADEQUACY ? Satisfactory for Evaluation ? - transformation zone component present ? GENERAL CATEGORIZATION ? Negative for Intraepithelial Lesion or Malignancy ? Document reviewed and electronically signed by: ? Padmaja Munozlogg, CT(ASCP) ? Report Date: ??03/05/2011 11:04 ? End of Report ? [facility] 02/26/2011 02/27/2011 us Vannessa Trejo CUSTOMER DEVELOPMENT MANAGER PATHOLOGY ORDERABLES Final R esult [facility] [address] [place] [address] documented in this encounter Visit Diagnoses Not on filedocumented in this encounter
--- OUTSIDE RECORDS SUMMARY | 2024-10-06 15:35 | XMS_ITS | Encounter Summary ---
Author Organization [facility] Address [address] [place] [address] Care Team Providers Care Mannequin Coloring Artist Name Role Phone Don Anders MD Primary Care Provider [phone] Encounter Details Date Type Department Care Team (Late st Contact Info) Description 07/17/[address] [facility] [phone] Michelle Samaniego MD [address] [place] [address] Social History Tobacco Use Types [...] Date/Time Associated Diagnosis Comments SURGICAL PATHOLOGY Routine 07/17/2018 22 :58 EDT documented in this encounter Results * SURGICAL PATHOLOGY (07/17/2018 22:58 EDT) Pathology Report: SURGICAL PATHOLOGY REPORT Reports generated via electronic interface contain original data; however they are lacking the format of the original report. Caution should be taken when reading/interpret ing unformatted reports. Name: ? REGAN MCGOVERNSSICA ? Accession #: ? [id number] ? : ? 1970 (Age: 48) ??F ? Collect Date: ? 07/17/2018 ? Location: ? [facility] ? Receive Date: ? 07/17/2018 ? Provider: MICHELLE SAMANIEGO MD Copy to: ALVIN MACKENZIE ATTIC BLOWER ? Final Pathologic Diagnosis: ENDOMETRIUM, CURETTAGE: - Disordered proliferative endometrium. Document reviewed and electronically signed by: RENETTA BROWN MD Report ??Date: 07/22/2018 18:21 By the signature above, the attending physician certifies that he/she has personally conducted a gross and/or microscopic examination of the described specimens and rendered or confirmed the above diagnosis. Specimen(s) Received: Endometrial curettings, EMB Clinical History: Menorrhagia; LMP: May 28; control tubal Gross Description: ? Received in formalin labelled with proper patient identification (initials D, J) and endometrial bx is an aggregate of light faulkner and dark brown tissue (2.5 x 2.0 x 0.5 cm). Submitted in toto in 1 and 2. Mariano Ybarra 07/20/2018 8:56 AM End of Report [facility] 07/17/2018 22:5 8 EDT 07/17/2018 22:58 EDT us Michelle Samaniego MD PATHOLOGY ORDERABLES Final Resu lt [facility] [address] [place] [address] documented in this encounter Visit Diagnoses Not on filedocumented in this encounter Care Teams Mannequin Coloring Artist Relationship Specialty Start Date End Date Don Anders MD [address] [place] [address] PCP - General 04/15/13 06/09/22 documented as of this encounter
--- OUTSIDE RECORDS SUMMARY | 2024-10-06 15:35 | XMS_ITS | Encounter Summary ---
Author Organization [facility] Address [address] [place] [address] Care Team Providers Care Office Secretary Name Role Phone Unavailable Primary Care Provider Unavailabl e Encounter Details Date Type Department Care Team (Late st Contact Info) Description 11/06/2012 Results Only [facility] Laboratory Services - [facility] ([facility]) [address] [place], [place] [phone] Vannessa Trejo, [facility] [address] [place] [phone] Social History Tobacco Use Types Packs/Day [...] Diagnosis Comments PAP TEST- RESULT ONLY Routine 11/06/2012 0:00 EST documented in this encounter Results * PAP TEST- RESULT ONLY (11/06/2012 0:00 EST) Pathology Report: CYTOPATHOLOGY REPORT Reports generated via electronic interface contain original data; however they are lacking the format of the original report. Caution should be taken when reading/interpreti ng unformatted reports. Name: ? MARI MCGOVERN ? Accession #: ? [id number] : ? 1970 (Age: 42) ??F ?Collect Date: ? 11/06/2012 Location: ? [facility] ? Receive Date: ? 11/09/2012 Provider: ?VANNESSA TREJO ORACLE SOA CONSULTANT Copy to: ?JORGE ALBERTO HAHN MD ? Specimen/Source: ?Pap Test, Cervix/Endocervix, ThinPrep Imaging System with manual evaluation Last Menstrual Period: ? 10/24/12 Previous Gynecologic Pathology: ? SOCORRO II: 2002 Other: ? Additional clinical information: 03/02/12 unsatisfactory ? SPECIMEN ADEQUACY ? Unsatisfactory for Evaluation, - insufficient numbers of squamous epithelial cells (less than 10% of expected cellularity) - sample preparation compromised by excessive blood GENERAL CATEGORIZATION ? Specimen processed and examined, but unsatisfactory for evaluation of epithelial abnormality. Recommend repeat Pap test or further follow up, as clinically indicated. ? Document reviewed and electronically signed by: ? MICHAEL Mercado(ASCP) ? Report Date: ??11/12/2012 15:00 End of Report [facility] 11/06/2012 11/09/2012 us Vannessa Trejo ORACLE SOA CONSULTANT PATHOLOGY ORDERABLES Final R esult [facility] [address] [place] [address] documented in this encounter Visit Diagnoses Not on filedocumented in this encounter
--- OUTSIDE RECORDS SUMMARY | 2024-10-06 15:35 | XMS_ITS | Encounter Summary ---
Author Organization [facility] Address [address] [place] [address] Care Team Providers Care Slurry Control Tender Name Role Phone Unavailable Primary Care Provider Unavailabl e Encounter Details Date Type Department Care Team (Late st Contact Info) Description 11/26/2001 7:49 EST - 11/26/2001 11:59 EST Hospital Encounter [facility] - Other [address] [place] [address] Magali Whitt MD [address] [place] [address] [place] [address] Unknown, Provider, MD Discharge Disposition: Auto Discharge Social History Tobacco Use Types Packs/Day Years Used Date Smoking Tobacco: Never Assessed Comments Unknown Sex and Gender Information Value Date Recorded Sex Assigned at Not on file Legal Sex Female 18:04 EST Gender Identity Not on file Sexual Orientation Not on file documented as of this encounter Discharge Disposition Disposition Code Departure Means Destination Auto Discharge documented in this encounter Plan of Treatment Not on file documented as of this encounter Procedures Procedure Name Priority Date/Time Associated Diagnosis Comments HPV DETECTION, HIGH RISK TYPES Routine 11/26/2001 9:30 EST CYTOPATHOLOGY Routine 11/26/2001 0:00 EST SURGICAL PATHOLOGY Routine 11/26/2001 0: 00 EST documented in this encounter Results * HUMAN PAPILLOMA VIRUS DNA TEST (11/26/2001 9:30 EST) Specimen Description Cervix, ThinPrep vial [facility] Result Positive for one or more of HPV types 16,18,31,33,35 ,39,45,51,52,5 6,58,59, or 68. These high/intermedi ate risk HPV types are associated with dysplasia and some cervical cancers. [facility] Report Status Final [id number] [facility] 11/26/2001 9:30 EST 12/04/2001 13:40 EST us Magali Whitt MD MICROBIOLOGY - GENERAL ORDERABL ES Final Result [facility] [address] [place] [address] * CYTOPATHOLOGY (11/26/2001 0:00 EST) Pathology Report: CYTOPATHOLOGY REPORT Reports generated via electronic interface contain original data; however they are lacking the format of the original report. Caution should be taken when reading/interpreti ng unformatted reports. Name: ? MARI MCGOVERN ? Accession #: ? [id number] : ? 1970 (Age: 31) ??F ?Collect Date: ? 11/26/2001 Location: ? [facility] ? Receive Date: ? 11/27/2001 Provider: ?MAGALI WHITT MD Copy to: ? Specimen/Source: ?ThinPrep Pap Test, Cervix/Endocervix Last Menstrual Period: ? Menstrual/Pregnanc y Status: ? Post Other: ? HPVDX - HPV testing requested regardless of diagnosis on current ThinPrep Pap test. ? SPECIMEN ADEQUACY ? Satisfactory for Evaluation - transformation zone component present GENERAL CATEGORIZATION ? Epithelial Cell Abnormality INTERPRETATION ? Squamous Cell Abnormality - Atypical squamous cells, undetermined significance. EDUCATIONAL NOTES/RECOMMENDATI ONS ? Recommend clinical correlation and further evaluation, as clinically indicated. ? Document reviewed and electronically signed by: ? JOVANNY SALINAS MD ? Report Date: ??12/03/2001 17:09 End of Report [facility] 11/26/2001 11/27/2001 us Magali Whitt MD PATHOLOGY ORDERABLES Final Resu lt [facility] [address] [place] [address] * SURGICAL PATHOLOGY (11/26/2001 0:00 EST) Pathology Report: SURGICAL PATHOLOGY REPORT Reports generated via electronic interface contain original data; however they are lacking the format of the original report. Caution should be taken when reading/interpreti ng unformatted reports. Name: ? MARI MCGOVERN ? Accession #: ? [id number] ? : ? 1970 (Age: 31) ??F ? Collect Date: ? 11/26/2001 ? Location: ? [facility] ? Receive Date: ? 11/26/2001 ? Provider: MAGALI WHITT MD Copy to: ANDRZEJ ESPARZA MD ? Final Pathologic Diagnosis: ? Cervix, 12 o' clock, biopsy: - High grade squamous intraepithelial lesion (SOCORRO II). ??See comment. Comment: ? The lesion is best seen in the deeper levels. ??We reviewed the previous PAP smear ([id number]) and agree with the diagnosis of squamous intraepithelial lesion. ??(Dr. Kerr)/[facility] Document reviewed and electronically signed by: Rosanna Becerra MD Report ??Date: 12/03/2001 16:50 By the signature above, the attending physician certifies that he/she has personally conducted a gross and/or microscopic examination of the described specimens and rendered or confirmed the above diagnosis. Specimen(s) Received: ? Cx 12:00 Clinical History: ? PAP [id number] , PAP [id number] 07/11, PAP [id number] 01/08 Gross Description: ? Received in formalin labelled Dom and cx is a faulkner-white to faulkner-villanueva, irregularly shaped fragment of soft tissue that measures 0.6 x 0.4 x 0.3 cm. ??It is submitted intact in one cassette. ??(Dr. Mcfarland-[place])/[facility] End of Report [facility] 11/26/2001 11/26/2001 16: 03 EST us Magali Whitt MD PATHOLOGY ORDERABLES Final Resu lt [facility] [address] [place] [address] documented in this encounter Visit Diagnoses Not on filedocumented in this encounter
--- OUTSIDE RECORDS SUMMARY | 2024-10-06 15:35 | XMS_ITS | Encounter Summary ---
Author Organization [facility] Address [address] [place] [address] Care Team Providers Care Controls Design Engineer Name Role Phone Unavailable Primary Care Provider Unavailabl e Encounter Details Date Type Department Care Team (Late st Contact Info) Description 03/02/2012 Results Only [facility] Laboratory Services - [facility] ([facility]) [address] [place], [place] [address] Vannessa Trejo, [facility] [address] [place] [phone] Social History Tobacco Use Types Packs/Day [...] Diagnosis Comments PAP TEST- RESULT ONLY Routine 03/02/2012 0:00 EDT documented in this encounter Results * PAP TEST- RESULT ONLY (03/02/2012 0:00 EDT) Pathology Report: CYTOPATHOLOGY REPORT Reports generated via electronic interface contain original data; however they are lacking the format of the original report. Caution should be taken when reading/interpreti ng unformatted reports. Name: ? MARI MCGOVERN ? Accession #: ? [id number] : ? 1970 (Age: 42) ??F ?Collect Date: ? 03/02/2012 Location: ? [facility] ? Receive Date: ? 03/03/2012 Provider: ?VANNESSA CARLIN COMPUTER GRAPHIC ARTIST Copy to: ?JORGE ALBERTO HAHN MD ? [...] or further follow up, as clinically indicated. INTERPRETATION ? Despite being an UNSATISFACTORY specimen, endometrial cells are present in a woman equal to or greater than age 40. EDUCATIONAL NOTES/RECOMMENDATI ONS ? Benign appearing endometrial cells on Pap [...] patients with clinical suspicion of endometrial pathology. ? Document reviewed and electronically signed by: ? MICHAEL Mercado(ASC) ? Report Date: ??03/10/2012 09:17 End of Report [facility] 03/02/2012 03/03/2012 us Vannessa Trejo COMPUTER GRAPHIC ARTIST PATHOLOGY ORDERABLES Final R esult [facility] [address] [place] [address] documented in this encounter Visit Diagnoses Not on filedocumented in this encounter
--- OUTSIDE RECORDS SUMMARY | 2024-10-06 15:35 | XMS_ITS | Encounter Summary ---
Author Organization [facility] Address [address] [place] [address] Care Team Providers Care Gum Rolling Machine Operator Name Role Phone Unavailable Primary Care Provider Unavailabl e Encounter Details Date Type Department Care Team (Late st Contact Info) Description 01/27/2001 Results Only [facility] [address] [place] [address] Quinn Cooper CNM [address] [phone] Social History Tobacco Use Types Packs/Day Years [...] Priority Date/Time Associated Diagnosis Comments CYTOPATHOLOGY Routine 01/27/2001 0:00 EST documented in this encounter Results * CYTOPATHOLOGY (01/27/2001 0:00 EST) Pathology Report: CYTOPATHOLOGY REPORT Reports generated via electronic interface contain original data; however they are lacking the format of the original report. Caution should be taken when reading/interpreti ng unformatted reports. Name: ? MARI MCGOVERN ? Accession #: ? [id number] : ? 1970 (Age: 30) ??F ?Collect Date: ? 01/27/2001 Location: ? [facility] ? Receive Date: ? 01/29/2001 Provider: ?QUINN COOPER CNM Copy to: ? Specimen/Source: ?ThinPrep Pap Test, Cervix/Endocervix Last Menstrual Period: ? 11/24/00 Menstrual/Pregnanc y Status: ? Previous Gynecologic Pathology: ? LSIL: HPV: Yes: Acute and chronic cervicitis, reactive epithelial changes. Treatment History: ? Colposcopy: x2. ? SPECIMEN ADEQUACY ? Satisfactory for evaluation but limited by scant squamous epithelial component. GENERAL CATEGORIZATION ? Epithelial Cell Abnormality DESCRIPTIVE DIAGNOSIS ? Atypical squamous cells of undetermined significance (ASCUS), favor reactive process. RECOMMENDATION ? Recommend repeat Pap test in 3-6 months or further follow up, as clinically indicated. ? Document reviewed and electronically signed by: ? ANDRZEJ HOWE MD ? Report Date: ??02/03/2001 12:47 End of Report [facility] 01/27/2001 01/29/2001 us Quinn Cooper CNM PATHOLOGY ORDERABLES Final Resul t [facility] [address] [place] [address] documented in this encounter Visit Diagnoses Not on filedocumented in this encounter
--- OUTSIDE RECORDS SUMMARY | 2024-10-06 15:36 | XMS_ITS | Encounter Summary ---
Author Organization [facility] [place] [address] Care Team Providers Care Ballpoint Pens Assembler Name Role Phone India Escobar APRN Primary Care Provider Encounter Details Date Type Department Care Team (Late st Contact Info) Description 07/22/2022 3:30 PM EDT Clinical [place] [address] Social History Tobacco Use Types Packs/Day Years Used Date Smoking Tobacco: Never Smokeless Tobacco: Former Quit: 2020 Alcohol Use Standard Drinks/Week Comments Yes 0 (1 standard drink = 0.6 oz pur e alcohol) Sex and Gender Information Value Date Recorded Sex Assigned at Not on file Gender Identity Not on file Sexual Orientation Not on file documented as of this encounter Last Filed Vital Signs Vital Sign Reading Time Taken Comments Blood Pressure 155/100 07/22/2022 3:47 PM EDT Pulse - - Temperature - - Respiratory Rate - - Oxygen Saturation - - Inhaled Oxygen Concentration - - Weight - - Height - - Body Mass Index - - documented in this encounter Progress Notes * Carmelina Juan RN - 07/22/2022 3:30 PM EDT Abbreviated Anesthesia questionnaire reviewed with patient while in [facility]. Pt has tolerated anesthesia in the past. Pre-operative instruction booklet reviewed. Patient verbalizes a good understanding of all information reviewed. PLAN: Testing: Pt sent to for type and screen and other labs Special medication instructions: Procedure date: 08-13-22 Dr Goetz Pre Surgery Covid screening: Were you diagnosed with COVID 19 or had symptoms consistent with COVID19 within the last 3 months. No Pt's blood pressure was elevated in Dr Goetz's office today (161/105). Blood pressure rechecked and still elevated (155/100). Pt has blood pressure cuff at home. Have recommended pt check blood pressure daily and record readings. If blood pressure remains elevated pt will reach out to her PCP. Discussed plan with Madelaine Huang APRN. documented in this encounter Plan of Treatment Upcoming Encounters Date Type Department Care Team (Late st Contact Info) Description 11/15/2024 1:00 PM EST Office [place] [address] Zak Gtz MD [facility] [place] [address] 11/16/2024 2:00 PM EST TH Visit (TeleHealth) [place] [phone] Keyanna Wayne APRN [facility] [place] [address] documented as of this encounter Visit Diagnoses Not on filedocumented in this encounter Care Teams Ballpoint Pens Assembler Relationship Specialty Start Date End Date India Escobar APRN PCP - General Family Medicine 10/06/17 08/06/22 documented as of this encounter
--- OUTSIDE RECORDS SUMMARY | 2024-10-06 15:36 | XMS_ITS | Encounter Summary ---
Author Organization [facility] Address [facility] [place] [address] Care Team Providers Care Hot Plate Plywood Press Feeder Name Role Phone India Escobar APRN Primary Care Provider [phone] Encounter Details Date Type Department Care Team (Latest Contact Info) Description 02/19/2018 3:45 PM EDT Laboratory Appointment Lab [address] [place] [address] Morbid obesity with BMI of 40.0-44.9, adult Social History Tobacco Use Types Packs/Day Years Used Date Smoking Tobacco: Never Smokeless Tobacco: Never Alcohol Use Standard Drinks/Week Comments Yes 0 [...] 1:00 PM EST Office [place] [address] Zak Gtz MD [facility] [address] 11/16/2024 2:00 PM EST TH Visit (TeleHealth) [place] [address] Keyanna Wayne APRN [facility] [place] [address] documented as of this encounter Procedures Procedure Name Priority Date/Time Associated Diagnosis Comments CMP W/FASTING GLUCOSE Routine 02/19/2018 3:51 PM EDT Morbid obesity with BMI of 40.0-44.9, adult HEMOGRAM Routine 02/19/2018 3:51 PM EDT Morbid obesity with BMI of 40.0-44.9, adult IRON AND TIBC Routine 02/19/2018 3:51 PM EDT Morbid obesity with BMI of 40.0-44.9, adult VITAMIN D, 25-HYDROXY Routine 02/19/2018 3:51 PM EDT Morbid obesity with BMI of 40.0-44.9, adult TSH Routine 02/19/2018 3:51 PM EDT Morbid obesity with BMI of 40.0-44.9, adult HEMOGLOBIN A1C Routine 02/19/2018 3:51 PM EDT Morbid obesity with BMI of 40.0-44.9, adult FERRITIN Routine 02/19/2018 3:51 PM EDT Morbid obesity with BMI of 40.0-44.9, adult VITAMIN B12 Routine 02/19/2018 3:51 PM EDT Morbid obesity with BMI of 40.0-44.9, adult LIPID PANEL (REFLEX DIRECT LDL) Routine 02/19/2018 3:51 PM EDT Morbid obesity with BMI of 40.0-44.9, adult documented in this encounter Results * TSH (02/19/2018 3:51 PM EDT) Thyroid Stimulating Hormone 1.04 0.27 - 4.20 mlU/ML [facility] Blood specimen (specimen) 02/19/2018 3:51 PM EDT 02/19/2018 4:04 PM EDT Narrative Resulting Agency Comment Spec In Lab Ban Jeronimo MD CHEMISTRY ORDERABLES Performing Organization Address [facility] Co de Phone Number [facility] [place] [address] * (ABNORMAL) Vitamin D, 25-Hydroxy (02/19/2018 3:51 PM EDT) Vitamin D Total 25 OH 23(L) 30 - 100 ng/mL [facility] Comment: Deficient <10 ng/mL Insufficient 10 to 29 ng/mL Sufficient 30 to 100 ng/mL Potential Intoxication >100 ng/mL According to the [place] National Osteoporosis Foundation, Vitamin D concentrations >30 ng/mL are sufficient to protect bone health. ??The National Kidney Foundation has similarly stated that patients with Vitamin D concentrations <30ng/mL should be considered to be insufficient or deficient. http://ContentRealtime/nkf-guidelines http://ContentRealtime/nejm-VitD The [employer] iSYS Vitamin D Immunoassay detects both 25-OH Vitamin D2 and 25-OH Vitamin D3, but only a total Vitamin D concentration is reported. Blood specimen (specimen) 02/19/2018 3:51 PM EDT 02/20/2018 6:29 AM EDT Narrative Resulting Agency Comment Spec In Lab Ban Jeronimo MD CHEMISTRY ORDERABLES Performing Organization Address [facility] Co de Phone Number [facility] [place] [address] * Vitamin B12 (02/19/2018 3:51 PM EDT) Vitamin B12 433 232 - 1,245 pg/mL [facility] Comment: Please note: Effective 10/08/2017, the reference interval and the lower limit of detection for Vitamin B12 have been updated due to a new reagent formulation. Blood specimen (specimen) 02/19/2018 3:51 PM EDT 02/19/2018 4:04 PM EDT Narrative Resulting Agency Comment Spec In Lab Ban Jeronimo MD CHEMISTRY ORDERABLES Performing Organization Address City/[facility]/ZIP Co de Phone Number [facility] [place] [address] * Ferritin (02/19/2018 3:51 PM EDT) Ferritin 38 15 - 150 ng/mL [facility] Comment: Pediatric reference ranges not verified at [facility], interpret with caution. Reference ranges for females greater than 50 years of age approach values for men, i.e., 30-400 ng/mL. Blood specimen (specimen) 02/19/2018 3:51 PM EDT 02/19/2018 4:04 PM EDT Narrative Resulting Agency Comment Spec In Lab Ban Jeronimo MD CHEMISTRY ORDERABLES Performing Organization Address [facility] Co de Phone Number [facility] [place] [address] * (ABNORMAL) Iron and TIBC (02/19/2018 3:51 PM EDT) [facility] Iron 154(H) 30 - 150 mcg/dL [facility] TIBC 328 250 - 450 mcg/dL [facility] Iron Saturation 47 20 - 50 % [facility] Blood specimen (specimen) 02/19/2018 3:51 PM EDT 02/19/2018 4:04 PM EDT Narrative Resulting Agency Comment Spec In Lab Ban Jeronimo MD CHEMISTRY ORDERABLES Performing Organization Address City/[facility]/ZIP Co de Phone Number [facility] [place] [address] * Hemoglobin A1c (02/19/2018 3:51 PM EDT) [facility] Hemoglobin A1c 5.3 4.3 - 5.6 % [facility] Comment: Reference Range: 4.3 - 5.6% 5.7 - 6.4% - Increased Risk of Developing Diabetes Mellitus >=6.5% - Consistent with diagnosis of Diabetes Mellitus In the absence of hyperglycemia (i.e. plasma glucose > 200 mg/dL) or classic symptoms of hyperglycemia a repeat measurement of HbA1c should be performed on a separate sample to confirm the diagnosis. Diagnosis and Classification of Diabetes Mellitus, Diabetes Care 2013; 36: Suppl. 1, J67-85 Estimated Average Glucose 105 mg/dL [facility] Comment: eAG equivalents for HbA1c percentages: HbA1c(%) ?eAG(mg/dL) 6.0 ?126 6.5 ?140 7.0 ?154 7.5 ?169 8.0 ?183 8.5 ?197 9.0 ?212 9.5 ?226 10.0 ? 240 Limitations: The eAG calculation has not been validated on women, individuals below 18 years old and above 70 years old, and individuals with hemoglobinopathies. Additional resources are available on the ADA website. Leonardo BARONE, Anne J, Marina R, et al. ??Translating the A1C assay into estimated average glucose values. ??Diabetes Care 2008:31(8):7893-7263. Blood specimen (specimen) 02/19/2018 3:51 PM EDT 02/19/2018 4:04 PM EDT Narrative Resulting Agency Comment Spec In Lab Ban Jeronimo MD CHEMISTRY ORDERABLES [facility] [place] [address] * Lipid Panel (02/19/2018 3:51 PM EDT) [facility] Cholesterol, Total 174 mg/dL [facility] Comment: Lower Risk: <200 mg/dL Average Risk: 200-239 mg/dL Higher Risk: >em=868 mg/dL Triglyceride 122 mg/dL [facility] Comment: Average Risk/Lower Risk: <150 mg/dL Borderline High Risk: 150-199 mg/dL High Risk: 200-499 mg/dL Very High Risk: >cg=466 mg/dL HDL Cholesterol 44 mg/dL [facility] Comment: Males: ?? Higher Risk: <40 mg/dL Females: ?? HIgher Risk: <50 mg/dL LDL Cholesterol 106 mg/dL [facility] Comment: Lowest Risk: <100 mg/dL Lower Risk: 100-129 mg/dL Borderline High Risk: 130-159 mg/dL High Risk: 160-189 mg/dL Very High Risk: >nr=991 mg/dL Cholesterol/HDL Ratio 4.0 ratio [facility] Lipid Interpretation See Note [facility] Comment: Lipid management should be guided by a patient? s ASCVD risk, goals and preferences. ACC/AHA Guidelines recommend high intensity statin if clinical ASCVD or LDL greater than or equal to 190 mg/dL. http://Mesh Systems.com/FEY-KJZ-Jzxvvynku Adults aged 40-75 with LDL 70-189 mg/dL should have their 10 year ASCVD risk estimated with the ACC/AHA ASCVD risk commercial construction estimator http://tools.acc.org/QDEPO-Yrmt-Gtdwsyvus/ Statin should be discussed if risk greater [...] In Lab Ban Jeronimo MD CHEMISTRY ORDERABLES [facility] [place] [address] * (ABNORMAL) CMP w/fasting Glucose (02/19/2018 3:51 PM EDT) Glucose Fasting 86 65 - 99 mg/dL [facility] Comment: ?Fasting* Glucose Interpretive Criteria Normal ?65-99 mg/dL Impaired Fasting glucose ?100-125 mg/dL Consistent with Diabetes Mellitus ? >or= 126 mg/dL *Fasting is defined as no caloric intake for at least 8 hours In the absence of unequivocal hyperglycemia a plasma glucose value of >or= 126 mg/dL should be repeated on a subsequent day. Diagnosis and Classification of Diabetes Mellitus, Position Statement from the [place] Diabetes Association. ??Diabetes Care, Volume 33, Supplement 1, Nov 2009 Blood Urea Nitrogen 14 8 - 18 mg/dL [facility] Creatinine 0.84 0.70 - 1.20 mg/dL [facility] Sodium 140 135 - 145 mmol/L [facility] Potassium 4.2 3.5 - 5.0 mmol/L [facility] Comment: Please note: ??Patients with WBC >100,000 may have falsely elevated Potassium levels. ??For accurate Potassium quantification in these patients send serum separator tube (gold top) for subsequent determinations. ??Contact the Clinical Chemistry Laboratory if there are any questions. Chloride 97(L) 98 - 107 mmol/L [facility] Carbon Dioxide 26 22 - 31 mmol/L [facility] Anion Gap 17(H) 5 - 15 mmol/L [facility] Calcium 10.2 8.5 - 10.5 mg/dL [facility] Protein, Total 7.6 6.1 - 8.0 gm/dL [facility] Albumin 4.3 3.2 - 5.2 gm/dL [facility] Aspartate Aminotransferase 15 0 - 30 unit/L [facility] Alanine Aminotransferase 18 0 - 30 unit/L [facility] Alkaline Phosphatase 71 40 - 104 unit/L [facility] Bilirubin, Total 0.3 0.2 - 1.3 mg/dL [facility] Est Glomerular Filtration Rate >60 >=60 [facility] Comment: The reported eGFR should be multiplied by 1.2 for patients. The MDRD is not an appropriate measure of renal function for patients with body mass extremes or in patients with acute kidney failure. http://ContentRealtime/DHnkdep http://ContentRealtime/DHMCnkf Blood specimen (specimen) 02/19/2018 3:51 PM EDT 02/19/2018 4:04 PM EDT Narrative Resulting Agency Comment Spec In Lab Ban Jeronimo MD CHEMISTRY ORDERABLES Performing Organization Address City/State/[facility] Co de Phone Number [facility] [place] [address] * (ABNORMAL) Hemogram (02/19/2018 3:51 PM EDT) White Blood Cell 9.6(H) 4.0 - 9.5 x10(3)/mc L [facility] Red Blood Cell 4.98 4.00 - 5.21 x10(6)/mc L [facility] Hemoglobin 13.9 11.7 - 15.5 gm/dL [facility] Hematocrit 42.6 35.7 - 45.8 % [facility] Mean Cell Volume 85.5 82.6 - 94.4 fL [facility] Mean Cell Hemoglobin 27.9 27.1 - 32.0 pg [facility] Mean Cell Hemoglobin Concentration 32.6 31.7 - 35.0 gm/dL [facility] Platelet 322 145 - 357 x10(3)/mc L [facility] RDW Standard Deviation 44.5 37.0 - 46.0 fL [facility] RDW coefficient of variation 14.4(H) 11.5 - 14.1 % [facility] Mean Platelet Volume 9.4 7.6 - 12.9 fL [facility] NRBC% auto 0.0 % [facility] NRBC Absolute 0.000 0.000 - 0.000 x10(3)/mc L [facility] Blood specimen (specimen) 02/19/2018 3:51 PM EDT 02/19/2018 4:04 PM EDT Narrative Resulting Agency Comment Spec In Lab Ban Jeronimo MD HEMATOLOGY ORDERABLE S Performing Organization Address City/State/[facility] Co de Phone Number [facility] [place] [address] documented in this encounter Visit Diagnoses Diagnosis Morbid obesity with BMI of 40.0-44.9, adult Morbid obesity documented in this encounter Care Teams Hot Plate Plywood Press Feeder Relationship Specialty Start Date End Date India Escobar APRN PCP - General Family Medicine 10/06/17 08/06/22 documented as of this encounter
--- OUTSIDE RECORDS SUMMARY | 2024-10-06 15:36 | XMS_ITS | Encounter Summary ---
Author Organization [facility] [place] [address] Care Team Providers Care [place] Name Role Phone India Escobar APRN Primary Care Provider [phone] Encounter Details Date Type Department Care Team (Late st Contact Info) Description 02/10/2018 Telephone [place] [phone] Sara Servin Social History Tobacco Use Types Packs/Day Years [...] encounter Miscellaneous Notes * Telephone Encounter - Sara Servin - 02/10/2018 9:24 AM EDT LMOM for Ms. Barnes to return her call. I asked her to give me a call back to check in. documented in this encounter Plan of Treatment Upcoming Encounters Date Type Department Care Team (Late st Contact Info) Description 11/15/2024 1:00 PM EST Office [place] [phone] Zak Gtz MD [facility] [place] [address] 11/16/2024 2:00 PM EST TH Visit (TeleHealth) [place] [address] Keyanna Wayne APRN [facility] [place] [address] documented as of this encounter Visit Diagnoses Not on filedocumented in this encounter Care Teams [place] Relationship Specialty Start Date End Date India Escobar APRN PCP - General Family Medicine 10/06/17 08/06/22 documented as of this encounter
--- OUTSIDE RECORDS SUMMARY | 2024-10-06 15:36 | XMS_ITS | Encounter Summary ---
Author Organization [facility] [place] [address] Care Team Providers Care Interventional Neuroradiologist Name Role Phone India Escobar ANTOINETTE Primary Care Provider [phone] Reason for Visit * Reason Onset Date Comments Other 01/05/2018 Encounter Details Date Type Department Care Team ([facility] st Contact Info) Description 01/05/2018 Telephone [place] [address] Nadine Marte APRN [facility] [place] [address] Other Social History Tobacco Use Types Packs/Day Years [...] encounter Miscellaneous Notes * Telephone Encounter - Nadine Marte - 01/05/2018 3:21 PM EST Bariatric Surgery Program Angeline returned my call from 2 weeks ago regarding her sleep apnea questionnaire. She clarified that her current BMI was 40, not 48 as previously documented. 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 [...] 1:00 PM EST Office [place] [phone] Zak Gtz MD [facility] [place] [address] 11/16/2024 2:00 PM EST TH Visit (TeleHealth) [place] [phone] Keyanna Wayne APRN [facility] [place] [address] documented as of this encounter Visit Diagnoses Not on filedocumented in this encounter Care Teams Interventional Neuroradiologist Relationship Specialty Start Date End Date India Escobar APRN PCP - General Family Medicine 10/06/17 08/06/22 documented as of this encounter
--- OUTSIDE RECORDS SUMMARY | 2024-10-06 15:36 | XMS_ITS | Encounter Summary ---
Author Organization [facility] Address [facility] [place] [address] Care Team Providers Care Straightedge Machine Operator Helper Name Role Phone MarianoPipe Ting HARVEY Primary Care Provider [phone] Encounter Details Date Type Department Care Team (Late st Contact Info) Description 05/22/2015 2:36 PM EDT - 05/22/2015 4:49 PM EDT [place] [phone] Bernardo Simon MD [facility] [place] [address] STAB PHLEBECTOMY CELESTINO VEINS 1 EXTREMITY 10-20 INCISIONS (WRVU 4.8) Social History Tobacco Use Types Packs/Day Years [...] 36.5 ??C (97.7 ??F) 05/22/2015 4:33 PM ED T Respiratory Rate 16 05/22/2015 4:33 PM EDT Oxygen Saturation 99% 05/22/2015 4:33 PM EDT Inhaled Oxygen Concentration - - Weight 115.2 kg (254 lb) 05/22/2015 1:50 PM EDT Height 172.7 cm (5' 7.99) 05/22/2015 1:50 PM ED T Body Mass Index 38.63 05/22/2015 1:50 PM EDT documented in this encounter Discharge Instructions * Discharge Instructions* Johnathan Kruse RN - 05/22/2015 5:08 PM EDT [...] of infection: increasing redness, swelling, foul drainage, if occurs contact M.D. Patients who have had endotrachial [...] which usually goes away in 12-24 hours. * Patient Instructions* Krzysztof Zavaleta MD - 05/22/2015 4:31 PM EDT Instructions Following Varicose Vein Surgery Wound Care: Bedrest for 4-6 hours following surgery once you get home with legs at level of heart or elevated. Keep on LUCY wraps for the next [...] 1-2 weeks as needed for swelling or discomfort. Bruising of the skin is normal and will clear up over the next several weeks. You may use ice to the area as needed for tenderness/swelling. Keep steri-strips (pieces [...] or until cleared to do so at you follow-up appointment. Call Doctor for: Please call if [...] scheduled with Dr. Simon in 2-4 weeks. Appointmentwill be mailed to you and/or you may [...] Start Date End Date docusate sodium (COLACE) 100 mg Capsule Take 1 capsule by mouth 2 times daily for 10 days. 10 capsule 0 05/22/2015 06/01/2015 acetaminophen (TYLENOL) 500 mg Tablet Take 2 tablets by mouth every 6 hours. 30 tablet 1 05/22/2015 06/08/2015 documented as of this encounter H&P Notes * Krzysztof Zavaleta MD - 05/22/2015 1:15 PM EDT Date of History and Physical: 05/22/2015 Admitting Service: Vascular Surgery Place of Service: [facility] Responsible Attending: Dr. Simon Patient Name: Angeline Barnes Patient Age: 45 y.o. Birthdate: 1970 Admit date: 05/22/2015 Attending Physician: Bernardo Simon MD PCP: PIPE QUINTANA, Doctor of Chief Complaint: LLE symptomatic varicose veins History of Present Illness: Angeline Barnes 45 y.o. female presenting with more than 3 months of varicose vein-associated LLE pain that have been refractory [...] Krzysztof Zavaleta MD 05/22/2015 1:15 PM CC: [facility] [address] [place] [id number] REF: Pipe Quintana, [facility] [address] [place] [address] documented in this encounter Miscellaneous Notes * Op Note - Krzysztof Zavaleta MD - 05/22/2015 4:40 PM EDT Pre-op Dx: LLE symptomatic varicose veins Procedure: LLE stab phlebectomy Post-op Dx: same Surgeon: Bernardo Simon MD Protective Services Social Worker: Krzysztof Zavaleta MD, [facility] MS4 Anesthesia: GETA IVF: 500 mL EBL: 17 mL UOP: NR Specimens: none Implants: * No implants in log * Drains: none Complications: none Closure: Primary Indications: Angeline Barnes is a 45 y.o. female presenting with symptomatic LLE varicose veinsrefractory to compression therapy Findings: varicosity Disp: SD PACU then home The patient was brought into the operating room and placed supine on the table. General endotracheal anesthesia was induced and the patient was prepped and draped in usual sterile fashion. A time-outwas performed identifying personnel, procedure, patient and safety concerns. We began with the marked varices on the patient's lower extremities. Several incisions were marked perpendicular to the path of the varicosities with a marking pen, and a #15 blade was used to incisethe skin. The vein was then dissected out along its marked course with a hemostat clamp. The veins were very friable and pressure was held where needed for hemostasis. Large branches were tied using 3-0 vicryl ties. Additional hemostasis was obtained with electrocautery as needed, and the stab incisions were closed with 4-0 monocryl, Dermabond and steri-strips. The leg was wrapped with kerlix andan LUCY bandage from foot to hip. All [...] opening and closing). Bernardo Simon MD 05/23/2015 * Brief Op Note - Krzysztof Zavaleta MD - 05/22/2015 4:25 PM EDT Pre-op Dx: LLE symptomatic varicose veins Procedure: LLE stab phlebectomy Post-op Dx: same Surgeon: Bernardo Simon MD Protective Services Social Worker: Krzysztof Zavaleta MD, [facility] MS4 Anesthesia: GETA IVF: 500 mL EBL: 17 mL UOP: NR Specimens: none Implants: * No implants in log * Drains: none Complications: none Closure: Primary Indications: Angeline Barnes is a 45 y.o. female presenting with symptomatic LLE varicose veinsrefractory to compression therapy Findings: varicosity Disp: SD PACU then home Krzysztof Zavaleta MD 05/22/2015 4:25 PM documented in this encounter Plan of Treatment Upcoming Encounters Date Type Department Care Team (Late st Contact Info) Description 11/15/2024 1:00 PM EST Office Visit [place] [phone] Zak Gtz MD [facility] [place] [address] 11/16/2024 2:00 PM EST TH Visit (TeleHealth) [place] [phone] Keyanna Wayne APRN [facility] [place] [address] documented as of this encounter Procedures Procedure Name Priority Date/Time Associated Diagnosis Comments STAB PHLEBECTOMY CELESTINO VEINS 1 EXTREMITY 10-20 INCISIONS Routine 05/22/2015 4:09 PM EDT Varicose veins of leg with pain, left STAB PHLEBECTOMY CELESTINO VEINS 1 EXTREMITY 10-20 INCISIONS (WRVU 4.8) 05/22/2015 2:59 PM EDT Varicose veins of leg with pain, left TYPE AND SCREEN, SDP (FUTURE SURGERY, [facility] SAME [facility] ONLY) Routine 05/22/2015 12:48 PM EDT Varicose veins of leg with pain, left ABO/RH TYPING Routine 05/22/2015 12:48 PM EDT Varicose veins of leg with pain, left ANTIBODY SCREEN Routine 05/22/2015 12:48 PM EDT Varicose veins of leg with pain, left documented in this encounter Results * Antibody screen (05/22/2015 12:48 PM EDT) Ab Screen Interp Negative EMELY LUNDBERG Expires at 2359 on: 05/25/2015 EMELY LUNDBERG Blood specimen (specimen) 05/22/2015 12:48 PM EDT 05/22/2015 12:51 PM EDT Narrative Resulting Agency Comment Spec In Lab Bernardo Simon MD BLOOD BANK LAB ORDER GERRI EMELY LUNDBERG * ABO/Rh Typing (05/22/2015 12:48 PM EDT) ABORH Type B Pos EMELY LUNDBERG Blood specimen (specimen) 05/22/2015 12:48 PM EDT 05/22/2015 12:51 PM EDT Narrative Resulting Agency Comment Spec In Lab Bernardo Simon MD BLOOD BANK LAB ORDER GERRI Performing Organization Address [facility] Co de Phone Number EMELY LUNDBERG documented in this encounter Visit Diagnoses Diagnosis Varicose veins of leg with pain, left Varicose veins of leg with pain, left documented in this encounter Administered Medications Inactive Administered Medications - up to 3 most recent administrations Medication Order MAR Action Action Date Dose Rate Site acetaminophen (TYLENOL) tablet 1,000 mg 1,000 mg, Oral, EVERY 6 HOURS, First dose on Fri05/22/15 at 1700, Until Discontinued, Maximum dose of acetaminophen is 4000 mg from all sources in 24 hours., Routine Given 05/22/2015 4:54 PM EDT 1,000 mg aspirin chewable tablet 81 mg 81 mg, Oral, ONCE PRN, 1 dose, Starting on Fri05/22/15 at 1436, Until Fri05/22/15 at 1439, If not already taken on day of surgery., Day of Surgery (Day of Procedure), Routine Given 05/22/2015 2:39 PM EDT 81 mg HYDROmorphone (DILAUDID) tablet 2-6 mg 2-6 mg, Oral, EVERY 4 HOURS PRN, Starting on Fri05/22/15 at 1630, Until Fri05/22/15 at 2039, Pain, Routine Given 05/22/2015 4:54 PM EDT 2 mg documented in this encounter Active and Recently Administered Medications Times are shown in EDT. Scheduled Medication Order 05/20/2015 05/21/2015 05/22/2015 acetaminophen (TYLENOL) tablet 1,000 mg 1,000 mg, Oral, EVERY 6 HOURS, First dose on Fri05/22/15 at 1700, Until Discontinued, Maximum dose of acetaminophen is 4000 mg from all sources in 24 hours., Routine 1654 (Given - Provid er: Johnathan Kruse RN)1700 (Due) ceFAZolin (ANCEF) 2g in dextrose 5% 50 mL (COMPLETED) 2 g, Intravenous, ONCE, 1 dose, On Fri05/22/15 at 1500, Administer over 30 Minutes, Redose after 4 hours., Day of Surgery (Day of Procedure), Indication for (Active or Suspected): Prophylaxis 1510 (Given - Provid er: Arben Bean) docusate sodium (COLACE) capsule 100 mg 100 mg, Oral, 2 TIMES DAILY, First dose on Fri05/22/15 at 2100, Until Discontinued, Routine PRN Medication Order 05/20/2015 05/21/2015 05/22/2015 aspirin chewable tablet 81 mg (COMPLETED) 81 mg, Oral, ONCE PRN, 1 dose, Starting on Fri05/22/15 at 1436, Until Fri05/22/15 at 1439, If not already taken on day of surgery., Day of Surgery (Day of Procedure), Routine 1439 (Given - Provid er: Sharda Mckinley RN) HYDROmorphone (DILAUDID) tablet 2-6 mg 2-6 mg, Oral, EVERY 4 HOURS PRN, Starting on Fri05/22/15 at 1630, Until Fri05/22/15 at 2039, Pain, Routine 1653 (Given - Provid er: Johnathan Kruse RN) documented in this encounter Care Teams Straightedge Machine Operator Helper Relationship Specialty Start Date End Date Pipe Quintana, W[facility] [address] [place] [address] PCP - General 07/19/14 10/05/17 documented as of this encounter
--- OUTSIDE RECORDS SUMMARY | 2024-10-06 15:36 | XMS_ITS | Encounter Summary ---
Author Organization [facility] Address [facility] [place] [address] Care Team Providers Care Autocad Detailer Name Role Phone Maurice Quintana WES Primary Care Provider [phone] Encounter Details Date Type Department Care Team (Late st Contact Info) Description 05/22/2015 3:00 PM EDT Anesthesia [place] [address] Ayden Daniels MD [facility] [place] [address] Arben Bean MD [facility] [place] [address] Anesthesia Record Procedure Summary Procedure Name Responsible Anesthesiologist Anesthesia Start Time Anesthesia Stop Time STAB PHLEBECTOMY CELESTINO VEINS 1 EXTREMITY 10-20 INCISIONS (WRVU 4.8) (Left: Leg) Ayden Daniels MD 05/22/15 1500 05/22/15 1636 Events Date Time Event Comment 05/22/2015 1343 1500 AN Verify 1500 Start 1500 An Start Data 1502 An Induction 1505 An Intubation 1510 Anesthesia Ready 1625 Extubation/LMA Out To Delete (skip) the Extubation event, click the X below. 1625 an stop data 1636 Stop Meds Name Total IV Lidocaine 50 mg Propofol 250 mg Ondansetron 8 mg Dexamethasone 8 mg ceFAZolin (ANCEF) 2g in dextrose 5% 50 m L 2 g HYDROmorphone 0.8 mg Propofol INF 541.44 mg Lactated Ringers 500 mL * Agents Name O2 Air Sevoflurane (et) * Blood No blood administrations on file. Lines, Drains, and Airways Type Details Placement Removal Incision 05/22/15; leg; other (see comments) (Stab incisions x ); 07/08/22 (LDA cleanup utility RA#[id number]); 1715 (LDA cleanup utility RA#[id number]) 05/22/15 0000 by Lena Fritz RN 07/08/22 1715 by Solomon Desai (RETIRED) Peripheral IV Line - Single Lumen 05/22/15; 1433; basilic vein right (medial side of arm); [id number] catheter system; 20 gauge; Jaqui Honeycutt RN; distraction, intradermal injection, tolerated well, appears comfortable, age-appropriate response, other (see comments); 3; 05/22/15; 1901 05/22/15 1433 by Sharda Mckinley RN 05/22/15 1901 by Ravinder Roberts, RN Supraglottic Mask Ventilation: No t Attempted (0); LMA Type: iGel; LMA Size: 3; Removal Date: 05/22/15; Removal Time: 1625 05/22/15 1505 by Arben Bean MD 05/22/15 1625 by Arben Bean MD documented in this encounter Social History [...] documented as of this encounter OR Notes * Anesthesia Postprocedure Evaluation - Arben Bean - [...] tolerated the procedure well Fluid Status: normal * Anesthesia Preprocedure Evaluation - Ayden Daniels MD [...] discussed with patient. Plan discussed with resident. Misc. Assessment: documented in this encounter Plan of Treatment Upcoming Encounters Date Type Department Care Team (Late st Contact Info) Description 11/15/2024 1:00 PM EST Office [place] [address] Zak Gtz MD [facility] [place] [address] 11/16/2024 2:00 PM EST TH Visit (TeleHealth) [place] [phone] Keyanna Wayne APRN [facility] [place] [address] documented as of this encounter Visit Diagnoses Not on filedocumented in this encounter Administered Medications Inactive Administered Medications - up to 3 most recent administrations Medication Order MAR Action Action Date Dose Rate Site ceFAZolin (ANCEF) 2g in dextrose 5% 50 mL 2 g, Intravenous, ONCE, 1 dose, On Fri05/22/15 at 1500, Administer over 30 Minutes, Redose after 4 hours., Day of Surgery (Day of Procedure), Indication for (Active or Suspected): Prophylaxis Given 05/22/2015 3:10 PM EDT 2 g dexamethasone (DECADRON) injection PRN, Starting on Fri05/22/15 at 1510, Until Fri05/22/15 at 1636, Anesthesia Intra-op, Routine Given 05/22/2015 3:10 PM EDT 8 mg HYDROmorphone (DILAUDID) injection PRN, Starting on Fri05/22/15 at 1514, Until Fri05/22/15 at 1636, Pain, Anesthesia Intra-op, Routine Given 05/22/2015 3:27 PM EDT 0.4 mg Given 05/22/2015 3:14 PM EDT 0.4 mg lactated ringers infusion CONTINUOUS PRN, Starting on Fri05/22/15 at 1500, Until Fri05/22/15 at 1636, Anesthesia Intra-op New Bag 05/22/2015 3:00 PM EDT lidocaine (PF) (XYLOCAINE) 100 mg/5 mL (2 %) injection PRN, Starting on Fri05/22/15 at 1510, Until Fri05/22/15 at 1636, Anesthesia Intra-op, Routine Given 05/22/2015 3:10 PM EDT 50 mg ondansetron (ZOFRAN) injection PRN, Starting on Fri05/22/15 at 1608, Until Fri05/22/15 at 1636, Nausea, Anesthesia Intra-op, Routine Given 05/22/2015 4:08 PM EDT 8 mg propofol (DIPRIVAN) 10 mg/mL bolus injection (Anesthesia) PRN, Starting on Fri05/22/15 at 1502, Until Fri05/22/15 at 1636, Anesthesia Intra-op Given 05/22/2015 3:02 PM EDT 250 mg propofol (DIPRIVAN) infusion CONTINUOUS PRN, Starting on Fri05/22/15 at 1502, Until Fri05/22/15 at 1636, Anesthesia Intra-op, Routine New Bag 05/22/2015 3:02 PM EDT 50 mcg/kg/min 34.6 mL/hr documented in this encounter Care Teams Autocad Detailer Relationship Specialty Start Date End Date Maurice Quintana, ND [facility] [address] [place] [id number] PCP - General 07/19/14 10/05/17 documented as of this encounter
--- OUTSIDE RECORDS SUMMARY | 2024-10-06 15:36 | XMS_ITS | Encounter Summary ---
Author Organization [facility] [place] [address] Care Team Providers Care Sales Consultant Insurance Name Role Phone India Escobar APRN Primary Care Provider [phone] Encounter Details Date Type Department Care Team (Late st Contact Info) Description 07/27/2022 Orders Only [place] [phone] Love Shore MD [facility] DR OBSTETRICS [place] [address] Abnormal uterine bleeding (AUB) Social History Tobacco Use Types Packs/Day Years [...] 1:00 PM EST Office [place] [phone] Zak Gtz MD [facility] [address] 11/16/2024 2:00 PM EST TH Visit (TeleHealth) [place] [address] Keyanna Wayne APRN [facility] [place] [address] documented as of this encounter Visit Diagnoses Diagnosis Abnormal uterine bleeding (AUB) documented in this encounter Care Teams Sales Consultant Insurance Relationship Specialty Start Date End Date India Ecsobar APRN PCP - General Family Medicine 10/06/17 08/06/22 documented as of this encounter
--- OUTSIDE RECORDS SUMMARY | 2024-10-06 15:36 | XMS_ITS | Encounter Summary ---
Author Organization [facility] Address [facility] [place] [address] Care Team Providers Care Life Scientist Name Role Phone Pipe Quintana Ting HARVEY Primary Care Provider [phone] Encounter Details Date Type Department Care Team (Latest Contact Info) Description 05/22/2015 12:40 PM EDT - 05/22/2015 6:38 PM EDT Hospital Encounter [place] [phone] Bernardo Simon MD [facility] DR VASCULAR SURGERY [place] [address] Varicose veins of leg with pain, left Discharge Disposition: Home Social History Tobacco Use Types Packs/Day Years [...] 05/22/2015 4:33 PM ED T Respiratory Rate 15 05/22/2015 5:00 PM EDT [...] Admitting Service: Vascular Surgery Place of Service: [id number] Responsible Attending: Dr. Simon Patient Name: Angeline Barnes Patient Age: 45 y.o. Birthdate: 1970 Admit date: 05/22/2015 Attending Physician: Bernardo Simon MD PCP: PIPE QUINTANA, Doctor [facility] Chief Complaint: LLE symptomatic varicose veins History [...] Zavaleta MD 05/22/2015 1:15 PM CC: [facility] [address] [place] [id number] REF: Pipe Quintana, [facility] [address] [place] [address] documented in this encounter Miscellaneous Notes * Op Note - Krzysztof Zavaleta MD - 05/22/2015 4:40 PM EDT Pre-op Dx: LLE symptomatic varicose veins Procedure: LLE stab phlebectomy Post-op Dx: same Surgeon: Bernardo Simon MD [employer]ire [employer] Heavy Service: Krzysztof Zavaleta MD, [facility] MS4 Anesthesia: GETA IVF: 500 mL EBL: [...] Post-op Dx: same Surgeon: Bernardo Simon MD [employer]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 Heavy Service: Krzysztof Zavaleta MD, [facility] MS4 Anesthesia: GETA [...] 1:00 PM EST Office [place] [phone] Zak Gtz MD [facility] DR ENDOCRINOLOGY [place] [address] 11/16/2024 2:00 PM EST TH Visit (TeleHealth) [place] [phone] Keyanna Wayne APRN [facility] GENERAL SURGERY [place] [address] documented as of this encounter Procedures Procedure Name Priority Date/Time Associated Diagnosis Comments STAB PHLEBECTOMY CELESTINO VEINS 1 EXTREMITY 10-20 INCISIONS Routine 05/22/2015 4:09 PM EDT Varicose veins of leg with pain, left STAB PHLEBECTOMY CELESTINO VEINS 1 EXTREMITY 10-20 INCISIONS (WRVU 4.8) 05/22/2015 2:59 PM EDT Varicose veins of leg with pain, left TYPE AND SCREEN, SDP (FUTURE SURGERY, [facility] SAME DAY PROGRAM ONLY) Routine 05/22/2015 12:48 [...] BANK LAB ORDER GERRI Performing Organization Address [facility] Co de Phone Number EMELY LUNDBERG documented [...] 1630, Until Fri05/22/15 at 2039, Pain, Routine 165 (Given - Provid er: Johnathan Kruse RN) documented in this encounter Care Teams Life Scientist Relationship Specialty Start Date End Date Pipe Quintana, [facility] [address] [place] [id number] PCP - General 07/19/14 10/05/17 documented as of this encounter
--- OUTSIDE RECORDS SUMMARY | 2024-10-06 15:36 | XMS_ITS | Encounter Summary ---
Author Organization [facility] Address [facility] [place] [address] Care Team Providers Care Environmental Health Sanitarian Name Role Phone India Escobar [employer] Primary Care Provider [phone] Encounter Details Date Type Department Care Team ([facility] st Contact Info) Description 07/27/2022 Telephone Gynecology [place] [address] Love Shore MD [facility] DR OBSTETRICS [place] [address] Social History Tobacco Use Types Packs/Day Years [...] Telephone Encounter - Eva Guadarrama RN - 07/30/2022 9:32 AM EDT Discussed patient with Dr. Goetz. She states the patient can choose to take the progesterone or not, but if she does start the progesterone, she needs to take it consistently without stopping or missing doses, otherwise her bleeding may increase. Called and relayed this information to the patient. She states she will not start the progesterone because her bleeding has decreased at this point. She will call with any changes to her symptoms or increase in bleeding. She denies any questions. * Telephone Encounter - Eva Guadarrama RN - 07/29/2022 12:56 PM EDT Called and spoke with patient to check in. 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 Patient has not started the rx. She states she was changing overnight pads every 15-20 mins yesterday. Today, she states the bleeding has subsided a bit because the bleeding slows down with rest. She states she's changing her overnight pad every hour or so. Patient denies pain but does report that she's a little bit dizzy (thisis not new since the bleeding). She denies SOB or CP. Will forward message to Dr. Goetz to advise. * Telephone Encounter - Love Shore MD - 07/27/2022 6:20 PM EDT Tel call: Patient called with bleeding. Patient has known uterine mass and is scheduled for hysterectomy 08/31. Patient notes last heavy bleeding was in February. She bagen bleeding this AM and has had heavy bleeding over the day. Last CBC hgb 13.5 on 07/22/22. I advised aygestin 10 mg daily. D/w patient risks, benefits and alternatives and prescription written. documented in this encounter Plan of Treatment Upcoming Encounters Date Type Department Care Team (Late st Contact Info) Description 11/15/2024 1:00 PM EST Office Visit [place] [address] Zak Gtz MD [facility] [place] [place] [address] 11/16/2024 2:00 PM EST TH Visit (TeleHealth) [place] [address] Keyanna Wayne APRN [facility] [place] [address] documented as of this encounter Visit Diagnoses Not on filedocumented in this encounter Care Teams Environmental Health Sanitarian Relationship Specialty Start Date End Date India Escobar APRN PCP - General Family Medicine 10/06/17 08/06/22 documented as of this encounter
--- OUTSIDE RECORDS SUMMARY | 2024-10-06 15:36 | XMS_ITS | Encounter Summary ---
Author Organization [facility] Address [facility] [place] [address] Care Team Providers Care Ship Officer Name Role Phone India Escobar APRN Primary Care Provider [phone] Encounter Details Date Type Department Care Team (Late st Contact Info) Description 01/19/2018 3:00 PM EDT Office [place] [address] Ban Jeronimo MD [facility] [place] [address] Morbid obesity with BMI of 40.0-44.9, adult [...] as of this encounter Progress Notes * Ban Jeronimo MD - 01/19/2018 3:00 PM EDT Reason for consultation: Angeline is a 47 y.o. year-old female referred by India Escobar APRN for consultation for consideration of surgical treatment of obesity. Prior bariatric surgery evaluations: lap band and removal Her preferred procedure: gastric bypass Angeline was advised that weight loss from both procedures depends on ability to eat a healthy diet longitudinal float operator after surgery and was encouraged to review the risks and benefits of both procedures in the BSP handbook, as well as online via the [facility] website. BARIATRIC SURGERY PROGRAM PATHWAY Review of progress with the requirements of the Bariatric Surgery Program: 1. Education: She has attended a Introduction to the [facility] Bariatric Surgery Program seminar, a comprehensive two hour meeting that provides a program overview, education on bariatric surgeries offered at [facility], risks and benefits, as well as patient expectations and follow up [facility] Bariatric Surgery Program Educational seminars viewed 2. [...] weight loss have been unsuccessful [facility] the [facility]. Refer to nutrition note by [facility] dietitian for weight and dieting history, 24 hour dietary intake and recent dietary changes. Motivating factors for seeking surgery for bariatric surgery: see RD note Patient research in addition to attendance at [facility] Bariatric Surgery Informational meeting and online Educational [...] INCISIONS performed by Bernardo Simon MD at [facility] meds: ??? VYVANSE 60 mg Capsule [...] to surgery and hold for 1 month postop, and use control during this time if appropriate Discussion of treatment of obesity and of the [facility] Bariatric Surgery Program: Ms.. Barnes is aware that other treatments for obesity are available, ie, dietary, behavior modification, weight loss medications, exercise as well as surgical weight loss methods. The risks and benefits of bariatric surgery, including gastric bypass and sleeve gastrectomy are discussed at every Introduction to the [facility] Bariatric Surgery Program meeting and all Educational Seminars, and will be reviewed in detail at the second pre-operative visit. The importance of incorporating lifestyle activity and regular exercise, such as walking, or swimming, after discussion and approval by her primary critical care unit manager, prior to surgery, as well as post-operatively, was stressed. She is aware of our program???s mandatory requirements: 1. attendance at a two hour Introduction to the [facility] Bariatric Surgery Program seminar 2. view 3 Bariatric Surgery Educational seminars and complete post testing 3. a no weight gain policy. Ongoing weight loss is encouraged. Insurers may have additional weight loss requirements. 4. a minimum of two pre-operative visits with the dietitian and nurse practitioner 5. Two hour pre-operative class and completion of post-testing 6. any additional requirements mandated by the patient's insurance carrier. Prospective patients are encouraged to thoroughly research bariatric surgery, via the internet, the[facility] website at [email or web address], books, and journals. In addition, information on bariatric surgery is available at the [employer] at [facility]. Assessment/ Plan: 47 y.o. year old female with morbid obesity: She has had failure to sustain weight loss by medical management and meets the criteria proposed bythe NIH Consensus Guidelines for surgical treatment of severe obesity and the AACE, TOS, ASMBS Clinical Practice Guidelines for the Perioperative Nutritional, Metabolic and Non-surgical Support of the Bariatric Surgery Patient 2013 Update. She is aware that there are non-surgical methods to achieveweight loss. She has had an opportunity to have all her questions answered and is in agreement with the plan of care. She was encouraged to call with any questions or concerns. Information provided to patient: 1. [facility] Bariatric Surgery Education Handbook, a 102 page document (revision August 2013) which contains extensive information regarding pre and post- operative care including: a copy of the Patient Agreement, illustrations of GI anatomy and gastric bypass, gastric banding and sleeve gastrectomy surgeries, [facility] Rehab Medicine recommendations and exercises prior to surgery, gastric bypass, gastric banding and sleeve gastrectomy risks and benefits, dietary information including the pre-operative and post-operative diets, DVT prevention guidelines,information on medications that can increase the risk of bleeding, pre-op preparation information, post-operative instructions and contact numbers. Studies and consults suggested to primary critical care unit manager: India Escobar, CHRISTIAN SCIENCE NURSE 1. Pending: - - CBC and CMP within 3 months of surgery, per MBSAQIP accredited bariatric center guidelines - Ongoing weight loss encouraged Questions regarding [facility] Bariatric Surgery Program patients: [phone] Total visit duration was 30 minutes with over 20 minutes spent in face to face discussion with the patient. documented in this encounter Plan of Treatment Upcoming Encounters Date Type Department Care Team (Late st Contact Info) Description 11/15/2024 1:00 PM EST Office [place] [address] Zak Gtz MD [facility] [place] [address] 11/16/2024 2:00 PM EST TH Visit (TeleHealth) [place] [address] Keyanna Wayne APRN [facility] [place] [address] documented as of this encounter Results * TSH (02/19/2018 3:51 PM EDT) Thyroid Stimulating Hormone 1.04 0.27 - 4.20 mlU/ML [facility] Blood specimen (specimen) 02/19/2018 3:51 PM EDT 02/19/2018 4:04 PM EDT Narrative Resulting Agency Comment Spec In Lab Ban Jeronimo MD CHEMISTRY ORDERABLES [facility] [place] [address] * (ABNORMAL) Vitamin D, 25-Hydroxy (02/19/2018 3:51 PM EDT) Vitamin D Total 25 OH 23(L) 30 - 100 ng/mL [facility] Comment: Deficient <10 ng/mL Insufficient 10 to 29 ng/mL Sufficient 30 to 100 ng/mL Potential Intoxication >100 ng/mL According to the US National Osteoporosis Foundation, Vitamin D concentrations >30 ng/mL are sufficient to protect bone health. ??The National Kidney Foundation has similarly stated that patients with Vitamin D concentrations <30ng/mL should be considered to be insufficient or deficient. http://EpiCrystals.com/nkf-guidelines http://EpiCrystals.Relationship Analytics/nejm-VitD The [employer] i[employer] Vitamin D Immunoassay detects both 25-OH Vitamin D2 and 25-OH Vitamin D3, but only a total Vitamin D concentration is reported. Blood specimen (specimen) 02/19/2018 3:51 PM EDT 02/20/2018 6:29 AM EDT Narrative Resulting Agency Comment Spec In Lab Ban Jeronimo MD CHEMISTRY ORDERABLES Performing Organization Address [facility]/ZIP Co de Phone Number [facility] [place] [address] * Vitamin B12 (02/19/2018 3:51 PM EDT) Vitamin B12 433 232 - 1,245 pg/mL [facility] Comment: Please note: Effective 10/08/2017, the reference interval and the lower limit of detection for Vitamin B12 have been updated due to a new reagent formulation. Blood specimen (specimen) 02/19/2018 3:51 PM EDT 02/19/2018 4:04 PM EDT Narrative Resulting Agency Comment Spec In Lab Ban Jeronimo MD CHEMISTRY ORDERABLES Performing Organization Address [facility] Co de Phone Number [facility] [place] [address] * Ferritin (02/19/2018 3:51 PM EDT) Ferritin 38 15 - 150 ng/mL [facility] Comment: Pediatric reference ranges not verified at [facility], interpret with caution. Reference ranges for females greater than 50 years of age approach values for men, i.e., 30-400 ng/mL. Blood specimen (specimen) 02/19/2018 3:51 PM EDT 02/19/2018 4:04 PM EDT Narrative Resulting Agency Comment Spec In Lab Ban Jeronimo MD CHEMISTRY ORDERABLES Performing Organization Address City/[facility]/ZIP Co de Phone Number [facility] [place] [address] * (ABNORMAL) Iron and TIBC (02/19/2018 3:51 PM EDT) Iron 154(H) 30 - 150 mcg/dL [facility] TIBC 328 250 - 450 mcg/dL [facility] Iron Saturation 47 20 - 50 % [facility] Blood specimen (specimen) 02/19/2018 3:51 PM EDT 02/19/2018 4:04 PM EDT Narrative Resulting Agency Comment Spec In Lab Ban Jeronimo MD CHEMISTRY ORDERABLES [facility] [place] [address] * Hemoglobin A1c (02/19/2018 3:51 PM EDT) [facility] Hemoglobin A1c 5.3 4.3 - 5.6 % [facility] Comment: Reference Range: 4.3 - [...] Mellitus, Diabetes Care 2013; 36: Suppl. 1, Z12-59 Estimated Average Glucose 105 mg/dL [facility] Comment: eAG equivalents for HbA1c [...] into estimated average glucose values. ??Diabetes Care 2008:31(8):4370-5108. Blood specimen (specimen) 02/19/2018 3:51 PM EDT 02/19/2018 4:04 PM EDT Narrative Resulting Agency Comment Spec In Lab Ban Jeronimo MD CHEMISTRY ORDERABLES [facility] [place] [address] * Lipid Panel (02/19/2018 3:51 PM EDT) Cholesterol, Total 174 mg/dL [facility] Comment: Lower Risk: <200 mg/dL Average Risk: 200-239 mg/dL Higher Risk: >ge=619 mg/dL Triglyceride 122 mg/dL [facility] Comment: Average Risk/Lower Risk: <150 mg/dL Borderline High Risk: 150-199 mg/dL High Risk: 200-499 mg/dL Very High Risk: >ze=358 mg/dL HDL Cholesterol 44 mg/dL [facility] Comment: Males: ?? Higher Risk: <40 mg/dL Females: ?? HIgher Risk: <50 mg/dL LDL Cholesterol 106 mg/dL [facility] Comment: Lowest Risk: <100 mg/dL Lower Risk: 100-129 mg/dL Borderline High Risk: 130-159 mg/dL High Risk: 160-189 mg/dL Very High Risk: >ir=065 mg/dL Cholesterol/HDL Ratio 4.0 ratio [facility] Lipid Interpretation See Note [facility] Comment: Lipid management should be guided by a patient? s ASCVD risk, goals and preferences. ACC/AHA Guidelines recommend high intensity statin if clinical ASCVD or LDL greater than or equal to 190 mg/dL. http://EpiCrystals.com/XRV-RBO-Czyxjjzmh Adults aged 40-75 with LDL 70-189 mg/dL should have their 10 year ASCVD risk estimated with the ACC/AHA ASCVD risk rn transport http://tools.acc.org/SUZWR-Oolg-Ydmecxlrl/ Statin should be discussed if risk greater [...] In Lab Ban Jeronimo MD CHEMISTRY ORDERABLES [facility] [place] [address] * (ABNORMAL) CMP w/fasting Glucose (02/19/2018 3:51 PM EDT) Glucose Fasting 86 65 - 99 mg/dL [facility] Comment: ?Fasting* Glucose Interpretive Criteria [...] of Diabetes Mellitus, Position Statement from the [place] Diabetes Association. ??Diabetes Care, Volume 33, Supplement 1, Nov 2009 Blood Urea Nitrogen 14 8 - 18 mg/dL [facility] Creatinine 0.84 0.70 - 1.20 mg/dL [facility] Sodium 140 135 - 145 mmol/L [facility] Potassium 4.2 3.5 - 5.0 mmol/L [facility] Comment: Please note: ??Patients with WBC >100,000 may have falsely elevated Potassium levels. ??For accurate Potassium quantification in these patients send serum separator tube (gold top) for subsequent determinations. ??Contact the Clinical Chemistry Laboratory if there are any questions. Chloride 97(L) 98 - 107 mmol/L [facility] Carbon Dioxide 26 22 - 31 mmol/L [facility] Anion Gap 17(H) 5 - 15 mmol/L [facility] Calcium 10.2 8.5 - 10.5 mg/dL [facility] Protein, Total 7.6 6.1 - 8.0 gm/dL [facility] Albumin 4.3 3.2 - 5.2 gm/dL [facility] Aspartate Aminotransferase 15 0 - 30 unit/L [facility] Alanine Aminotransferase 18 0 - 30 unit/L [facility] Alkaline Phosphatase 71 40 - 104 unit/L [facility] Bilirubin, Total 0.3 0.2 - 1.3 mg/dL [facility] Est Glomerular Filtration Rate >60 >=60 [facility] Comment: The reported eGFR should be multiplied by 1.2 for patients. The MDRD is not an appropriate measure of renal function for patients with body mass extremes or in patients with acute kidney failure. http://EpiCrystals.Relationship Analytics/DHnkdep http://EpiCrystals.com/DHMCnkf Blood specimen (specimen) 02/19/2018 3:51 PM EDT 02/19/2018 4:04 PM EDT Narrative Resulting Agency Comment Spec In Lab Ban Jeronimo MD CHEMISTRY ORDERABLES [facility] [place] [address] * (ABNORMAL) Hemogram (02/19/2018 3:51 PM EDT) White Blood Cell 9.6(H) 4.0 - 9.5 x10(3)/mc L [facility] Red Blood Cell 4.98 4.00 - 5.21 x10(6)/mc L [facility] Hemoglobin 13.9 11.7 - 15.5 gm/dL [facility] Hematocrit 42.6 35.7 - 45.8 % [facility] Mean Cell Volume 85.5 82.6 - 94.4 fL [facility] Mean Cell Hemoglobin 27.9 27.1 - 32.0 pg [facility] Mean Cell Hemoglobin Concentration 32.6 31.7 - 35.0 gm/dL [facility] Platelet 322 145 - 357 x10(3)/[facility] RDW Standard Deviation 44.5 37.0 - 46.0 [facility] RDW coefficient of variation 14.4(H) 11.5 - 14.1 % [facility] Mean Platelet Volume 9.4 7.6 - 12.9 fL [facility] NRBC% auto 0.0 % [facility] NRBC Absolute 0.000 0.000 - 0.000 x10(3)/[facility] Blood specimen (specimen) 02/19/2018 3:51 PM EDT 02/19/2018 4:04 PM EDT Narrative Resulting Agency Comment Spec In Lab Ban Jeronimo MD HEMATOLOGY ORDERABLE S [facility] [place] [address] documented in this encounter Visit Diagnoses Diagnosis Morbid obesity with BMI of 40.0-44.9, adult Morbid obesity documented in this encounter Care Teams Ship Officer Relationship Specialty Start Date End Date India Escobar APRN PCP - General Family Medicine 10/06/17 08/06/22 documented as of this encounter
--- OUTSIDE RECORDS SUMMARY | 2024-10-06 15:36 | XMS_ITS | Encounter Summary ---
Author Organization [facility] [place] [address] Care Team Providers Care Urologic Nurse Name Role Phone India Escobar ANTOINETTE Primary Care Provider [phone] Encounter Details Date Type Department Care Team (Late st Contact Info) Description 02/19/2018 12:30 PM EDT Office [place] [address] Arcelia Alvarado, DIRECTOR CHILD ABUSE THERAPY [facility] DR [facility] [place] [address] [facility] [place] [address] Encounter for pre-bariatric surgery counseling and education; Healthcare maintenance Social History Tobacco Use Types Packs/Day Years [...] EDT Temperature 36.6 ??C (97.9 ??F) 02/19/2018 1 2:38 PM EDT Respiratory Rate 20 02/19/2018 12:3 8 PM EDT Oxygen Saturation 100% 02/19/2018 12: 38 PM EDT Inhaled Oxygen Concentration - - Weight 118.1 kg (260 lb 6.4 oz) 018 12:38 PM EDT Height 168.9 cm (5' 6.5) 02/19/2018 12 :38 PM EDT Body Mass Index 41.4 02/19/2018 12:38 PM EDT documented in this encounter Patient Instructions * Patient Instructions* Arcelia Alvarado Kb, DIRECTOR CHILD ABUSE THERAPY - 02/19/2018 12:30 PM EDT BARIATRIC SURGERY PROGRAM SECOND VISIT Contact information: [facility] Admin coordinator Joby: [phone] or [phone] Dietitians: [phone] Surgeons/ nurse practitioners: [phone] or [phone] Nurse line: [phone] Medications recommended based on labwork done previously: Labs pending 1. Pending information: labs to be done today, will follow up with recommendations based on results I do recommend you go ahead and get your mammogram done 2. There is a no weight gain policy between visits. The surgeon may opt to delay your surgery if you gain weight between visits. 3. Bring the Educational [...] change your surgery date, please call Veronica or Roseann at to reschedule.Your surgery date may change if insurance is approval is delayed. Prepare for the Pre-op Class by doing the followin. Review the program handbook and come to class with a list of questions. 2. Watch the educational videos including Psychological Implications of bariatric surgery on the [facility] website under Bariatric Surgery ([email or web address]_[email or web address]) 3. Come prepared to the class to discuss meal planning. 4. Bring your supplements 5. Come with tips and suggestions that my be helpful to others. Questions for your doctor, specialist or pharmacist: 5. Ask your doctor about medication suggestions if you currently take medications that are largerthan the size of a tylenol. Large pills need to be crushed (if permitted by the drug burial needs salesperson) or taken in liquid form for TWO WEEKS after surgery. Diabetic oral medication often does not need tana taken after surgery) ?? If you take antinflammatory medications or steroid medicationsfor arthritis or asthma, please check with your doctor. These medications will likely need to be held 1 week prior to and at least a few weeks after surgery. For women who take control or hormone medications and men who take hormone medications: thesemedications must be stopped 1 month before and after surgery. Use alternative forms of control. Nutrition and Activity apps- Baritastic, My Fitness Pal, Lose It, My Plate [facility] facebook page: [email or web address] documented in this encounter Progress Notes * Arcelia Alvarado APRN - 02/19/2018 12:30 PM EDT Reason for visit: Angeline is a 47 y.o. year-old female who presents for the purpose of group sharedmedical appointment for bariatric surgery education. History of [...] Recent testing: - Labwork ordered by Dr. Jeronimo, done today - Pap 12/27/17 negative - h pylori negative Plans for post-operative support after discharge: Best friend and her dad Vital signs: BP (!) 137/94 Pulse 84 Temp 36.6 ??C (97.9 ??F) Resp 20 Ht 168.9 cm (5' 6.5) Wt 118.1 kg(260 lb 6.4 oz) SpO2 100% BMI 41.4 kg/m2 Discussion of bariatric surgeries performed at [facility], risks and benefits, and the [facility] Bariatric Surgery Program requirements: The risks of immediate and mcfp complications as well as the benefits of gastric bypass and sleeve gastrectomy surgeries, as outlined extensively in the Bariatric Surgery Program Handbook, whichis a >100 page document, were reviewed. She [...] again emphasized. The need for commitment to director long term care lifestyle changes, with healthy diet and regular physicalactivity was stressed to achieve and sustain director long term care weight loss. Benefits of bariatric surgery discussed: [...] any weight loss. Patients with >10 year historyof diagnosis of type 2 diabetes often will need to remain on insulin director long term care. There is less improvement to type 2 [...] patients are discharged on extended Enoxaparin therapy who meet scoring criteria ?? rhabdomyolysis ?? nutritional deficiencies, [...] The rate of leak after sleeve at [facility] is 0%. ?? stricture of gastric remnant [...] if unable to accept the possibility of skinredundancy following weight loss, then they should not [...] avoidance of for at least 12-24 months post-operatively. The risks of and complications with maternal obesity and risks to fetus with maternal rapid weight loss and malnutrition and vitamin and mineral deficiencies discussed, Use of effective contraception as per CDC guidelines advised. Bariatric Surgery Follow up for LIFE: ?? 3 weeks, 4, 8, 12,18 and 24 months, yearly thereafter. More frequent follow up done as clinically indicated. Labwork: done at all routine visits except [...] the information presented at today's meeting, and seems to have reasonable and realistic expectations of bariatric surgery. She previously signed an agreement stating that She is willing to comply with instructions, lifetime vitamin and mineral supplements and programmatic follow up. She was encouraged to call with any questions or concerns. Data reviewed: - Visit #2 questionnaire - SMA quiz completed by Angeline Information reviewed at today's SMA: 1. [facility] Bariatric Surgery Program Educational Handbook, bariatric surgery [...] patient questions. Group counselin minutes Questions regarding [facility] Bariatric Surgery Program patients: please call [phone]. * Zhane Nixon, GUS - 02/19/2018 12:30 PM EDT BARIATRIC SURGERY PROGRAM NUTRITION EDUCATION 2nd Pre-Operative Visit Shared Medical Appointment Angeline Barnes attended a 2 hour shared medical appointment today for her second pre-operativevisit with the Bariatric Surgery Program dietitian and nurse practitioner. Ms. Barnes is a morbidly obese female who has been referred for nutrition evaluation and diet instruction in anticipation of bariatric surgery. Previous conservative attempts at weight loss through dieting have been unsuccessful over the mcfp. Advised patient that bariatric surgery is a weight loss tool not a solution; and ultimately weight loss will be achieved through proper eating and exercise habits. She was given suggestions for how to incorporate dietary and lifestyle changes into her daily schedule. Patient was given a copy of theprogram handbook at the initial appointment which includes [...] 1:00 PM EST Office Visit Endocrinology at [place] [phone] [facility] [place] [address] 11/16/2024 2:00 PM EST TH Visit (TeleHealth) [place] [phone] [facility] [place] [address] documented as of this encounter Visit Diagnoses Diagnosis Encounter for pre-bariatric surgery counseling and education Healthcare maintenance Routine general medical examination at a health care facility documented in this encounter Care Teams Urologic Nurse Relationship Specialty Start Date End Date India Escobar APRN PCP - General Family Medicine 10/06/17 08/06/22 documented as of this encounter
--- OUTSIDE RECORDS SUMMARY | 2024-10-06 15:36 | XMS_ITS | Encounter Summary ---
Author Organization [facility] Address [facility] [place] [address] Care Team Providers Care Customizer Name Role Phone [place] Escobar APRN Primary Care Provider [phone] Encounter Details Date Type Department Care Team (Late Contact Info) Description 03/16/2018 Telephone [place] [phone] Ban Jeronimo MD [facility] [place] [address] Social History Tobacco Use Types Packs/Day Years [...] Encounters Date Type Department Care Team (Late Contact Info) Description 11/15/2024 1:00 PM EST Office [place] [phone] Zak Gtz MD [facility] [place] [address] 11/16/2024 2:00 PM EST TH Visit (TeleHealth) [place] [phone] Keyanna Wayne APRN [facility] [place] [address] documented as of this encounter Visit Diagnoses Not on filedocumented in this encounter Care Teams Customizer Relationship Specialty Start Date End Date [place] Escobar APRN PCP - General Family Medicine 10/06/17 08/06/22 documented as of this encounter
--- OUTSIDE RECORDS SUMMARY | 2024-10-06 15:36 | XMS_ITS | Encounter Summary ---
Author Organization Formerly [facility] [place] [address] Care Team Providers Care Marketing Team Lead Name Role Phone Romy Singh APRN Primary Care Provider [phone] Reason for Visit * Auth/Cert Specialty Diagnoses / Procedures Referred By Jessica almanzar Referred To Contact Diagnoses Abnormal uterine bleeding (AUB) AUB, FIBROID Procedures PRO LAPAROSCOPY W TOT HYSTERECTUTERUS <=250 GRAM W TUBE/OVARY LAPAROSCOPY,TOTAL HYST, UTERUS<250GM, REM TUBE &/OR OVARY, ROBOTIC ASSIST (WRVU 15) MODIFIER ROBOT,Tai Araujo MD [facility] GYNEC[place]Y [place] [address] [facility] Referral ID Status Reason Start Date Expiration Date Visits Re quested Visits Authorized [id number] 1 1 Encounter Details Date Type Department Care Team (Latest Contact Info) Description 08/13/2022 8:55 AM EDT - 08/13/2022 4:55 PM EDT Hospital En[place] [id number] Tai Goetz MD [facility] GYNECOLOGY [place] [address] Intramural and subserous leiomyoma of uterus Discharge Disposition: Home Social History Tobacco Use [...] Sign Reading Time Taken Comments Blood Pressure 161/85 08/13/2022 4:15 PM EDT Pulse 64 08/13/2022 2:45 PM EDT Temperature 36.6 ??C (97.9 ??F) 08/13/2022 4:15 PM ED T Respiratory Rate 18 08/13/2022 4:15 PM EDT Oxygen Saturation 95% 08/13/2022 4:15 PM EDT Inhaled Oxygen Concentration - - Weight 141.7 kg (312 lb 4.8 oz) 08/13/2022 9:44 AM EDT Height 172.7 cm (5' 8) 08/13/2022 9:44 AM EDT Body Mass Index 47.49 08/13/2022 9:44 AM EDT documented in this encounter Discharge Instructions * Discharge Instructions* Lidia Powers RN - 08/13/2022 3:20 PM EDT Next dose of ibuprofen (motrin) can be taken at . * Patient Instructions* Monique Wheeler - 08/13/2022 9:20 AM EDT PATIENT DISCHARGE INSTRUCTIONS Gynecologic Oncology phone number: [phone] (Nurse ext [phone] then 4; appointment ext 1 then 4). After hours and on weekends please call hospital dye boarding machine operator at [phone] and ask for Gynecologic Oncologist business education teacher. Call your doctor if you develop: --A fever over 101 degrees --Severe pain --Increasing pain, redness, or discharge at any of your incisions --Heavy vaginal bleeding-soaking through a pad an hour --It is normal to have continuous or intermittent light spotting from the vagina for up to 6 weeks following hysterectomy -Follow-up with Dr. Goetz as below Future Appointments Date Time Provider Department Center 09/05/2022 11:20 AM Tai Goetz MD [facility] ARABIC TEACHER 3K [facility] Activity level: Let your body guide you- try to avoid grunting/groaning/straining for about 2 weeks. If you feel you did too much please listen to your body and back off. No sexual intercourse, no tampons, nothing in the vagina for 8 weeks. Diet: You may resume your regular diet. Be sure you drink plenty of fluids. Bowel Regimen: Please use byron-colace (senna-S or docusate-senna) 1-2 tablets twice daily for the entire time that you are taking narcotic pain medication to keep your bowel movements soft and regular. You may consider using this post- operatively even if you are not using narcotic pain medication. You can increase this to up to 8 tablets a day (and may take 6-12 hours for effect). If you are constipated or have not had a bowel movement in 2 days, you may add in polyethylene glycol (Miralax) 17g(one capful) 1-2 times daily (may take 1-2 days for effect). If this is ineffective you may add Milk of Magnesia 30mL (2 Tablespoons) daily (may take 30minutes - 6 hours to work). The next step is to use Magnesium Citrate 1 bottle (295mL)- this usually produces a bowel movement in 30 minutes-3 hours. Please call if you have not had a bowel movement in 3-4 days. Driving: Do not drive until you are off of all narcotic medications and you are not feeling pain; usually between a couple of days to 2 weeks. Shower/Bath: Showering is fine. Short baths are okay but you should avoid having any abdominal incision submerged for more than 10-15 minutes for the next 2 weeks. Wound Care: Your incisions are closed with dissolvable stitches and surgical glue. The glue will dissolve on its own over time - do not pick at or rub the glue. The stitches do not need to be removed- they will dissolve on their own. Pain Control: For your post-operative pain please use ibuprofen, acetaminophen, heating pad, and narcotic pain medication (oxycodone) for your pain management. Your goal is to be able to take severalshort walks every day (increase the duration each day) and to be able to sleep at night. If you areunable to do these things using the ibuprofen and acetaminophen and heating pad then you will need to use the narcotic pain medication (oxycodone) for breakthrough pain. You should be able to use less oxycodone every couple days and require no breakthrough narcotic pain medication in about 1-4 days. Please use ibuprofen (Advil/Motrin) 600mg every 6 hours around the clock (with food) for the next 5-7 days. After that, use as needed. Please use acetaminophen (Tylenol) 650mg every 6 hours as needed (or 1000mg every 8 hours as needed). Do not exceed 3000mg of acetaminophen from any source in 24 hours. Please use oxycodone every 4-6 hours as needed for pain that ???breaks through?? the ibuprofen andacetaminophen. Please take your medication exactly as prescribed. Read all instructions that come with your medication. Using narcotic pain medication (such as oxycodone, hydrocodone, hydromorphone [Dilaudid], morphine,fentanyl, or tramadol [Ultram]) may cause addiction. While addiction is more common in people with a personal or family history of addiction, it can occur in anyone. Taking more than the prescribed amount of medication or using with alcohol or other drugs can causeyou to stop breathing resulting in coma, brain damage, or . Opioids (oxycodone, hydrocodone, hydromorphone [Dilaudid], morphine, fentanyl, tramadol [Ultram]) can slow reaction time, cause drowsiness, or cloud judgement. It is unsafe for you to drive or operate heavy machinery while taking this medication. Opioids (oxycodone, hydrocodone, hydromorphone [Dilaudid], morphine, fentanyl, tramadol [Ultram]) are at risk of being diverted by anyone with access to your home. Opioids should be stored in a safe and secure place, such as a locked cabinet or safe. Unused opioids (oxycodone, hydrocodone, hydromorphone [Dilaudid], morphine, fentanyl, tramadol [Ultram]) should be disposed of according to the label or patient information. If there are no specific instructions, medications may be returned to a take-back location or mixed with a small amount of water and an undesirable waste substance such as coffee grounds or cat litter. documented in this encounter Medications at Time of Discharge Medication Sig Dispensed Refills Start Date End Date acetaminophen (Tylenol) 325 mg Tablet Take 2 tablets by mouth every 6 hours as needed for Pain. 08/13/2022 ibuprofen (Advil) 600 mg Tablet Take 1 tablet by mouth every 6 hours as needed for Pain. 60 tablet 1 08/13/2022 oxyCODONE (Roxicodone) 5 mg Tablet Take 1 tablet by mouth every 4 hours as needed for Pain. 7 tablet 08/13/2022 09/05/2022 senna-docusate (Pericolace) 8.6-50 mg Tablet Take 1 tablet by mouth daily. 60 tablet 1 08/13/2022 09/05/2022 documented as of this encounter Progress Notes * Lidia Powers RN - 08/13/2022 4:53 PM EDT Angeline is awake and alert, drinking chary-marquis, ambulated to restroom and able to urinate 320 ml after voiding trial; BP stable, daughter and patient verbalize understanding of d/c instructions and follow up care; left unit in wheelchair to go home with her daughter Rosalva at 1655; awake and comfortable at discharge * Sabine Villarreal RN - 08/13/2022 10:47 AM EDT Pt first BP recorded at 176/102 in right arm. Rechecked at left arm and reads at 205/102. Manual BPtaken and 178/100 at left arm. Anesthesia paged and aware with plans to cancel surgery if BP remainuncontrolled post Versed admin. Dr. Wan and Sera Alanis at bedside to administer Versed and remain at bedside to monitor pt. Edit: 1100 - See flowsheet for BP post- Versed admin. Anesthesia team satisfied with new BP readings and determined the procedure is able to continue. documented in this encounter H&P Notes * Tai Goetz MD - 08/13/2022 10:04 AM EDT Gynecologic Oncology Interval Pre-op H&P I have reviewed the pre-procedure H&P completed by Dr. Goetz on 07/22/2022. Consents were reviewed and signed. (x) Condition unchanged since H&P originally performed. Interval Note: Subjective: Angeline Barnes is a 52 y.o. patient presenting for a scheduled robotic-assisted total laparoscopic hysterectomy, bilateral salpingo- oophorectomy, possible laparotomy, staging as indicated in the setting of an markedly enlarging 11cm uterine mass with a June 2022 benign endometrial biopsy. Patient reports that her health has not changed since her preop visit. She denies any new illnesses, hospitalizations, or medications. She has had significant back pain, which she attributes to this mass. She desires to proceed with the planned procedure. Denies lightheadedness, shortness of breath, chest pain, nausea/vomiting/diarrhea, abdominal pain, leg cramping. Objective: Patient Vitals for the past 24 hrs: Temp Pulse Resp BP SpO2 O2 Device 08/13/22 0944 36.2 ??C (97.2 ??F) 68 18 (!) 178/100 97 % RA 08/13/22 1001 -- -- -- (!) 187/113 -- -- Gen: well appearing, NAD Heart: regular rate and rhythm, no murmurs Lungs: clear to auscultation bilaterally Abd: soft, non tender Pelvic: deferred to OR Assessment/Plan: Angeline Barnes is a 52 y.o. patient presenting for a scheduled robotic- assisted total laparoscopic hysterectomy, bilateral salpingo-oophorectomy, possible laparotomy, staging as indicated, plan to proceed ??? UPT - negative ??? Antibiotics - 3g Ancef, 500mg Flagyl ??? DVT prophylaxis - SCDs, 5000U heparin ??? Patient's preferred pharmacy is [facility]. She has tolerated Tylenol and ibuprofen in the past. ??? Surgical consent reviewed, already signed in clinic ??? ORT and opioid consent completed today. ??? BP very high in preop today, discussed with Dr. Knight, plan for IV midazolam and recheck of BP, if remains severely elevated case may need to be re-scheduled. ??? Dispo - same day discharge To be discussed with Dr. Goetz, attending gynecologic oncologist . Monique Wheeler MD, PGY4 Gynecologic Oncology 08/13/2022 I have seen and examined the patient and reviewed and edited the resident's above history and I agree with the details as written. The assessment and plan were formulated in discussion with me and I agree with them as documented. Tai Goetz MD documented in this encounter Miscellaneous Notes * Op Note - Tai Goetz MD - 08/13/2022 11:37 AM EDT [facility] Operative Note Patient Name: Angeline Barnes : [id number] MR#: [id number] Case Date: 08/13/2022 Surgeon: Surgeon(s) and Role: * Tai Goetz MD - Primary * Monique Wheeler MD - Resident Registered Nurse Head Of Global Strategic Partnerships: Leisa Bergeron RN Preoperative diagnosis: AUB, FIBROID Postoperative diagnosis: AUB, FIBROID Procedure(s) (LRB): LAPAROSCOPY,TOTAL HYST, UTERUS<250GM, REM TUBE &/OR OVARY, ROBOTIC ASSIST (WRVU 15) (N/A) MODIFIER ROBOT,KATHY XI (N/A) Anesthesia: General Estimated Blood Loss: 25 mL Specimens removed during surgery: Order Name Source Comment Collection Info Order Time SPECIMEN TO PATHOLOGY Please perform FS on uterine mass ? [place] please call with results [id number] AUB, FIBROID uterus ovaries tubes cervix excision YES, Please perform frozen section 08/13/2022 12:32 PM Number of tissue samples (in container) 1 Time specimen removed from patient: 12:31 PM Drains: gilmore Surgical Closure: Primary Closure - skin incision is completely closed without any wires, cristy, drains or other devices Disposition: awakened from anesthesia, extubated and taken to the recovery room in a stable condition, having suffered no apparent untoward event. Condition: doing well without problems (Please see the Surgical Encounter Summary for any Implant and Specimen details pertinent to this patient.) HPI/Surgical Indications: Angeline Barnes is 52 y.o. with a rapidly growing uterine mass and AUB here after informed consent for definitive surgical management. Procedure Description: The patient was identified and consent was reaffirmed. She was taken to the operating room and placed in low lithotomy position with stirrups after induction of anesthesia. An exam was conducted and there was a small anteverted uterus and no vaginal or cervical lesions. An antiseptic preparation of the abdomen, perineum, and vagina was performed and the patient was sterilely draped. A surgical pause was performed, correctly identifying the intended procedures, for this patient. A Gilmore catheter was inserted into the bladder. A Vcare uterine manipulator was placed without perforation. An 8-mm transverse incision was made above the umbilicus, through which a Veress needle was inserted and the abdomen was insufflated to tympany with carbon dioxide gas. An 8mm trocar was then inserted and the camera was placed, verifying a successful atraumatic entry. Additional 8-mm trocars and an 8-mm right upper quadrant dental assistant instructor port were placed in the usual locations without difficulty, under direct visualization. The patient was placed in steep Trendelenburg position. Using sharp and electrosurgical dissection, the round ligaments were desiccated and divided bilaterally. The retroperitoneum was opened and the ureters identified. A bladder flap was developed to a point over the upper vagina with sharp and electrosurgical dissection. The ovarian vessels were identified and taking care not to injure the underlying ureter, the vessels were cauterized and divided. The mesosalpinx was then opened to the level of the uterine vessels. The uterine vessels were skeletonized and then cauterized and divided bilaterally as were the uterosacral ligaments. The hysterectomy was completed by making a circumferential colpotomy incision over the VCare cup with monopolarcautery and then the specimen was placed in an Pa containment bag. The uterus was decompressed via the vagina until it was able to be removed and sent as a frozen section. It returned asa benign fibroid. The vaginal incision was sutured with 2-0 VLoc. The pneumoperitoneum was desufflated. The robot was undocked and the ports removed. The skin incisions were closed with 4-0 Vicryl. Dermaflex was applied to each site. The vagina was inspected and noted to be intact and hemostatic. The patient was returnedto a supine position as anesthesia was discontinued. She was then extubated and taken to the PACU in stable condition, and accompanied by the anesthesiologist and surgeons. Dr. Tai Goetz, the attending physician, was present for the entire procedure. Sharp and sponge counts were correct x two. No surgical instrument counts were performed as per [facility] OR policy. Complications: None. DVT Prophylaxis: 5000 units of heparin subcutaneously and SCDs continuously applied to the lower extremities. Surgical Infection Prevention Bundle Used? Yes Infection present at time of surgery?: No Chlorhexidine wipes in Same Day prior to surgery: Yes Expected bowel surgery? No. Fingerstick glucose checked in Same Day: Yes Chlorhexidine-alcohol skin prep: Yes Pre-op IV antibiotics: Cefazolin + Metronidazole Vaginal prep: Yes. Chlorhexidine Open case? No. Attestation: Case Date: 08/13/2022 I was present and I participated during the entire procedure (does not need to include opening and closing). TAI GOETZ MD 08/13/2022 documented in this encounter Plan of Treatment Upcoming Encounters Date Type Department Care Team (Late st Contact Info) Description 11/15/2024 1:00 PM EST Office [place] [address] Zak Gtz MD [facility] [place] [address] 11/16/2024 2:00 PM EST TH Visit (TeleHealth) [place] [phone] Keyanna Wayne APRN [facility] [place] [address] documented as of this encounter Procedures Procedure Name Priority Date/Time Associated Diagnosis Comments SURGICAL PATHOLOGY REPORT Routine 08/13/2022 12:32 PM EDT SPECIMEN TO PATHOLOGY STAT 08/13/2022 12:32 PM EDT MODIFIER ROBOTKATHY XI 08/13/2022 10:57 AM EDT AUB, FIBROID Laparoscopy W Tot Hysterectuterus <=250 Gram W Tube/Ovary ([id number]) 08/13/2022 10:57 AM EDT AUB, FIBROID POCT GLUCOSE Routine 08/13/2022 10:31 AM EDT POCT URINE Routine 08/13/2022 10:06 AM EDT documented in this encounter Results * Surgical Pathology Report (08/13/2022 12:32 PM EDT) Final Diagnosis [id number] ? Location: [facility]; [facility]; A The signing pathologist has (i) examined the relevant preparation(s) for the specimen(s) and (ii) rendered or confirmed the diagnosis(es). . ? Addendum ADDENDUM DISCUSSION Immunohistochemistry Studies: Formalin-fixed, paraffin-embedded tissue sections are studied using the polymer technique with appropriate positive and negative controls. ?These IHC studies provide the pathologist with adjunctive diagnostic information. Antibody specificity has been verified by testing antibodies on a series of in-house tissues with known immunohistochemical performance characteristics. The clinical interpretation of any antibody positive staining or its absence is evaluated within the context of clinical presentation, morphology, histopathological criteria and other diagnostic tests. Block ? Antibody ?Result (Positive/Negative) A12 ?FH ?Retained staining Electronically signed by: ?Nelly Rivera MD Verified: ??08/22/2022 11:35 ??Pathologist Performed at: ??-[facility] Dept. of Pathology, [place], [place] ?Surgical Pathology DIAGNOSIS Uterus, cervix, bilateral fallopian tubes and ovaries, total hysterectomy and bilateral salpingo-oophorectom y: - Benign cervix with Nabothian cyst - Benign proliferative endometrium - Fragments of leiomyomas including pedunculated leiomyoma, with edema - Benign fallopian tubes - Ovaries with follicle cysts Electronically signed by: ?Nelly Rivera MD Verified: ??08/17/2022 14:48 ??Pathologist Performed at: ??-[facility] Dept. of Pathology, [place], [place] SPECIMEN(S) SUBMITTED A - uterus ovaries [...] UTERUS Endometrium: 0.2 cm. Myometrium: Fragmented white faulkner nodular, homogenous, whorled tissue aggregation, no necrosis. Up to 3.5 cm in more intact regions. Serosa: Disrupted serosa due to fragmentation. At the fundus of the uterus there is a single red circumscribed pedunculated structure by 4.2 x 3.0 x 2.1 cm, with a pick red smooth serosal surface. . SPECIMEN PROCESSING CERVIX Diameter: 2.6 cm Os: 1.1 cm, OVARY #1 ?? Size: 4.0 x 2.5 x 1.3 cm. ?? Outer Surface: Faulkner-yellow, intact, smooth. ?? Cut Surface: unremarkable. OVARY #2 ?? Size: 3.5 x 2.0 x 1.6 cm. ?? Outer Surface: Faulkner-yellow, intact, smooth. ?? Cut Surface: unremarkable. Fallopian Tube 1: 4.5 x 0.7 cm, fimbriated. Fallopian Tube 2: 5.6 x 0.8 cm, fimbriated, fimbria and fallopian tube was disrupted and disconnected. Sections/Processing: The following tissue is submitted for frozen section: A1. Fertilizer Supervisor sections in 35 cassettes as follows: ?A1: ??Frozen section remnant (fibroid tissue) ?A2-A3: ??Cervix at 12 and 6 o ??'clock includes the squamocolumnar junction ?A4-A5: ??Endomyometrium ?A6-A12: ??Serially cross-sections of the fragmented myometrial tissue ?A13: ??Serially cross-sections of endomyometrium ?A14-A16: ??Serially cross-sections of fragmented myometrial tissue ?A17: ??Serially cross-sections of endomyometrium ?A18-A19: ??Serially cross-sections of fragmented myometrial tissue ?A20-A23: ??Fundal pedunculated lesion ?A24-A27: ??Serially cross-sections of the ovary #1 ?A28: ??Perpendicular cross-sections of the fimbria #1 ?A29: ??Serially cross-sections of the fallopian tube #1, entirely submitted ?A30-A32: ??Cervix cross-sections of ovary #2 ?A33: ??Perpendicular cross-sections of the fimbria #2 ?A34-A35: ??Serially cross-sections of the fallopian tube #2, entirely submitted ??WM ?Frozen Section FROZEN SECTION DIAGNOSIS AFS - Uterus, ovaries, tubes, cervix, excision ?for frozen section: 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 08/13/22 13:17 Electronically signed by: ?Nelly Rivera MD Verified: ??08/13/2022 13:25 ??Pathologist Performed at: ??-[facility] Dept. of Pathology, [place], [place] This intraoperative consultation should be interpreted as a preliminary diagnosis pending review of the entire specimen and special studies, if any. A final Surgical Pathology report will follow this preliminary Frozen Section report(s). 08/22/2022 11:35 AM EDT [facility] SPECIMEN FROM CERVIX OR VAGINA / Unknown 08/13/2022 12:32 PM EDT 08/13/2022 12:32 PM EDT Tai Goetz MD PATHOLOGY/CYTOLOGY O MAO Performing Organization Address City/[facility]/ZIP Co de Phone Number [facility] [place] [address] * Specimen to Pathology (08/13/2022 12:32 PM EDT) AP Specimen 08/13/2022 12:3 2 PM EDT 08/13/2022 12:32 PM EDT Narrative [facility] - 08/13/2022 12:32 PM EDT Specimen requisition ordered. ??Separate Pathology report to follow Tai Goetz MD PATHOLOGY/CYTOLOGY O MAO Performing Organization Address [facility]/ZIP Co de Phone Number [facility] [place] [address] * POCT Glucose (08/13/2022 10:31 AM EDT) Glucose, POC 97 65 - 199 mg/dL [facility] Comment: Supplemental ranges: <140 mg/dL before meals <180 mg/dL all other times of the day Blood 08/13/2022 10:3 1 AM EDT 08/13/2022 10:31 AM EDT Tai Goetz MD POINT OF CARE TEST O RDERAANGELO Performing Organization Address City/[facility]/ZIP Co de Phone Number [facility] [place] [address] * POCT urine (08/13/2022 10:06 AM EDT) POC Urine HCG Negative POC Control Internal Controls Acceptable Urine specimen (specimen) 08/13/2022 10:06 AM EDT Tai Goetz MD POINT OF CARE TEST O RDERABLES documented in this encounter Visit Diagnoses Diagnosis Intramural and subserous leiomyoma of uterus Intramural and subserous leiomyoma of uterus documented in this encounter Administered Medications Inactive Administered Medications - up to 3 most recent administrations Medication Order MAR Action Action Date Dose Rate Site heparin (porcine) (5,000 units/1 mL) subcutaneous injection 5,000 Units 5,000 Units, Subcutaneous, ONCE, 1 dose, On Fri08/13/22 at 1000, Day of Surgery (Day of Procedure), Routine Given 08/13/2022 10:50 AM EDT 5,000 Units Left Lower Quadrant oxyCODONE (Roxicodone) tablet 5-10 mg 5-10 mg, Oral, EVERY 3 HOURS PRN, Starting on Fri08/13/22 at 1334, Until Fri08/13/22 at 1856, Pain, - If multiple pain medications ordered, use acetaminophen first. - If pain not relieved by acetaminophen first, administer oxycodone. - Initial dose 5 mg. - If pain control not adequate in 60 minutes, give additional 5 mg., Routine Given 08/13/2022 2:22 PM EDT 5 mg phenazopyridine (Pyridium) tablet 200 mg 200 mg, Oral, ONCE, On Fri08/13/22 at 1000, 1 dose, Day of Surgery (Day of Procedure) Given 08/13/2022 10:50 AM EDT 200 mg prochlorperazine (Compazine) (5 mg/mL) injection 5 mg 5 mg, Intravenous, EVERY 30 MIN PRN, 2 doses, Starting on Fri08/13/22 at 1337, Until Fri08/13/22 at 1652, Nausea, Maximum total dose of 10 mg (including OR administration). If multiple antiemetics ordered, use ondansetron first and if ineffective use prochlorperazine second and if ineffective use promethazine, PACU Recovery, Routine Given 08/13/2022 2:19 PM EDT 5 mg documented in this encounter Active and Recently Administered Medications Times are shown in EDT. Scheduled Medication Order 08/11/2022 08/12/2022 08/13/2022 ceFAZolin (Ancef) 3 g in sodium chloride 0.9% 100 mL infusion (COMPLETED)(Linked Group 1) 3 g, Intravenous, ONCE, 1 dose, On Fri08/13/22 at 1000, Administer over 30 Minutes, Automotive Glass Mechanic to OR Infuse over 30 minutes., Day of Surgery (Day of Procedure), Indication for (Active or Suspected): Prophylaxis 1129 (Given - Provid er: Sera Alanis CRNA) heparin (porcine) (5,000 units/1 mL) subcutaneous injection 5,000 Units (COMPLETED) 5,000 Units, Subcutaneous, ONCE, 1 dose, On Fri08/13/22 at 1000, Day of Surgery (Day of Procedure), Routine 1050 (Given - Provid er: Sabine Villarreal RN) phenazopyridine (Pyridium) tablet 200 mg (COMPLETED) 200 mg, Oral, ONCE, On Fri08/13/22 at 1000, 1 dose, Day of Surgery (Day of Procedure) 1050 (Given - Provid er: Sabine Villarreal RN) PRN Medication Order 08/11/2022 08/12/2022 08/13/2022 BUpivacaine (pf) (Marcaine) (5 mg/mL) 0.5% injection (CANCELED) ONCE PRN, Starting on Fri08/13/22 at 1152, Until Fri08/13/22 at 1856, Intra-Operative (Intra-Procedure), Routine 1152 (Given - Provid er: Tai Goetz MD)1321 (Given - Provider: Monique Wheeler) oxyCODONE (Roxicodone) tablet 5-10 mg 5-10 mg, Oral, EVERY 3 HOURS PRN, Starting on Fri08/13/22 at 1334, Until Fri08/13/22 at 1856, Pain, - If multiple pain medications ordered, use acetaminophen first. - If pain not relieved by acetaminophen first, administer oxycodone. - Initial dose 5 mg. - If pain control not adequate in 60 minutes, give additional 5 mg., Routine 1422 (Given - Provid er: Lidia Powers RN) prochlorperazine (Compazine) (5 mg/mL) injection 5 mg (CANCELED) 5 mg, Intravenous, EVERY 30 MIN PRN, 2 doses, Starting on Fri08/13/22 at 1337, Until Fri08/13/22 at 1652, Nausea, Maximum total dose of 10 mg (including OR administration). If multiple antiemetics ordered, use ondansetron first and if ineffective use prochlorperazine second and if ineffective use promethazine, PACU Recovery, Routine 1419 (Given - Provid er: Lidia Powers RN) Linked Groups Order Group 1: ceFAZolin (Ancef) 3 g in sodium chloride 0.9% 100 mL infusion (COMPLETED)Jump to med 3 g, Intravenous, ONCE, 1 dose, On Fri08/13/22 at 1000, Administer over 30 Minutes, Automotive Glass Mechanic to OR Infuse over 30 minutes., Day of Surgery (Day of Procedure), Indication for (Active or Suspected): Prophylaxis And metroNIDAZOLE (Flagyl) 500 mg in sodium chloride 0.9% 100 mL infusion (CANCELED) 500 mg, Intravenous, ONCE, 1 dose, On Fri08/13/22 at 1000, Administer over 30 Minutes, Automotive Glass Mechanic to OR Infuse over 30 minutes., Day of Surgery (Day of Procedure), Indication for (Active or Suspected): Prophylaxis documented in this encounter Care Teams Marketing Team Lead Relationship Specialty Start Date End Date Romy Singh APRN [facility] IMELDA ROSE [place] [address] PCP - General Family Medicine 08/07/22 documented as of this encounter
--- OUTSIDE RECORDS SUMMARY | 2024-10-06 15:36 | XMS_ITS | Encounter Summary ---
Author Organization [facility]ly [facility] Address [facility] [place] [address] Care Team Providers Care Adapted Physical Education Teacher Name Role Phone AlecIndia abel Serge CURRY Primary Care Provider [phone] Reason for Referral * Consultation (Routine) - Closed Specialty Diagnoses / Procedures Referred By Jessica almanzar Referred To Contact Weight and Wellness Diagnoses Morbid obesity Binge eating Nadine Marte APRN [facility] [place] [address] Deedee Thompson, PhD [facility] [address] [place] [address] Referral ID Status Reason Start Date Expiration Date V isits Requested Visits Authorized [id number] Closed Consult, Test & Treat 05/01/2018 05/01/2019 1 1 Encounter Details Date Type Department Care Team (Late st Contact Info) Description 05/01/2018 Orders [place] [address] Nadine Marte APRN [facility] [place] [address] Morbid obesity; Binge eating Social History Tobacco Use Types Packs/Day Years [...] 1:00 PM EST Office [place] [phone] Zak Gtz MD [facility] [place] [address] 11/16/2024 2:00 PM EST TH Visit (TeleHealth) [place] [phone] Keyanna Wayne APRN [facility] [place] [address] Scheduled Referrals Name Type Priority Associated Diagnoses Orde r Schedule Referral to [facility] Center Outpatient Referral Routine Morbid obesity Binge eating Ordered: 05/01/2018 documented as of this encounter Visit Diagnoses Diagnosis Morbid obesity Binge eating Anorexia nervosa documented in this encounter Care Teams Adapted Physical Education Teacher Relationship Specialty Start Date End Date India Escobar APRN PCP - General Family Medicine 10/06/17 08/06/22 documented as of this encounter
--- OUTSIDE RECORDS SUMMARY | 2024-10-06 15:36 | XMS_ITS | Encounter Summary ---
Author Organization [facility] [address] Care Team Providers Care Artillery Specialist Name Role Phone India Escobar APRN Primary Care Provider [phone] Encounter Details Date Type Department Care Team (Late st Contact Info) Description 01/19/2018 12:30 PM EDT Clinical Support [place] [address] Social History Tobacco Use Types Packs/Day Years [...] 172.7 cm (5' 7.99) 01/19/2018 12:16 PM E DT Body Mass Index 38.93 01/19/2018 12:16 PM EDT documented in this encounter Patient Instructions * Patient Instructions* Klarissa Tyler - 01/19/2018 12:30 PM EDT BARIATRIC SURGERY PROGRAM FIRST VISIT Contact information: [facility] Admin coordinator Rashida: [phone] Dietitian: [phone] Surgeons/ nurse practitioner: [phone] Nurse line: [phone] Bariatric Surgery Program educational information: ?? Read the Bariatric Surgery Program Educational Handbook thoroughly, highlight important areas toremember. Write down any questions that you may have to discuss at next visit. ?? Bring the Handbook to ALL pre-operative visits. Keep the handbook in a safe place for easy retrieval. Your next visits: All visits take place in the General Surgery Clinic, Inspector [facility] Area 4 1. 2nd visits with dietitian and nurse practitioner (SMA- Shared Medical Appointment) 2. Pre-op class: to [...] to be lost prior to being scheduled for surgery. 2) Practice post-op GB diet recommendations prior [...] 5 days per week or exercise as recommendedby . 5) Practice this Meal Format: Protein first [...] of starch = 1 slice toast, ?? Citizen [place] muffin, ?? cup cooked potato, rice, or [...] in advance of approval. Only the OR family service worker can provide you with a date. Questions for your doctor, specialist or pharmacist: 4. Ask your doctor about medication suggestions if you currently take medications that are largerthan the size of a tylenol. Large pills need to be crushed (if permitted by the drug nursing coordinator) or taken in liquid form for TWO [...] My Fitness Pal, Lose It, My Plate 3.[facility] facebook page: [email or web address] documented in this encounter Progress Notes * Klarissa Tyler - 01/19/2018 12:30 PM EDT Bariatric Surgery Program Initial Nutrition Assessment Angeline Esa CrespoMolly is being seen today for a preoperative evaluation in anticipation of weight loss surgery. SUBJECTIVE Preferred procedure: She doesn't know, she's thought about the sleeve. Interest in bariatric surgery: She can lose weight on her own but then stops losing weight once shegets down to 210#. She wants to get [...] researching for years and reading blogs that julia done about their bariatric surgery journey. She [...] has 4 kids, her 16 year old sonlives with her methods time analyst and her 11 year old lives with her half of the time. 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 She has one small corgi. She has her father, who lives right down the street, and her best friend, Melia, as supports after surgery. Her 20 year old daughter lives in [facility] but can help out as well. Her boss is supportive too. 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 She currently lives in subsidized housing and is hoping to move in February. 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 She also started meditation on Sundays and at home and yoga. 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 Related medical history: Class II obesity Overweight/obese since age: 9, in 1st grade Highest weight: 310# at age 47 Lowest weight: 170# at age 23 Dieting History: Type of Diet Wt Lost (lbs.) Wt. Regain(lbs.) Dates Duration Comments Shape down program ? Doesn't remember 1988 ~1 year While living in [place] Dexatrim minimal 1989 In high school Parveen Magda 40 65 1990 ~2 years In high school Exercise gym, diet pills, and food restriction 95 All+ 1992 1+ years In college OA 30 50 Early 90's 6 months Off/on since age 15. She plans to start going back. Slim Fast 10-15 10-15 [id number] 1 year Atkins 10 10 1999 1 month Weight Watchers 40 52 1999 1 year Worked w/ RD at [employer] 0 0 2000 6 months After she had her kids The Zone 20 65 2000 1.5 years Nutrisystem 30 60 2001 1 year Weight Watchers 14 7 2001 6 months Weight Watchers 18 none April 2003-2005 2 years Gastric Band 45 July- June [address] Jeronimo Omnmohan diet 90 80 [id number] 2 years Best diet but hard to [...] but did purge 6 times (she tried itbecause it was the cool thing to do). Her boyfriend at the time helped her get through it. She keptthe weight off by eating fruits, vegetables, and foods. Once she left campus she stopped exercising and gained the weight back. Binging/ compulsive eating in the past, especially when stressed.Binging stopped when she started Vyvanse. Before she [...] night hunger and bad eating habits. Nachos and bad food available the whole shift. ?? [x] Emotional eating- stress ?? [x] Mindless eating ?? [x] Choosing high calorie foods- eating high fat and carbs ?? [x] Preference for concentrated sweets- if she eats sugar, she can't stop. She feels it really is an addiction. ?? [ ] Snacking ?? [x] Grazing- loss of control eating/ if it is there, she will snack on it ?? [ ] Meal skipping ?? [x] Physical Inactivity ?? [ ] Genes ?? [x] Halloween causes her to get off track, she would indulge at hall and then be off track through the [...] to cope, such as drinking tea/ water, listening to music, making hair holland, reaching out to her social support, journaling, and mindful breathing and mindful eating. ?? [x] Cut out coffee- [...] because she gets too obsessive about it andgets into trouble. Tracking makes her worry more. She finds keeping a healthy list in her head is the best. Typical Daily Intake: Breakfast 2 pieces tadeo Or 1-2 scrambled eggs with salt and pepper Snack Lunch 2 cups salad with small chicken breast or 2 chicken strips, lettuce, tomato, and a little bitsour cream or olive oil and balsamic Snack Handful of almonds or pistachios Or yogurt Or avocado with balsamic vinegar Supper Revelo, small steak, or ground pork with asparagus, [...] first time in over a year two day's ago. She doesn't like the taste at all. Tobacco: Quit 1 year ago. She only smoked for 1 year and then quit and gained weight. When she wanted a cigarette she would eat or sleep. How Often Meals Eaten Away From Home: Twice a week might go to the [address] with her boys and gets a wedge salad with steak tips or chicken. Supplements/Vitamins: She [...] Psychological Indications: Saw Neena Acosta on 09/12/17, 10/06,, and 10/21/18 and received the Green light to proceed with surgery. She is in weekly therapy with Dr. Hutchins at [facility] for stress, anxiety, and trauma. He reports no contraindications for surgery and she will continue to see him post- op. She started seeing Dr. Hutchins 2 years ago to get through her divorce. Vision at 2 years post-op: To be at a healthy weight, clothes fitting better, and have a healthy BMI for her height. Be able to do everything [...] Surgery 1 month post-op 4 months post-op [place] Body Weight (based on BMI of 25): 164.4# Excess Weight: 91.6# 30-70% Excess Weight Loss: 191-228#; 50% Excess Weight Loss: 210# SUMMARY: Angeline Barnes has been referred for nutrition evaluation and diet instruction in anticipationof bariatric surgery. Previous conservative attempts at weight loss through dieting have been unsuccessful over the residential. Predicted weight loss with surgery is an estimated 30-70% of excess body weight. Advised pt that bariatric surgery is a tool, not a solution; and ultimately, weight loss will be achieved through proper eating and exercise habits. She showed good understanding [...] 5 days per week or exercise as recommendedby MD. 4) We reviewed the No Weight Gain Policy. 5) Patient to attend two pre-op educational classes prior to surgery. Information given to patient: 1. [facility] Bariatric Surgery Education Handbook, a 102 page document (revision February 2012) which contains extensive information regarding pre and post- operative nutrition guidelines including: preop diet, Diet stages I-IV, hydration recommendations, protein guidelines, dumping syndrome, food intoleranc es, vitamin and mineral supplementation as well as a list of books and online bariatric resources. documented in this encounter Plan of Treatment Upcoming Encounters Date Type Department Care Team (Late st Contact Info) Description 11/15/2024 1:00 PM EST Office Visit [place] [address] Zak Gtz MD [facility] [place] [address] 11/16/2024 2:00 PM EST TH Visit (TeleHealth) [place] [address] Keyanna Wayne APRN [facility] [place] [place] [address] documented as of this encounter Visit Diagnoses Not on filedocumented in this encounter Care Teams Artillery Specialist Relationship Specialty Start Date End Date India Escobar APRN PCP - General Family Medicine 10/06/17 08/06/22 documented as of this encounter
--- OUTSIDE RECORDS SUMMARY | 2024-10-06 15:36 | XMS_ITS | Encounter Summary ---
Author Organization [facility] Address [facility] [place] [address] Care Team Providers Care Ends Down Checker Name Role Phone India Escobar APRN Primary Care Provider [phone] Reason for Visit * Reason Comments Advice Only chin lift consult Encounter Details Date Type Department Care Team ([facility] st Contact Info) Description 12/22/2017 2:30 PM EST Office [place] [address] Aubrey Noble MD [facility] [place] [place] [address] Carpal tunnel syndrome, unspecified laterality Social History Tobacco Use Types Packs/Day Years [...] kg (269 lb) 12/22/2017 2:49 PM EST pe r pt Height 172.7 cm (5' 8) 12/22/2017 2:49 PM EST p er pt Body Mass Index 40.9 12/22/2017 2:49 PM EST documented in this encounter Progress Notes * Aubrey Noble MD - 12/22/2017 2:30 PM EST Plastic Surgery Office Note Office Visit Follow Up HPI: Angeline Barnes returns to clinic today to re-discuss having a chin lift/face lift. She reports that he has lost a lot of weight and would like to have the excess skin removed from her chin.She currently weighs 260 pounds. She reports that she does not have blood pressure, she is not a smoker or a diabetic. She will continue to loose additional weight in hopes of proceeding with a face lift. Exam: Good facial symmetry Normal sensation in face Impression: Angeline Barnes returns today to discuss proceeding with a face lift and liposuction. Encouraged patient to continue to loose more weight to lower her BMI. She would be a good candidate for a face lift and liposuction. Revisit surgical [...] 1:00 PM EST Office [place] [phone] Zak Gtz MD [facility] [place] [address] 11/16/2024 2:00 PM EST TH Visit (TeleHealth) [place] [phone] Keyanna Wayne APRN [facility] [place] [address] documented as of this encounter Visit Diagnoses Diagnosis Carpal tunnel syndrome, unspecified laterality documented in this encounter Care Teams Ends Down Checker Relationship Specialty Start Date End Date India Escobar APRN PCP - General Family Medicine 10/06/17 08/06/22 documented as of this encounter
--- OUTSIDE RECORDS SUMMARY | 2024-10-06 15:36 | XMS_ITS | Encounter Summary ---
Author Organization [facility] Address [facility] [place] [address] Care Team Providers Care Precision Lens Polisher Name Role Phone India Escobar ANTOINETTE Primary Care Provider [phone] Encounter Details Date Type Department Care Team ([facility] st Contact Info) Description 07/30/2018 Telephone [place] [address] Arcelia Alvarado, ANTOINETTE [facility] DR [facility] [place] [address] Social History Tobacco Use Types Packs/Day Years [...] encounter Miscellaneous Notes * Telephone Encounter - Arcelia Alvarado APRN - [...] 1:00 PM EST Office [place] [address] Zak Gtz MD [facility] [place] [address] 11/16/2024 2:00 PM EST TH Visit (TeleHealth) [place] [phone] Keyanna Wayne APRN [facility] [place] [address] documented as of this encounter Visit Diagnoses Not on filedocumented in this encounter Care Teams Precision Lens Polisher Relationship Specialty Start Date End Date India Escobar APRN PCP - General Family Medicine 10/06/17 08/06/22 documented as of this encounter
--- OUTSIDE RECORDS SUMMARY | 2024-10-06 15:36 | XMS_ITS | Encounter Summary ---
[place] [address] Care Team Providers Care Retort Cooler Name Role Phone India Escobar APRN Primary Care Provider [phone] Encounter Details Date Type Department Care Team (Late st Contact Info) Description 08/31/2018 Telephone [place] [address] Grace-Lena Vann Social History Tobacco Use Types Packs/Day Years [...] encounter Miscellaneous Notes * Telephone Encounter - Lena Edwards - 08/31/2018 3:22 PM EDT Tried to phone patient to update on status with bariatric surgery program, phone number is not excepting calls from this number. Patient needs to have documented exercise and meet with Deedee at [facility] in order to proceed. documented in this encounter Plan of Treatment Upcoming Encounters Date Type Department Care Team (Late st Contact Info) Description 11/15/2024 1:00 PM EST Office [place] [address] Zak Gtz MD [facility] [place] [address] 11/16/2024 2:00 PM EST TH Visit (TeleHealth) [place] [phone] Keyanna Wayne APRN [facility] [place] [address] documented as of this encounter Visit Diagnoses Not on filedocumented in this encounter Care Teams Retort Cooler Relationship Specialty Start Date End Date India Escobar APRN PCP - General Family Medicine 10/06/17 08/06/22 documented as of this encounter
--- OUTSIDE RECORDS SUMMARY | 2024-10-06 15:36 | XMS_ITS | Encounter Summary ---
Author Organization [place] [address] Care Team Providers Care Cooker Operator Name Role Phone Romy Singh APRN Primary Care Provider [phone] Reason for Visit * Auth/Cert Specialty Diagnoses / Procedures Referred By Jessica almanzar Referred To Contact Diagnoses Abnormal uterine bleeding (AUB) AUB, FIBROID Procedures PRO LAPAROSCOPY W TOT HYSTERECTUTERUS <=250 GRAM W TUBE/OVARY LAPAROSCOPY,TOTAL HYST, UTERUS<250GM, REM TUBE &/OR OVARY, ROBOTIC ASSIST (WRVU 15) MODIFIER ROBOTKATHY Evelyn L, MD [facility] [place] [address] [facility] Referral ID Status Reason Start Date Expiration Date Visits Re quested Visits Authorized [id number] 1 1 Encounter Details Date Type Department Care Team (Late st Contact Info) Description 08/13/2022 11:15 AM EDT - 08/13/2022 2:34 PM EDT Surgery [place] [address] Tai Goetz MD [facility] [place] [address] ROBOTIC LAPAROSCOPY,TOTAL HYST, UTERUS<250GM, REM TUBE &/OR OVARY (WRVU 15) Social History Tobacco Use Types Packs/Day Years [...] Sign Reading Time Taken Comments Blood Pressure 164/76 08/13/2022 2:30 PM EDT Pulse 61 08/13/2022 2:30 PM EDT Temperature 36.6 ??C (97.9 ??F) 08/13/2022 1:45 PM ED T Respiratory Rate 21 08/13/2022 2:30 PM EDT Oxygen Saturation 99% 08/13/2022 2:30 PM EDT Inhaled Oxygen Concentration - - [...] PATIENT DISCHARGE INSTRUCTIONS Gynecologic Oncology phone number: [phone] (Nurse ext 4 then 4; appointment ext 1 then 4). After hours and on weekends please call hospital cell operator at [phone] and ask for Gynecologic Oncologist manager educational. Call your doctor if you develop: --A [...] Center 09/05/2022 11:20 AM Tai Goetz MD [facility] [place] DATABASE DEVELOPMENT PROJECT MANAGER 3K [facility] [place] Activity level: Let your body guide you- [...] 5000U heparin ??? Patient's preferred pharmacy is [email or web address]. She has tolerated Tylenol and ibuprofen in [...] Goetz MD - 08/13/2022 11:37 AM EDT [facility] [place] Operative Note Patient Name: Angeline Barnes : [id number] MR#: [id number] Case Date: 08/13/2022 Surgeon: Surgeon(s) and Role: * Tai Goetz MD - Primary * Monique Wheeler MD - Resident Registered Nurse Residential Leasing Agent: Leisa Bergeron RN Preoperative diagnosis: AUB, FIBROID Postoperative diagnosis: AUB, FIBROID Procedure(s) (LRB): LAPAROSCOPY,TOTAL HYST, UTERUS<250GM, REM TUBE &/OR OVARY, ROBOTIC ASSIST (WRVU 15) (N/A) MODIFIER ROBOTKATHY XI (N/A) Anesthesia: General Estimated Blood Loss: 25 mL Specimens removed during surgery: Order Name Source Comment Collection Info Order Time SPECIMEN TO PATHOLOGY Please perform FS on uterine mass ? Sarcoma please call with results [id number] AUB, FIBROID uterus ovaries tubes cervix excision [...] catheter was inserted into the bladder. A SnapTellare uterine manipulator was placed without perforation. An 8-mm transverse incision was made above the umbilicus, through which a Veress needle was inserted and the abdomen was insufflated to tympany with carbon dioxide gas. An 8mm trocar was then inserted and the camera was placed, verifying a successful atraumatic entry. Additional 8-mm trocars and an 8-mm right upper quadrant foundation assistant port were placed in the usual locations [...] surgical instrument counts were performed as per [facility] [place] OR policy. Complications: None. DVT Prophylaxis: 5000 [...] 1:00 PM EST Office [place] [address] Zak Gtz MD [facility] [place] [address] 11/16/2024 2:00 PM EST TH Visit (TeleHealth) [place] [phone] Keyanna Wayne APRN [facility] [place] [address] documented as of this encounter Procedures Procedure Name Priority Date/Time Associated Diagnosis Comments SURGICAL PATHOLOGY REPORT Routine 08/13/2022 12:32 PM EDT SPECIMEN TO PATHOLOGY STAT 08/13/2022 12:32 PM EDT MODIFIER ROBOTKATHY XI 08/13/2022 10:57 AM EDT AUB, FIBROID Laparoscopy W Tot Hysterectuterus <=250 Gram W Tube/Ovary ([id number]) 08/13/2022 10:57 AM EDT AUB, FIBROID POCT GLUCOSE Routine 08/13/2022 10:31 AM EDT POCT URINE Routine 08/13/2022 10:06 AM EDT documented in this encounter Results * Surgical Pathology Report (08/13/2022 12:32 PM EDT) Final Diagnosis [id number] ? Location: [facility]; [facility]; A The signing pathologist has (i) examined [...] MD Verified: ??08/22/2022 11:35 ??Pathologist Performed at: ??-[facility] [place] Dept. of Pathology, [place], [place] ?Surgical Pathology DIAGNOSIS Uterus, cervix, bilateral fallopian tubes and ovaries, total hysterectomy and bilateral salpingo-oophorectom y: - Benign cervix with Nabothian cyst - Benign proliferative endometrium - Fragments of leiomyomas including pedunculated leiomyoma, with edema - Benign fallopian tubes - Ovaries with follicle cysts Electronically signed by: ?Nelly Rivera MD Verified: ??08/17/2022 14:48 ??Pathologist Performed at: ??-[facility] – [place] Dept. of Pathology, [place], [place] SPECIMEN(S) SUBMITTED A - uterus ovaries [...] tissue is submitted for frozen section: A1. Automobile Spring Repairer sections in 35 cassettes as follows: ?A1: [...] in mitotic activity or atypical cytology in congressional representative sections. 08/13/22 13:17 Electronically signed by: ?Miguel MOSER, Nelly Hernandez Verified: ??08/13/2022 13:25 ??Pathologist Performed at: ??-[facility] – [place] Dept. of Pathology, [place], [place] This intraoperative consultation should be interpreted as a preliminary diagnosis pending review of the entire specimen and special studies, if any. A final Surgical Pathology report will follow this preliminary Frozen Section report(s). 08/22/2022 11:35 AM EDT [facility] SPECIMEN FROM CERVIX OR VAGINA / Unknown 08/13/2022 12:32 PM EDT 08/13/2022 12:32 PM EDT Tai Goetz MD PATHOLOGY/CYTOLOGY O RDDOMI Performing Organization Address City/[facility]/ZIP Co de Phone Number [facility] [place] [address] * Specimen to Pathology (08/13/2022 12:32 PM EDT) AP Specimen 08/13/2022 12:3 2 PM EDT 08/13/2022 12:32 PM EDT Narrative [facility] - 08/13/2022 12:32 PM EDT Specimen requisition ordered. ??Separate Pathology report to follow Tai Goetz MD PATHOLOGY/CYTOLOGY O MAO Performing Organization Address [facility]/ZIP Co de Phone Number [facility] [place] [address] * POCT Glucose (08/13/2022 10:31 AM EDT) Glucose, POC 97 65 - 199 mg/dL [facility] Comment: Supplemental ranges: <140 mg/dL before meals <180 mg/dL all other times of the day Blood 08/13/2022 10:3 1 AM EDT 08/13/2022 10:31 AM EDT Tai Goetz MD POINT OF CARE TEST O RDERAANGELO [facility] [place] [address] * POCT urine (08/13/2022 10:06 AM EDT) POC Urine HCG Negative POC Control Internal Controls Acceptable Urine specimen (specimen) 08/13/2022 10:06 AM EDT Tai Goetz MD POINT OF CARE TEST O RDERABLES documented in this encounter Visit Diagnoses Not on filedocumented in this encounter Administered Medications Inactive Administered Medications - up to 3 most recent administrations Medication Order MAR Action Action Date Dose Rate Site BUpivacaine (pf) (Marcaine) (5 mg/mL) 0.5% injection ONCE PRN, Starting on Fri08/13/22 at 1152, Until Fri08/13/22 at 1856, Intra-Operative (Intra-Procedure), Routine Given 08/13/2022 1:21 PM EDT 12 mLs 19- Surgical Site Given 08/13/2022 11:52 AM EDT 18 mLs 1 9- Surgical Site heparin (porcine) (5,000 units/1 mL) subcutaneous [...] Fri08/13/22 at 1000, Administer over 30 Minutes, Quality Head to OR Infuse over 30 minutes., Day [...] Fri08/13/22 at 1000, Administer over 30 Minutes, Quality Head to OR Infuse over 30 minutes., Day of Surgery (Day of Procedure), Indication for (Active or Suspected): Prophylaxis And metroNIDAZOLE (Flagyl) 500 mg in sodium chloride 0.9% 100 mL infusion (CANCELED) 500 mg, Intravenous, ONCE, 1 dose, On Fri08/13/22 at 1000, Administer over 30 Minutes, Quality Head to OR Infuse over 30 minutes., Day of Surgery (Day of Procedure), Indication for (Active or Suspected): Prophylaxis documented in this encounter Care Teams Cooker Operator Relationship Specialty Start Date End Date Romy Singh, ANTOINETTE [facility] [place] [address] PCP - General Family Medicine 08/07/22 documented as of this encounter
--- OUTSIDE RECORDS SUMMARY | 2024-10-06 15:36 | XMS_ITS | Encounter Summary ---
Author Organization [facility] Address [place] [address] Care Team Providers Care Carpenter Wooden Tank Erecting Name Role Phone India Escobar APRN Primary Care Provider [phone] Reason for Visit * Reason Comments Advice Only discuss facelift Encounter Details Date Type Department Care Team ([facility] st Contact Info) Description 05/12/2018 11:30 AM EDT Office [place] [address] Aubrey Joyce MD [facility] [place] [address] Carpal tunnel syndrome, unspecified laterality; Elastosis of skin Social History Tobacco Use Types Packs/Day Years [...] Weight 122.4 kg (269 lb 12.8 oz) 2017 12:57 PM EDT Height 171.5 cm (5' 7.5) 05/12/2018 12 :57 PM EDT Body Mass Index 41.63 05/12/2018 12:57 PM EDT documented in this encounter Progress Notes * Aubrey Joyce MD - 05/12/2018 11:30 AM [...] INCISIONS performed by Bernardo Simon MD at [facility] DEEPTI ??? TUBAL LIGATION Social History Social [...] options including Kybella injection and liposuction. I explained that she has excess skin in the are to which liposuction and said injection may leave behind skinlaxity and not provide the result she desires. We discussed that she would aesthetically benefit from a facial surgery, however, we discussed that her current BMI of greater than 40 does put her at risk for healing complication or blood clot including DVT/pulmonary embolus. To protect her overall health, surgery is not advised at this time. We dicussed this procedure is more ideal to proceed with once at her goal weight, to prevent need for further surgery. If she is able to achieve weight lossand a BMI beneath 35, we can consider going forward with a procedure to address her area of concern. The patient is understanding of this and is motivated to continue with weight loss. She will follow up in the future to discuss planning. Plan: 1. Work towards lowering BMI beneath 35 2. Follow up to discuss surgical options I, Dai Renner, have performed the documentation for this encounter in the presence of and acting as a scribe for AUBREY JOYCE MD. I performed the services which were documented by the scribe, and I agree with the accuracy of thedocumentation in this encounter. AUBREY JOYCE MD documented in this encounter Plan of Treatment Upcoming Encounters Date Type Department Care Team (Late st Contact Info) Description 11/15/2024 1:00 PM EST Office [place] [address] Zak Gtz MD [facility] [place] [address] 11/16/2024 2:00 PM EST TH Visit (TeleHealth) [place] [phone] Keyanna Wayne APRN [facility] [place] [address] documented as of this encounter Visit Diagnoses Diagnosis Carpal tunnel syndrome, unspecified laterality Elastosis of skin Other specified hypertrophic and atrophic condition of skin documented in this encounter Care Teams Carpenter Wooden Tank Erecting Relationship Specialty Start Date End Date India Escobar, ANTOINETTE PCP - General Family Medicine 10/06/17 08/06/22 documented as of this encounter
--- OUTSIDE RECORDS SUMMARY | 2024-10-06 15:36 | XMS_ITS | Encounter Summary ---
Author Organization [facility] Address [facility] [place] [address] Care Team Providers Care Cocoa Butter Filter Operator Name Role Phone AlecIndia abel Serge CURRY Primary Care Provider [phone] Encounter Details Date Type Department Care Team (Late st Contact Info) Description 02/20/2018 Telephone [place] [address] Arcelia Alvarado APRN [facility] [address] [facility] [address] Social History Tobacco Use Types Packs/Day Years [...] Telephone Encounter - Arcelia Alvarado APRN - 02/20/2018 1:07 PM EDT Telephone call to patient to review labs. Her vitamin D is low and her ferritin is slightly elevated. Instructed to start vitamin D 50,000 units once a week and to stop the ferrous gluconate, she canjust take a regular mvi with iron for now and we will check her post op. I don't want to completelystop iron as she has a history of severe iron deficiency anemia likely due to menorrhagia, she is still having periods but they have improved as she has improved her diet and started exercise, she ishaving RNY. We will recheck post op per usual and adjust as needed. documented in this encounter Plan of Treatment Upcoming Encounters Date Type Department Care Team (Late st Contact Info) Description 11/15/2024 1:00 PM EST Office [place] [address] Zak Gtz MD [facility] [place] [address] 11/16/2024 2:00 PM EST TH Visit (TeleHealth) [place] [phone] Keyanna Wayne APRN [facility] [place] [address] documented as of this encounter Visit Diagnoses Diagnosis Vitamin D deficiency Unspecified vitamin D deficiency documented in this encounter Care Teams Cocoa Butter Filter Operator Relationship Specialty Start Date End Date India Escobar APRN PCP - General Family Medicine 10/06/17 08/06/22 documented as of this encounter
--- OUTSIDE RECORDS SUMMARY | 2024-10-06 15:36 | XMS_ITS | Encounter Summary ---
Author Organization [facility] [place] [address] Care Team Providers Care Engine Manager Name Role Phone India Escobar APRN Primary Care Provider [phone] Encounter Details Date Type Department Care Team (Late st Contact Info) Description 07/27/2022 Orders Only [place] [address]1000 Love Shore MD [facility] DR OBSTET[place] [address] Social History Tobacco Use Types Packs/Day Years [...] 1:00 PM EST Office [place] [phone] Zak Gtz MD [facility] [place] [address] 11/16/2024 2:00 PM EST TH Visit (TeleHealth) [place] [address] Keyanna Wayne APRN [facility] [place] [address] documented as of this encounter Visit Diagnoses Not on filedocumented in this encounter Care Teams Engine Manager Relationship Specialty Start Date End Date India Escobar APRN PCP - General Family Medicine 10/06/17 08/06/22 documented as of this encounter
--- OUTSIDE RECORDS SUMMARY | 2024-10-06 15:36 | XMS_ITS | Encounter Summary ---
Author Organization [facility] Address [facility] [address] Care Team Providers Care District Associate Judge Name Role Phone MarianoMaurice Ting HARVEY Primary Care Provider [phone] Reason for Visit * Reason Comments Wound Check S/P STAB PHLEB VV Encounter Details Date Type Department Care Team (Late st Contact Info) Description 06/08/2015 11:30 AM EDT Office [place] [address] Miri Guadarrama APRN [facility] [place] [address] Varicose vein of leg; Varicose vein Discharge Disposition: Home Social History Tobacco Use [...] this encounter Patient Instructions * Patient Instructions* Miri Guadarrama APRN - 06/08/2015 11:37 AM EDT Call with any questions. documented in this encounter Progress Notes * Miri Guadarrama APRN - 06/08/2015 11:28 AM EDT Post op LLE stab phlebectomy 05/22/15 Doing well. Happy with results No more aching pain in thigh. Denies fever, chills, N/V, problems wit incisions, swelling SOB. Left thigh incision healing well. No infection. No edema. +2 pedal pulses. Assessment/Plan: 45 yo female s/p LLE stab phlebectomy 05/22/15. No complaints Very happy with results. RTC PRN. documented in this encounter Plan of Treatment Upcoming Encounters Date Type Department Care Team (Late st Contact Info) Description 11/15/2024 1:00 PM EST Office [place] [address] Zak Gtz MD [facility] [place] [address] 11/16/2024 2:00 PM EST TH Visit (TeleHealth) [place] [phone] Keyanna Wayne APRN [facility] [place] [address] documented as of this encounter Visit Diagnoses Diagnosis Varicose vein of leg Asymptomatic varicose veins Varicose vein Asymptomatic varicose veins documented in this encounter Care Teams District Associate Judge Relationship Specialty Start Date End Date Maurice Quintana ND [address] [place] [address] PCP - General 07/19/14 10/05/17 documented as of this encounter
--- OUTSIDE RECORDS SUMMARY | 2024-10-06 15:36 | XMS_ITS | Encounter Summary ---
Author Organization [facility] [place] [address] Care Team Providers Care Electronics Supervisor Name Role Phone India Escobar ANTOINETTE Primary Care Provider [phone] Encounter Details Date Type Department Care Team ([facility] st Contact Info) Description 12/22/2017 1:00 PM EST Office Visit Psychiatry [place] [phone] Neena Acosta Other specified eating disorder Social History Tobacco Use Types Packs/Day Years Used Date Smoking Tobacco: Never Smokeless Tobacco: Never Alcohol Use Standard Drinks/Week Comments Yes 0 (1 standard drink = 0.6 oz pur e alcohol) Sex and Gender Information Value Date Recorded Sex Assigned at Not on file Gender Identity Not on file Sexual Orientation Not on file documented as of this encounter Progress Notes * Neena Acosta - 12/22/2017 1:00 PM EST BEHAVIORAL MEDICINE BARIATRIC SURGERY FOLLOW UP N [facility] PS[facility] HE[facility] AT [facility] [address] Dept: [phone] Loc: [phone] 12/22/2017 1:00 PM Angeline Barnes is a 47 y.o. female who was referred for evaluation and preparation for potential bariatric surgery.Angeline was previously evaluated on 09/12/2017 and 10/06/2017, and concerns wereraised about bariatric surgery readiness. Angeline was seen for 52 minutes. RECOMMENDATION BASED ON PSYCHOLOGICAL EVALUATION GREEN LIGHT - Based on the information gathered during this assessment there are no contraindications with Angeline Barnes proceeding with surgery. The follow up plan is as follows: Patient has contact information for Ms. Acosta and BehavioralMedicine team and was encouraged to reach out [...] to occur and is actively engaged in changing those now. 10. Angeline does not have a [...] reported she has used planning ahead and portioncontrol to cease grazing. History of mindless/stress eating [...] 4 times a week. Patient is currently exercisingwith yoga 2x/week and elliptical (at the gym) for 30 minutes 2x/week. Current implementation of habit changes: good MENTAL HEALTH UPDATE: From previous evaluation: 10/06/2017: Patient reported increased symptoms of depression, which she attributed to dissatisfaction with herweight, increased physical pain, and difficulties with physical mobility. She reported continued concerns regarding traumatic stress and anxiety. She described two anticipated stressful events: 1) legal division of assets with former spouse (10/17/2017); and 2) pending finalization of divorce (12/18/2017). However, she predicted these events will be less stressful than the custody hearings and initial separation from her former spouse. She is currently in treatment for symptoms of depression and PTSD with [facility] in [place], [place]. 12/22/2017: Patient reported consistent engagement in therapy with Dr. Hutchins and improved symptoms of depressionand PTSD. She also reported improved motivation and ability to follow her meal plan and cease priorbinge, grazing, stress/mindless eating behaviors, which she attributed [...] surgery will likely serve to motivate patient to be more assertive with her PTSD treatment. He said he also plans to discuss medication options for symptom management. Records from Dr. Hutchins indicate patient was previously treated for symptoms of post- depression and coping with stress in 2005. 12/22/2017: Dr. Hutchins completed brief questionnaire regarding patient's readiness for bariatric surgery and noted no concerns or reservations about the patient proceeding with surgery. He reported she has consistently engaged in treatment, been psychologically stable, and has not engaged in bingeing or purging b ehaviors. He also reported he will continue to [...] detailed at the beginning of this report. * Deedee Thompson, PhD - 12/22/2017 1:00 PM EST I have reviewed this note and agree with the plan and treatment Deedee Thompson, PhD documented in this encounter Plan of Treatment Upcoming Encounters Date Type Department Care Team (Late st Contact Info) Description 11/15/2024 1:00 PM EST Office [place] [address] Zak Gtz MD [facility] [place] [address] 11/16/2024 2:00 PM EST TH Visit (TeleHealth) [place] [phone] Keyanna Wayne APRN [facility] [place] [address] documented as of this encounter Visit Diagnoses Diagnosis Other specified eating disorder documented in this encounter Care Teams Electronics Supervisor Relationship Specialty Start Date End Date India Escobar APRN PCP - General Family Medicine 10/06/17 08/06/22 documented as of this encounter
--- OUTSIDE RECORDS SUMMARY | 2024-10-06 15:36 | XMS_ITS | Encounter Summary ---
Author Organization [facility] [place] [address] Care Team Providers Care Manager Supply Chain Planning Name Role Phone India Escobar APRN Primary Care Provider [phone] Encounter Details Date Type Department Care Team (Late st Contact Info) Description 02/19/2018 Notes [place] [address] Sara Servin Social History Tobacco Use Types [...] as of this encounter Progress Notes * Sara Servin - 02/19/2018 8:37 AM EDT This patient is scheduled for an SMA in the bariatric surgery program on 02/19/18. Here are the lists of what items were asked for/needed following the [...] may cause problems with her insurance authorization. * Sara Servin - 02/19/2018 8:37 AM EDT Pap smear and h. Pylori labs received and scanned into patient's chart. documented in this encounter Plan of Treatment Upcoming Encounters Date Type Department Care Team (Late st Contact Info) Description 11/15/2024 1:00 PM EST Office [place] [address] Zak Gtz MD [facility] [place] [place] [address] 11/16/2024 2:00 PM EST TH Visit (TeleHealth) [place] [address] Keyanna Wayne APRN [facility] [place] [address] documented as of this encounter Visit Diagnoses Not on filedocumented in this encounter Care Teams Manager Supply Chain Planning Relationship Specialty Start Date End Date India Escobar APRN PCP - General Family Medicine 10/06/17 08/06/22 documented as of this encounter
--- OUTSIDE RECORDS SUMMARY | 2024-10-06 15:36 | XMS_ITS | Encounter Summary ---
[place] [address] Care Team Providers Care Insurance Consultant Name Role Phone India Escobar ANTOINETTE Primary Care Provider Encounter Details Date Type Department Care Team ([facility] st Contact Info) Description 03/17/2018 Telephone [place] [phone] Sara Servin Social History Tobacco Use Types [...] * Telephone Encounter - Sara Servin - 03/17/2018 9:06 AM EDT Spoke on the phone with Angeline to explain the outcome of her [id number] last night. [place] Medicaid has denied her bariatric surgery on [...] 1:00 PM EST Office [place] [phone] Zak Gtz MD [facility] [place] [address] 11/16/2024 2:00 PM EST TH Visit (TeleHealth) [place] [phone] Keyanna Wayne APRN [facility] [place] [address] documented as of this encounter Visit Diagnoses Not on filedocumented in this encounter Care Teams Insurance Consultant Relationship Specialty Start Date End Date India Escobar APRN PCP - General Family Medicine 10/06/17 08/06/22 documented as of this encounter
--- OUTSIDE RECORDS SUMMARY | 2024-10-06 15:36 | XMS_ITS | Encounter Summary ---
Author Organization [facility] Address [facility] [place] [address] Care Team Providers Care Zinc Miner Blasting Name Role Phone India Escobar APRN Primary Care Provider [phone] Reason for Visit * Reason Comments Establish Care Uterine Mass * Consultation (Routine) - Closed Specialty Diagnoses / Procedures Referred By Jessica almanzar Referred To Contact Gynecology Oncology Diagnoses Uterine mass Edith Sharp MD [address] [place] [address] [place] [place] [address] Referral ID Status Reason Start Date Expiration Date Visits Re quested Visits Authorized [id number] Closed 07/17/2022 07/17/2023 1 1 Encounter Details Date Type Department Care Team (Late st Contact Info) Description 07/22/2022 2:00 PM EDT Office Visit Gynecology [place] [address] Kim Goetz MD [facility] [place] [address] Abnormal uterine bleeding (AUB) (Primary Dx); Uterine mass Social History Tobacco Use Types Packs/Day Years [...] Sign Reading Time Taken Comments Blood Pressure 161/105 07/22/2022 1:40 PM EDT Pulse 64 07/22/2022 1:40 PM EDT Temperature 36.3 ??C (97.3 ??F) 07/22/2022 1:40 PM ED T Respiratory Rate 16 07/22/2022 1:40 PM EDT Oxygen Saturation 95% 07/22/2022 1:40 PM EDT Inhaled Oxygen Concentration - - Weight 143.7 kg (316 lb 12.8 oz) 07/22/2022 1:40 PM EDT Height 168.6 cm (5' 6.38) 07/22/2022 1:40 PM ED T Body Mass Index 50.55 07/22/2022 1:40 PM EDT documented in this encounter Progress Notes * Kory Horn MD - 07/22/2022 2:00 PM EDT Images from the original note were not included. Division of [place] [address] New Outpatient Consultation: Reason for Consult:Angeline Barnes is being seen in the clinic today at the request of Dr. Da Sharp MD [address] [place] [address] for the evaluation of an enlarging uterine mass. I have reviewed the available records, interviewed and examined the patient. History of Present Illness: Angeline Barnes is a 52 y.o. female here for evaluation and management of an enlarging uterine mass. She has a history of AUB (regular periods, however heavier and more painful), since aged 42's, thought to be d/t a fibroid which was estimated to be 3cm per 2018 TVUS. She was previously managed withTXA, an unsuccessful attempt at endometrial ablation (cervical os too dilated), OCPs (which were then discontinued after HTN was diagnosed in 2018). She declined management on LARCs, and moved to [facility] to be with her [place]. [place] the [place], per patient report the fibroid had enlarged to 8cm on TVUS inNov2010. Since February 2022, she feels like her belly has been growing. She has an an episode of very heavy bleeding, in which doctors in the [place] had recommended that she take the Minipill -- which she quicklydiscontinued. Since quitting smoking late last year, she has gained 60-70 lbs. She recently returned back to the [facility] in June 2022, to care for her ailing father. [facility] for the above symptoms, and a TVUS was ordered demonstrating an enlarged uterus measuring 13.5x11.4x12.5cm, with a uterine mass obscuring the endometrium now measuring 11.3m in diameter. Dr. Sharp additionally ordered an MRI showing a similarly sized mass, favored to represent a degenerating fibroid vs. malignant process. An endometrial biopsy was performed in June 2018 demonstrates disordered proliferative endometrium with foci of gland crowding, negative for atypia. Today, Angeline reports that she been having diarrhea off/on since February, and moreso over the last 4-5 days, and alternating with constipation. Has only been having spotting and brown discharge since February, almost every day, no periods since. Feeling daily abdominal cramping and taking ibuprofen with some relief. She has not yet established care with a PCP since [place] the [place]. Review of Systems: Constitutional: Denies weight loss, fevers, chills or sweats. Energy level good. Able to care for self. Eyes: Wears corrective lenses. Denies active eye issues. ENT: Good dentition. Denies mouth sores, sore throat, or runny nose. Denies problems with hearing. Cardiovascular: Denies GA, chest pain, chest pressure. Respiratory: Denies SOB or chronic cough. GI: No melena or BRBPR. Occasional diarrhea and constipation : Denies incontinence or hematuria. +vaginal bleeding (spotting) Musculoskeletal: Denies weakness or muscle pain. Integumentary: Denies lesions and rash. Neurological: Denies seizures, headache. Psychiatric: Denies anxiety and depression. Endocrine: Denies thyroid problems, no heat/cold intolerance. Hematologic/Lymphatic: Denies easy bruising. allergic/Immunologic: Denies environmental allergies. Medical History: H/o hypertension as documented previously in EMR - currently not on medications Elevated BMI Osteoarthritis Depression Surgical History: Cholecystectomy Gastric band with subsequent removal in 2006 Laparoscopic tubal ligation Medications: No medications currently Allergies: Allergies Allergen Reactions ??? Cat/Feline Products ??? House Dust Obstetric History: , all Gynecologic History/Health Maintenance: Menarche at age 14. Began to have heavier periods and cramping aged 42's. H/o OCP usage. LMP February 2022. Denies STDs. 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 Last pap was 2-3 years ago. HPV always negative. Mammogram - last obtained aged 42. Last colonoscopy - never Family History: Paternal aunt with h/o ?ovarian, uterine cancer. Genetically tested and negative. Mom had hysterectomy due to unknown gynecological cancer but never treated with chemotherapy or XRT Social History: Former cigarette smoker (quit Aug 2021, smoked for 1.5 years) No ETOH usage No recreational drug usage Physical Exam: Vitals: 07/22/22 1340 BP: (!) 161/105 Patient Position: Sitting Pulse: 64 Resp: 16 Temp: 36.3 ??C (97.3 ??F) TempSrc: Tympanic SpO2: 95% Weight: (!) 143.7 kg (316 lb 12.8 oz) Height: 168.6 cm (5' 6.38) General: well appearing Neck: Supple, no thyromegaly. Lymph nodes: No cervical, supraclavicular, axillary or inguinal lymphadenopathy. Cor: RRR. No M/R/G. Lungs: CTA-B with good breath sounds throughout the entire lung pool. Abdomen: Soft, nontender, nondistended, obese. Some rectus diastasis appreciated above umbilicus Pelvic Exam: Normal external female genitalia. The Bartholin's and Stewart's glands are unremarkable.The urethra is without masses. The urethral meatus is without prolapse. The vagina is pink and rugated. Speculum placed, vagina and cervix without lesions, pap smear obtained. Given patient habitus, difficult to appreciate size/contour of uterus, no adnexal masses, no cervical motion tenderness . Extremities: Nontender, no clubbing, cyanosis, erythema or edema. Skin: No lesions. Pertinent Radiographic/Diagnostic Results: No images available for review at this time. EMB 06/2022: TVUS 06/2022: MRI 06/2022: TVUS 2018: Impression/Plan: Angeline Barnes is a 52 y.o. with AUB (failed management with TXA and oral contraceptives,unsuccessful endometrial ablation attempt, declines LARCs), here for further discussion of surgicalmanagement of a uterine mass, first seen in TVUS in 2018 and thought to be a 3cm fibroid, now enlarged to 11cm per recent TVUS and MRI. The mass has become increasingly more symptomatic, causing her m ore pain and irregular bleeding (LMP February 2022, continued spotting since, recent EMB negative). Although imaging has not been sent over for review, the radiographic characteristics per report are most likely consistent with a fibroid, however cannot r/o malignancy especially given the documented growth. Pap smear also collected today, will follow up results. Based on these findings, a decision was made to proceed with surgery for definitive treatment, specifically a robotic-assisted hysterectomy and bilateral salpingo-ophorectomy, with possible laparotomy, staging as indicated based on size of specimen and results from any frozen sections. I reviewed the surgical approach, need for general anesthesia, and the expected postoperative recovery. The patient was informed that patient's undergoing this procedure typically are safe to go homethe day after surgery. Additionally, I discussed the risks of the procedure including infection, bleeding, chronic leg swelling (lymphedema), DVT/PE, , damage to pelvic or abdominal structures such as the bowel, bladder, ureters, blood vessels, nerves, and the possibility of needing to convertto an open surgery. All answered to her satisfaction and she verbalized understanding of the plan of care. Surgical consent was obtained. Hibiclens, Clearfast drink was provided with instructions. Scheduled date: 08/13/2022 Antibiotics: 3g Ancef, 500mg azithromycin, will administer pyridium DVT prophylaxis: SCDs, 5000U heparin Pre-op labs: T&S, CBC, CMP Dispo: SDDC I also encouraged her to establish care with a PCP, given that she has recently moved back into [facility] and was quite hypertensive on exam today. She is due for a mammogram and colonoscopy, however she prefers to wait after surgery for her uterine mass. We discussed that she can additionally follow up with a PCP for her routine screening. Thank you for referring this mary patient to [facility] for her cancer care. I will keep you apprised of her progress. This patient was seen and evaluated with Dr. Goetz, attending gynecologic oncologist Kory Horn MD, PGY2 Gynecologic Oncology 07/22/2022 I have seen and examined the patient and reviewed and edited the resident's above history and I agree with the details as written. The assessment and plan were formulated in discussion with me and I agree with them as documented. Kim Goetz MD documented in this encounter Plan of Treatment Upcoming Encounters Date Type Department Care Team (Late st Contact Info) Description 11/15/2024 1:00 PM EST Office Visit [place] [phone] Zak Gtz MD [facility] [place] [address] 11/16/2024 2:00 PM EST TH Visit (TeleHealth) [place] [phone] Keyanna Wayne APRN [facility] [place] [address] documented as of this encounter Procedures Procedure Name Priority Date/Time Associated Diagnosis Comments TYPE AND SCREEN VALIDITY Routine 07/22/2022 4:28 PM EDT ABORH RECHECK STATUS Routine 07/22/2022 4:28 PM EDT HEMOGRAM Routine 07/22/2022 4:28 PM EDT Abnormal uterine bleeding (AUB) DIFFERENTIAL, AUTOMATED Routine 07/22/20 4:28 PM EDT Abnormal uterine bleeding (AUB) HC ANTIBODY DETECTION,CAPTURE-R Routine 07/22/2022 4:28 PM EDT Abnormal uterine bleeding (AUB) ABO/RH TYPING Routine 07/22/2022 4:28 PM EDT Abnormal uterine bleeding (AUB) HC CBC,PLT & AUTO DIFF Routine 4:28 PM EDT Abnormal uterine bleeding (AUB) ANTIBODY SCREEN Routine 07/22/2022 4:28 PM EDT Abnormal uterine bleeding (AUB) COMPREHENSIVE METABOLIC PANEL Routine 07/22/2022 4:28 PM EDT Abnormal uterine bleeding (AUB) CYTOPATHOLOGY GYNECOLOGICAL Routine 07/22/2022 3:26 PM EDT Abnormal uterine bleeding (AUB) HPV Routine 07/22/2022 2:00 PM EDT INSPECTION SUPERVISOR CYTOLOGY INTERPRETATION Routine 07/22/2022 2:00 PM EDT INSPECTION SUPERVISOR CYTOLOGY FINAL REPORT Routine 07/22/2022 2:00 PM EDT documented in this encounter Results * Type and Screen Validity (07/22/2022 4:28 PM EDT) T&S only valid at [facility] LABORATORY Comment:This Type and Screen result is only valid at the [facility] Hospital Blood 07/22/2022 4:28 PM EDT 07/22/2022 4:37 PM EDT Narrative Resulting Agency Comment Spec In Lab Kim Goetz MD BLOOD BANK LAB ORDER GERRI [facility] [place] [address] * ABORH Recheck Status (07/22/2022 4:28 PM EDT) ABORH Type Recheck Completed [facility] Blood 07/22/2022 4:28 PM EDT 07/22/2022 4:37 PM EDT Narrative Resulting Agency Comment Spec In Lab Kim Goetz MD BLOOD BANK LAB ORDER GERRI [facility] [place] [address] * (ABNORMAL) Differential, Automated (07/22/2022 4:28 PM EDT) Neutrophil % 66.6 % [facility] LABORATORY Neutrophil Absolute 6.13(H) 1.70 - 6.10 x10(3)/ L [facility] Lymph % 24.8 % [facility]OR[facility] Lymphocytes Abs 2.3 0.9 - 3.2 x10(3)/ L [facility] Monocyte % 4.6 % [facility]OR[facility]ORY Monocyte Abs 0.4 0.3 - 0.9 x10(3)/ L [facility] Eos % 3.3 % [facility] Eosinophils Abs 0.3 0.0 - 0.4 x10(3)/[facility] LABORATORY Basophil % 0.4 % [facility] Baso Absolute 0.0 0.0 - 0.1 x10(3)/ L [facility] Immature Gran % 0.30 % [facility] Comment: Immature granulocytes(IG's)percentage and absolute count will include metamyelocytes, myelocytes, and promyelocytes. Blood smears from CBCs yielding IG's will be scanned manually for concordance. If this scan disagrees with the automated IG or if promyelocytes are noted, a manual differential will be performed. Immature Gran Absolute 0.03 0.00 - 0.04 x10(3)/mc L [facility] Blood 07/22/2022 4:28 PM EDT 07/22/2022 4:38 PM EDT Narrative Resulting Agency Comment Spec In Lab Kim Goetz MD HEMATOLOGY ORDERABLE S [facility] [place] [address] * (ABNORMAL) Hemogram (07/22/2022 4:28 PM EDT) White Blood Cell 9.2 4.0 - 9.5 x10(3)/mc L [facility] Red Blood Cell 4.93 4.00 - 5.21 x10(6)/mc L [facility] Hemoglobin 13.5 11.7 - 15.5 g/dL [facility] Hematocrit 40.7 35.7 - 45.8 % [facility] Mean Cell Volume 82.6 82.6 - 94.4 fL [facility] Mean Cell Hemoglobin 27.4 27.1 - 32.0 pg [facility] Mean Cell Hemoglobin Concentration 33.2 31.7 - 35.0 g/dL [facility] Platelet 259 145 - 357 x10(3)/mc L [facility] RDW Standard Deviation 49.5(H) 37.0 - 46.0 fL [facility] RDW coefficient of variation 16.4(H) 11.5 - 14.1 % [facility] Mean Platelet Volume 9.7 7.6 - 12.9 fL [facility] NRBC% auto 0.0 % [facility] NRBC Absolute 0.000 0.000 - 0.000 x10(3)/mc L [facility] Blood 07/22/2022 4:28 PM EDT 07/22/2022 4:38 PM EDT Narrative Resulting Agency Comment Spec In Lab Kim Goetz MD HEMATOLOGY ORDERABLE S [facility] [place] [address] * Antibody screen (07/22/2022 4:28 PM EDT) Pathologist [facility] Ab Screen Interp Negative [facility] Expires at [id number] on: 08/16/2022 [facility] Blood 07/22/2022 4:28 PM EDT 07/22/2022 4:37 PM EDT Narrative Resulting Agency Comment Spec In Lab Kim Goetz MD BLOOD BANK LAB ORDER GERRI [facility] [place] [address] * ABO/Rh Typing (07/22/2022 4:28 PM EDT) [facility] ABORH Type B Pos [facility] Blood 07/22/2022 4:28 PM EDT 07/22/2022 4:37 PM EDT Narrative Resulting Agency Comment Spec In Lab Kim Goetz MD BLOOD BANK LAB ORDER GERRI [facility] [place] [address] * (ABNORMAL) Comprehensive metabolic panel (non-fasting) (07/22/2022 4:28 PM EDT) [facility] Glucose 84 65 - 199 mg/dL [facility] Comment:Diabetes: >=200 mg/d L plus symptoms Blood Urea Nitrogen 11 8 - 18 mg/dL [facility] Creatinine 0.66(L) 0.70 - 1.20 mg/dL [facility] Sodium 141 135 - 145 mmol/L [facility] Potassium 3.8 3.5 - 5.0 mmol/L [facility] Comment: Please note: ??Patients with WBC >100,000 may have falsely elevated Potassium levels. ??For accurate Potassium quantification in these patients send serum separator tube (gold top) for subsequent determinations. ??Contact the Clinical Chemistry Laboratory if there are any questions. Chloride 106 98 - 107 mmol/L [facility] Carbon Dioxide 23 22 - 31 mmol/L [facility] Anion Gap 12 5 - 15 mmol/L [facility] Calcium 9.3 8.5 - 10.5 mg/dL [facility] Protein, Total 7.5 6.1 - 8.0 g/dL [facility] Albumin 4.3 3.2 - 5.2 g/dL [facility] Aspartate Aminotransferase 48(H) 0 - 30 unit/L [facility] Alanine Aminotransferase 52(H) 0 - 30 unit/L [facility] Alkaline Phosphatase 68 35 - 105 unit/L [facility] Bilirubin, Total 0.4 0.2 - 1.3 mg/dL [facility] Est Glomerular Filtration Rate 107 >=60 mL/min/1. 73 m?? [facility] Comment: This patient's estimated GFR was [...] In Lab Kim Goetz MD CHEMISTRY ORDERABLES [facility] [place] [address] * Cytopathology Gynecological (07/22/2022 3:26 PM EDT) AP Specimen 07/22/2022 3:26 PM EDT 07/22/2022 3:26 PM EDT Narrative [facility] - 07/22/2022 3:26 PM EDT Specimen requisition ordered. ??Separate Pathology report to follow Kim Goezt MD PATHOLOGY/CYTOLOGY O MAO Performing Organization Address [facility] Co de Phone Number [facility] [place] [address] * INSPECTION SUPERVISOR Cytology Interpretation (07/22/2022 2:00 PM EDT) Industrial Electrician Cytology Interpretation NILM [facility] Comment:Industrial Electrician Cytology Final R eport Endocervical Component Not Present [facility] AP Specimen 07/22/2022 2:00 PM EDT 07/25/2022 12:19 PM EDT Kim Goetz MD PATHOLOGY/CYTOLOGY O MAO Performing Organization Address [facility] de Phone Number [facility] [place] [address] * Industrial Electrician Cytology Final Report (07/22/2022 2:00 PM EDT) Industrial Electrician Cytology Final Report [id number] ? Location: 3K The signing pathologist has (i) examined the relevant preparation(s) for the specimen(s) and (ii) rendered or confirmed the diagnosis(es). . ? Industrial Electrician Final DIAGNOSIS Normal Negative for intraepithelial lesion or malignancy (NILM). For consensus guidelines for the management of cervical cancer screening test results, please see: ?? [email or web address].o rg . Electronically signed by: ?Estrella RODRIGUEZ(ASCP)Valentine Verified: ??07/25/2022 12:19 ??Crane Crew Supervisor Performed at: ??-[facility] Dept. of Pathology, [place], [place] HPV RESULTS HPV16 (Result) ?Negative HPV18 [...] Clinical Genomics and Advanced Technology (CGAT) at [facility]. ? - Adrián Tamez, PhD, [facility], Director-CGAT STATEMENT OF ADEQUACY Specimen submitted [...] ?Yes, history of previous abnormal Pap Prior INSPECTION SUPERVISOR Therapy: ? Cautery . CLINICAL INFORMATION Hist of HPV Vaccine: ? No ICD Diagnosis: ? Z12.4 Encounter for screening for malignant neoplasm of cervix Clinical Data, Significant Therapy and Clinical Impression ?? : ?_ This Pap Test has been evaluated with the assistance of the AscletisPrep Pap Test Imaging System. Note: The Pap test is a screening test for cervical cancer with an inherent false-negative rate dependent upon several variables. For further information please contact the [facility] Laboratory. Reference: Elizabeth GAMBOA. Manager Of Human Resources of Pap Smear Results. In: Rashid BS, Glen FRASER, ed. The Pap Smear. [place]: Jaspal, 2002: 71-77. [facility] 07/22/2022 2:00 PM EDT Kim Goetz MD PATHOLOGY/CYTOLOGY O RDERABLES Performing Organization Address City/State/[facility] Co de Phone Number [facility] [place] [address] * HPV (07/22/2022 2:00 PM EDT) HPV16 NEGATIVE NEGATIVE [facility] HPV 18 NEGATIVE NEGATIVE [facility] HPV Other HR NEGATIVE NEGATIVE [facility] HPV Interpretation See Comment [facility] Comment: NEGATIVE for high-risk HPV *. [...] In Lab Kim Goetz MD PATHOLOGY/CYTOLOGY O RDERABLES [facility] [place] [address] documented in this encounter Visit Diagnoses Diagnosis Abnormal uterine bleeding (AUB)- Primary Uterine mass Other specified symptom associated with female genital organs documented in this encounter Care Teams Zinc Miner Blasting Relationship Specialty Start Date End Date India Escobar APRN PCP - General Family Medicine 10/06/17 08/06/22 documented as of this encounter
--- OUTSIDE RECORDS SUMMARY | 2024-10-06 15:36 | XMS_ITS | Encounter Summary ---
[place] [address] Care Team Providers Care Lens Marker Name Role Phone India Escobar APRN Primary Care Provider [phone] Encounter Details Date Type Department Care Team (Late Contact Info) Description 07/11/2022 Telephone Obstetrics [place] [phone] Josseline Hills Social History Tobacco Use Types Packs/Day Years [...] encounter Miscellaneous Notes * Telephone Encounter - Josseline Hills - 07/11/2022 4:16 PM EDT Called [facility] to confirm patients incoming referral, they are waiting on provider to sign the note and then sending it over. PAtient called in and was very concerned we hadnt gotten it yet butit is indeed en route. will schedule when referall is in. documented in this encounter Plan of Treatment Upcoming Encounters Date Type Department Care Team (Late Contact Info) Description 11/15/2024 1:00 PM EST Office [place] [address] Zak Gtz MD [facility] [place] [address] 11/16/2024 2:00 PM EST TH Visit (TeleHealth) [place] [phone] Keyanna Wayne APRN [facility] [place] [address] documented as of this encounter Visit Diagnoses Not on filedocumented in this encounter Care Teams Lens Marker Relationship Specialty Start Date End Date India Escobar APRN PCP - General Family Medicine 10/06/17 08/06/22 documented as of this encounter
--- OUTSIDE RECORDS SUMMARY | 2024-10-06 15:36 | XMS_ITS | Encounter Summary ---
Author Organization [facility] [place] [address] Care Team Providers Care Artist Manager Name Role Phone India Escobar ANTOINETTE Primary Care Provider [phone] Reason for Visit * Reason Onset Date Comments Other 12/23/2017 Encounter Details Date Type Department Care Team ([facility] st Contact Info) Description 12/23/2017 Telephone [place] [address] Nadine Marte APRN [facility] [place] [address] Other Social History Tobacco Use Types Packs/Day [...] * Telephone Encounter - Nadine Marte - 12/23/2017 [...] 1:00 PM EST Office [place] [phone] Zak Gtz MD [facility] [place] [address] 11/16/2024 2:00 PM EST TH Visit (TeleHealth) [place] [address] Keyanna Wayne APRN [facility] [place] [address] documented as of this encounter Visit Diagnoses Not on filedocumented in this encounter Care Teams Artist Manager Relationship Specialty Start Date End Date India Escobar APRN PCP - General Family Medicine 10/06/17 08/06/22 documented as of this encounter
--- OUTSIDE RECORDS SUMMARY | 2024-10-06 15:36 | XMS_ITS | Encounter Summary ---
Author Organization [facility] [place] [address] Care Team Providers Care Stock Drier Tender Name Role Phone Maurice Quintana WES Primary Care Provider [phone] Encounter Details Date Type Department Care Team (Late Contact Info) Description 07/18/2017 Telephone [place] [phone] Sara Servin Social History Tobacco Use Types [...] * Telephone Encounter - Sara Servin - 07/18/2017 11:03 AM EDT LMOM for PT encouraging her to complete her online registration. I asked her to give me a call if she has any questions or concerns. documented in this encounter Plan of Treatment Upcoming Encounters Date Type Department Care Team (Late st Contact Info) Description 11/15/2024 1:00 PM EST Office [place] [phone] Zak Gtz MD [facility] [place] [address] 11/16/2024 2:00 PM EST TH Visit (TeleHealth) [place] [address] Keyanna Wayne APRN [facility] [place] [address] documented as of this encounter Visit Diagnoses Not on filedocumented in this encounter Care Teams Stock Drier Tender Relationship Specialty Start Date End Date Maurice Quintana, WES [facility] [address] [place] [address] PCP - General 07/19/14 10/05/17 documented as of this encounter
--- OUTSIDE RECORDS SUMMARY | 2024-10-06 15:36 | XMS_ITS | Encounter Summary ---
Author Organization [facility] [place] [address] Care Team Providers Care Ground Crewman Mission Support Name Role Phone Romy Singh APRN Primary Care Provider [phone] Reason for Visit * Auth/Cert Specialty Diagnoses / Procedures Referred By Jessica almanzar Referred To Contact Diagnoses Abnormal uterine bleeding (AUB) AUB, FIBROID Procedures PRO LAPAROSCOPY W TOT HYSTERECTUTERUS <=250 GRAM W TUBE/OVARY LAPAROSCOPY,TOTAL HYST, UTERUS<250GM, REM TUBE &/OR OVARY, ROBOTIC ASSIST (WRVU 15) MODIFIER MARIA INES,Kim Araujo MD [facility] [place] [address] [facility] Referral ID Status Reason Start Date Expiration Date Visits Re quested Visits Authorized [id number] 1 1 Encounter Details Date Type Department Care Team (Late st Contact Info) Description 08/13/2022 10:47 AM EDT Anesthesia [place] [phone] Mary Jane Santoro MD [facility] [place] [address] Anesthesia Record Procedure Summary Procedure Name Responsible Anesthesiologist Anesthesia Start Time Anesthesia Stop Time ROBOTIC LAPAROSCOPY,TOTAL HYST, UTERUS<250GM, REM TUBE &/OR OVARY (WRVU 15) (Uterus) Mary Jane Santoro MD 08/13/22 1047 08/13/22 1351 Events Date Time Event Comment 08/13/2022 1023 1047 AN Verify 1047 Start 1058 An Start Data 1106 An Induction 1108 An Intubation 1109 Anesthesia Ready 1137 Procedure Start 1155 Break/Relief In I assumed ca re for Break Relief before which we: 1. Identified the patient 2. Identified the responsible provider(s) 3. Reviewed the pertinent medical history 4. Discussed the surgical plan and course 5. Reviewed intra-op anesthesia management and issues during anesthesia 6. Set expectations for the relief (and/or post-procedure) period 7. Allowed opportunity for questions and acknowledgement of understanding Saba Sun CRNA 1232 Break/Relief Out 1334 Extubation/LMA Out 1339 an stop data 1344 Recovery or ICU Handoff Carline ent care was transferred to the destination unit staff after review of the patient's medical history, current anesthetic/surgical status and plan, according to the Provider Handoff Checklist. 1351 Stop Meds Name Total Midazolam 2 mg fentaNYL 100 mcg Propofol 280 mg Rocuronium 110 mg PHENYLephrine 80 mcg Ondansetron 4 mg Dexamethasone 8 mg ceFAZolin (Ancef) 3 g in sodium chloride 0.9% 100 mL infusion 3 g Propofol INF 864.37 mg Labetalol 30 mg ketorolac (Toradol) (30 mg/mL) injection 30 mg Sugammadex 400 mg Lactated Ringers 1,000 mL Lactated Ringers 0 mL * Agents Name O2 Air N2O Sevoflurane (et) * Blood No blood administrations on file. Lines, Drains, and Airways Type Details Placement Removal Incision 08/13/22; Bilateral; abdomen; laparoscopic punctures (specify) 08/13/22 0000 by Yary Ordaz RN Urethral Catheter 08/13/22; Physician order; indwelling double lumen catheter; latex; 14; inserted at this facility; 1; 10; 10; drainage bag to dependent drainage; 08/13/22; 1557 08/13/22 0000 by Yary Ordaz RN 08/13/22 1557 by Lidia Powers RN (RETIRED) Peripheral IV Line - Single Lumen 08/13/22; 1058; median cubital vein (antecubital fossa), left; [id number]-tft-[id number] catheter system; Anatomical Landmarks; 20 gauge; same day RN; 08/13/22; 1640 08/13/22 1058 by Sera Alanis CRNA 08/13/22 1640 by Lidia Pwoers RN ETT Mask Ventilation: Adjunct (2); ETT Type: Cuffed, Oral; ETT Size: 7 mm; Indirect: Video; Notes: Asleep, Pre-O2, Stylette; Attempts: 1; Laryngoscopy Grade: 1; ETT Placement Verified By: Capnometry, Visual, Auscultation; Secured at Teeth: 22 cm; Inserted by: Sera Alanis CRNA; Removal Date: 08/13/22; Removal Time: 1334 08/13/22 1108 by Sera Alanis CRNA 08/13/22 1334 by Sera Alanis CRNA Arterial Line 08/13/22; 1118; radi al artery, left; 20 gauge; Anatomical Landmarks; continuous blood pressure monitoring; Mary Jane Santoro MD; Sterile Prep, Sterile Gloves; 08/13/22; 1333 08/13/22 1118 by Sera Alanis CRNA 08/13/22 1333 by Sera Alanis CRNA (RETIRED) Peripheral IV Line - Single Lumen 08/13/22; 1125; dorsal arch vein (top of hand), right; [id number] catheter system; Anatomical Landmarks; 18 gauge; Mary Jane Santoro MD; 08/13/22; 1640 08/13/22 1125 by Sera Alanis CRNA 08/13/22 1640 by Lidia Powers RN documented in this encounter Social History Tobacco [...] OR Notes * Anesthesia Postprocedure Evaluation - Mary Jane Santoro MD - 08/13/2022 2:35 PM EDT Department of Anesthesiology Post-procedure Note Patient: Angeline Barnes Procedure Summary Date: 08/13/22 Room / Location: [facility] MAIN OR Anesthesia Start: 1047 Anesthesia Stop: 1351 Procedures: LAPAROSCOPY,TOTAL HYST, UTERUS<250GM, REM TUBE &/OR OVARY, ROBOTIC ASSIST (WRVU 15) (N/A Uterus) MODIFIER ROBOT,DAVINCI XI (N/A ) Diagnosis: (AUB, FIBROID) Surgeons: Kim Goetz MD Responsible Provider: Mary Jane Santoro MD Anesthesia Type: general ASA Status: 2 All Anesthesia Providers: Anesthesiologist: Mary Jane Santoro MD DIRECTOR OF OPTIMIZATION: Sera Alanis CRNA Vitals Value Taken Time BP 164/76 08/13/22 1430 Temp 36.6 ??C (97.9 ??F) 08/13/22 1345 Pulse 64 08/13/22 1434 Resp 20 08/13/22 1434 SpO2 99 % 08/13/22 1434 Pain Level 8 08/13/22 1422 Vitals shown include unvalidated device data. Patient Location: PACU/[facility] Level of Consciousness: Awake and Alert Pain Management: Satisfactory Analgesia PONV: None Cardiovascular Status: At Baseline, Hemodynamically Stable and Hypertension (received treatment) Respiratory Status: At Baseline and Supplemental O2 (NC or FM) Postoperative Fluid Status: Intravascular EUvolemia Possible Anesthetic Complications: NONE apparent at time of evaluation Final Primary Anesthesia Type: General (The anesthetic type performed was the same as planned.) Comments: Markedly hypertensive both pre and intraoperatively; advised to follow up with primary care for bed bug exterminator management MARY JANE SANTORO MD * Anesthesia Preprocedure Evaluation - Mary Jane Santoro MD - 08/13/2022 10:19 AM EDT Pre-Anesthesia Evaluation for: Angeline Barnes a 52 y.o. female. Procedure(s): LAPAROSCOPY,TOTAL HYST, UTERUS<250GM, REM TUBE &/OR OVARY, ROBOTIC ASSIST (WRVU 15) MODIFIER ROBOT,DAVINCI XI Patient Active Problem List Diagnosis Date Noted ??? Morbid obesity 02/25/2018 ??? Vitamin D deficiency 02/20/2018 ??? Healthcare maintenance 02/19/2018 ??? Menorrhagia 02/19/2018 ??? H/O laparoscopic adjustable gastric banding 01/25/2018 ??? Morbid obesity with BMI of 40.0-44.9, adult 01/14/2018 ??? 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 ??? Depression 02/22/2015 ??? Varicose vein 02/22/2015 ??? Pannus, abdominal 10/21/2014 ??? Acne rosacea, erythematous telangiectatic type 07/21/2014 Past Medical History: Diagnosis Date ??? Osteoarthritis Past Surgical History: Procedure Laterality Date ??? ADJUSTABLE GASTRIC BAND part of a study ??? CHOLECYSTECTOMY ??? PRO PHLEB VEINS - EXTREM - TO 20 Left 05/22/2015 STAB PHLEBECTOMY CELESTINO VEINS 1 EXTREMITY 10-20 INCISIONS performed by Bernardo Simon MD at [facility] ??? TUBAL LIGATION Social History Tobacco Use ??? Smoking status: Never Smoker ??? Smokeless tobacco: Former User Quit date: 2020 Substance Use Topics ??? Alcohol use: Not Currently Alcohol/week: 1.0 standard drink Types: 1 Glasses of wine per week Social History Substance and Sexual Activity Drug Use No Allergies Allergen Reactions ??? Cat/Feline Products ??? House Dust Medications: MAR and/or home medications have been reviewed. Physical Exam: Preprocedure Vitals Current as of 08/13/22 1019 BP: 187/113 Pulse: 68 Resp: 18 SpO2: 97 Temp: 36.2 ??C (97.2 ??F) Height: 172.7 cm (5' 8) (08/13/22) Weight: 141.7 kg (312 lb 4.8 oz) (08/13/22) BMI: 47.48 IBW: 63.9 kg (140 lb 13.3 oz) Last edited 08/13/22 1001 by Currently displaying vitals information from multiple entries within 180 minutes of most recent vitals. Airway Assessment: Mallampati: II TM distance: >3 FB Neck ROM: full Cardiovascular Assessment: Rhythm: regular Rate: normal Pulmonary Assessment: unlabored breathing Dental Assessment: - normal exam Misc Assessment: Last Filed Perioperative Cognitive Screening None Anesthesia Plan: ASA 2 general, with a(n) intravenous induction 52 yo BMI 47 nonsmoker presents with symptomatic fibroids for robotic hysterectomy. Of note, patient with diastolic pressures over 100 in preop, not on meds, no prior diagnosis of HTN; endorse stress and 70 lb weight gain over past year. Discussed short and bed bug exterminator consequences of poorly controlled HTN; up to and including stroke and FL. Will proceed with IV anxiolysis and BP recheck. Discussed risks/benefits GAETT, possible arterial line. Informed Consent: Anesthetic plan and risks discussed with patient. Use of blood products discussed with patient who. Plan discussed with DIRECTOR OF OPTIMIZATION. Anesthesia Screening documented in this encounter Plan of Treatment Upcoming Encounters Date Type Department Care Team (Late st Contact Info) Description 11/15/2024 1:00 PM EST Office [place] [address] Zak Gtz MD [facility] [place] [place] [address] 11/16/2024 2:00 PM EST TH Visit (TeleHealth) [place] [address] Keyanna Wayne APRN [facility] [place] [address] documented as of this encounter Visit Diagnoses Not on filedocumented in this encounter Administered Medications Inactive Administered Medications - up to 3 most recent administrations Medication Order MAR Action Action Date Dose Rate Site ceFAZolin (Ancef) 3 g in sodium chloride 0.9% 100 mL infusion 3 g, Intravenous, ONCE, 1 dose, On Fri08/13/22 at 1000, Administer over 30 Minutes, Stack Yield Engineer to OR Infuse over 30 minutes., Day of Surgery (Day of Procedure), Indication for (Active or Suspected): Prophylaxis Given 08/13/2022 11:29 AM EDT 3 g dexAMETHasone (Decadron) injection Intravenous, PRN, Starting on Fri08/13/22 at 1129, Until Fri08/13/22 at 1351, Anesthesia Intra-op, Routine Given 08/13/2022 11:29 AM EDT 8 mg fentaNYL (pf) (50 mcg/mL) multi-dose injection Intravenous, PRN, Starting on Fri08/13/22 at 1106, Until Fri08/13/22 at 1351, Anesthesia Intra-op, Routine Given 08/13/2022 11:45 AM EDT 50 mcg Given 08/13/2022 11:06 AM EDT 50 mcg ketorolac (Toradol) (30 mg/mL) injection Intravenous, PRN, Starting on Fri08/13/22 at 1328, Until Fri08/13/22 at 1351, Anesthesia Intra-op, Routine Given 08/13/2022 1:28 PM EDT 30 mg labetaloL (Normodyne) (5 mg/mL) multi-dose injection Intravenous, PRN, Starting on Fri08/13/22 at 1111, Until Fri08/13/22 at 1351, Anesthesia Intra-op, Routine Given 08/13/2022 11:50 AM EDT 15 mg Given 08/13/2022 11:45 AM EDT 5 mg Given 08/13/2022 11:11 AM EDT 10 mg lactated ringers infusion Intravenous, CONTINUOUS PRN, Starting on Fri08/13/22 at 1058, Until Fri08/13/22 at 1351, Anesthesia Intra-op New Bag 08/13/2022 10:58 AM EDT lactated ringers infusion Intravenous, CONTINUOUS PRN, Starting on Fri08/13/22 at 1125, Until Fri08/13/22 at 1351, Anesthesia Intra-op New Bag 08/13/2022 11:25 AM EDT midazolam (pf) (Versed) (1 mg/mL) multi-dose injection Intravenous, PRN, Starting on Fri08/13/22 at 1047, Until Fri08/13/22 at 1351, Anesthesia Intra-op, Routine Given 08/13/2022 10:47 AM EDT 2 mg ondansetron (pf) (Zofran) (2 mg/mL) injection Intravenous, PRN, Starting on Fri08/13/22 at 1328, Until Fri08/13/22 at 1351, Anesthesia Intra-op, Routine Given 08/13/2022 1:28 PM EDT 4 mg PHENYLephrine in NS (PF) (IVAN-SYNEPHRINE) 0.8 mg/10 mL (80 mcg/mL) multi-dose injection Syrg Intravenous, PRN, Starting on e 08/13/22 at 1128, Until 08/13/22 at 1351, Anesthesia Intra-op, Routine Given 08/13/2022 11:28 AM EDT 80 mcg propofoL (Diprivan) (10 mg/mL) infusion Intravenous, CONTINUOUS PRN, Starting on Fri08/13/22 at 1120, Until Fri08/13/22 at 1351, Anesthesia Intra-op, Routine New Bag 08/13/2022 11:20 AM EDT 50 mcg/kg/min 42.51 mL/hr propofoL (Diprivan) 10 mg/mL bolus injection (Anesthesia) Intravenous, PRN, Starting on Fri08/13/22 at 1106, Until Fri08/13/22 at 1351, Anesthesia Intra-op Given 08/13/2022 11:06 AM EDT 280 mg rocuronium (Zemuron) (10 mg/mL) multi-dose injection Intravenous, PRN, Starting on e 08/13/22 at 1106, Until Fri08/13/22 at 1351, Anesthesia Intra-op, Routine Given 08/13/2022 12:49 PM EDT 20 mg Given 08/13/2022 11:34 AM EDT 20 mg Given 08/13/2022 11:06 AM EDT 70 mg sugammadex (Bridion) 100 mg/mL injection Intravenous, PRN, Starting on Fri08/13/22 at 1328, Until Fri08/13/22 at 1351, Anesthesia Intra-op, Routine Given 08/13/2022 1:28 PM EDT 400 mg documented in this encounter Care Teams Ground Crewman Mission Support Relationship Specialty Start Date End Date Romy Singh, AIR BAG BUFFER [facility] [place] [address] PCP - General Family Medicine 08/07/22 documented as of this encounter
--- OUTSIDE RECORDS SUMMARY | 2024-10-06 15:36 | XMS_ITS | Encounter Summary ---
Author Organization [facility] Address [facility] [place] [address] Care Team Providers Care Data Base Administrator Name Role Phone MarianoMaurice Ting HARVEY Primary Care Provider [phone] Reason for Visit * Reason Comments Follow-up dexter porter Encounter Details Date Type Department Care Team ([facility] st Contact Info) Description 05/16/2015 2:30 PM EDT Follow-[place] [address] Macy Whittington MD [facility] [place] [address] Elastosis of skin Discharge Disposition: Home Social History Tobacco Use [...] Sign Reading Time Taken Comments Blood Pressure 151/97 05/16/2015 2:25 PM EDT Pulse 64 05/16/2015 2:25 PM EDT Temperature - - Respiratory Rate - - Oxygen Saturation - - Inhaled Oxygen Concentration - - Weight 115.6 kg (254 lb 12.8 oz) 05/16/2015 2:25 PM EDT Height 172.7 cm (5' 8) 05/16/2015 2:25 PM EDT Body Mass Index 38.74 05/16/2015 2:25 PM EDT documented in this encounter Progress Notes * Aubrey Joyce MD - 05/19/2015 2:38 PM EDT I have reviewed plans and agree with above. * Macy Whittington MD - 05/17/2015 4:05 PM EDT Plastic Surgery Resident Consult Follow Up Note: Subjective: She returns to discuss surgery--she is interested in a neck lift Her weight has been stable--no significant weight loss or gain She has been following various diets with some success. Examination: Body mass index is 38.75 kg/(m^2). General: On my examination today, normal [...] with significant subcutaneous tissues Transverse forehead rhytids Impression: Angeline Barnes is a 44 year old female seen today in consultation. Based on the patient's report, I focused the discussion on the surgical procedures of neck lift. I strongly discussedthe importance of achieving a BMI of 35 or less in order to proceed with any elective surgical procedure. I advised her that she is at a much higher risk for the potential risks and complications associated with surgical intervention. She will be provided with pricing information for the proceduresdiscussed. I would be happy to see her back in follow up once she achieves a BMI of 35 or less. Thepatient expressed that she is not at her goal weight and still desires to lose 60 pounds which she is actively trying to achieve. I informed her that her weight should be stable prior to surgery for a few months. Plan: Follow up once BMI is 35 or less and weight is ideal and stable for 3 months. We can rediscuss specific procedure and what she might be interested in. Case discussed with Dr. Joyce. documented in this encounter Plan of Treatment Upcoming Encounters Date Type Department Care Team (Late st Contact Info) Description 11/15/2024 1:00 PM EST Office [place] [address] Zak Gtz MD [facility] [place] [address] 11/16/2024 2:00 PM EST TH Visit (TeleHealth) [place] [phone] Keyanna Wayne APRN [facility] [place] [address] documented as of this encounter Visit Diagnoses Diagnosis Elastosis of skin Other specified hypertrophic and atrophic condition of skin documented in this encounter Care Teams Data Base Administrator Relationship Specialty Start Date End Date Maurice Quintana, WES BLESSING [address] [place] [address] PCP - General 07/19/14 10/05/17 documented as of this encounter
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
--- OUTSIDE RECORDS SUMMARY | 2024-10-06 15:36 | XMS_ITS | Encounter Summary ---
[place] [address] Care Team Providers Care Weigh Machine Operator Name Role Phone India Escobar APRN Primary Care Provider [phone] Encounter Details Date Type Department Care Team (Late Contact Info) Description 12/16/2017 Telephone [place] [phone] Sara Servin Social History Tobacco Use Types [...] * Telephone Encounter - Sara Servin - 12/16/2017 12:44 PM EST LMOM for Angeline returning her call from yesterday. I told her that I am in the office until 5pm today and left my call back number. documented in this encounter Plan of Treatment Upcoming Encounters Date Type Department Care Team (Late Contact Info) Description 11/15/2024 1:00 PM EST Office [place] [phone] Zak Gtz MD [facility] [place] [address] 11/16/2024 2:00 PM EST TH Visit (TeleHealth) [place] [address] Keyanna Wayne APRN [facility] [place] [address] documented as of this encounter Visit Diagnoses Not on filedocumented in this encounter Care Teams Weigh Machine Operator Relationship Specialty Start Date End Date India Escobar APRN PCP - General Family Medicine 10/06/17 08/06/22 documented as of this encounter
--- OUTSIDE RECORDS SUMMARY | 2024-10-06 15:36 | XMS_ITS | Encounter Summary ---
Author Organization [facility] Esa m[address]neill[place] [address] Care Team Providers Care Chemical Equipment Controller Name Role Phone India Escobar ANTOINETTE Primary Care Provider [phone] Reason for Visit * Reason Onset Date Comments Referral 05/04/2018 Encounter Details Date Type Department Care Team (Late Contact Info) Description 05/04/2018 Telephone Weight and Wellness at [address] [phone] Subha Martinez [place] [address] Referral Social History Tobacco Use Types Packs/Day Years [...] encounter Miscellaneous Notes * Telephone Encounter - Jeanine Mcleod - 05/04/2018 8:14 AM EDT Please review Thank you documented in this encounter Plan of Treatment Upcoming Encounters Date Type Department Care Team (Late Contact Info) Description 11/15/2024 1:00 PM EST Office Visit [place] [address] Zak Gtz MD [facility] [place] [address] 11/16/2024 2:00 PM EST TH Visit (TeleHealth) [place] [phone] Keyanna Wayne APRN [facility] [place] [address] documented as of this encounter Visit Diagnoses Not on filedocumented in this encounter Care Teams Chemical Equipment Controller Relationship Specialty Start Date End Date India Escobar APRN PCP - General Family Medicine 10/06/17 08/06/22 documented as of this encounter
--- OUTSIDE RECORDS SUMMARY | 2024-10-06 15:36 | XMS_ITS | Encounter Summary ---
[place] [address] Care Team Providers Care Manager Review Name Role Phone India Escobar ANTOINETTE Primary Care Provider [phone] Encounter Details Date Type Department Care Team (Late st Contact Info) Description 02/17/2018 Telephone [place] [address] Klarissa Tyler, GUS Social History Tobacco Use Types Packs/Day Years [...] encounter Miscellaneous Notes * Telephone Encounter - Klarissa Tyler - 02/18/2018 9:41 AM EDT Bariatric Surgery Program Phone call to patient to discuss patient's current weight. Patient is coming to her shared medical appointment on . Patient reports her weight has been pretty stable recently. She had been successful with weight loss since following a ketogenic diet in the fall and starting Vyvanse in October. Informed patient that her BMI was slightly below 40 at her initial bariatric appointment and itis not indicated tat she has any co morbidities. Patient reports she thought she had a comorbidity because her legs retain fluid. Advised patient her insurance may not cover bariatric surgery if her BMI is below 40 without co morbidities. Patient reports not being able to lose anymore weight recently despite still taking Vyvanse and believes her weight may be slightly up since last week. Patient would like to proceed with surgery, despite the possibility of not qualifying for surgery per her insurance guidelines, because she feels the Vyvanse has stopped working and she is now having a hard time losing weight on her own. documented in this encounter Plan of Treatment Upcoming Encounters Date Type Department Care Team (Late st Contact Info) Description 11/15/2024 1:00 PM EST Office [place] [phone] Zak Gtz MD [facility] [place] [address] 11/16/2024 2:00 PM EST TH Visit (TeleHealth) [place] [phone] Keyanna Wayne APRN [facility] [place] [address] documented as of this encounter Visit Diagnoses Not on filedocumented in this encounter Care Teams Manager Review Relationship Specialty Start Date End Date India Escobar APRN PCP - General Family Medicine 10/06/17 08/06/22 documented as of this encounter
--- OUTSIDE RECORDS SUMMARY | 2024-10-06 15:36 | XMS_ITS | Encounter Summary ---
Author Organization [facility] Address [facility] [place] [address] Care Team Providers Care Motor Pool Driver Name Role Phone MarianoPipe Ting HARVEY Primary Care Provider [phone] Reason for Visit * Reason Comments Follow-up finalize neck and ab ominal surgery Encounter Details Date Type Department Care Team (Late st Contact Info) Description 03/26/2016 1:30 PM EDT Office [place] [address] Melvin Lam MD [facility] [place] [address] Obesity, unspecified obesity severity, unspecified obesity type Social History Tobacco Use Types Packs/Day Years [...] this encounter Patient Instructions * Patient Instructions* Radha Cho RMA - 03/26/2016 1:29 PM EDT Written and verbal preoperative instructions were given at this visit. Please review the written information prior to your procedure and contact us with any questions. Feel free to call our office [phone] if you have any questions or concerns. We monitor the phones from 8-5 Friday - Friday.You were given written and verbal preoperative instructions today. To prepare for your upcoming surgery, please review the Pre-Operative Instruction brochure that wasgiven to you. Remember to do the pre op wash, with Hibiclens soap, as instructed. You will need a cab driver. Expect a call from the nurses from the Same Day Dept. the business day before the surgery to instruct you in the time to arrive as well as when to stop eating and drinking. Feel free to call our office @ [phone] if you have any questions or concerns. We monitor the phones from 8-5 Friday through Friday. Stop smoking package given. documented in this encounter Progress Notes * Aubrey Bryant MD - 04/01/2016 1:53 PM EDT I supervised the care of this patient and agree with the plan. * Radha Cho RMA - 03/26/2016 1:28 PM EDT Pre-Op Teaching for Surgery Surgery: Yara Written and verbal pre-operative instructions were given and reviewed with patient: Patient was advised to discontinue use of NSAIDS and aspirin products (unless otherwise advised by patient's PCP/Industrial Electrician Journeyman for cardiac symptoms), fish oil, Vitamin E [...] at with any questions or concerns prior tosurgery. * Melvin Lam MD - 03/26/2016 1:06 PM [...] surgical technique utilized for neck lift and panniculectomy. She would prefer to proceed with panniculectomy first, [...] has been provided with the [facility] patient infor mation brochure, as well as their standard informed [...] that don???t respond to 3 - 6 months of treatment. [ ] If the weight has been lost due to gastric bypass, it must be 18 months s/p bariatric surgery [x ] Patient must be at goal weight and stable 6 months Based on this, we will request insurance pre-determination . I will communicate my recommendations to PIPE QUINTANA [place] Surgical Grid: Surgeon: Manny Duration: 2 hours Timeframe: Elective Coordinated with: None Procedure: Panniculectomy CPT: 94891 Surgical site: Abdomen Side: N/a Anesthesia: General Follow up: 7 days PAT: No Plan: Schedule for panniculectomy IFior, am acting as scribe for Dr. Lam. All work documented was performed by Dr. Lam. ???I performed the above scribed service and agree with the accuracy of the note?? MELVIN LAM MD. documented in this encounter Plan of Treatment Upcoming Encounters Date Type Department Care Team (Late st Contact Info) Description 11/15/2024 1:00 PM EST Office [place] [address] Zak Gtz MD [facility] [address] 11/16/2024 2:00 PM EST TH Visit (TeleHealth) [place] [phone] Keyanna Wayne APRN [facility] [place] [address] documented as of this encounter Visit Diagnoses Diagnosis Obesity, unspecified obesity severity, unspecified obesity type documented in this encounter Care Teams Motor Pool Driver Relationship Specialty Start Date End Date Pipe Quintana, [place] [address] [place] [address] PCP - General 07/19/14 10/05/17 documented as of this encounter
--- OUTSIDE RECORDS SUMMARY | 2024-10-06 15:36 | XMS_ITS | Encounter Summary ---
Author Organization [facility] [place] [address] Care Team Providers Care Mft Name Role Phone India Escobar ANTOINETTE Primary Care Provider [phone] Encounter Details Date Type Department Care Team ([facility] st Contact Info) Description 10/06/2017 10:00 AM EST Office Visit Psychiatry [place] [address] Neena Acosta Other specified eating disorder Social [...] encounter Progress Notes * Neena Acosta - 10/06/2017 10:00 AM EST BEHAVIORAL MEDICINE BARIATRIC SURGERY FOLLOW UP [facility] AT [facility] [address] Dept: [phone] Loc: [phone] 10/06/2017 10:10 AM Angeline Barnes is a [...] and anxiety. Schedule additional follow-up appointment(s) with Paige Karla (or another member of the behavioral medicine team), as needed for support with lifestyle behavior changes. Appointment line: [phone]. SUMMARY The decision noted above is based [...] practice (50%=half meals/week; 100%= every meal/week) is: ?? Sipping 6-8 8oz-glasses [...] and PTSD with Dr. Matt Hutchins MD, [facility] at [facility] in [place], [place]. MENTAL HEALTH PROVIDER COMMUNICATION (IF NEEDED) [...] this report. * Deedee Thompson, PhD - 10/06/2017 10:00 AM EST I have reviewed this note and agree with the plan and treatment Deedee Thompson, PhD * Don Fitch, PhD - 10/06/2017 10:00 AM EST I was present for the full administration of this service and available for immediate consultation.This service was provided under my direct supervision. Primary clinical supervision will be provided in consultation with Dr. Deedee Thompson. ?? Don Fitch, Ph.D. documented in this encounter Plan of Treatment Upcoming Encounters Date Type Department Care Team (Late st Contact Info) Description 11/15/2024 1:00 PM EST Office Visit [place] [address] Zak Gtz MD [facility] [place] [address] 11/16/2024 2:00 PM EST TH Visit (TeleHealth) [place] [phone] Keyanna Wayne APRN [facility] [place] [address] documented as of this encounter Visit Diagnoses Diagnosis Other specified eating disorder documented in this encounter Care Teams Mft Relationship Specialty Start Date End Date India Escobar APRN PCP - General Family Medicine 10/06/17 08/06/22 documented as of this encounter
--- OUTSIDE RECORDS SUMMARY | 2024-10-06 15:37 | XMS_ITS | Encounter Summary ---
Author Organization [facility] Address [facility] [place] [address] Care Team Providers Care Biomass Power Plant Superintendent Name Role Phone Maurice Quintana Ting HARVEY Primary Care Provider [phone] Encounter Details Date Type Department Care Team (Latest Contact Info) Description 04/20/2015 10:00 AM EDT Ancillary Appointment [place] [address] Matt Garcia [place] Varicose veins of leg with pain, left Social History Tobacco Use Types Packs/Day Years [...] 1:00 PM EST Office Visit [place] [address] Zak Gtz MD [facility] ENDOCRINOLOGY [place], [place] [phone] 11/16/2024 2:00 PM EST TH Visit (TeleHealth) [place] [address] Keyanna Wayne APRN [facility] [place] [address] documented as of this encounter Procedures Procedure Name Priority Date/Time Associated Diagnosis Comments UNLATERAL VALVULAR INCOMP Routine 04/20/2015 9:58 AM EDT Varicose veins of leg with pain, left documented in this encounter Results * LE Unilateral Valvular Incomp Study (04/20/2015 9:58 AM EDT) VB Text Report Department: Vascular Surgery Lab Patient: [id number] (MARI MCGOVERN) CPT Code: 65549 ICD-9: 454.9 Referring Physician: LISA SIMON M.D. [...] confluences the CFV just below those two. Electronically Signed by: LISA SIMON M.D. on 2015-04-20 11:53:03 AM [facility] VB Text Report End of Report [facility] 04/20/2015 9:58 AM EDT Lisa Simon MD VASCULAR ORDERABLES [facility] documented in this encounter Visit Diagnoses Diagnosis Varicose veins of leg with pain, left documented in this encounter Care Teams Biomass Power Plant Superintendent Relationship Specialty Start Date End Date Maurice Quintana, WES [facility] [address] [place] [address] PCP - General 07/19/14 10/05/17 documented as of this encounter
--- OUTSIDE RECORDS SUMMARY | 2024-10-06 15:37 | XMS_ITS | Encounter Summary ---
Author Organization [facility] Address [facility] [place] [address] Care Team Providers Care Track And Field Coach Name Role Phone MarianoMaurice Ting HARVEY Primary Care Provider [phone] Encounter Details Date Type Department Care Team ([facility] st Contact Info) Description 12/21/2014 Telephone Dermatology at [facility] [address] [place] [address] [facility] [address] [place]EV[address] [place] [address] Social History Tobacco Use Types Packs/Day Years [...] encounter Miscellaneous Notes * Telephone Encounter - Majo Ware, ADAMS - 12/21/2014 5:51 PM EST Voicemail received from patient at 2:13 pm. Patient states that the vessels treated on her face with the V-Beam laser on 12/15/14 are not gone. [...] 1:00 PM EST Office [place] [phone] [facility] [place] [address] 11/16/2024 2:00 PM EST TH Visit (TeleHealth) [place] [address] [facility] [place] [address] documented as of this encounter Visit Diagnoses Not on filedocumented in this encounter Care Teams Track And Field Coach Relationship Specialty Start Date End Date Maurice Quintana, WES [address] [address] [place] [address] PCP - General 07/19/14 10/05/17 documented as of this encounter
--- OUTSIDE RECORDS SUMMARY | 2024-10-06 15:37 | XMS_ITS | Encounter Summary ---
Author Organization [facility] Address [facility] [place] [address] Care Team Providers Care Broom Builder Name Role Phone Maurice Quintana WES Primary Care Provider [phone] Encounter Details Date Type Department Care Team (Late st Contact Info) Description 02/22/2015 Abstract [place] [phone] Deepika Bauman RN Social History Tobacco Use Types Packs/Day [...] 1:00 PM EST Office [place] [phone] Zak Gtz MD [facility] DR ENDOCRINOLOGY [place], [place] [phone] 11/16/2024 2:00 PM EST TH Visit (TeleHealth) [place] [address] Keyanna Wayne APRN [facility] [place] [address] documented as of this encounter Visit Diagnoses Not on filedocumented in this encounter Care Teams Broom Builder Relationship Specialty Start Date End Date Maurice Quintana, WES [facility] [address] [place] [address] PCP - General 07/19/14 10/05/17 documented as of this encounter
--- OUTSIDE RECORDS SUMMARY | 2024-10-06 15:37 | XMS_ITS | Encounter Summary ---
Author Organization [facility] Address [facility] [place] [address] Care Team Providers Care Molasses And Caramel Operator Name Role Phone MarianoMaurice Ting HARVEY Primary Care Provider [phone] Reason for Visit * Reason Comments Procedure Encounter Details Date Type Department Care Team (Latest Contact Info) Description 12/15/2014 10:30 AM EST Office Visit Dermatology at [facility] [address] [place] [address] Isidro Jones MD [facility] [place] [address] Telangiectasia Discharge Disposition: Home Social History Tobacco Use [...] documented as of this encounter Patient Instructions * Patient Instructions* Majo Ware LPN - 12/15/2014 10:52 AM EST [...] discomfort For further questions and concerns contact: [phone] Nurse message line [phone] Jasmin (Dr. Jones's Appointment Senior Quality Manager) In any case of emergency for weekends and off hours please contact [facility] main number and ask for manager sql installation service representative at [phone] documented in this encounter Progress Notes * Isidro Jones MD - 12/15/2014 10:44 AM EST Provider: Dru Jones M.D. ([id number]) Chief Problem: 1. Rosacea & Telangiectasias 2. Here for Discussion of Treatment options HISTORY & DISCUSSION: 44 y.o. year old female, here for a medical consultation visit and discussion of rosacea and telangiectasias treatment options, including the possibility of laser treatment. Topical medical therapy, camoflage, surgical options, including laser, discussed. Over half of thisvisit devoted to these options and expectations. Patient [...] it to the company. The patient will haveto pay for the procedure, at the time [...] scheduled on the way out of the clinictoday Cosmetic cost today: $350, paid on the way out of the clinic today I am documenting this encounter acting as the scribe for and in the presence of Majo Jarvis LPN I performed the above scribed service and agree with the accuracy of the documentation in this encounter, M. Daryn Jones, MD M. Daryn Jones, M.D. Section of Dermatology documented in this encounter Plan of Treatment Upcoming Encounters Date Type Department Care Team (Late st Contact Info) Description 11/15/2024 1:00 PM EST Office [place] [phone] Zak Gtz MD [facility] [place] [address] 11/16/2024 2:00 PM EST TH Visit (TeleHealth) [place] [address] Keyanna Wayne APRN [facility] [place] [address] documented as of this encounter Visit Diagnoses Diagnosis Telangiectasia Other and unspecified capillary diseases documented in this encounter Care Teams Molasses And Caramel Operator Relationship Specialty Start Date End Date Maurice Quintana, WES [employer] [address] [place] [address] PCP - General 07/19/14 10/05/17 documented as of this encounter
--- OUTSIDE RECORDS SUMMARY | 2024-10-06 15:37 | XMS_ITS | Encounter Summary ---
Author Organization [facility] Address [facility] [place] [address] Care Team Providers Care Ultrasonic Hand Solderer Name Role Phone MarianoPipe Ting HARVEY Primary Care Provider [phone] Reason for Visit * Reason Comments Advice Only chin lift, panni, br east lift, thigh, brachioplasty Encounter Details Date Type Department Care Team (Late st Contact Info) Description 10/21/2014 9:50 AM EST Office [place] [address] Macy Whittington MD [facility] [place] [address] Pannus, abdominal Discharge Disposition: Home Social History Tobacco Use Types Packs/Day Years Used Date Smoking Tobacco: Never Smokeless Tobacco: Never Tobacco Cessation:Ready to Q uit: No Alcohol Use Standard Drinks/Week Comments Yes [...] Weight 111.8 kg (246 lb 6.4 oz) 014 10:11 AM EST Height 174 cm (5' 8.5) 10/21/2014 10:1 1 AM EST Body Mass Index 36.92 10/21/2014 10:11 AM EST documented in this encounter Patient Instructions * Patient Instructions* Carly Quan - 10/21/2014 11:36 AM EST Plan: 1. Follow up once BMI is 35 or less 2. Pricing information to be mailed. documented in this encounter Progress Notes * Sara Conroy MD - 11/15/2014 3:01 PM EST I have reviewed the above note and discussed the case with Dr. Whittington. * Macy Whittington MD - 11/15/2014 11:50 AM EST Plastic Surgery Consultation Note Dr. Whittington PCP: PIPE QUINTANA, Doctor of CC: Neck laxity, arm skin excess, abdominal contour irregularity HPI: Angeline Barnes is a 44 y.o. female is seen for a discussion of options for improvement ofher abdominal contour, breast ptosis, thigh and arm lipodystrophy and the appearance of her chin. She states she would like to discuss an entire [...] of a study ??? Cholecystectomy ROS: GI, /BATTING MACHINE OPERATOR INSULATION, Psych, Card, Pulm, Endo, Heme, Immun, Neuro: [...] surgical procedures of neck lift and abdominoplasty. She stated that these would be the first procedures of interest when she does finally lose the appropriate amount of weight. I discussed potential risks and complications which include but are not limited to: pain, bleeding, infection, scarring, asymmetry, hematoma, seroma, risk of skin loss, risk ofblood clots or pulmonary complications, poor cosmetic outcome, [...] the potential risks and complications associated with lopez rgical intervention. She will be provided with pricing [...] accuracy of the note?? Macy Whittington MD * Sara Conroy MD - 10/24/2014 4:16 PM EST I am the supervising physician but I have not provided any services to this patient. Sara Conroy * Quan Carly Jimmie - 10/21/2014 10:13 AM EST Plastic Surgery Consultation Note Dr. Whittington PCP: PIPE QUINTANA, Doctor of CC: Neck laxity, arm skin excess, abdominal contour irregularity HPI: Angeline Barnes is a 44 y.o. female is seen for a discussion of options for improvement ofher abdominal contour, breast ptosis, thigh and arm lipodystrophy and the appearance of her chin. She states she would like to discuss an entire [...] of a study ??? Cholecystectomy ROS: GI, /BATTING MACHINE OPERATOR INSULATION, Psych, Card, Pulm, Endo, Heme, Immun, Neuro: [...] surgical procedures of neck lift and abdominoplasty. She stated that these would be the first procedures of interest when she does finally lose the appropriate amount of weight. I discussed potential risks and complications which include but are not limited to: pain, bleeding, infection, scarring, asymmetry, hematoma, seroma, risk of skin loss, risk ofblood clots or pulmonary complications, poor cosmetic outcome, [...] the potential risks and complications associated with lopez rgical intervention. She will be provided with pricing [...] 1:00 PM EST Office [place] [phone] Zak Gtz MD [facility] [place] [address] 11/16/2024 2:00 PM EST TH Visit (TeleHealth) [place] [address] Keyanna Wayne APRN [facility] [place] [address] documented as of this encounter Visit Diagnoses Diagnosis Pannus, abdominal Localized adiposity documented in this encounter Care Teams Ultrasonic Hand Solderer Relationship Specialty Start Date End Date Pipe Quintana ND [facility] [address] [place] [address] PCP - General 07/19/14 10/05/17 documented as of this encounter
--- OUTSIDE RECORDS SUMMARY | 2024-10-06 15:37 | XMS_ITS | Encounter Summary ---
Author Organization [facility] Address [facility] [place] [address] Care Team Providers Care Grievance Manager Name Role Phone MarianoMaurice Ting HARVEY Primary Care Provider [phone] Reason for Visit * Reason Comments Establish Care Varicose Veins Encounter Details Date Type Department Care Team ([facility] st Contact Info) Description 04/06/2015 9:30 AM EDT Office [place] [address] Lisa Simon MD [facility] [place] [address] Varicose veins of leg with pain, left [...] Sign Reading Time Taken Comments Blood Pressure 122/66 04/06/2015 9:30 AM EDT r a rm Pulse 55 04/06/2015 9:30 AM EDT Temperature - - Respiratory Rate 20 04/06/2015 9:30 AM EDT Oxygen Saturation - - Inhaled Oxygen Concentration - - Weight 113.4 kg (250 lb) 04/06/2015 9:30 AM EDT Height 172.7 cm (5' 8) 04/06/2015 9:30 AM EDT Body Mass Index 38.01 04/06/2015 9:30 AM EDT documented in this encounter Patient Instructions * Patient Instructions* Lisa Simon MD - 04/06/2015 9:41 AM EDT Wear compression stockings and will arrange for a venous ultrasound. documented in this encounter Progress Notes * Lisa Simon MD - 04/06/2015 9:37 AM EDT OUTPATIENT VASCULAR SURGERY CONSULTATION Reason for Visit: Left Leg Varicose Veins History of Present Illness: 45 yo female seen in consultation for her symptomatic left leg varicoseveins. She has had them for several years but reports increased pain and throbbing more recently. She denies any DVT, phlebitis or ulceration. Atherosclerotic Risk Factors: (n) DM (n) HTN (n) Hyperlipidemia (n) Tobacco Other Past Medical History/Risk Factors: (n) Previous PA (n) Angina (n) CHF (n) Arrythmia () [...] Disorders or aneursyms Physical Exam: Filed Vitals: 04/06/15 0930 BP: 122/66 Pulse: 55 Resp: 20 General - NAD, appears stated age Neuro - Alert and Oriented, Motor Sensory grossly intact Skin - No prominent markings or lesions Ear, Nose, Throat - No masses, No lesions Cardiac - RRR, no murmurs Lungs - CTA bilaterally Abd - Soft, NT, ND, No palpable pulsatile masses Extremities - Warm, pink, no edema, brisk capillary refill Vascular Exam: R L Carotid 2/2 bruit (-) 2/2 bruit (-) Radial 2/2 2/2 Femoral 2/2 2/2 Popliteal 2/2 2/2 DP 2/2 2/2 PT 2/2 2/2 Labs: None Studies: None Assessment and Plan: 45 yo female with symptomatic left leg varicose veins in the anterior thigh distribution. I have prescribed compression stockings as an initial therapy and will arrange for a venous ultrasound to assess her valvular function. She will return in 1 month accordingly. documented in this encounter Miscellaneous Notes * Addendum Note - Deepika Richey RN - 04/06/2015 3:45 PM EDTAddended by: DEEPIKA RICHEY on: 04/06/2015 03:45 PM Modules accepted: Orders documented in this encounter Plan of Treatment Upcoming Encounters Date Type Department Care Team (Late st Contact Info) Description 11/15/2024 1:00 PM EST Office [place] [address] Zak Gtz MD [facility] [place] [address] 11/16/2024 2:00 PM EST TH Visit (TeleHealth) [place] [address] Keyanna Wayne APRN [facility] [place] [address] documented as of this encounter Results * LE Unilateral Valvular Incomp Study (04/20/2015 9:58 AM EDT) VB Text Report Department: Vascular Surgery Lab Patient: [id number] (MARI MCGOVERN) CPT Code: 35592 ICD-9: 454.9 Referring Physician: LISA SIMON M.D. [...] left documented in this encounter Care Teams Grievance Manager Relationship Specialty Start Date End Date Maurice Quintana, ND [employer] [address] [place] [address] PCP - General 07/19/14 10/05/17 documented as of this encounter
--- OUTSIDE RECORDS SUMMARY | 2024-10-06 15:37 | XMS_ITS | Encounter Summary ---
Author Organization [facility] Address [facility] [place] [address] Care Team Providers Care Control Area Operator Name Role Phone Maurice Quintana Ting HARVEY Primary Care Provider [phone] Reason for Visit * Reason Comments Follow-up VV L leg Encounter Details Date Type Department Care Team ([facility] st Contact Info) Description 04/20/2015 11:15 AM EDT Follow-[place] [address] Bernardo Simon MD [facility] [place] [address] Varicose veins of leg with pain, left [...] this encounter Patient Instructions * Patient Instructions* Bernardo Simon MD - 04/20/2015 11:15 AM EDT We will contact you to pick a date for vein excision surgery as discussed. documented in this encounter Progress Notes * Bernardo Simon MD - 04/20/2015 11:12 AM EDT OUTPATIENT VASCULAR SURGERY CONSULTATION Reason for Visit: Followup Left Leg Varicose Veins History of Present Illness: 45 yo female seen in followup consultation for her symptomatic left legvaricose veins. She has had them for several years but reports increased pain and throbbing more recently. She denies any DVT, phlebitis or ulceration. She has used compression but still has persistent pain. Atherosclerotic Risk Factors: (n) DM (n) HTN (n) Hyperlipidemia (n) Tobacco Other Past Medical History/Risk Factors: (n) Previous [place] (n) Angina (n) CHF (n) Arrythmia () [...] deep reflux. Given her persistent pain despite compression,I have offerred left leg stab phlebectomy. Risks and benefits were discussed. She would like to proceed. We will make arrangements accordingly. documented in this encounter Miscellaneous Notes * Addendum Note - Sharon Monae RN - 04/21/2015 1:50 PM EDTAddended by: SHARON MONAE on: 04/21/2015 01:50 PM Modules accepted: Orders documented in this encounter Plan of Treatment Upcoming Encounters Date Type Department Care Team (Late st Contact Info) Description 11/15/2024 1:00 PM EST Office Visit [place] [address] Zak Gtz MD [facility] [place] [address] 11/16/2024 2:00 PM EST TH Visit (TeleHealth) [place] [address] Keyanna Wayne APRN [facility] [place] [address] documented as of this encounter Visit Diagnoses Diagnosis Varicose veins of leg with pain, left documented in this encounter Care Teams Control Area Operator Relationship Specialty Start Date End Date Maurice Quintana, WES [facility] [address] [place] [address] PCP - General 07/19/14 10/05/17 documented as of this encounter
--- OUTSIDE RECORDS SUMMARY | 2024-10-06 15:37 | XMS_ITS | Encounter Summary ---
Author Organization [facility] Address [facility] [place] [address] Care Team Providers Care Early Interventionist Name Role Phone Maurice Quintana WES Primary Care Provider [phone] Reason for Visit * Reason Onset Date Comments Other 07/25/2014 Telephone Call Encounter Details Date Type Department Care Team (Late st Contact Info) Description 07/25/2014 Telephone Dermatology at [facility] [address] [place] [address] Isidro Jones MD [facility] [address] [place] [address] Other (Telephone Call) Social History Tobacco Use Types Packs/Day Years Used Date Smoking Tobacco: Never Sex and Gender Information Value Date Recorded Sex Assigned at Not on file Gender Identity Not on file Sexual Orientation Not on file documented as of this encounter Miscellaneous Notes * Telephone Encounter - Jasmin Steve - 07/25/2014 9:35 AM EDT This script writer left a voicemail for Angeline Barnes requesting [...] 1:00 PM EST Office [place] [address] Zak Gtz MD [facility] [place] [place] [address] 11/16/2024 2:00 PM EST TH Visit (TeleHealth) [place] [address] Keyanna Wayne APRN [facility] [place] [address] documented as of this encounter Visit Diagnoses Not on filedocumented in this encounter Care Teams Early Interventionist Relationship Specialty Start Date End Date Maurice Quintana ND [facility] [address] [place] [address] PCP - General 07/19/14 10/05/17 documented as of this encounter
--- OUTSIDE RECORDS SUMMARY | 2024-10-06 15:37 | XMS_ITS | Encounter Summary ---
Author Organization [facility] Address [facility] [place] [address] Care Team Providers Care Tile Sorter Name Role Phone Maurice Quintana Ting HARVEY Primary Care Provider [phone] Reason for Visit * Reason Comments Advice Only Encounter Details Date Type Department Care Team ([facility] Contact Info) Description 09/26/2014 11:30 AM EST Office Visit Dermatology at [address] [address] Isidro Jones MD [facility] [address] [place] [address] Telangiectasia; Rosacea Discharge Disposition: Home Social History Tobacco Use Types Packs/Day Years Used Date Smoking Tobacco: Never Sex and Gender Information Value Date Recorded Sex Assigned at Not on file Gender Identity Not on file Sexual Orientation Not on file documented as of this encounter Patient Instructions * Patient Instructions* Majo Ware LPN - 09/26/2014 11:49 AM EST [...] discomfort For further questions and concerns contact: [phone] Nurse message line [phone] Jasmin (Dr. Jones's Appointment Litigation Claim Representative) In any case of emergency for weekends and off hours please contact [facility] main number and ask for entertainer & comic insulation power unit tender at [phone] documented in this encounter Progress Notes * Agata Goyal RN - 09/26/2014 1:42 PM EST Patient called after her appointment to request a prescription for tetracycline as discussed duringher appointment . Tetracycline 500mg 1 tablet twice daily 120 tablets 3 Refills Discussed side effects: upset stomach, sun sensitivity, take between meals, avoid dairy products. Sun sensitivity [facility] * Isidro Jones MD - 09/26/2014 11:34 AM EST Provider: Dru Jones M.D. ([id number]) Chief Problem: 1. Rosacea & Telangiectasias 2. [...] Dermatology documented in this encounter Miscellaneous Notes * Addendum Note - Agata Goyal, RN - 09/26/2014 1:47 PM ESTAddended by: AGATA GOYAL on: 09/26/2014 01:47 PM Modules accepted: Orders documented in this encounter Plan of Treatment Upcoming Encounters Date Type Department Care Team (Late st Contact Info) Description 11/15/2024 1:00 PM EST Office [place] [phone] Zak Gtz MD [facility] [place] [address] 11/16/2024 2:00 PM EST TH Visit (TeleHealth) [place] [address] Keyanna Wayne APRN [facility] [place] [address] documented as of this encounter Visit Diagnoses Diagnosis Telangiectasia Other and unspecified capillary diseases Rosacea documented in this encounter Care Teams Tile Sorter Relationship Specialty Start Date End Date Maurice Quintana, WES [facility] [address] [place] [address] PCP - General 07/19/14 10/05/17 documented as of this encounter
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
--- NOTE | 2024-10-06 16:17 | DI.RAD_ITS ---
Exam(s) XR THORACIC SPINE COMPLETE EXAM: XR THORACIC SPINE COMPLETE CLINICAL HISTORY: Thoracic spine pain, M54.6, s/p fall. TECHNIQUE: 2D digital imaging was performed. COMPARISON: No exams were available for comparison FINDINGS: Two views There is no evidence of fracture nor listhesis. There is multilevel disc space narrowing in the uppe r and mid thoracic spine and anterior osseous lipping. Facet joints appear unremarkable. No significant scoliosis nor abnormal widening of the paraspinal l analia. No significant osseous lesions. IMPRESSION: Multilevel chronic degenerative disc disease in the thoracic spine. No fractures nor listhesis. DATA REPOSITORY: RADIATION DOSE DELIVERED:
--- NOTE | 2024-10-06 16:19 | DI.RAD_ITS ---
Exam(s) XR CERVICAL SPINE COMP 4-5V EXAM: XR CERVICAL SPINE COMP 4-5V CLINICAL HISTORY: cervical neck pain, M54.2, s/p fall. TECHNIQUE: 2D digital imaging was performed. COMPARISON: No exams were available for comparison FINDINGS: Five views: There is no evidence of fracture or listhesis nor offset of the spinal laminar line. There is moderate disc space narrowing at C6-7 level and anterior osseous lipping. Other disc spaces exhibit normal height. There are bilateral Luschka joint osteophytes at C6-7 level also noted on th e oblique views. No similar findings at the other levels. There are no cervical ribs. Facet joints appear unremarkable. IMPRESSION: Chronic degenerative disc disease C6-7 level, as described above. DATA REPOSITORY: RADIATION DOSE DELIVERED:
--- NOTE | 2024-10-06 16:36 | DI.VRAD_ITS ---
PROCEDURE INFORMATION: Exam: XR Thoracic Spine Exam date and time: 10/06/2024 4:00 PM Age: 54 years old Clinical indication: Injury or trauma; Blunt trauma (contusions or hematomas); Injury date: 10/05/24; Patient HX: Thoracic spine pain, S/P fall TECHNIQUE: Imaging protocol: Radiologic exam of the thoracic spine. Views: 3 views. COMPARISON: CR XR CERVICAL SPINE COMP 4-5V 10/06/2024 3:57 PM FINDINGS: Bones/joints: No acute fracture. There is slight exaggeration of the thoracic kyphosis. No significant vertebral body listhesis seen. There is degenerative disc disease noted with endplate osteophytosis and loss of intervertebral body disc height. Soft tissues: Unremarkable. IMPRESSION: 1. No acute findings. 2. Evidence of degenerative disc disease. Dictated and Authenticated by: Nella Jurado MD. Ordering:KATT Murray MD
--- NOTE | 2024-10-06 16:44 | DI.VRAD_ITS ---
PROCEDURE INFORMATION: Exam: XR Spine; Cervical Exam date and time: 10/06/2024 3:57 PM Age: 54 years old Clinical indication: Injury or trauma; Blunt trauma; Injury date: 10/05/24; Patient HX: Cervical neck pain, S/P fall TECHNIQUE: Imaging protocol: XR of the spine. Exam focused on the cervical spine. Views: 1 view. COMPARISON: US THYROID 09/03/2022 10:12 AM FINDINGS: Bones/joints: No acute fracture. Normal alignment. There is multilevel degenerative disc disease and bilateral uncovertebral and facet arthropathy causing bilateral neural foraminal narrowing most prominent at C5-C6 and C6-C7. No significant spinal canal stenosis. Soft tissues: Normal. IMPRESSION: No acute fracture. Degenerative changes as described. Dictated and Authenticated by: Nella Jurado MD. Ordering:KATT Murray MD
== END 2024-10-06 15:52 ==
PROVIDERS: PCP Nurse Practitioner Family; Visit Provider Nurse Practitioner Family
DX: M50.123 Cervical disc disorder at C6-C7 level with radiculopathy (principal); M51.34 Other intervertebral disc degeneration, thoracic region
CPT/HCPCS: 72050; 72072

== ENCOUNTER 2024-10-06 19:16 | Outpatient (REF) | payer BC, SELFPAY ==
[2024-10-06 19:14] LABS: TSH (W/Ref FT4) 0.77 uIU/mL (0.36-3.74)
== END 2024-10-06 19:17 | disposition home or self-care (01) ==
LOC: LBN 19:16
PROVIDERS: PCP Nurse Practitioner Family; Visit Provider Nurse Practitioner Family
DX: E04.9 Nontoxic goiter, unspecified (principal)
CPT/HCPCS: 84443

== ENCOUNTER 2024-12-10 20:11 | Outpatient (REF) | payer OTHER, SELFPAY ==
[2024-12-10 15:26] LABS: Hemoglobin A1C 6.1 % (<5.7)
[2024-12-10 15:49] LABS: ALT 37 U/L (14-59); AST 24 U/L (15-37); Albumin 3.6 g/dL (3.4-5.0); Alkaline Phosphatase 77 U/L (46-116); Anion Gap 7.3 mmol/L (3-11); BUN 13 mg/dL (7-18); Bilirubin, Total 0.39 mg/dL (0.2-1.0); CO2 28.7 mmol/L (21.0-32.0); CREATININE 0.8 mg/dL (0.55-1.02); Calcium 9.2 mg/dL (8.5-10.1); Chloride 106 mmol/L (98-107); Glucose 87 mg/dL (74-106); Sodium 142 mmol/L (136-145); Total Protein 7.8 g/dL (6.4-8.2)
== END 2024-12-10 20:12 | disposition home or self-care (01) ==
LOC: NCHCN 20:11
PROVIDERS: PCP Nurse Practitioner Family; Visit Provider Nurse Practitioner Family
DX: I10 Essential (primary) hypertension (principal); R73.03 Prediabetes
CPT/HCPCS: 80053; 83036

== ENCOUNTER 2025-01-04 17:32 | Emergency (ER) | payer OTHER, SELFPAY ==
[2025-01-04 17:36] VITALS: BP 177/110; PULSE 59; RESP 18; TEMP 36.3; O2SAT 98
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
--- NOTE | 2025-01-04 18:30 | DI.RAD_ITS ---
Exam(s) XR SHOULDER RT COMPLETE 2+V EXAM: XR SHOULDER RT COMPLETE 2+V CLINICAL HISTORY: R shoulder pain. TECHNIQUE: 2D digital imaging was performed. Five views. COMPARISON: No exams were available for comparison FINDINGS: BONES: No acute fracture is present. No bony destructive lesion is seen. JOINTS: No dislocation present. Minimal degenerative changes of the AC joint and glenohumeral joint. SOFT TISSUE: Normal. IMPRESSION: Unremarkable radiographs of the right shoulder. DATA REPOSITORY: RADIATION DOSE DELIVERED:
--- NOTE | 2025-01-04 18:30 | DI.RAD_ITS ---
Exam(s) XR HAND RT COMPLETE EXAM: XR HAND RT COMPLETE CLINICAL HISTORY: index mid finger pain. TECHNIQUE: 2D digital imaging was performed. Three views. COMPARISON: CR LEFT HAND COMPLETE from 09/07/2017 FINDINGS: BONES: No acute fracture is present. No bony destructive lesion is seen. JOINTS: No dislocation present. SOFT TISSUE: Normal. IMPRESSION: Unremarkable radiographs of the right hand. DATA REPOSITORY: RADIATION DOSE DELIVERED:
[2025-01-04] MEDS: Ibuprofen 400 MG TAB PO (19:22)
--- NOTE | 2025-01-04 20:23 | DI.VRAD_ITS ---
PROCEDURE INFORMATION: Exam: XR Right Shoulder Exam date and time: 01/04/2025 7:25 PM Age: 54 years old Clinical indication: Right; R shoulder pain TECHNIQUE: Imaging protocol: Radiologic exam of the right shoulder. Views: 2 or more views. COMPARISON: CR XR CERVICAL SPINE COMP 4-5V 10/06/2024 3:57 PM FINDINGS: Bones/joints: Four views of the right shoulder reveal no acute fracture or dislocation. Soft tissues: No gross focal soft tissue abnormality is demonstrated. IMPRESSION: No acute fracture or dislocation seen at the right shoulder. Dictated and Authenticated by: Gutierrez Shaffer MD. Orderin Sandie Do MD
--- NOTE | 2025-01-04 20:26 | DI.VRAD_ITS ---
PROCEDURE INFORMATION: Exam: XR Right Hand Exam date and time: 01/04/2025 7:33 PM Age: 54 years old Clinical indication: Hand; Right; Index \T\ mid finger pain TECHNIQUE: Imaging protocol: Radiologic exam of the right hand. Views: 3 or more views. COMPARISON: No relevant prior studies available. FINDINGS: Bones/joints: Three views of the right hand reveal no acute fracture or dislocation. Soft tissues: There is soft tissue swelling through the proximal aspect of the index and middle fingers. Correlation with physical exam is recommended. No radiopaque foreign body is identified. IMPRESSION: No acute fracture or dislocation seen in the right hand. Dictated and Authenticated by: Gutierrez Shaffer MD. Orderin Sandie Do MD
== END 2025-01-04 20:50 | disposition home or self-care (01) ==
PROVIDERS: Emergency Provider Physician Assistant; PCP Nurse Practitioner Family
DX: S43.401A Unspecified sprain of right shoulder joint, initial encounter (principal); S63.612A Unspecified sprain of right middle finger, initial encounter; Y08.89XA Assault by other specified means, initial encounter
CPT/HCPCS: 99284; 73030; 73130; 99283

== ENCOUNTER 2025-06-02 13:57 | Outpatient (REF) | payer OTHER, SELFPAY | END 2025-06-02 13:58 | disposition home or self-care (01) | LOC: LBN 13:57 | PROVIDERS: PCP Nurse Practitioner Family; Visit Provider Obstetrics & Gynecology | DX: L91.8 Other hypertrophic disorders of the skin (principal) | CPT/HCPCS: 88142; 88304; 88305 ==

== ENCOUNTER 2025-06-03 00:21 | Outpatient (CLI) | payer OTHER, SELFPAY ==
--- NOTE | 2025-06-03 13:04 | DI.MAMMO_ITS ---
Exam(s) MAMMO SCREENING EXAM: MAMMO SCREENING CLINICAL HISTORY: screening TECHNIQUE: Mammograms were interpreted according to the usual protocol including computer analysis with CAD system, tomosynthesis and C-view imaging. COMPARISON: 03 March 2012 FINDINGS: The breasts are composed of mainly fatty density , Breast Density category A. Left breast: No suspicious masses or suspicious microcalcifications are seen. No skin thickening or abnormal axillary lymph nodes are seen. There has been no significant change from prior exams. Right breast: There is a new area nodularity seen anterior breast tissue, 2 cm from the nipple, measuring 7 millimeters. There appears to be mild spiculation. No suspicious microcalcifications. No skin thickening or abnormal axillary lymph nodes are seen. IMPRESSION: BI-RADS Category 0 - Incomplete: Need additional imaging evaluation. Right breast: Spot compression views and ultrasound are requested for further evaluation of a new area of nodularity in the anterior right breast. Left breast: Yearly screening mammography is recommended. Breast Density- Category A - The breast are almost entirely fatty. Breast density Category C or D implies that the patient has dense breast tissue. Dense breast tissue can make it harder to find cancer on a mammogram. Dense breast tissue is also associated with an increased risk of breast cancer. This information about the result of the mammogram report was provided to the patient to raise their awareness. Use this report when you speak with the patient about their risks for breast cancer, which includes their family history. At that time, you may recommend additional screening tests (Ultrasound or MRI) as these tests may add significant information. A negative radiographic report should not delay biopsy if a dominant or clinically suspicious mass is present. Up to ten percent of cancers are not identified on mammography. A negative report may reinforce clinical impression. Adenosis and dense breasts may obscure an underlying neoplasm. False positive reports average 6 to 10%. Patient will receive a letter notifying them of these results.
== END 2025-06-03 00:41 ==
PROVIDERS: PCP Physician Assistant; Visit Provider Obstetrics & Gynecology
DX: Z12.31 Encounter for screening mammogram for malignant neoplasm of breast (principal); R92.313 Mammographic fatty tissue density, bilateral breasts
CPT/HCPCS: 77063; 77067

== ENCOUNTER 2025-06-08 02:52 | Outpatient (CLI) | payer OTHER, SELFPAY ==
--- NOTE | 2025-06-08 | DI.US_ITS ---
Exam(s) MG MAMMO SCREEN CALL BACK UNI US BREAST RT COMPLETE EXAM: MG MAMMO SCREEN CALL BACK UNI CLINICAL HISTORY: NEW AREA NODULARITY IN ANTERIOR RIGHT BREAST R92.8 ABNL MAMMO. TECHNIQUE: Craniocaudal and mediolateral oblique spot compression digital Mammography views of the rightbreast with Tomosynthesis and right breast ultrasound. COMPARISON: MG MG MAMMO SCREENING from 06/03/2025 US US BREAST RT COMPLETE from 06/08/2025 FINDINGS: Mammography/Tomosynthesis: Masses: Persistent spiculated mass in the subareolar region of the right breast measuring 7 millimeters in diameter. Architectural Distortion: None seen. Microcalcifictions: No suspicious pleomorphic-type are seen. Skin Thickening/Nipple Retraction: None. Right breast US: Echotexture: Normal appearance of the glandular tissue. Cyst: None. Solid lesions: Hypoechoic lesion in the 1 o'clock position 2 cm from the nipple measuring roughly 6 millimeters in diameter. The borders are irregular and difficult to precisely measure. There is associated shadowing. No additional masses are identified. Ductal dilation: None. IMPRESSION: 1. Suspicious mass in the 1 o'clock position of the right breast. Biopsy is recommended. 2. The findings were discussed with the patient on the date of the examination. The findings were phoned to Dr. Barnard. BI-RADS Category 4 - Suspicious Abnormality: Biopsy should be considered Breast Density - Category A - The breast are almost entirely fatty. Breast density Category C or D implies that the patient has dense breast tissue. Dense breast tissue can make it harder to find cancer on a mammogram. Dense breast tissue is also associated with an increased risk of breast cancer. This information about the result of the mammogram report was provided to the patient to raise their awareness. Use this report when you speak with the patient about their risks for breast cancer, which includes their family history. At that time, you may recommend additional screening tests (Ultrasound or MRI) as these tests may add significant information. A negative radiographic report should not delay biopsy if a dominant or clinically suspicious mass is present. Up to ten percent of cancers are not identified on mammography. A negative report may reinforce clinical impression. Adenosis and dense breasts may obscure an underlying neoplasm. False positive reports average 6 to 10%. Patient will receive a letter notifying them of these results.
== END 2025-06-08 03:12 ==
PROVIDERS: PCP Physician Assistant; Visit Provider Obstetrics & Gynecology
DX: Z12.31 Encounter for screening mammogram for malignant neoplasm of breast (principal); R92.8 Other abnormal and inconclusive findings on diagnostic imaging of breast; R92.313 Mammographic fatty tissue density, bilateral breasts
CPT/HCPCS: 76642; 77063; 77067

== ENCOUNTER 2025-06-15 01:25 | Outpatient (CLI) | payer OTHER, SELFPAY ==
--- NOTE | 2025-06-15 07:30 | DI.MAMMO_ITS ---
Exam(s) MAMMO DIAGNOSTIC UNI EXAM: MAMMO DIAGNOSTIC UNI CLINICAL HISTORY: post biopsy marker,rt breast mass, n63.10. TECHNIQUE: Craniocaudal and mediolateral Full Field Digital Mammography views of the right breast with Computer Aided Diagnosis were obtained post-biopsy to evaluate the position of the biopsy marker. COMPARISON: US POCUS EXAM from 06/15/2025 FINDINGS: Mammography/Tomosynthesis: [id number] old female. Post Ultrasound-guided core needle biopsy of the right breast. A UltraClip II biopsy marker is identified in the 12-1 o'clock position of the right breast approximately 3.2cm from the nipple. Marker is located at the expected site of the recent biopsy. No evidence of immediate complication such as hematoma, skin thickening or pneumothorax. IMPRESSION: 1. Successful placement of the biopsy marker in the right breast at the expected site of recent Ultrasound-guided biopsy. 2. No acute post-procedural complications. 3. Recommend routine follow-up per standard practice and correlation with pathology results. BI-RADS Category 4 - Suspicious Abnormality: Biopsy should be considered Breast Density - Category B - There are scattered areas of fibroglandular density. Breast density Category C or D implies that the patient has dense breast tissue. Dense breast tissue can make it harder to find cancer on a mammogram. Dense breast tissue is also associated with an increased risk of breast cancer. This information about the result of the mammogram report was provided to the patient to raise their awareness. Use this report when you speak with the patient about their risks for breast cancer, which includes their family history. At that time, you may recommend additional screening tests (Ultrasound or MRI) as these tests may add significant information. A negative radiographic report should not delay biopsy if a dominant or clinically suspicious mass is present. Up to ten percent of cancers are not identified on mammography. A negative report may reinforce clinical impression. Adenosis and dense breasts may obscure an underlying neoplasm. False positive reports average 6 to 10%. Patient will receive a letter notifying them of these results.
== END 2025-06-15 01:45 ==
PROVIDERS: PCP Physician Assistant; Visit Provider Surgery
DX: N63.12 Unspecified lump in the right breast, upper inner quadrant (principal); Z12.31 Encounter for screening mammogram for malignant neoplasm of breast
CPT/HCPCS: 77061; 77065; G0279

== ENCOUNTER 2025-06-15 12:20 | Outpatient (REF) | payer OTHER, SELFPAY ==
--- NOTE | 2025-06-15 12:35 | BREAST_PTH ---
PATIENT: Angeline Barnes LOC: [facility] U#:[id number] AGE/SX: 55/F ROOM: RE06/15/[address]: Monika Balbuena MD : 1970 BED: DIS: 06/15/2025 SPEC #: [id number] RECD: 06/15/25 13:20 STATUS: PHANI REQ #: [id number] JAYLA: 06/15/25 12:[address]: Monika Balbuena DEPT: Surgical Specimen RECD BY: Farida Navarrete ENTERED: 06/15/25 13:21 SP TYPE: Breast OTHR DR: Arben Burgess Tissues: 1 - BREAST BX NEEDLE Procedures: GROSS AND MICRO LEVEL 4 Comments: [id number]
== END 2025-06-15 12:21 | disposition home or self-care (01) ==
LOC: LBN 12:20
PROVIDERS: PCP Physician Assistant; Referring Provider Surgery; Visit Provider Surgery
DX: D24.1 Benign neoplasm of right breast (principal)
CPT/HCPCS: 88305

== ENCOUNTER 2025-06-20 11:59 | Outpatient (REF) | payer OTHER, SELFPAY ==
--- NOTE | 2025-06-20 11:50 | BREAST_PTH ---
PATIENT: Angeline Barnes LOC: [facility] U#:[id number] AGE/SX: 55/F ROOM: RE06/20/[address]: Monika Balbuena MD : 1970 BED: DIS: 06/20/2025 SPEC #: [id number] RECD: 06/20/25 13:08 STATUS: PHANI REQ #: [id number] JAYLA: 06/20/25 11:[address]: Monika Balbuena DEPT: Surgical Specimen RECD BY: Farida Navarrete ENTERED: 06/20/25 13:09 SP TYPE: Breast OTHR DR: Arben Burgess Tissues: 1 - BREAST BX NEEDLE Procedures: GROSS AND MICRO LEVEL 4 Comments: [id number]
== END 2025-06-20 12:00 | disposition home or self-care (01) ==
LOC: LBN 11:59
PROVIDERS: PCP Physician Assistant; Referring Provider Surgery; Visit Provider Surgery
DX: N60.21 Fibroadenosis of right breast (principal)
CPT/HCPCS: 88305

== ENCOUNTER 2025-08-12 11:39 | Day surgery (SDC) | payer OTHER, SELFPAY ==
[2025-08-12] VITALS (25 sets, daily range): BP systolic 134–158; BP diastolic 84–107; PULSE 54–75; RESP 11–22; TEMP 36.3–36.5; O2SAT 94–98; BMI 40.8
[2025-08-12] MEDS: Lactated Ringers 1,000 ML 80 ML IV (12:19)
--- NOTE | 2025-08-12 12:24 | W.ANESPRE ---
General Info Date of Service Date Performed: 08/12/25 Height: 5 ft 8 in Weight: 121.9 kg Body Mass Index (BMI): 40.8 Surgical Procedure: Operation Date: 08/12/25 13:10 Proposed Procedure Side Surgeon p Biopsy Breast Right Monika Balbuena MD Meds Allergies and Home Medications Allergies Allergy/AdvReac Type Severity Reaction Status Date / Time No Known Drug Allergies Allergy Other (See Verified 08/12/25 11:59 Comment) Home Medication ?Medication ?Instructions ?Recorded lisinopril 10 mg tablet 10 mg PO DAILY 01/04/25 tirzepatide 5 mg/0.5 mL 5 mg subcut QWEEK 06/15/25 subcutaneous pen injector (King) Current Visit Medications: Current Medications Generic Name Dose Route Start Last Admin Trade Name Freq PRN Reason Stop Dose Admin Ringer's Solution 1,000 mls @ 80 mls/hr 08/12/25 06:00 08/12/25 12:19 IV 08/12/25 23:59 80 mls/hr INFUSION PHIL Administration Cefazolin Sodium/Dextrose 2 gm in 50 mls @ 100 mls/hr 08/12/25 06:00 Ancef Duplex IVPB 08/12/25 23:59 PREOP PHIL IV Miscellaneous Supplies 1 each 08/12/25 06:00 Iv Access IV 08/12/25 23:59 DIRECTED PHIL Sodium Chloride 0 ml 08/12/25 06:00 Normal Saline Flush 10 Ml Syr IV 08/12/25 23:59 PRN PRN Sodium Chloride 0 ml 08/12/25 06:00 Normal Saline 10 Ml Vial IJ 08/12/25 23:59 DIRECTED PRN Sterile Water 0 ml 08/12/25 06:00 Water,Injection,Sterile 10 Ml Vial IJ 08/12/25 23:59 DIRECTED PRN PFSH Active Problems Active Problems: Problem Status Onset Code Mass of upper inner quadrant of right breast Acute N63.12 Abnormal mammogram of right breast Acute R92.8 Multinodular thyroid Acute E04.2 Enlarged thyroid Acute E04.9 Hypertension Chronic I10 Tobacco use Chronic Z72.0 Skin lesion Acute 01/09/17 L98.9 Primary osteoarthritis of right knee Chronic 12/31/17 M17.11 Obesity Chronic 03/02/12 E66.9 Labial skin tag Acute 05/28/17 N90.89 Medical History Medical History Metatarsalgia, right foot Peripheral edema PTSD (post-traumatic stress disorder) Pt. states she does not have any potential triggers at this time Lymphadenopathy Uterine mass 2017. 3cm fibroid. 2021. 13cm uterine fibroid. Irregular menstrual cycle Heavy bleeding with short intervals. Unsuccessful attempt at endometrial ablation 07/2018. Patient declines LARC HSV (herpes simplex virus) infection Depression Obesity Biliary colic GALLSTONES Surgical History Surgical History History of robot-assisted laparoscopic hysterectomy and BSO @ [facility] [place] 08/13/22. Benign uterine fibroid. H/O LEEP Tubal Ligation, Laparoscopic GASTRIC BANDING GASTRIC BAND REMOVAL (~2006) Cholecystectomy Tobacco Smoking/Tobacco Use Status: Current every day Tobacco Type: cigarettes Passive smoking exposure: No Alcohol Alcohol Intake: never Substance Use Substance use: Never Substance use type: does not use Prental History History 4 Para 4 Hx # Term Pregnancies 4 Multiple births Hx # Pregnancies Ectopic pregnancies AB induced Hx Number of Living Children 4 AB spontaneous Past Pregnancies Del. Date GA/Weeks # Preg Succ Route Wgt Sex Labor Lgth Anesthesia Location Prov Complic 05/31/97 40 No Yes vaginal 3628.739 g Female [facility] 09/20/00 40 No Yes vaginal 2863.302 g Male [facility] 09/07/01 40 No Yes vaginal 3685.438 g Male [facility] 03/13/06 40 No Yes vaginal 3798.836 g Male [facility] Vital Signs and Lab Results Vital Signs Most Recent Vital Signs in EMR: Most Recent Vital Signs Temp Pulse Resp BP Pulse Ox 36.3 C L 60 16 134/97 H 97 08/12/25 11:40 08/12/25 11:40 08/12/25 11:40 08/12/25 11:40 08/12/25 11:40 Imaging and Studies Imaging and Studies Study information below may be from another EMR and interpreted by another provider. Please see original notes in EMR for more complete details. Echocardiogram Summary: 02/2017:Summary: 1. Left ventricle: The cavity size was normal. Wall thickness was increased in a pattern of mild LVH. Systolic function was normal. The estimated ejection fraction was 60-65%. Wall motion was normal; there were no regional wall motion abnormalities. 2. Left atrium: The atrium was mildly dilated. 3. Right ventricle: The cavity size was normal. Wall thickness was normal. Systolic function was normal. 4. Right atrium: The atrium was mildly dilated. Anesthesia Assessment and Plan Anesthesia History Personal History: No History of Anesthesia Complications Family History: No Family History of Anesthesia Complications Exercise Tolerance Exercise Tolerance: Metabolic Equivalents>4 Pertinent Negatives Pertinent Negatives: No Symptoms of GERD Cardiac & Pulmonary Exam Cardiac Exam: Normal S1/S2 Heart Sounds Pulmonary Exam: Clear Bilateral Breath Sounds Implantable Cardiac Device Does patient have a Pacemaker or an ICD?: No Airway Exam Known Difficult Airway: No Mallampati Class: 2 Mouth Opening: Normal (> 3cm) Thyromental Distance: Less than 3 cm Neck Range of Motion: Full ROM Neck Circumference: Thick Teeth Condition: Normal Dentition ASA Classification ASA Score: ASA 3 Emergency Case?: No NPO Status NPO Status: NPO Clears >2 hours, Solids >8 hours Status Status: Negative HCG Anesthesia Plan Resuscitation Status: Full Code Anesthesia Technique: General Anesthesia Airway Planned: Endotracheal Tube Monitors Used: Standard Monitors
--- NOTE | 2025-08-12 13:05 | W.PM.DSUDISC ---
Date of service: 08/12/25 Discharge Plan Disposition Patient Disposition: Home Condition: Stable Discharge Details Reason For Visit: excisional biopsy of right breast mass, skin tag Attending Provider: Monika Balbuena Primary Care Provider: Arben Burgess Recommendations for Follow Up Recommended tests to be ordered by follow up provider: none, surgeon to follow up Home Meds and New Rx's Prescriptions: New hydrocodone-acetaminophen 5-325 mg tablet 1 tab PO Q6H PRN (Reason: pain) Qty: 8 0RF Continued Mounjaro 5 mg/0.5 mL pen injector 5 mg subcut QWEEK lisinopril 10 mg tablet 10 mg PO DAILY Patient Comments: TAKE ONE TABLET BY MOUTH EVERY MORNING FOR HIGH BLOOD PRESSURE Discharge Instructions Additional Instructions: Ok to shower in 48 hours. Wash gently over steristrips with soapy hands. Rinse, pat dry. Do not peel or submerge under water (no bathtub or pool). No need to replace the bandage over the skin tag site after it scabs over. Remember that spot bleeding from the skin tag site is normal and expected, healthy skin bleeds where a skin tag is removed from and its okay! Ok to use hands and arms normally for activities of daily life and work. No activity restrictions. Wear a bra for comfort. Initially your incision may appear dimpled or contracted but that normalizes with time as you heal. You may also feel a lump where the surgery occurred as the healing process moves forward. Ok to return to work as planned on Friday. Call or return with any incisional concerns or fever. Stand Alone Forms: Anesthesia Discharge InstTana Gibson (DSU) Referrals: Monika Balbuena MD [ [facility] STAFF PHYSICIAN, Surgery] - 08/31/25 10:30 am Activity:: Activity as Tolerated Shower/Bathe:: 48 hours Diet:: As Tolerated DS: Diagnosis Discharge Diagnosis (1) Mass of upper inner quadrant of right breast: Status: Acute (2) Skin tag, acquired: Status: Acute
[2025-08-12] MEDS: ceFAZolin 2 GM/50 ML BAG IVPB (13:20)
--- NOTE | 2025-08-12 14:10 | BREAST_PTH ---
PATIENT: Angeline Barnes LOC: [facility] U#:[id number] AGE/SX: 55/F ROOM: RE08/12/[address]: Monika Balbuena MD : 1970 BED: DIS: 08/12/2025 SPEC #: [id number] RECD: 08/12/25 17:48 STATUS: HELENRavin REJuan Daniel #: [id number] JAYLA: 08/12/25 14:[address]: Monika Balbuena DEPT: Surgical Specimen RECD BY: Farida Navarrete ENTERED: 08/12/25 17:50 SP TYPE: Breast OTHR DR: Arben Burgess Tissues: 1 - BREAST INCISION/EXCISION Procedures: GROSS AND MICRO LEVEL 5 [id number] IPEX ESTROGEN/PROGESTERONE RECEPTOR IPEX STAIN Comments: [id number]
[2025-08-12] MEDS: Lidocaine 1.5 % Pres-Free W/EPI 1/200,000 30 ML VIAL (14:16)
--- NOTE | 2025-08-12 14:31 | ROE_ITS ---
Operative Note Operative Note Procedure Description: PRE-OP DIAGNOSIS: 1. Right breast mass at 1:00, 2cm from the nipple. 2. skin tag of right chest wall POST-OP DIAGNOSIS: same PROCEDURE: 1. Ultrasound guided right breast mass excisional biopsy 2. excision of right chest wall skin tag SURGEON: Monika Balbuena DIRECTOR OF STUDENT FINANCIAL AID: Nelly Raymundo ANESTHESIA TYPE: Local By Surgeon and General LMA Refer to Anesthesia Record PATHOLOGY: 1. right breast mass (long stitch lateral, short superior, double anterior) Indications: 55yo F with a suspicious 7mm mass of the right breast. She had two core needle biopsies with discordant results showing benign breast tissue. Excisional biopsy was indicated. The lesion is not palpable, but it is clipped and visible sonographically at 1:00 position in the right upper inner breast, 2cm from the nipple. The mass size is 6-7mm. Ultrasound guidance planned for the excisional biopsy. Procedure Description: Informed consent was obtained after complete discussion of the procedure risks and benefits and alternatives and expectations. In the operating room the patie nt was placed supine on the operating table. SCDs were placed and all pressure points were padded appropriately. General anesthesia was induced. Timeout was performed. The right breast and chest wall were prepped and draped in the usual sterile fashion. The right upper chest wall skin tag was pedunculated and measured 5mm on a 2mm base. Local anesthetic was injected at the base, and a scalpel used to amputate it. It was discarded. US guidance was used to identify the location of the breast mass in the 1 o'clock position of the breast, 2 cm from the nipple. The mass was easily identified and its location confirmed. The skin was marked with the planned incision and excision margins. Skin incision was completed at the areolar border after the skin was anesthetized. Dissection down to the breast tissue was done with cautery. A lump of breast tissue was removed from the right breast around the known location of the mass in question. The lump was removed from the breast with cautery and marked with orienting sutures. The ultrasound confirmed presence of the mass within the excised breast tissue. Cold ischemic time was approximately 8 minutes. 3 hemoclips were placed within the cavity to dwayne the location of the excision onn future imaging. The cavity was irrigated clean and hemostasis confirmed. The subcutaneous tissues were reapproximated to close the cavity and bring the skin edges together. This was done with interrupted 3-0 Vicryl sutures. The skin was then closed with interrupted 4-0 Monocryl suture in subcuticular fashion. The incision was washed and dried. Steri-Strips were placed over the incision and a bandaid placed over the skin tag site. All sponge and instrument counts were correct at the end of the case. The patient tolerated the procedure well. She woke from anesthesia in the operating room and transferred to the recovery room in stable condition. There were no complications Limited Soft Tissue Exam DATE OF EXAM: 08/12/25 PROVIDER THAT PERFORMED THE STUDY: Monika Balbuena IS THIS A REPEAT EXAM DURING THIS ENCOUNTER: No LOCATION OF EXAM: Breast/right (right breast, 1:00 position, 2cm from nipple. ) REASON FOR EXAM: Other indication: localization of the known right breast mass for excisional biopsy operation. PERTINENT FINDINGS/IMPRESSION: Other impression: 6-7mm irregular, taller than wide hypoechoic lesion with hyperechoic clip below it. Confirmed location, depth and appearance of known right breast mass from formal ultrasounds. Site marked for biopsy. The specimen was ultrasounded at the conclusion of the case and the lump and clip confirmed to be present within the specimen. Exam Complete DIFFERENTIAL DIAGNOSES: Breast cancer, papilloma, fibroadenoma, phyllodes tumor Date of Procedure: 08/12/25
[2025-08-12] MEDS: fentaNYL 100 MCG/2 ML VIAL IVP (14:58)
--- NOTE | 2025-08-12 15:21 | W.ANESPOSTOP ---
Postoperative Evaluation Date, Time and Location Date Performed: 08/12/25 Time Performed: 15:21 Patient Location: Day Surgery Unit Vital Signs Most Recent Imported Vital Signs: Most Recent Vital Signs Temp Pulse Resp BP Pulse Ox 36.3 C L 60 19 149/98 H 95 08/12/25 14:39 08/12/25 15:06 08/12/25 15:06 08/12/25 15:06 08/12/25 15:06 Pain Score Most Recent Pain Score: Most Recent Pain Score Pain Level 7 08/12/25 15:04 Assessment Mental Status: Awake (Alert & Oriented to Patient Baseline) Airway and Respiratory Function: Patent airway with normal (patient baseline) respiratory exam Cardiovascular Function: Hemodynamically Stable Hydration Status: Adequately Hydrated Nausea & Vomiting: No Nausea or Vomiting Pain: Pain is tolerable per patient Peripheral Nerve Block: Patient did not receive a nerve block
== END 2025-08-12 16:20 | disposition home or self-care (01) ==
PROVIDERS: PCP Physician Assistant; Visit Provider Surgery
PROC: (CPT 19301; principal; 2025-08-12 13:00)
DX: C50.211 Malignant neoplasm of upper-inner quadrant of right female breast (principal); L91.8 Other hypertrophic disorders of the skin; E04.2 Nontoxic multinodular goiter; I10 Essential (primary) hypertension; F17.210 Nicotine dependence, cigarettes, uncomplicated; E66.9 Obesity, unspecified; M17.11 Unilateral primary osteoarthritis, right knee; F43.10 Post-traumatic stress disorder, unspecified; F32.A Depression, unspecified; Z68.41 Body mass index [BMI] 40.0-44.9, adult
CPT/HCPCS: 19301; 11200; 88360; 88307; J0690; J1100; J2003; J2405; J2704; J3010